=== PATIENT | male | born 1965 | race Two or more races ===

== ENCOUNTER 2021-01-10 20:09 | Emergency (ER) | payer MEDICAID, SELFPAY ==
[2021-01-10 20:12] VITALS: BP 127/78; PULSE 100; RESP 18; TEMP 36.8; O2SAT 96
[2021-01-10 20:42] LABS: Strep A Nucleic Acid Positive (Negative)
[2021-01-10 20:53] LABS: COVID-19 Test Negative (Negative); IDNOW Serial# 9DD0AD1C
[2021-01-10 21:02] LABS: Appearance Urine CLEAR; Color Urine STRAW; Glucose Urine UA >=1000 MG/DL (NEG); Leukocyte Esterase Urine NEG (NEG); Nitrite Urine NEG (NEG); Specific Gravity - Urine <= 1.005 (1.005-1.025); UACC Culture Trigger NO; Urine Blood 3+ (NEG); Urine Ketones NEG (NEG); Urine Protein NEG (NEG-TRACE)
[2021-01-10 21:11] LABS: Bacteria Urine 1+ /LPF; RBC Urine 30-49 /HPF (0); UACC CULT YES
--- NOTE | 2021-01-10 23:30 | ED.GENADULT ---
HPI - General Adult General Chief complaint: General Medical Stated complaint: Multiple complaints Time Seen by Provider: 01/10/21 23:09 Source: patient Mode of arrival: ambulatory Limitations: no limitations History of Present Illness HPI narrative: 55-year-old male who presents emergency department for evaluation of sore throat, productive cough, shortness of breath, painful bloody urination. The patient states he has been feeling sick for approximately 4-5 days states that he has pain on the right side of his throat and neck which is constant, sharp pain, 8/10 at its worst exacerbated by swallowing. Cough which is productive of black thick sputum, he denied any blood in the sputum. He states these had subjective fever and chills, he has also had cold sweats. He states that he has mild chest pain which is worse with coughing. He has also experienced shortness of breath and no dyspnea on exertion. Patient states that today he developed a pressure-like sensation in his bladder and he had painful bloody urine. Denied any penile discharge. The patient is vaccinated against COVID-19 and received the 2 shot Moderna vaccine. Related Data Previous Rx's Medication Instructions Recorded cephalexin 500 mg capsule 500 mg PO QID 10 Days #40 cap 01/10/21 Allergies Allergy/AdvReac Type Severity Reaction Status Date / Time enalapril [ENALAPRIL] Allergy Intermediate STOMACH Verified 01/10/21 20:11 PROBLEMS Review of Systems Review of Systems: Yes all other systems are reviewed and are negative [facility] Past Medical History [facility] Narrative: Past medical history: Diabetes mellitus, hypertension, bronchitis, H pylori, neuropathy, osteoarthritis, compression fractures, syphilis diagnosed and treated in 2004. Surgical history: Right knee surgery. Social history: The patient smokes 1 pack of cigarettes per day times 35 years. Denies alcohol use. The patient smokes 1 large tobacco rolled blunt marijuana cigarette per day. Medical History Arthritis Back pain Diabetes HTN (hypertension) Social History Social History Advance Directives: No Advance Directives Information Provided: No Physical Exam Vital Signs: Vital Signs: Last Vital Signs Temp 98.2 F 01/10/21 20:12 Pulse 100 01/10/21 20:12 Resp 18 01/10/21 20:12 BP 127/78 01/10/21 20:12 Pulse Ox 96 01/10/21 20:12 Body Mass Index 0.2 Const: General: cooperative and no acute distress Orientation/consciousness: oriented to person and oriented to place Limitations: no limitations HENMT: Head: Yes normal to inspection, Yes normocephalic and Yes atraumatic Ears: external ears normal General nose exam: Normal external nose present Face and sinus: Yes normal facial exam Mouth: Normal oral and palatal mucosa present Throat: Yes tonsils normal, Yes uvula midline and Yes abnormal tonsil (Bilateral exudates) Eyes: General: appearance normal, both eyes and all related structures Pupils: Equal, round and reactive pupils present Neck: Neck: Yes normal visual inspection, Yes no lymphadenopathy, Yes trachea midline and Yes supple Chest: Chest palpation & inspection: normal inspection of the chest and normal palpation of entire chest wall Resp: Effort & Inspection: normal respiratory effort and able to speak in complete sentences Auscultation: clear to auscultation bilaterally Cardio: Rate: regular rate Rhythm: regular rhythm Heart sounds: S1 normal heart sound present, S2 normal heart sound present and no murmurs GI: Inspection: Yes normal to inspection Palpation (GI): Soft to palpation, Tenderness to palpation present (GI) suprapubicly (Moderate) and no guarding Auscultation: normal bowel sounds : General: Yes no CVA tenderness Back/Spine/Pelvis: Back: no CVA tenderness Skin: General skin exam: no rashes or lesions noted Neuro: General: oriented to person and oriented to place Cranial nerves: Yes CN's II-XII intact bilaterally and Yes Equal, round and reactive pupils present Cognition (Neuro): normal cognition Motor exam (neuro): 5/5 motor strength present throughout Extrem: General: Yes normal to inspection Psych: Appearance: grossly normal Speech and movement: Normal speech and movement present Affect: normal affect Attitude: cooperative Thought process: Normal thought process present Thought content: Normal thought content present Course Course Course Narrative: 55-year-old male who presents emergency department with multiple complaints of productive cough, shortness of breath, sore throat, painful bloody urination. Patient has had symptoms for 4-5 days. Vital signs revealed a pulse of 100 otherwise unremarkable. Examination did reveal posterior erythema with exudates on his throat exam, patient does have suprapubic tenderness, lung exam was clear. Patient's COVID-19 test was negative. Patient's group A grp AMADA test was positive for group a strep suggested he might have strep pharyngitis. Patient's urinalysis revealed 3+ blood, negative leukocyte esterase negative nitrates, positive blood. Microscopic revealed up to 50 WBCs, up to 9 RBCs, 1+ bacteria. Given these findings, the patient will be treated with Keflex 500 mg 4 times a day for 10 days to treat streptococcal pharyngitis, urinary tract infection and bronchitis. The patient is sexually active and I did get a 2nd non clean catch urine for gonorrhea and chlamydia. The patient will need to follow-up with his PCP for this result. Patient was discharged home. The patient was given verbal and printed instructions prior to discharge. The patient was advised to follow-up with his PCP in 2 days and to return to the emergency department if his symptoms get worse or if he develops any new symptoms that are concerning to him. The patient was given verbal and printed instructions prior to discharge. Medical Decision Making Lab Data Labs: Lab Results 01/10/21 01/10/21 01/10/21 Range/Units 20:19 20:19 20:53 Urine Color STRAW Urine Appearance CLEAR Urine pH 6.0 (5.0-8.0) Ur Specific [place] <= 1.005 (1.005-1.025) Urine Protein NEG (NEG-TRACE) MG/DL Urine Glucose (UA) >=1000 H (NEG) MG/DL Urine Ketones NEG (NEG) MG/DL Urine Blood 3+ H (NEG) Urine Nitrite NEG (NEG) Ur Leukocyte Esterase NEG (NEG) Urine RBC 30-49 H (0) /HPF Urine WBC 5-9 H (0-4) /HPF Ur Squamous Epith Cells NONE /LPF Urine Bacteria 1+ /LPF COVID-19 (VELIA) Negative (Negative) COVID-19 Clin Com See Note S. pyogenes GrpA AMADA Positive A (Negative) Discharge Plan Discharge Clinical Impression: Acute streptococcal pharyngitis Acute bronchitis Qualifiers: Bronchitis organism: unspecified organism Qualified Code(s): J20.9 - Acute bronchitis, unspecified Urinary tract infection Qualifiers: Urinary tract infection type: site unspecified Hematuria presence: with hematuria Qualified Code(s): N39.0 - Urinary tract infection, site not specified Patient Disposition: Home, Self-Care Instructions: Urinary Tract Infection in Men (ED), Strep Throat (ED), Acute Bronchitis (ED) Additional Instructions: Your rapid strep test was positive suggesting that you have strep throat. Your urine was positive for red blood cells, slightly positive for white blood cells and positive for bacteria. Your COVID-19 test was negative. At this time I am going to treat you with Keflex 500 mg 4 times a day for 10 days. This antibiotic will treat strep throat, bronchitis and a urinary tract infection. Your urine was tested for gonorrhea and chlamydia (sexually transmitted diseases). This test will not come back today. You will need to check this test with your doctor or through the patient portal. Follow-up with your doctor in 2 days. Please return to the emergency department if your symptoms get worse or if you develop any symptoms that are concerning to you. Prescriptions: New cephalexin 500 mg capsule 500 mg PO QID 10 Days Qty: 40 RF: 0
[2021-01-11 10:24] LABS: CT PCR NOT DETECTED (Not Detect.); NG PCR NOT DETECTED (Not Detect.)
== END 2021-01-11 00:29 | disposition home or self-care (01) ==
PROVIDERS: Emergency Provider Emergency Medicine Emergency Medical Services
DX: J02.0 Streptococcal pharyngitis (principal); J20.9 Acute bronchitis, unspecified; N39.0 Urinary tract infection, site not specified; R05 Cough; R06.02 Shortness of breath; R30.0 Dysuria; Z20.822 Contact with and (suspected) exposure to COVID-19; Z79.899 Other long term (current) drug therapy
CPT/HCPCS: 36415; 81001; 81003; 87086; 87088; 87186; 87491; 87591; 87635; 87651; 99283

== ENCOUNTER 2021-04-16 22:58 | Emergency (ER) | payer MEDICAID, SELFPAY ==
[2021-04-16 23:08] VITALS: BP 136/76; PULSE 91; RESP 16; TEMP 37.6; O2SAT 98; BMI 25.7
[2021-04-16 23:35] LABS: Appearance Urine HAZY; Color Urine YELLOW; Glucose Urine UA NEG (NEG); Leukocyte Esterase Urine 2+ (NEG); Nitrite Urine NEG (NEG); Specific Gravity - Urine 1.015 (1.005-1.025); UACC Culture Trigger YES; Urine Blood 2+ (NEG); Urine Ketones NEG (NEG); Urine Protein NEG (NEG-TRACE)
[2021-04-16 23:41] LABS: Bacteria Urine 2+ /LPF; WBC Clumps Urine NOTED
[2021-04-17 01:20] LABS: CT PCR NOT DETECTED (Not Detect.); NG PCR NOT DETECTED (Not Detect.)
[2021-04-17 02:00] VITALS: BP 128/72; PULSE 84; RESP 12; TEMP 37.6; O2SAT 98
--- NOTE | 2021-04-17 03:40 | ED.MALEGU ---
HPI - Male Genitourinary General Chief complaint: Urogenital-Male Stated complaint: rt side lower abd pain and lump Time Seen by Provider: 04/17/21 03:26 Source: patient Limitations: no limitations History of Present Illness HPI Narrative: This is a 56-year-old male who complains of penile discharge, and also notes that when he has ejaculated today, there was pinkish appearing pus. The patient denies any fever. He has noted that it is difficult for him to try to hold his urine for about the last month and that he has to go to the bathroom immediately. He denies any dysuria. He denies any sexual partner, has been with the same person for 35 years. He has some mild right testicular pain but denies any swelling. He said he has some pain that radiates to his right lower abdomen. He notes he does feel a pressure sensation when he tries to hold in his urine, has some discomfort at the end of ejaculations. He had similar symptoms in the past and was put on antibiotics and referred to urologist but due to an error with his address, ended up not being able to follow-up with the urologist. Related Data Previous Rx's Medication Instructions Recorded cephalexin 500 mg capsule 500 mg PO QID 10 Days #40 cap 01/10/21 sulfamethoxazole 800 1 tab PO BID #60 tab 04/17/21 mg-trimethoprim 160 mg tablet (Bactrim DS) Allergies Allergy/AdvReac Type Severity Reaction Status Date / Time enalapril [ENALAPRIL] Allergy Intermediate STOMACH Verified 01/12/21 14:35 PROBLEMS Review of Systems Constitutional: Constitutional: Denies chills and Denies fever(s) Cardiovascular: Cardiovascular: Reports no additional cardiovascular complaints Respiratory: Respiratory: Reports no additional respiratory complaints Gastrointestinal: Gastrointestinal: Denies nausea and Denies vomiting Genitourinary: Genitourinary: Reports hematospermia ( Pus in urine patient shows a photograph which shows a pink material) and Denies dysuria Neurologic: Denies Sensory deficit (Neuro) [facility] Past Medical History Medical History (Updated 04/17/21 @ 03:49 by Romeo Pace MD) Arthritis Back pain Diabetes HTN (hypertension) Social History Social History (System 01/12/21 @ 14:35 by Pia Agosto) Alcohol intake: unknown Patient Tobacco Use Status: Tobacco use Unknown Use of substances other than those prescribed or required for medical reasons: Unknown Advance Directives: No Advance Directives Information Provided: No Physical Exam Vital Signs: Vital Signs: Last Vital Signs Temp 99.6 F 04/16/21 23:08 Pulse 91 04/16/21 23:08 Resp 16 04/16/21 23:08 BP 136/76 04/16/21 23:08 Pulse Ox 98 04/16/21 23:08 BMI result Body Mass Index 25.7 Const: General: cooperative, no acute distress and alert Orientation/consciousness: patient oriented x3 HENMT: Head: Yes normal to inspection Eyes: General: appearance normal, both eyes and all related structures Eyelids: Yes eyelids normal Conjunctivae: conjunctivae normal Pupils: Equal, round and reactive pupils present Neck: Neck: Yes normal visual inspection and Yes supple Chest: Chest palpation & inspection: normal inspection of the chest Resp: Effort & Inspection: normal respiratory effort Auscultation: clear to auscultation bilaterally Cardio: Rate: regular rate Rhythm: regular rhythm Heart sounds: S1 normal heart sound present, S2 normal heart sound present, no gallops, no murmurs and no rubs GI: Palpation (GI): Soft to palpation, nontender and Other GI palpation findings present (Non-distended) Auscultation: normal bowel sounds : Male General Exam: Yes normal external exam Penis: normal penis and uncircumcised Scrotum: scrotum normal Testes: Testes normal and testicular tenderness ( mild right) Skin: General skin exam: no rashes or lesions noted Neuro: General: patient oriented x3, no focal motor deficits and CN's II-XI intact bilaterally Cranial nerves: Yes Equal, round and reactive pupils present Cognition (Neuro): normal cognition Motor exam (neuro): 5/5 motor strength present throughout Sensory Exam: No Sensory deficit (Neuro) Extrem: General: Yes normal to inspection and Yes no pedal edema Psych: Appearance: grossly normal Affect: normal affect MDM - Male Genitourinary MDM Narrative Medical decision making narrative: patient with difficulty holding his urine for about a month, and with abnormal Ejaculate, some purulent urethral discharge by history. Urinalysis does show RBCs and white blood cells as well. Urine culture has been sent. Patient was told in the past he might of bladder cancer and was referred to Urology but could not follow up. Patient may have prostatitis given his abnormal ejaculations. will treat with Bactrim for prostatitis and give urology follow-up Lab Data Attestation: I reviewed the patient's lab results. Labs: Lab Results 04/16/21 04/16/21 Range/Units 23:27 23:27 Urine Color YELLOW Urine Appearance HAZY Urine pH 6.0 (5.0-8.0) Ur Specific [place] 1.015 (1.005-1.025) Urine Protein NEG (NEG-TRACE) MG/DL Urine Glucose (UA) NEG (NEG) MG/DL Urine Ketones NEG (NEG) MG/DL Urine Blood 2+ H (NEG) Urine Nitrite NEG (NEG) Ur Leukocyte Esterase 2+ H (NEG) Urine RBC 10-14 H (0) /HPF Urine WBC 15-29 H (0-4) /HPF Urine WBC Clumps NOTED Ur Squamous Epith Cells NONE /LPF Urine Bacteria 2+ /LPF Chlam trachomat DNA PCR NOT DETECTED (Not Detect.) N.gonorrhoeae DNA (PCR) NOT DETECTED (Not Detect.) Discharge Plan Discharge Clinical Impression: Acute prostatitis Patient Disposition: Home, Self-Care Instructions: Prostatitis (ED) Additional Instructions: Return for any new or worsened symptoms such as fever, worsened abdominal pain, testicular pain or swelling. Follow-up with urology. Take antibiotics as prescribed. Prescriptions: New sulfamethoxazole-trimethoprim [Bactrim DS] 800-160 mg tablet 1 tab PO BID Qty: 60 RF: 0 No Action cephalexin 500 mg capsule 500 mg PO QID 10 Days Qty: 40 RF: 0 Referrals: Henry Becerra MD [Physician] - 2 days
[2021-04-17] MEDS: Sulfamethox/Trimeth 800/160 TABLET 1 TAB PO (04:13)
== END 2021-04-17 04:12 | disposition home or self-care (01) ==
PROVIDERS: Emergency Provider Emergency Medicine; PCP Internal Medicine
DX: N41.0 Acute prostatitis (principal); R10.9 Unspecified abdominal pain; E11.9 Type 2 diabetes mellitus without complications; I10 Essential (primary) hypertension
CPT/HCPCS: 81001; 87086; 87088; 87186; 87491; 87591; 99283; 99284

== ENCOUNTER → 2021-05-15 09:05 | Outpatient (BNVA) | payer MEDICAID, SELFPAY | PROVIDERS: PCP Internal Medicine; Visit Provider Urology | DX: N41.9 Inflammatory disease of prostate, unspecified (principal); N40.1 Benign prostatic hyperplasia with lower urinary tract symptoms; N13.8 Other obstructive and reflux uropathy; R39.11 Hesitancy of micturition | CPT/HCPCS: 99202 ==

== ENCOUNTER 2021-08-07 10:37 | Outpatient (REF) | payer MEDICAID, SELFPAY ==
[2021-08-07 12:17] LABS: PSA,Total (Free>4and<10) 0.53 ng/mL (0.00-4.00)
== END 2021-08-07 10:38 | disposition home or self-care (01) ==
LOC: HO.LAB 10:37
PROVIDERS: Visit Provider Urology
DX: Z12.5 Encounter for screening for malignant neoplasm of prostate (principal); N13.8 Other obstructive and reflux uropathy; N40.1 Benign prostatic hyperplasia with lower urinary tract symptoms; N41.9 Inflammatory disease of prostate, unspecified
CPT/HCPCS: 36415; 84153

== ENCOUNTER → 2021-08-13 10:14 | Outpatient (BNVA) | payer MEDICAID, SELFPAY | PROVIDERS: PCP Internal Medicine; Visit Provider Urology | DX: N40.1 Benign prostatic hyperplasia with lower urinary tract symptoms (principal); N13.8 Other obstructive and reflux uropathy; R39.11 Hesitancy of micturition; R35.1 Nocturia; E11.69 Type 2 diabetes mellitus with other specified complication; N52.1 Erectile dysfunction due to diseases classified elsewhere | CPT/HCPCS: 99212 ==

== ENCOUNTER 2021-09-30 00:40 | Emergency (ER) | payer MEDICAID, SELFPAY ==
--- NOTE | ~2021-09-30 | CT_ITS ---
EXAMINATION: CT ABDOMEN AND PELVIS WITH CONTRAST CLINICAL INFORMATION: Perirectal abscess COMPARISON: Previous CT of the abdomen and pelvis June 2018 TECHNIQUE: Multidetector volumetric images were obtained from the superior aspect of the liver through the pubic symphysis following administration 100 mL of Omnipaque 350 intravenous contrast. Sagittal and coronal reformatted images were obtained on the technologist's workstation. Oral contrast: No This CT examination was performed using dose optimization techniques as appropriate, variously including the following: *Automated exposure control *Adjustment of mA and/or kV according to patient size (this includes techniques or standardized protocols for targeted exams where dose is matched to indication/reason for exam; i.e. extremities or head) *Use of iterative reconstruction technique DLP: 592 mGy-cm FINDINGS: LUNG BASES: There is a 6 mm heterogeneous nodule in the posterior costophrenic sulcus of the right lower lobe axial image 83 series 4 that is stable. The lung bases are otherwise clear. LIVER, GALLBLADDER, AND BILIARY TREE: The liver is normal in size, shape, and attenuation. There are calcifications in the medial segment of the left lobe of the liver. No other focal liver findings. Normal gallbladder. No biliary duct dilatation. PANCREAS: Unremarkable. SPLEEN: Unremarkable. ADRENAL GLANDS: There is fullness of the left adrenal gland. The right adrenal gland is normal. KIDNEYS AND URETERS: The kidneys are normal in size, shape, and attenuation. No hydronephrosis, hydroureter, or calculi seen. No perinephric stranding. BLADDER: The bladder is not optimally distended. There is suggestion of diffuse bladder wall thickening. GASTROINTESTINAL TRACT: There is stranding of the left ischiorectal fat. No perirectal abscess is seen. There is stranding of the fat adjacent to the left side of the anus. There is a focal fluid collection in the more inferior left buttock Just deep to the skin measuring 2 cm axial image 88 series 3. There is a some ill-defined increased soft tissue seen connecting is likely a subcutaneous abscess to the inferior left posterior anus at the 4-6 o'clock axes for example axial image 86 series 3 questionable for perianal abscess. There is stool throughout the colon suggestive of constipation. Small and large bowel are otherwise unremarkable. There is stranding of the more inferior subcutaneous fat in the buttock and perineum bilaterally. ABDOMINAL WALL: No significant hernia is appreciated. LYMPH NODES: Normal. VASCULAR: Unremarkable. PELVIC VISCERA: Unremarkable. OSSEOUS STRUCTURES: Unremarkable. CT/CT abdomen pelvis w con IMPRESSION: Left perianal and buttock abscess. Constipation. Diffusely thickened bladder wall. Correlation with urinalysis recommended. Stable 6 mm heterogeneous right lower lobe nodule from 2019. Stable fullness of the left adrenal gland. Fleischner guidelines were followed.
[2021-09-30 01:00] VITALS: BP 141/92; PULSE 92; RESP 18; TEMP 36.6; O2SAT 97; BMI 24.4
[2021-09-30 01:25] LABS: Hematocrit 34.1 % (42.0-52.0); Hemoglobin 11.6 g/dl (14.0-18.0); Mean Corpuscular Hemoglobin 32.9 pg (27.0-33.0); Mean Corpuscular Volume 96.6 fL (80.0-98.0); Mean Platelet Volume 8.6 fL (9.4-12.4); Platelet Count 197 X10*3/uL (160-400); Red Blood Count 3.53 X10*6/uL (4.60-5.80); Red Cell Distribution Width 12.8 % (11.0-16.0); White Blood Count 11.5 X10*3/uL (4.8-10.8)
[2021-09-30 01:57] LABS: Alanine Aminotransferase 10 U/L (0-40); Albumin Level 4.1 g/dL (3.5-5.0); Alkaline Phosphatase 50 U/L (39-117); Anion Gap 9 (12-20); Aspartate Amino Transferase 18 U/L (5-37); Bilirubin Total 0.4 mg/dL (0.0-1.0); Blood Urea Nitrogen 6 mg/dL (9-16); Calcium 9.2 mg/dL (8.4-10.2); Carbon Dioxide 32 mmol/L (22-29); Chloride 100 mmol/L (96-108); Creatinine Clr Calc Pharmacy 77.6; Estimated Glomerular Filt Rate > 60; Glucose Random 74 mg/dL (60-115); Potassium 4.3 mmol/L (3.3-5.1); Sodium 137 mmol/L (135-145); Total Protein 6.6 g/dL (6.5-8.0)
[2021-09-30 03:57] VITALS: BP 155/79; PULSE 86; TEMP 36.8; O2SAT 97
[2021-09-30 06:00] VITALS: BP 155/79; PULSE 86; RESP 18; TEMP 36.8; O2SAT 97
--- NOTE | 2021-09-30 06:33 | ED.SKABFB ---
HPI - Skin/Abscess/Foreign Bdy General Chief complaint: General Medical Stated complaint: Cist near rectum, diabetic Time Seen by Provider: 09/30/21 06:33 Source: patient Mode of arrival: ambulatory Limitations: no limitations History of Present Illness MD complaint: abscess/boil and lesion Onset (ago): day(s) (4) Tetanus up to date: yes Location: buttocks Severity: moderate Quality: aching and constant Pain Consistency: constant Relieving factors: other (laying on stomach) Exacerbating factors: palpation and movement Context: other (hx of pilonidal cyst in past but this is deeper and in rectum) Associated symptoms: chills and other (elevated blood sugar) Treatments prior to arrival: none Related Data Home Medications Medication Instructions Recorded Confirmed atorvastatin 10 mg tablet 10 mg PO DAILY 05/15/21 buprenorphine 8 mg-naloxone 2 mg 15 mg sublingual DAILY 05/15/21 sublingual film (Suboxone) flash glucose sensor (FreeStyle #1 ea 05/15/21 Ivory 2 Sensor) gabapentin 300 mg capsule 0 mg PO 05/15/21 insulin glargine 100 unit/mL (3 32 unit subcut QAM 05/15/21 mL) subcutaneous pen (Lantus Solostar U-100 Insulin) amlodipine 5 mg tablet 5 mg PO DAILY 08/13/21 pantoprazole 40 mg tablet,delayed 40 mg PO DAILY 08/13/21 release Previous Rx's Medication Instructions Recorded cephalexin 500 mg capsule 500 mg PO QID 10 days #40 caps 01/10/21 sulfamethoxazole 800 1 tab PO BID #60 tabs 04/17/21 mg-trimethoprim 160 mg tablet (Bactrim DS) levofloxacin 500 mg tablet 500 mg PO DAILY #10 tabs 04/21/21 finasteride 5 mg tablet 5 mg PO DAILY 90 days #90 tabs 05/15/21 doxazosin 4 mg tablet 4 mg PO BEDTIME 90 days #90 tabs 08/13/21 tadalafil 10 mg tablet 10 mg PO ONCE PRN sexual activity 08/13/21 30 days #30 tabs amoxicillin 875 mg-potassium 1 tab PO BID #14 tabs 09/30/21 clavulanate 125 mg tablet docusate sodium 100 mg capsule 100 mg PO BID 10 days #20 caps 09/30/21 (Colace) ondansetron 4 mg disintegrating 4 mg PO Q8H PRN nausea and 09/30/21 tablet vomiting #20 tabs Allergies Allergy/AdvReac Type Severity Reaction Status Date / Time enalapril [ENALAPRIL] Allergy Intermediate STOMACH Verified 08/13/21 10:21 PROBLEMS Review of Systems Review of Systems: Constitutional : No Fever, pos Chills ENT/Mouth : No sore throat, No Rhinorrhea Eyes: No Eye Pain, No Swelling, No Redness Cardiovascular : No Chest Pain, No SOB Respiratory : No Cough, No Sputum Gastrointestinal : No Nausea, No Vomiting, No Diarrhea, No abdominal Pain Genitourinary : No Dysuria, No Hematuria Musculoskeletal : No joint pain, No Myalgias, No Joint Swelling Skin : pos Skin Lesions, positive skin rash Neuro : No Weakness, No Numbness, No Headache Psych : No Anxiety, No Depression Heme/Lymph: No Bruising, No Bleeding,No Lymphadenopathy Endocrine : No Polyuria, No Polydipsia All other systems reviewed and are negative [facility] Past Medical History Attestation statement: The following information was validated with the patient. Medical History Arthritis Back pain Diabetes HTN (hypertension) Social History Social History Alcohol intake: unknown Patient Tobacco Use Status: Tobacco use Unknown Use of substances other than those prescribed or required for medical reasons: Unknown Advance Directives: No Advance Directives Information Provided: Yes Physical Exam Vital Signs: Vital Signs: Last Vital Signs Temp 97.8 F 09/30/21 08:13 Pulse 70 09/30/21 08:13 Resp 17 09/30/21 08:13 BP 131/71 09/30/21 08:13 Pulse Ox 98 09/30/21 08:13 O2 Del Method 09/30/21 08:13 BMI result Body Mass Index 24.4 Appearance: Alert. Oriented X3. No acute distress. Eyes: Pupils equal, round and reactive to light. ENT: Pharynx normal. Neck: Normal inspection. Neck supple. CVS: Normal heart rate and rhythm. Pulses normal. Respiratory: No respiratory distress. Breath sounds normal. Abdomen: Soft and non-tender. Rectal: on left side of rectum into the rectum is a 3cm fluctuant mass with ttp noted and ttp along buttock itself no crepitus felt Skin: Skin warm and dry. Normal skin color. Normal skin turgor. Extremities: No lower extremity edema. No calf ttp Neuro: Oriented X 3. No motor deficit. No sensory deficit. Course Course Course Narrative: Dr. Caballero to I/D patient at bedside stable for DC will follow up in 1 week MDM - Skin/Abscess/Foreign Bdy MDM Narrative Medical decision making narrative: 56 yo male with hx of BPH, DM here with c/o 4 days of worsening abscess in rectal area with BS in 300s at home and chills. Hx of pilonidal but patient reports this is much lower than baseline for him - at this time given location which appears to go into the rectum itself will obtain labs, hydrate, IV morphine for pain, IV zosyn, CT scan to evaluate the depth of the abscess. Possible surgical consultation. Lab Data Result diagrams: 09/30/21 01:20 09/30/21 01:20 Labs: Lab Results 09/30/21 09/30/21 09/30/21 Range/Units 01:20 01:20 07:01 WBC 11.5 H (4.8-10.8) X10*3/uL RBC 3.53 L (4.60-5.80) X10*6/uL Hgb 11.6 L (14.0-18.0) g/dl Hct 34.1 L (42.0-52.0) % MCV 96.6 (80.0-98.0) fL MCH 32.9 (27.0-33.0) pg MCHC 34.0 (31.0-36.0) g/dl RDW 12.8 (11.0-16.0) % Plt Count 197 (160-400) X10*3/uL MPV 8.6 L (9.4-12.4) fL Absolute Nucleated RBC 0.000 (0.0-0.012) X10*3/uL Nucleated RBC % (auto) 0.0 (0.0-0.2) /100WBC Sodium 137 (135-145) mmol/L Potassium 4.3 (3.3-5.1) mmol/L Chloride 100 (96-108) mmol/L Carbon Dioxide 32 H (22-29) mmol/L Anion Gap 9 L (12-20) BUN 6 L (9-16) mg/dL Creatinine 1.20 (0.5-1.4) mg/dL Estim Creat Clear Calc 77.6 Estimated GFR > 60 Random Glucose 74 (60-115) mg/dL Lactic Acid 0.4 L (0.5-2.0) mmol/L Calcium 9.2 (8.4-10.2) mg/dL Total Bilirubin 0.4 (0.0-1.0) mg/dL AST 18 (5-37) U/L ALT 10 (0-40) U/L Alkaline Phosphatase 50 (39-117) U/L Total Protein 6.6 (6.5-8.0) g/dL Albumin 4.1 (3.5-5.0) g/dL Discharge Plan Discharge Clinical Impression: Abscess, perianal Patient Disposition: Home, Self-Care Instructions: Anorectal Abscess and Anal Fistula (ED), Abscess (ED) Additional Instructions: return to ED for any worsening symptoms or concerns it is okay to shower do not go in pool, hot tub, murphy, ocean packing to come out in 2 days if it doesn't come out return to ED in 48 hours follow up with surgery in [address]/CT abdomen pelvis w con IMPRESSION: Left perianal and buttock abscess. Constipation. Diffusely thickened bladder wall. Correlation with urinalysis recommended. Stable 6 mm heterogeneous right lower lobe nodule from 2019. Stable fullness of the left adrenal gland. ? Fleischner guidelines were followed. IN REGARDS TO THICKENED BLADDER WALL YOU NEED TO FOLLOW UP WITH UROLOGY IN THE FUTURE - DR. BECERRA Prescriptions: New docusate sodium [Colace] 100 mg capsule 100 mg PO BID 10 Days Qty: 20 0RF ondansetron 4 mg tablet,disintegrating 4 mg PO Q8H PRN (Reason: nausea and vomiting) Qty: 20 0RF amoxicillin-pot clavulanate 875-125 mg tablet 1 tab PO BID Qty: 14 0RF No Action cephalexin 500 mg capsule 500 mg PO QID 10 Days Qty: 40 0RF sulfamethoxazole-trimethoprim [Bactrim DS] 800-160 mg tablet 1 tab PO BID Qty: 60 0RF levofloxacin 500 mg tablet 500 mg PO DAILY Qty: 10 0RF buprenorphine-naloxone [Suboxone] 8-2 mg film 15 mg sublingual DAILY (DME) FreeStyle Ivory 2 Sensor Kit See Rx Instructions .ROUTE .MEDSUPPLY Qty: 1 Rx Instructions: As directed Lantus Solostar U-100 Insulin 100 unit/mL (3 mL) insulin pen 32 unit subcut QAM gabapentin 300 mg capsule 0 mg PO atorvastatin 10 mg tablet 10 mg PO DAILY finasteride 5 mg tablet 5 mg PO DAILY 90 Days Qty: 90 1RF amlodipine 5 mg tablet 5 mg PO DAILY pantoprazole 40 mg tablet,delayed release (DR/EC) 40 mg PO DAILY tadalafil 10 mg tablet 10 mg PO ONCE PRN (Reason: sexual activity) 30 Days Qty: 30 1RF Rx Instructions: as needed doxazosin 4 mg tablet 4 mg PO BEDTIME 90 Days Qty: 90 1RF Referrals: Cedrick Caballero MD [Physician] - 1 week Henry Becerra MD [Physician] - 2 weeks Stand Alone Forms: Work/School Release
[2021-09-30 07:22] LABS: Lactic Acid 0.4 mmol/L (0.5-2.0)
[2021-09-30] MEDS: Lidocaine 4 % Cream KIT 1 APPL TOPICAL (07:44)
[2021-09-30] MEDS: Piperacillin Sodium/Tazobactam 3.375 GM in 0.9 % Sodium Chloride 50 ML IV (07:45)
[2021-09-30] MEDS: ondansetron HCL 4 MG/2 ML VIAL IVPUSH (07:45)
[2021-09-30 08:13] VITALS: BP 131/71; PULSE 70; RESP 17; TEMP 36.6; O2SAT 98
[2021-09-30] MEDS: Morphine Sulfate 4 MG/ML CARTRIDGE IVPUSH (08:51)
[2021-09-30] MEDS: 0.9 % Sodium Chloride 1,000 ML 999 ML IV (08:52)
[2021-09-30] MEDS: iohexoL 300 MG/ML 100 ML INFUS..BTL IV (08:57)
--- NOTE | 2021-09-30 10:15 | PM.CNGS ---
History of Present Illness Consult details Consult date: 09/30/21 Requesting physician: Ml Vaughn Narrative: 56 year old male patient presenting with complaints of pain anal skin. This developed over the last several days and is increasing in severity. He reports a prior history of an infection in this location which required incision and drainage. He also reports a previous history of a pilonidal cyst abscess which required drainage. His bowels have been normal and denies any bleeding per rectum. He did report elevation of his glucose levels at home with difficulty controlling this with his medications. He felt feverish at home but had a normal temperature in the emergency department. CT of the abdomen and pelvis was obtained which revealed an abscess in the left perianal skin. Surgical consultation is requested for incision and drainage. Review of Systems Review of Systems: Yes all other systems are reviewed and are negative Gastrointestinal: Gastrointestinal: Reports GI cramping Comments: Rectal pain PMFSH Past Medical History Medical History Arthritis Back pain Diabetes HTN (hypertension) Social History Social History Alcohol intake: unknown Patient Tobacco Use Status: Tobacco use Unknown Use of substances other than those prescribed or required for medical reasons: Unknown Advance Directives: No Advance Directives Information Provided: Yes Meds Allergies Allergy/AdvReac Type Severity Reaction Status Date / Time enalapril [ENALAPRIL] Allergy Intermediate STOMACH Verified 08/13/21 10:21 PROBLEMS Home Medications Medication Instructions Recorded Confirmed Last Taken Type atorvastatin 10 mg tablet 10 mg PO DAILY 05/15/21 Unknown History buprenorphine 8 mg-naloxone 2 mg 15 mg sublingual DAILY 05/15/21 Unknown History sublingual film (Suboxone) flash glucose sensor (FreeStyle #1 ea 05/15/21 Unknown History Ivory 2 Sensor) gabapentin 300 mg capsule 0 mg PO 05/15/21 Unknown History insulin glargine 100 unit/mL (3 32 unit subcut QAM 05/15/21 Unknown History mL) subcutaneous pen (Lantus Solostar U-100 Insulin) amlodipine 5 mg tablet 5 mg PO DAILY 08/13/21 Unknown History pantoprazole 40 mg tablet,delayed 40 mg PO DAILY 08/13/21 Unknown History release Physical Exam Vital Signs: Vital Signs: Last Vital Signs Temp 97.8 F 09/30/21 08:13 Pulse 70 09/30/21 08:13 Resp 17 09/30/21 08:13 BP 131/71 09/30/21 08:13 Pulse Ox 98 09/30/21 08:13 O2 Del Method 09/30/21 08:13 BMI result Body Mass Index 24.4 Const: General: no acute distress and well developed Nutritional Appearance: well nourished Orientation/consciousness: patient oriented x3 Limitations: no limitations HEENT: Head: Yes normocephalic and Yes atraumatic Ears: hearing grossly normal bilaterally Neck: Neck: Yes normal visual inspection Resp: Effort & Inspection: normal respiratory effort, no audible wheezes, no cough and no respiratory distress GI: Other: Left perianal skin with palpable area of fluctuance measuring approximately 3 cm in diameter, tender to palpation. Surrounding erythema consistent with underlying abscess. Inspection: Yes normal to inspection Palpation (GI): Soft to palpation, nontender, no guarding and not rigid Skin: Other: Warm, dry, no rash Neuro: General: patient oriented x3 Extrem: Other: No edema Results Labs Result diagrams: 09/30/21 01:20 09/30/21 01:20 Labs: Abnormal lab results 09/30/21 09/30/21 09/30/21 Range/Units 01:20 01:20 07:01 WBC 11.5 H (4.8-10.8) X10*3/uL RBC 3.53 L (4.60-5.80) X10*6/uL Hgb 11.6 L (14.0-18.0) g/dl Hct 34.1 L (42.0-52.0) % MPV 8.6 L (9.4-12.4) fL Carbon Dioxide 32 H (22-29) mmol/L Anion Gap 9 L (12-20) BUN 6 L (9-16) mg/dL Lactic Acid 0.4 L (0.5-2.0) mmol/L Short CBC 09/30/21 Range/Units 01:20 WBC 11.5 H (4.8-10.8) X10*3/uL Hgb 11.6 L (14.0-18.0) g/dl Hct 34.1 L (42.0-52.0) % Plt Count 197 (160-400) X10*3/uL BMP 09/30/21 01:20 Sodium 137 Potassium 4.3 Chloride 100 Carbon Dioxide 32 H BUN 6 L Creatinine 1.20 Calcium 9.2 Liver Function 09/30/21 Range/Units 01:20 Total Bilirubin 0.4 (0.0-1.0) mg/dL AST 18 (5-37) U/L ALT 10 (0-40) U/L Alkaline Phosphatase 50 (39-117) U/L Albumin 4.1 (3.5-5.0) g/dL All other labs normal. Assessment and Plan (1) Abscess, perianal: Status: Acute Procedures Date of Service Date of Service: 09/30/21 Abscess I/D Additional comments: Preoperative diagnosis: Left perianal abscess Postoperative diagnosis: Same Procedure: Incision and drainage of perianal abscess Surgeon: Cedrick Caballero MD Market Research Analyst: No physician Anesthesia: Local Indications for procedure: 56-year-old male patient presenting with a painful area of swelling in the left perianal skin. Physical examination and CT of the abdomen confirmed an abscess in the left perianal skin. Operative findings: Large abscess left perianal Specimen: Wound culture Estimated blood loss: 2 mL Complications: None Procedure details: Procedure was performed in the emergency department. Patient was placed in a left lateral decubitus position. After ensuring informed consent and confirming the site of surgery the skin was prepped with Betadine and draped in a sterile fashion. Local anesthesia consisting of 1% lidocaine plain was then infiltrated over the abscess in the left perianal skin. An 11 blade was then used to incise the abscess. A large purulence collection was then drained. Wounds were cultured. Wounds were then irrigated with saline solution. The abscess cavity was then packed using 1/4 inch iodoform packing. Sterile dressings were then applied. The patient tolerated the procedure well. He was discharged to home in stable condition.
== END 2021-09-30 11:07 | disposition home or self-care (01) ==
PROVIDERS: Emergency Provider Emergency Medicine
DX: K61.0 Anal abscess (principal); E11.65 Type 2 diabetes mellitus with hyperglycemia; I10 Essential (primary) hypertension
CPT/HCPCS: 36415; 46050; 74177; 80053; 83605; 85027; 87040; 87071; 87205; 96361; 96365; 96375; 99284; J2270; J2405; J2543; Q9967

== ENCOUNTER → 2021-10-23 10:14 | Outpatient (BNVA) | payer MEDICAID, SELFPAY | PROVIDERS: PCP Internal Medicine; Visit Provider Surgery | DX: K61.1 Rectal abscess (principal) | CPT/HCPCS: 46050; 99212 ==

== ENCOUNTER 2022-02-16 08:53 | Outpatient (REF) | payer MEDICAID, SELFPAY ==
[2022-02-16 17:01] LABS: Urine Cytology See Pathology rpt
== END 2022-02-16 08:54 | disposition home or self-care (01) ==
LOC: HO.LAB 08:53
PROVIDERS: PCP Internal Medicine; Visit Provider Urology
DX: N40.1 Benign prostatic hyperplasia with lower urinary tract symptoms (principal); N13.8 Other obstructive and reflux uropathy; R39.15 Urgency of urination; R39.12 Poor urinary stream; R35.1 Nocturia; R31.29 Other microscopic hematuria; N52.9 Male erectile dysfunction, unspecified; E11.9 Type 2 diabetes mellitus without complications
CPT/HCPCS: 52000; 88112; 99212

== ENCOUNTER → 2022-10-12 15:33 | Outpatient (BNVA) | payer OTHER, SELFPAY | PROVIDERS: Visit Provider Urology | DX: N40.1 Benign prostatic hyperplasia with lower urinary tract symptoms (principal); N13.8 Other obstructive and reflux uropathy; R39.15 Urgency of urination; E11.69 Type 2 diabetes mellitus with other specified complication; N52.1 Erectile dysfunction due to diseases classified elsewhere; N41.9 Inflammatory disease of prostate, unspecified | CPT/HCPCS: 51798; 99212 ==

== ENCOUNTER 2023-06-10 05:35 | Emergency (ER) | payer OTHER, SELFPAY ==
--- NOTE | 2023-06-10 | ECG_ITS ---
Test Reason : GEN MED Blood Pressure : / mmHG Vent. Rate : 093 BPM Atrial Rate : 093 BPM P-R Int : 120 ms QRS Dur : 094 ms QT Int : 346 ms P-R-T Axes : 082 088 069 degrees QTc Int : 430 ms Normal sinus rhythm Normal ECG When compared with ECG of 26-AUG-2017 10:05, No significant change was found Referred By: Generic ED Physician Electronically Signed By:ROBE HANKINS MD
--- NOTE | ~2023-06-10 | XR_ITS ---
EXAMINATION: XR CHEST 2 VIEW CLINICAL INFORMATION: Cough COMPARISON: 08/26/2017 TECHNIQUE: PA and lateral views of the chest obtained. FINDINGS: The lungs are hyperinflated with lucency in the upper lung zones and retrosternal region and some flattening of the diaphragms. There are no pleural effusions. The cardiomediastinal silhouette is unremarkable. XR/XR chest 2V IMPRESSION: 1. 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 2. No acute disease.
[2023-06-10 05:56] VITALS: BP 150/85; PULSE 87; RESP 20; TEMP 36.9; O2SAT 92; BMI 20.6
[2023-06-10 06:19] LABS: MANUAL DIFF FLAG NO
[2023-06-10 06:20] LABS: Basophils Percent Auto 0.1 % (0-2); Eosinophils Percent Auto 0.1 % (0-4); Hematocrit 35.1 % (42.0-52.0); Hemoglobin 12.6 g/dl (14.0-18.0); Imm Gran Abs Auto 0.07 X10*3/uL (0.00-0.03); Imm Gran Pct Auto 0.4 % (0.0-0.4); Lymphocytes Absolute Auto 1.2 X10*3/uL (1.2-4.9); Lymphocytes Percent Auto 7.3 % (20-40); Mean Corpuscular HGB Conc 35.9 g/dl (31.0-36.0); Mean Corpuscular Hemoglobin 32.6 pg (27.0-33.0); Mean Corpuscular Volume 90.7 fL (80.0-98.0); Neutrophils Absolute Auto 14.4 x10*3/uL (2.0-8.3); Neutrophils Percent Auto 86.1 % (45-73); Platelet Count 261 X10*3/uL (160-400); Red Blood Count 3.87 X10*6/uL (4.60-5.80); Red Cell Distribution Width 13.2 % (11.0-16.0); White Blood Count 16.7 X10*3/uL (4.8-10.8)
[2023-06-10 06:36] LABS: Alanine Aminotransferase 7 U/L (0-40); Albumin Level 3.8 g/dL (3.5-5.0); Alkaline Phosphatase 68 U/L (39-117); Anion Gap 14 (12-20); Aspartate Amino Transferase 12 U/L (5-37); Bilirubin Total 0.4 mg/dL (0.0-1.0); Blood Urea Nitrogen 21 mg/dL (9-16); Calcium 9.9 mg/dL (8.4-10.2); Carbon Dioxide 27 mmol/L (22-29); Chloride 94 mmol/L (96-108); Creatinine Clr Calc Pharmacy 67.2; Estimated Glomerular Filt Rate > 60; Glucose Random 266 mg/dL (60-115); Potassium 3.8 mmol/L (3.3-5.1); Sodium 131 mmol/L (135-145); Total Protein 7.5 g/dL (6.5-8.0)
[2023-06-10 06:44] LABS: COVID-19 Test Negative (Negative); IDNOW Serial# 08D9AD1C; IDNOW Serial# 152EDE1D; Influenza A Negative (Negative); Influenza B2 Negative (Negative)
--- NOTE | 2023-06-10 08:07 | ED.GENADULT ---
HPI - General Adult General Chief complaint: General Medical Stated complaint: difficulty, breathing, diabetic Time Seen by Provider: 06/10/23 08:07 History of Present Illness HPI narrative: The patient is a 58-year-old male who says he has felt unwell for about 3 or 4 days with a lot of coughing. He feels short of breath. He has pain from coughing. He says that he has had vomiting that he feels is related to his coughing and his sputum production. He has had significant sputum production. He has had chills and sweats. He does not know if he has had a fever. He feels like he is lost several lb over the last several days because he has not been eating and he has been vomiting. He does not really have any abdominal pain. No pain or swelling in his legs. He felt quite weak and drove himself to the emergency room this morning. The patient is a smoker. Related Data Home Medications Medication Instructions Recorded Confirmed atorvastatin 10 mg tablet 10 mg PO DAILY 05/15/21 10/12/22 buprenorphine 8 mg-naloxone 2 mg 15 mg sublingual DAILY 05/15/21 10/12/22 sublingual film (Suboxone) flash glucose sensor (FreeStyle #1 ea 05/15/21 10/12/22 Ivory 2 Sensor kit) gabapentin 300 mg capsule 0 mg PO 05/15/21 10/12/22 insulin glargine 100 unit/mL (3 32 unit subcut QAM 05/15/21 10/12/22 mL) subcutaneous pen (Lantus Solostar U-100 Insulin) amlodipine 5 mg tablet 5 mg PO DAILY 08/13/21 10/12/22 pantoprazole 40 mg tablet,delayed 40 mg PO DAILY 08/13/21 10/12/22 release flash glucose scanning reader #1 ea 02/15/22 10/12/22 (FreeStyle Ivory 2 [place]) Previous Rx's Medication Instructions Recorded cephalexin 500 mg capsule 500 mg PO QID 10 days #40 caps 01/10/21 sulfamethoxazole 800 1 tab PO BID #60 tabs 04/17/21 mg-trimethoprim 160 mg tablet (Bactrim DS) levofloxacin 500 mg tablet 500 mg PO DAILY #10 tabs 04/21/21 tadalafil 10 mg tablet 10 mg PO ONCE PRN sexual activity 08/13/21 30 days #30 tabs amoxicillin 875 mg-potassium 1 tab PO BID #14 tabs 09/30/21 clavulanate 125 mg tablet docusate sodium 100 mg capsule 100 mg PO BID 10 days #20 caps 09/30/21 (Colace) ondansetron 4 mg disintegrating 4 mg PO Q8H PRN nausea and 09/30/21 tablet vomiting #20 tabs oxybutynin chloride 10 mg 10 mg PO DAILY 90 days #90 tabs 10/12/22 tablet,extended release 24 hr doxazosin 4 mg tablet 4 mg PO BEDTIME 90 days #90 tabs 04/12/23 albuterol sulfate 90 mcg/actuation 2 puff inhalation Q4-6H PRN 06/10/23 aerosol inhaler shortness of breath or wheezing #8.5 grams cefuroxime axetil 500 mg tablet 500 mg PO BID 8 days #16 tabs 06/10/23 doxycycline monohydrate 100 mg 100 mg PO BID 8 days #16 caps 06/10/23 capsule Allergies Allergy/AdvReac Type Severity Reaction Status Date / Time enalapril [ENALAPRIL] Allergy Intermediate STOMACH Verified 04/01/22 14:32 PROBLEMS Review of Systems Review of Systems: Yes all other systems are reviewed and are negative PMFSH Past Medical History Medical History Arthritis Back pain Diabetes HTN (hypertension) Surgical History History of arthroplasty of right knee History of detached retina repair History of incision and drainage (10/23/21) Social History Social History Alcohol intake: unknown Patient Tobacco Use Status: Tobacco use Unknown Physical Exam ED Vital Signs: Vital Signs - 24 hr 06/10/23 05:56 06/10/23 09:03 06/10/23 11:45 Temperature 98.4 F 98.2 F Pulse Rate 87 110 H 100 Respiratory Rate 20 20 20 Blood Pressure 150/85 H 160/87 H Pulse Oximetry 92 98 Oxygen Delivery Method Room Air Room Air BMI result Body Mass Index 20.6 Const Other: The patient has a slim 58-year-old HENMT Other: Face is symmetrical, mucous membranes moist Eyes Other: Pupils are round equal, conjunctivae clear Neck Other: No JVD Resp Other: The patient has decent air entry bilaterally. Air entry is somewhat coarse without courtney crackles. Possibly some mild scattered wheezes Cardio Rate: regular rate Rhythm: regular rhythm Heart sounds: S1 normal heart sound present and S2 normal heart sound present GI Other: The abdomen is flat and soft and nontender. Skin Other: Skin is dry and unremarkable Neuro Other: The patient is awake, alert, oriented, appropriate. Grossly neurologically intact. Extrem Other: No calf swelling or tenderness Medications Administered Discontinued Medications Generic Name Dose Route Start Last Admin Trade Name Freq PRN Reason Stop Dose Admin Acetaminophen 975 mg 06/10/23 08:44 06/10/23 08:54 Acetaminophen 325 Mg Tablet PO 06/10/23 08:45 975 mg ONCE ONE Administration Albuterol Sulfate 4 puff 06/10/23 08:53 06/10/23 08:56 Albuterol Sulfate 90 Mcg 8 Gm Inhaler INHALE 06/10/23 08:54 4 puff ONCE ONE Administration Doxycycline Monohydrate 100 mg 06/10/23 11:31 06/10/23 11:46 Doxycycline Monohydrate 100 Mg Capsule PO 06/10/23 11:32 100 mg ONCE ONE Administration Sodium Chloride 1,000 mls @ 999 mls/hr 06/10/23 08:45 06/10/23 11:19 Ns IV 06/10/23 09:45 Infused .Q1H1M MARCO Infusion Ceftriaxone Sodium 1 gm/ 50 mls @ 100 mls/hr 06/10/23 09:58 06/10/23 10:54 Sodium Chloride IV 06/10/23 10:27 100 mls/hr ONCE ONE Administration Ibuprofen 400 mg 06/10/23 08:44 06/10/23 08:54 Ibuprofen 400 Mg Tablet PO 06/10/23 08:45 400 mg ONCE ONE Administration Medical Decision Making Medical Decision Making MDM Narrative: The patient is a very pleasant 58-year-old who has been ill for about 3 days with cough and shortness of breath. He has a high white count and high CRP. His chest x-ray does not show any definite pneumonia. He has some wheezes on exam. He felt considerably better after symptomatic treatment with IV fluids, albuterol, acetaminophen, and ibuprofen. Given how much better he felt I felt he could be discharged. Additionally his oxygenation was good. Given his high white count and CRP he was given a dose of IV ceftriaxone. He was also given an oral dose of doxycycline. He will be discharged on doxycycline and cefuroxime. I suspect he has some degree of an atypical pneumonia. Alternatively this could be a COPD bronchitis syndrome. He did not seem sufficiently short of breath to require steroids. The patient has a regular primary care doctor and will follow up with his PCP. Lab Data 06/10/23 06:13 06/10/23 06:13 Labs: Lab Results 06/10/23 06/10/23 Range/Units 06:13 10:37 WBC 16.7 H (4.8-10.8) X10*3/uL RBC 3.87 L (4.60-5.80) X10*6/uL Hgb 12.6 L (14.0-18.0) g/dl Hct 35.1 L (42.0-52.0) % MCV 90.7 (80.0-98.0) fL MCH 32.6 (27.0-33.0) pg MCHC 35.9 (31.0-36.0) g/dl RDW 13.2 (11.0-16.0) % Plt Count 261 D (160-400) X10*3/uL MPV 9.0 L (9.4-12.4) fL Immature Gran % (Auto) 0.4 (0.0-0.4) % Neut % (Auto) 86.1 H (45-73) % Lymph % (Auto) 7.3 L (20-40) % [place] % (Auto) 6.0 (2-11) % Eos % (Auto) 0.1 (0-4) % Baso % (Auto) 0.1 (0-2) % Lymph # (Auto) 1.2 (1.2-4.9) X10*3/uL [place] # (Auto) 1.0 (0.1-1.2) X10*3/uL Eos # (Auto) 0.0 (0.0-0.4) X10*3/uL Baso # (Auto) 0.0 (0.0-0.2) X10*3/uL Abs Immat Gran (auto) 0.07 H (0.00-0.03) X10*3/uL Absolute Neuts (auto) 14.4 H (2.0-8.3) x10*3/uL Absolute Nucleated RBC 0.000 (0.0-0.012) X10*3/uL Nucleated RBC % (auto) 0.0 (0.0-0.2) /100WBC Sodium 131 L (135-145) mmol/L Potassium 3.8 (3.3-5.1) mmol/L Chloride 94 L (96-108) mmol/L Carbon Dioxide 27 (22-29) mmol/L Anion Gap 14 (12-20) BUN 21 H (9-16) mg/dL Creatinine 1.20 (0.5-1.4) mg/dL Estim Creat Clear Calc 67.2 Estimated GFR > 60 Random Glucose 266 H (60-115) mg/dL Lactic Acid 0.9 (0.5-2.0) mmol/L Calcium 9.9 D (8.4-10.2) mg/dL Total Bilirubin 0.4 (0.0-1.0) mg/dL AST 12 (5-37) U/L ALT 7 (0-40) U/L Alkaline Phosphatase 68 (39-117) U/L Troponin I High Sens 19.3 (<3.5-35.0) ng/L C-Reactive Protein 15.37 H (< or = 0.50) mg/dL B-Natriuretic Peptide 61 (<100) pg/mL Total Protein 7.5 (6.5-8.0) g/dL Albumin 3.8 (3.5-5.0) g/dL Procalcitonin 4.26 ng/mL COVID-19 ([facility]IA) Negative (Negative) COVID-19 Clin Com See Note Influenza Type A ([facility]ADA) Negative (Negative) Influenza Type B ([facility]ADA) Negative (Negative) Influenza A & B Note See Note Independent Interpretation I performed an independent interpretation of an: EKG Interpretation: EKG at 06:04 shows normal sinus rhythm at 93 beats per minute. No acute findings. Discharge Plan Discharge Clinical Impression: Atypical pneumonia Patient Disposition: Home, Self-Care Additional Instructions: I think he might have some degree of a mild pneumonia. You have been started on antibiotics. Please take your next doses of antibiotics as evening. You have two antibiotics each which should be taken 2 times a day (approximately every 12 hours). Use albuterol 2-4 puffs every 4 hours as needed for any cough or breathing problems. Drink lot of fluids. Please contact your regular doctor today to make a follow up appointment next week. Do your best to reduce or eliminate smoking. Return to the emergency room if worse. Prescriptions: New cefuroxime axetil 500 mg tablet 500 mg PO BID 8 Days Qty: 16 0RF doxycycline monohydrate 100 mg capsule 100 mg PO BID 8 Days Qty: 16 0RF albuterol sulfate 90 mcg/actuation HFA aerosol inhaler 2 puff inhalation Q4-6H PRN (Reason: shortness of breath or wheezing) Qty: 8.5 0RF No Action doxazosin 4 mg tablet 4 mg PO BEDTIME 90 Days Qty: 90 1RF cephalexin 500 mg capsule 500 mg PO QID 10 Days Qty: 40 0RF sulfamethoxazole-trimethoprim [Bactrim DS] 800-160 mg tablet 1 tab PO BID Qty: 60 0RF levofloxacin 500 mg tablet 500 mg PO DAILY Qty: 10 0RF docusate sodium [Colace] 100 mg capsule 100 mg PO BID 10 Days Qty: 20 0RF ondansetron 4 mg tablet,disintegrating 4 mg PO Q8H PRN (Reason: nausea and vomiting) Qty: 20 0RF amoxicillin-pot clavulanate 875-125 mg tablet 1 tab PO BID Qty: 14 0RF (DME) FreeStyle Ivory 2 [place] Misc See Rx Instructions .ROUTE .MEDSUPPLY Qty: 1 Rx Instructions: As directed oxybutynin chloride 10 mg tablet extended release 24hr 10 mg PO DAILY 90 Days Qty: 90 1RF buprenorphine-naloxone [Suboxone] 8-2 mg film 15 mg sublingual DAILY (DME) FreeStyle Ivory 2 Sensor Kit See Rx Instructions .ROUTE .MEDSUPPLY Qty: 1 Rx Instructions: As directed Lantus Solostar U-100 Insulin 100 unit/mL (3 mL) insulin pen 32 unit subcut QAM gabapentin 300 mg capsule 0 mg PO atorvastatin 10 mg tablet 10 mg PO DAILY amlodipine 5 mg tablet 5 mg PO DAILY pantoprazole 40 mg tablet,delayed release (DR/EC) 40 mg PO DAILY tadalafil 10 mg tablet 10 mg PO ONCE PRN (Reason: sexual activity) 30 Days Qty: 30 1RF Rx Instructions: as needed Referrals: Chelly Casas MD [Primary Care Provider] - (COPD/pneumonia) Interventions: ED Discharge Assessment Last Done: 06/10/23 11:57 Discharge Date/Time: 06/10/23 11:58
[2023-06-10] MEDS: 0.9 % Sodium Chloride 1,000 ML 999 ML IV (08:52)
[2023-06-10] MEDS: Ibuprofen 400 MG TABLET PO (08:54)
[2023-06-10] MEDS: Acetaminophen 325 MG TABLET 975 MG PO (08:54)
[2023-06-10 08:56] LABS: C Reactive Protein 15.37 mg/dL (< or = 0.50)
[2023-06-10] MEDS: Albuterol Sulfate 90 MCG 8 GM INHALER 4 PUFF INHALE (08:56)
[2023-06-10 09:03] VITALS: PULSE 110; RESP 20; O2SAT 97
[2023-06-10 09:06] LABS: Troponin-I High Sensitivity 19.3 ng/L (<3.5-35.0)
[2023-06-10 09:25] LABS: B Type Natriuretic Peptide 61 pg/mL (<100)
[2023-06-10] MEDS: cefTRIAXone sodium 1 GM in 0.9 % Sodium Chloride 50 ML IV (10:54)
[2023-06-10 11:02] LABS: Lactic Acid 0.9 mmol/L (0.5-2.0)
[2023-06-10 11:24] LABS: Procalcitonin 4.26 ng/mL
[2023-06-10 11:45] VITALS: BP 160/87; PULSE 100; RESP 20; TEMP 36.8; O2SAT 98
[2023-06-10] MEDS: Doxycycline Monohydrate 100 MG CAPSULE PO (11:46)
== END 2023-06-10 11:58 | disposition home or self-care (01) ==
PROVIDERS: Emergency Provider Emergency Medicine; PCP Internal Medicine
DX: J18.9 Pneumonia, unspecified organism (principal); R05.9 Cough, unspecified; R06.02 Shortness of breath; R07.9 Chest pain, unspecified; R68.83 Chills (without fever); R61 Generalized hyperhidrosis; I10 Essential (primary) hypertension; J45.909 Unspecified asthma, uncomplicated; E11.9 Type 2 diabetes mellitus without complications; Z11.52 Encounter for screening for COVID-19; Z79.899 Other long term (current) drug therapy
CPT/HCPCS: 36415; 71046; 80053; 83605; 83880; 84145; 84484; 85025; 86140; 87040; 87502; 87635; 93005; 94640; 94664; 96361; 96374; 99284; 99285; J0696

== ENCOUNTER → 2023-06-10 06:04 | Outpatient (BNV) | payer OTHER, SELFPAY | PROVIDERS: Emergency Provider Emergency Medicine; PCP Internal Medicine; Visit Provider Internal Medicine Cardiovascular Disease | DX: R06.02 Shortness of breath (principal) | CPT/HCPCS: 93010 ==

== ENCOUNTER 2023-06-15 10:40 | Outpatient (AMB) | payer OTHER, SELFPAY ==
--- NOTE | 2023-06-15 10:41 | A.OFFVIS_ITS ---
Intake Intake Visit Reasons: 6m follow up Intake Note: Patient presents today for telehealth follow-up Meds- Tadalafil, Oxybutinin Allergies to Antibiotic- No Known Allergies Blood Thinner- None Patient is on antibiotics post ER visit, with Pneumonia [employer] Required: No Allergies enalapril [ENALAPRIL] Allergy (Intermediate, Verified 06/15/23 10:44) STOMACH PROBLEMS Medication List - Last Reconciled 06/15/23 by Henry Becerra MD albuterol sulfate 90 mcg/actuation 2 puffs inhalation Q4-6H PRN amlodipine 5 mg PO DAILY amoxicillin-pot clavulanate 875-125 mg 1 tab PO BID atorvastatin 10 mg PO DAILY buprenorphine-naloxone 8-2 mg (Suboxone) 15 mg sublingual DAILY cefuroxime axetil 500 mg PO BID 8 days cephalexin 500 mg PO QID 10 days docusate sodium (Colace) 100 mg PO BID 10 days doxazosin 4 mg PO BEDTIME 90 days doxycycline monohydrate 100 mg PO BID 8 days flash glucose scanning reader (MELA SciencesStyle Ivory 2 [place]) As directed flash glucose sensor (FreeStyle Ivory 2 Sensor kit) As directed gabapentin 0 mg PO insulin glargine (Lantus Solostar U-100 Insulin) 32 units subcut QAM levofloxacin 500 mg PO DAILY ondansetron 4 mg PO Q8H PRN oxybutynin chloride ER 10 mg PO DAILY 90 days pantoprazole 40 mg PO DAILY sulfamethoxazole-trimethoprim 800-160 mg (Bactrim DS) 1 tab PO BID tadalafil 10 mg PO ONCE PRN 30 days HPI HPI Comments History of Present Illness Details Aleshia is a pleasant male. He is a patient of Dr Casas. He is seen for the following urologic conditions - recurrent prostatitis - lower urinary tract symptoms - OAB - erectile dysfunction Telemedicine Evaluation 15 min Consultation Kuona Calli Video attempted Happy with current performance with bladder medications Combination doxazosin with oxybutynin Minimal issues with erections after increasing walking distance 6 month follow-up Recurrent prostatitis Seen in emergency room March 2021 E coli Bactrim resistant diagnosis Responded to Levaquin Prior episodes in 2009 Lower urinary tract symptoms Progressive obstructive symptoms Gradual weakness of stream for past 2-3 years Current medications include doxazosin Cystoscopy 02/06 open prostate, trabeculated bladder with cellules PSA 08/07 0.5 Urinary urgency and frequency respond to combination doxazosin and oxybutynin Erectile dysfunction associated with diabetes Longstanding diabetic Tadalafil 10 mg PFSH Medical History Back pain Arthritis HTN (hypertension) Diabetes Surgical History History of incision and drainage (10/23/21) History of detached retina repair History of arthroplasty of right knee Social History Alcohol intake: unknown Patient Tobacco Use Status: Tobacco use Unknown Assessment & Plan Assessment & Plan (1) Erectile dysfunction associated with type 2 diabetes mellitus: Code(s): E11.69 - Type 2 diabetes mellitus with other specified complication; N52.1 - Erectile dysfunction due to diseases classified elsewhere (2) Urinary urgency: Code(s): R39.15 - Urgency of urination (3) Urinary hesitancy: Code(s): R39.11 - Hesitancy of micturition (4) Nocturia more than twice per night: Code(s): R35.1 - Nocturia Plan Six-month follow-up PSA Orders: Orders Prostate Specific Antigen 6 Months N13.8 - Other obstructive and reflux uropathy, N40.1 - Benign prostatic hyperplasia with lower urinary tract symptoms Medications: Refilled oxybutynin chloride ER 10 mg PO DAILY 90 tabs 1RF 90 days doxazosin 4 mg PO BEDTIME 90 tabs 1RF 90 days N13.8 - Other obstructive and reflux uropathy, N40.1 - Benign prostatic hyperplasia with lower urinary tract symptoms, N41.9 - Inflammatory disease of prostate, unspecified Patient Instructions: Imaging studies, laboratory and physical exam results were discussed and reviewed in detail. No major barriers to patient understanding were identified. An opportunity to ask questions regarding the treatment plan was provided. All questions were answered. The patient expressed understanding and agreement with the above treatment plan. The patient is aware they should contact our office by phone for worsening of their current condition or the appearance of new urologic symptoms. Compliance is encouraged with any medications and followup testing that is ordered. It is a privilege to participate in the urologic care of your patient. If you have any questions or concerns regarding treatment for the above conditions, or other urologic issues, please do not hesitate to contact me. The office telephone contact is [phone]. This note is constructed using voice recognition software. While every effort has been made to ensure accuracy steam setter errors may have been included. Yours sincerely, Dr Henry Becerra MD, [facility] - Urology Providers of Expert, Compassionate Care for the Genitourinary System Telehealth Telehealth Location of provider rendering services: practice address Location of patient: address on file Patient Identification confirmed using: Name, : Yes Telehealth method: video Patient verbally consented to treatment: Yes Patient verbally consented to billing insurance company: Yes Patient informed of any privacy concerns related to visit: Yes Coding Level of Care Code Tele Est Pt Level 3 (81866) Diagnoses Erectile dysfunction associated with type 2 diabetes mellitus E11.69; N52.1 Urinary urgency R39.15 Urinary hesitancy R39.11 Nocturia more than twice per night R35.1
== END 2023-06-15 11:30 | disposition home or self-care (01) ==
LOC: HO.HUSH 10:40
PROVIDERS: PCP Internal Medicine; Visit Provider Urology
DX: E11.69 Type 2 diabetes mellitus with other specified complication (principal); N52.1 Erectile dysfunction due to diseases classified elsewhere; R39.15 Urgency of urination; R39.11 Hesitancy of micturition; R35.1 Nocturia
CPT/HCPCS: 99213

== ENCOUNTER → 2023-06-15 10:40 | Outpatient (BNVA) | payer OTHER, SELFPAY | PROVIDERS: PCP Internal Medicine; Visit Provider Urology ==

== ENCOUNTER 2023-06-24 02:24 | Emergency (ER) | payer OTHER, SELFPAY ==
[2023-06-24] VITALS (7 sets, daily range): BP systolic 128–165; BP diastolic 61–85; PULSE 107–135; RESP 7–20; TEMP 36.5–36.7; O2SAT 95–100; BMI 32.0
--- NOTE | ~2023-06-24 | XR_ITS ---
EXAMINATION: XR CHEST CLINICAL INFORMATION: Chest pain, shortness of breath COMPARISON: 06/10/2023 TECHNIQUE: Frontal view of the chest was obtained. FINDINGS: The lungs are clear with no focal consolidation. No evidence of pneumothorax, pulmonary edema, or pleural effusions. Cardiac size is within normal limits. Calcification is present at the aortic arch. No acute osseous findings are seen. XR/XR chest 1V IMPRESSION: No acute cardiopulmonary findings.
--- NOTE | ~2023-06-24 | CT_ITS ---
EXAMINATION: CT ABDOMEN AND PELVIS WITHOUT CONTRAST CLINICAL INFORMATION: Upper abdominal pain, diarrhea, vomiting COMPARISON: 09/30/2021 TECHNIQUE: Multidetector volumetric imaging was performed from the superior aspect of the liver through the pubic symphysis. Sagittal and coronal reformatted images were obtained on the technologist's workstation. This CT examination was performed using dose optimization techniques as appropriate, variously including the following: *Automated exposure control *Adjustment of mA and/or kV according to patient size (this includes techniques or standardized protocols for targeted exams where dose is matched to indication/reason for exam; i.e. extremities or head) *Use of iterative reconstruction technique DLP: 424 mGy-cm FINDINGS: LUNG BASES: There is a 7 mm groundglass density focus at the right lung base on image 102/767, without significant change from prior. LIVER, GALLBLADDER, AND BILIARY TREE: The liver is normal in size, shape, and attenuation. Redemonstrated calcifications in the left hepatic lobe, without significant change from prior. No biliary ductal dilatation is present. Gallbladder is grossly unremarkable. PANCREAS: No well delineated on this noncontrast exam. Diffuse edema throughout the mesentery, including in the peripancreatic region. SPLEEN: Unremarkable. ADRENAL GLANDS: Unremarkable. KIDNEYS AND URETERS: Excreted contrast is present in the pelvicalyceal systems and ureters. No hydronephrosis bilaterally. BLADDER: Distended with excreted contrast material. GASTROINTESTINAL TRACT: No evidence of bowel obstruction. Assessment for wall thickening in some segments of the colon is limited due to luminal collapse and absence of intravenous contrast. However, there is suspected to the mural prominence of the collapsed splenic flexure and descending colon in the left abdomen which could represent a colitis in the proper clinical setting. Appendix is not well delineated. There is diffuse haziness throughout the mesentery suggesting the territory edema. ABDOMINAL WALL: No significant hernia is appreciated. LYMPH NODES: Limited evaluation in the absence of intravenous contrast and lack of intra-abdominal fat. VASCULAR: Scattered atherosclerotic calcifications. PELVIC VISCERA: Unremarkable. OSSEOUS STRUCTURES: Mild multilevel endplate osteophytes in the spine. CT/CT abdomen pelvis wo IV con IMPRESSION: 1. Limited evaluation due to lack of intra-abdominal fat and absence of intravenous contrast. Mural prominence of the collapsed splenic flexure and descending colon in the left abdomen, which could represent a colitis in the proper clinical setting. 2. Diffuse edema throughout the mesentery, nonspecific though extending into the peripancreatic region. Correlation with laboratory values is recommended to rule out pancreatitis. 3. Redemonstrated 7 mm groundglass density focus at the right lung base, similar to 09/30/2021. According to the UPDATED 2017 Fleischner Society recommendations, follow-up chest CT in approximately 2 years is recommended.
--- NOTE | ~2023-06-24 | CT_ITS ---
EXAMINATION: CT ANGIOGRAM OF THE CHEST WITH AND WITHOUT CONTRAST (CT PULMONARY ANGIOGRAM FOR PE) CLINICAL INFORMATION: Reason for Exam L sided chest pain, hypoxia, tachycardia COMPARISON: Chest x-ray from the same day TECHNIQUE: Prior to contrast administration, noncontrast localization images were obtained. Subsequently, multidetector volumetric imaging was performed from the thoracic inlet to below the diaphragms following the administration of 70 mL Omnipaque 350 intravenous contrast. No contrast reaction reported Sagittal, coronal, and MIP oblique sagittal reformatted images were obtained on the CT workstation, uploaded to PACS, and reviewed. This CT examination was performed using dose optimization techniques as appropriate, variously including the following: *Automated exposure control *Adjustment of mA and/or kV according to patient size (this includes techniques or standardized protocols for targeted exams where dose is matched to indication/reason for exam; i.e. extremities or head) *Use of iterative reconstruction technique Total exam dose-length product 290 mGy-cm FINDINGS: QUALITY OF STUDY/CONTRAST BOLUS: Satisfactory. PULMONARY ARTERIES: No filling defects are seen in the main, lobar, or segmental pulmonary arteries to suggest the presence of pulmonary emboli. There is limited evaluation of the distal vasculature due to suboptimal bolus timing. THORACIC AORTA: No aneurysm. LUNG: Biapical scarring and mild emphysema. No regions of consolidation bilaterally. There is a 3 mm right middle lobe nodule anterolaterally and image 331/[id number]. PLEURA: No pleural effusion or pneumothorax. MEDIASTINUM: The visualized thyroid gland is unremarkable. No mediastinal lymphadenopathy is seen. Cardiac size is within normal limits; no pericardial effusion. No evidence of septal bowing or right heart strain. CORONARY ARTERY CALCIFICATION: Suspect mild coronary artery calcification, suboptimally assessed due to motion artifact. CHEST WALL/AXILLA: No axillary or internal mammary lymphadenopathy. OSSEOUS STRUCTURES: Multilevel degenerative endplate changes in the spine. UPPER ABDOMEN: Calcifications in the left hepatic lobe appear similar to CT abdomen 09/30/2021. Possible wall thickening at the splenic flexure of the colon with surrounding edema in the left upper quadrant, suboptimally assessed on this exam. No reflux of contrast into the hepatic veins to suggest elevated right heart pressures. CT/CT angio chest PE protocol IMPRESSION: 1. No pulmonary embolus identified. Limited evaluation of the distal vasculature due to suboptimal bolus timing. 2. Possible wall thickening at the splenic flexure of the colon with surrounding edema in the left upper quadrant, suboptimally assessed on this exam. If clinically warranted, this could be further assessed with CT abdomen/pelvis. 3. Right middle lobe 3 mm lung nodule, nonspecific. According to the UPDATED 2017 Fleischner Society recommendations, the advised follow-up imaging for solid nodules < 6 mm is: LOW RISK PATIENT: No routine follow-up. HIGH RISK PATIENT: Optional CT at 12 months. VTE: negative.
--- NOTE | 2023-06-24 02:34 | ECG_ITS ---
Test Reason : SOB Blood Pressure : / mmHG Vent. Rate : 123 BPM Atrial Rate : 123 BPM P-R Int : 130 ms QRS Dur : 094 ms QT Int : 318 ms P-R-T Axes : 080 097 068 degrees QTc Int : 455 ms Sinus tachycardia Rightward axis Borderline ECG When compared with ECG of 10-JUN-2023 06:04, No significant change was found Referred By: Generic ED Physician Electronically Signed By:Gabriel Zeng
[2023-06-24 02:51] LABS: MANUAL DIFF FLAG NO
[2023-06-24 02:52] LABS: Basophils Percent Auto 0.3 % (0-2); Eosinophils Percent Auto 0.1 % (0-4); Hematocrit 32.3 % (42.0-52.0); Hemoglobin 11.4 g/dl (14.0-18.0); Imm Gran Abs Auto 0.05 X10*3/uL (0.00-0.03); Imm Gran Pct Auto 0.4 % (0.0-0.4); Lymphocytes Absolute Auto 1.5 X10*3/uL (1.2-4.9); Lymphocytes Percent Auto 12.8 % (20-40); Mean Corpuscular HGB Conc 35.3 g/dl (31.0-36.0); Mean Corpuscular Hemoglobin 32.9 pg (27.0-33.0); Mean Corpuscular Volume 93.4 fL (80.0-98.0); Mean Platelet Volume 9.1 fL (9.4-12.4); Monocytes Absolute Auto 0.5 X10*3/uL (0.1-1.2); Monocytes Percent Auto 4.5 % (2-11); Neutrophils Absolute Auto 9.7 x10*3/uL (2.0-8.3); Neutrophils Percent Auto 81.9 % (45-73); Platelet Count 294 X10*3/uL (160-400); Red Blood Count 3.46 X10*6/uL (4.60-5.80); Red Cell Distribution Width 13.9 % (11.0-16.0); White Blood Count 11.8 X10*3/uL (4.8-10.8)
[2023-06-24 03:10] LABS: Anion Gap 20 (12-20); Blood Urea Nitrogen 18 mg/dL (9-16); Calcium 9.3 mg/dL (8.4-10.2); Carbon Dioxide 23 mmol/L (22-29); Chloride 100 mmol/L (96-108); Creatinine Clr Calc Pharmacy 91.8; Estimated Glomerular Filt Rate > 60; Glucose Random 345 mg/dL (60-115); Potassium 3.8 mmol/L (3.3-5.1); Sodium 139 mmol/L (135-145)
[2023-06-24 03:15] LABS: Troponin-I High Sensitivity 17.1 ng/L (<3.5-35.0)
--- NOTE | 2023-06-24 03:35 | ED_ITS ---
HPI - Chest Pain General Chief Complaint: Chest Pain Stated Complaint: Sob/Weakness Time Seen by Provider: 06/24/23 03:32 Source: patient and old records reviewed Mode of arrival: ambulatory Limitations: no limitations History of Present Illness HPI narrative: 58 yo male with PMH of BPH, prostatitis, DM, HTN was treated for atypical pneumonia on 06/10 with ceftin and doxy. He comes in with c/o episode 2 hours prior to arrival felt he had to have BM it was hard to do then had several episodes of diarrhea felt nauseated after very hot and sweaty with chills and developed L chest pain dyspnea and L arm pain. No travel, sick contacts, procedures. He has never had this before. He has no known problems with his heart. Does not use drugs. The patient did not tell me he was on suboxone. He states he only takes half a dose. He denies he could be in withdrawal MD complaint: chest pain Onset (ago): hour(s) (2) Timing of current episode: episodic Prior episodes: No Onset: during rest Pain location: left chest Pain radiation: left arm Severity: moderate Quality: sharp Relieving factors: nothing Exacerbating factors: inspiration, palpation and movement Context: recent illness Associated symptoms: nausea, vomiting, dyspnea and fever Treatment prior to arrival: none Related Data Home Medications Medication Instructions Recorded Confirmed atorvastatin 10 mg tablet 10 mg PO DAILY 05/15/21 06/15/23 buprenorphine 8 mg-naloxone 2 mg 15 mg sublingual DAILY 05/15/21 06/15/23 sublingual film (Suboxone) flash glucose sensor (FreeStyle #1 ea 05/15/21 06/15/23 Ivory 2 Sensor kit) gabapentin 300 mg capsule 0 mg PO 05/15/21 06/15/23 insulin glargine 100 unit/mL (3 32 unit subcut QAM 05/15/21 06/15/23 mL) subcutaneous pen (Lantus Solostar U-100 Insulin) amlodipine 5 mg tablet 5 mg PO DAILY 08/13/21 06/15/23 pantoprazole 40 mg tablet,delayed 40 mg PO DAILY 08/13/21 06/15/23 release flash glucose scanning reader #1 ea 02/15/22 06/15/23 (FreeStyle Ivory 2 [place]) Previous Rx's Medication Instructions Recorded cephalexin 500 mg capsule 500 mg PO QID 10 days #40 caps 01/10/21 sulfamethoxazole 800 1 tab PO BID #60 tabs 04/17/21 mg-trimethoprim 160 mg tablet (Bactrim DS) levofloxacin 500 mg tablet 500 mg PO DAILY #10 tabs 04/21/21 tadalafil 10 mg tablet 10 mg PO ONCE PRN sexual activity 08/13/21 30 days #30 tabs amoxicillin 875 mg-potassium 1 tab PO BID #14 tabs 09/30/21 clavulanate 125 mg tablet docusate sodium 100 mg capsule 100 mg PO BID 10 days #20 caps 09/30/21 (Colace) ondansetron 4 mg disintegrating 4 mg PO Q8H PRN nausea and 09/30/21 tablet vomiting #20 tabs albuterol sulfate 90 mcg/actuation 2 puff inhalation Q4-6H PRN 06/10/23 aerosol inhaler shortness of breath or wheezing #8.5 grams cefuroxime axetil 500 mg tablet 500 mg PO BID 8 days #16 tabs 06/10/23 doxycycline monohydrate 100 mg 100 mg PO BID 8 days #16 caps 06/10/23 capsule doxazosin 4 mg tablet 4 mg PO BEDTIME 90 days #90 tabs 06/15/23 oxybutynin chloride 10 mg 10 mg PO DAILY 90 days #90 tabs 06/15/23 tablet,extended release 24 hr Allergies Allergy/AdvReac Type Severity Reaction Status Date / Time enalapril [ENALAPRIL] Allergy Intermediate STOMACH Verified 06/15/23 10:44 PROBLEMS Review of Systems 2 Review of Systems: Constitutional : No Weight loss, No Fever, pos Chills ENT/Mouth : No sore throat, No Rhinorrhea Eyes: No Eye Pain, No Swelling Cardiovascular : pos Chest Pain, pos SOB, no Dyspnea on Exertion, No Orthopnea, No Edema, No Palpitations Respiratory : No Cough, No Sputum Gastrointestinal : pos Nausea, pos Vomiting, pos Diarrhea, No abdominal Pain, No Hematochezia, No Melena Genitourinary : No Dysuria, No Urinary Frequency Musculoskeletal : No joint pain, pos Myalgias, No Joint Swelling Skin : No Skin Lesions, No rash Neuro : pos Weakness, No Numbness, No Dizziness, No Headache Psych : No Anxiety/Panic, No Depression Heme/Lymph: No Bruising, No Lymphadenopathy Endocrine : No Polyuria, No Polydipsia All other systems reviewed and are negative [facility] Past Medical History Attestation statement: The following information was validated with the patient. Source: old records reviewed Medical History Back pain Arthritis HTN (hypertension) Diabetes Surgical History History of incision and drainage (10/23/21) History of detached retina repair History of arthroplasty of right knee Social History Social History Alcohol intake: unknown Patient Tobacco Use Status: Tobacco use Unknown Smoked in Last 30 Days: Yes Use of substances other than those prescribed or required for medical reasons: Yes Substance Use Type: Marijuana Advance Directives: No Advance Directives Information Provided: No Physical Exam 2 Vital Signs: Vital Signs: Last Vital Signs Temp 97.9 F 06/24/23 06:14 Pulse 113 H 06/24/23 06:14 Resp 17 06/24/23 06:14 BP 150/71 H 06/24/23 06:14 Pulse Ox 97 06/24/23 06:14 O2 Del Method Room Air 06/24/23 06:14 BMI result Body Mass Index 32.0 Appearance: Alert. Oriented X3. active vomiting mild acute distress. Eyes: Pupils equal, round and reactive to light. ENT: Pharynx dry MM Neck: Normal inspection. Neck supple. CVS: tachycardic heart rate and rhythm. Pulses normal. Respiratory: No respiratory distress. Breath sounds normal. Abdomen: Soft and minimally mild diffuse ttp no mass or pulsation felt Skin: Skin warm and dry. pale skin color. Normal skin turgor. Extremities: No lower extremity edema. Neuro: Oriented X 3. No motor deficit. No sensory deficit. Course Course Course Narrative: pain not improved after IV morphine, HR decreased as well CT scan of abdomen ordered given IV CTA:PE he has pain now in lower back and abdomen his pain is all over the place at this time Reevaluation(s) Reevaluation #1: repeat IV pain medications ordered. He does appear to be in withdrawal, skin clammy, anxious, restless, agitated, n/v/d diffuse pain, piloerection adamantly denies withdrawal possibility Reevaluation #2: no fevers, no sig elevation in WBC count, no diarrhea here doubt infectious colitis at this time seems better with dilaudid will reasess if no improvement may need admission for intractable n/v Reevaluation #3: still has nausea, IV droperidol ordered, very shaky, he states he ate out at restaurant before this. He denies any chance of withdrawal denies ETOH abuse. Will need admission for inractable n/v. Will hold off antibiotics at this time suspect viral infection and not bacterial infection as cause of elevated HR and symptoms. Additional Reevaluation(s): pain improved with IV dilaudid Medications Administered Discontinued Medications Generic Name Dose Route Start Last Admin Trade Name Freq PRN Reason Stop Dose Admin Acetaminophen 650 mg 06/24/23 03:47 06/24/23 04:07 Acetaminophen 325 Mg Tablet PO 06/24/23 03:48 650 mg ONCE ONE Administration Hydromorphone HCl 1 mg 06/24/23 05:51 06/24/23 06:16 Hydromorphone Hcl 1 Mg/Ml Syringe IVPUSH 06/24/23 05:52 1 mg ONCE ONE Administration Protocol Sodium Chloride 1,000 mls @ 999 mls/hr 06/24/23 04:00 06/24/23 06:33 Ns IV 06/24/23 05:00 Infused .Q1H1M MARCO Infusion Sodium Chloride 1,000 mls @ 999 mls/hr 06/24/23 04:30 06/24/23 06:33 Ns IV 06/24/23 05:30 Infused .Q1H1M MARCO Infusion Iohexol 65 ml 06/24/23 04:24 06/24/23 04:24 Iohexol 350 Mg/Ml 100 Ml Infus..Btl IV 06/24/23 04:25 65 ml ONCE ONE Administration Morphine Sulfate 4 mg 06/24/23 03:47 06/24/23 04:07 Morphine Sulfate 4 Mg/Ml Cartridge IVPUSH 06/24/23 03:48 4 mg ONCE ONE Administration Protocol Ondansetron HCl 4 mg 06/24/23 03:47 06/24/23 04:08 Ondansetron Hcl 4 Mg/2 Ml Vial IVPUSH 06/24/23 03:48 4 mg ONCE ONE Administration Medical Decision Making Medical Decision Making MDM Narrative: 58 yo male with PMH of BPH, prostatitis, DM, HTN here with c/o n/v/d L sided chest pain with diffuse body aches at this time will need labs, EKG, repeat troponin, CTA for PE, constellation of symptoms seem more viral vs colitis vs withdrawal at this time, IVF x 2L, IV morphine for pain possible viral, pneumonia, ACS, colitis, VTE, withdrawal. Differential Diagnosis Differential Diagnoses: The differential diagnosis associated with the presentation includes viral illness, pneumonia, ACS, pneumothorax, VTE, vomiting Admission/Observation Consideration of admission/observation: Escalation of care including admission/observation considered will need admission for intractable nv/d Consult Healthcare Provider Management of the patient was discussed with: Hospitalist (will admit patient) Lab Data MDM Lab Attestation statement: I reviewed the patient's lab results. 06/24/23 02:44 06/24/23 02:44 Labs: Lab Results 06/24/23 06/24/23 06/24/23 Range/Units 02:44 03:45 03:58 WBC 11.8 H (4.8-10.8) X10*3/uL RBC 3.46 L (4.60-5.80) X10*6/uL Hgb 11.4 L (14.0-18.0) g/dl Hct 32.3 L (42.0-52.0) % MCV 93.4 (80.0-98.0) fL MCH 32.9 (27.0-33.0) pg MCHC 35.3 (31.0-36.0) g/dl RDW 13.9 (11.0-16.0) % Plt Count 294 (160-400) X10*3/uL MPV 9.1 L (9.4-12.4) fL Immature Gran % (Auto) 0.4 (0.0-0.4) % Neut % (Auto) 81.9 H (45-73) % Lymph % (Auto) 12.8 L (20-40) % [place] % (Auto) 4.5 (2-11) % Eos % (Auto) 0.1 (0-4) % Baso % (Auto) 0.3 (0-2) % Lymph # (Auto) 1.5 (1.2-4.9) X10*3/uL [place] # (Auto) 0.5 (0.1-1.2) X10*3/uL Eos # (Auto) 0.0 (0.0-0.4) X10*3/uL Baso # (Auto) 0.0 (0.0-0.2) X10*3/uL Abs Immat Gran (auto) 0.05 H (0.00-0.03) X10*3/uL Absolute Neuts (auto) 9.7 H (2.0-8.3) x10*3/uL Absolute Nucleated RBC 0.000 (0.0-0.012) X10*3/uL Nucleated RBC % (auto) 0.0 (0.0-0.2) /100WBC D-Dimer High Sensitivty 162 NG/ML Sodium 139 (135-145) mmol/L Potassium 3.8 (3.3-5.1) mmol/L Chloride 100 (96-108) mmol/L Carbon Dioxide 23 (22-29) mmol/L Anion Gap 20 (12-20) BUN 18 H (9-16) mg/dL Creatinine 1.14 (0.5-1.4) mg/dL Estim Creat Clear Calc 91.8 Estimated GFR > 60 Random Glucose 345 H (60-115) mg/dL Lactic Acid 1.7 (0.5-2.0) mmol/L Calcium 9.3 D (8.4-10.2) mg/dL Total Bilirubin 0.5 (0.0-1.0) mg/dL Direct Bilirubin 0.2 (0.0-0.5) mg/dL AST 13 (5-37) U/L ALT 7 (0-40) U/L Alkaline Phosphatase 51 (39-117) U/L Troponin I High Sens 17.1 (<3.5-35.0) ng/L Total Protein 6.7 (6.5-8.0) g/dL Albumin 3.8 (3.5-5.0) g/dL Lipase 4 L (8-78) U/L Urine Color Urine Appearance Urine pH (5.0-9.0) Ur Specific [place] (1.005-1.025) Urine Protein (Neg-Trace) mg/dL Urine Glucose (UA) (Negative) mg/dL Urine Ketones (Negative) mg/dL Urine Blood (Negative) Urine Nitrite (Negative) Ur Leukocyte Esterase (Negative) Urine RBC (0-2) /HPF Urine WBC (0-5) /HPF Ur Squamous Epith Cells (0-2) /HPF Urine Bacteria (None Seen) Hyaline Casts (0-2) /LPF Urine Opiates Screen (Not Detect) Urine Fentanyl Screen (Not Detect) Ur Barbiturates Screen (Not Detect) Ur Phencyclidine Scrn (Not Detect) Ur Amphetamines Screen (Not Detect) U Benzodiazepines Scrn (Not Detect) Urine Cocaine Screen (Not Detect) U Marijuana (THC) Screen (Not Detect) Influenza Type A (PCR) NEGATIVE (Negative) Influenza Type B (PCR) NEGATIVE (Negative) RSV RNA Qual (PCR) NEGATIVE (Negative) SARS-CoV-2 RNA (RT-PCR) NEGATIVE (Negative) 06/24/23 06/24/23 Range/Units 05:03 05:28 WBC (4.8-10.8) X10*3/uL RBC (4.60-5.80) X10*6/uL Hgb (14.0-18.0) g/dl Hct (42.0-52.0) % MCV (80.0-98.0) fL MCH (27.0-33.0) pg MCHC (31.0-36.0) g/dl RDW (11.0-16.0) % Plt Count (160-400) X10*3/uL MPV (9.4-12.4) fL Immature Gran % (Auto) (0.0-0.4) % Neut % (Auto) (45-73) % Lymph % (Auto) (20-40) % [place] % (Auto) (2-11) % Eos % (Auto) (0-4) % Baso % (Auto) (0-2) % Lymph # (Auto) (1.2-4.9) X10*3/uL [place] # (Auto) (0.1-1.2) X10*3/uL Eos # (Auto) (0.0-0.4) X10*3/uL Baso # (Auto) (0.0-0.2) X10*3/uL Abs Immat Gran (auto) (0.00-0.03) X10*3/uL Absolute Neuts (auto) (2.0-8.3) x10*3/uL Absolute Nucleated RBC (0.0-0.012) X10*3/uL Nucleated RBC % (auto) (0.0-0.2) /100WBC D-Dimer High Sensitivty NG/ML Sodium (135-145) mmol/L Potassium (3.3-5.1) mmol/L Chloride (96-108) mmol/L Carbon Dioxide (22-29) mmol/L Anion Gap (12-20) BUN (9-16) mg/dL Creatinine (0.5-1.4) mg/dL Estim Creat Clear Calc Estimated GFR Random Glucose (60-115) mg/dL Lactic Acid (0.5-2.0) mmol/L Calcium (8.4-10.2) mg/dL Total Bilirubin (0.0-1.0) mg/dL Direct Bilirubin (0.0-0.5) mg/dL AST (5-37) U/L ALT (0-40) U/L Alkaline Phosphatase (39-117) U/L Troponin I High Sens 16.9 (<3.5-35.0) ng/L Total Protein (6.5-8.0) g/dL Albumin (3.5-5.0) g/dL Lipase (8-78) U/L Urine Color Yellow Urine Appearance Clear Urine pH 6.0 (5.0-9.0) Ur Specific [place] 1.020 (1.005-1.025) Urine Protein Negative (Neg-Trace) mg/dL Urine Glucose (UA) >=1000 H (Negative) mg/dL Urine Ketones 15 (Negative) mg/dL Urine Blood Trace H (Negative) Urine Nitrite Negative (Negative) Ur Leukocyte Esterase Negative (Negative) Urine RBC 3-5 H (0-2) /HPF Urine WBC 0-5 (0-5) /HPF Ur Squamous Epith Cells 0-2 (0-2) /HPF Urine Bacteria None Seen (None Seen) Hyaline Casts 0-2 (0-2) /LPF Urine Opiates Screen POSITIVE H (Not Detect) Urine Fentanyl Screen Not Detected (Not Detect) Ur Barbiturates Screen Not Detected (Not Detect) Ur Phencyclidine Scrn Not Detected (Not Detect) Ur Amphetamines Screen Not Detected (Not Detect) U Benzodiazepines Scrn Not Detected (Not Detect) Urine Cocaine Screen Not Detected (Not Detect) U Marijuana (THC) Screen POSITIVE H (Not Detect) Influenza Type A (PCR) (Negative) Influenza Type B (PCR) (Negative) RSV RNA Qual (PCR) (Negative) SARS-CoV-2 RNA (RT-PCR) (Negative) Independent Interpretation I performed an independent interpretation of an: EKG, Plain X-Ray (no PTX, no pneumonia) and CT Scan (no PE no pneumonia) Interpretation: Rate: 123 Rhythm: sinus tachycardia [place]: rightward Normal P waves. Normal YARIEL. Normal QRS complex. ST T wave : no OBDULIA normal qTC: 455 prior studies: no acute ischemia The study has been interpreted contemporaneously by me. . Radiology Impression Discussion of test interpretation with radiology: I have reviewed the radiologist's reading. External Record Review External record reviewed: Inpatient record Critical Care Time Critical Care Time Critical Care Time: Yes Total Critical Care Time: 60 Attestation: 2L of IVF, repeat IV pain medications with improvement, review of records and repeat assessments I attest to this time spent taking care of the patient Discharge Plan Discharge Clinical Impression: Diffuse pain, Intractable nausea and vomiting Patient Disposition: Admitted As Inpatient
[2023-06-24] MEDS: Morphine Sulfate 4 MG/ML CARTRIDGE IVPUSH (04:07)
[2023-06-24] MEDS: Acetaminophen 325 MG TABLET 650 MG PO (04:07)
[2023-06-24] MEDS: 0.9 % Sodium Chloride 1,000 ML 999 ML IV ×2 (04:07→04:37)
[2023-06-24] MEDS: ondansetron HCL 4 MG/2 ML VIAL IVPUSH (04:08)
--- NOTE | 2023-06-24 04:12 | PC.NURSE ---
Pt changed over into hospital attire, labs drawn, pt placed on bedside monitor, Iv placed, Medicated per mar.
[2023-06-24 04:14] LABS: D Dimer High Sensitivity 162 NG/ML
[2023-06-24 04:18] LABS: Lactic Acid 1.7 mmol/L (0.5-2.0)
[2023-06-24 04:22] LABS: Alanine Aminotransferase 7 U/L (0-40); Albumin Level 3.8 g/dL (3.5-5.0); Alkaline Phosphatase 51 U/L (39-117); Aspartate Amino Transferase 13 U/L (5-37); Bilirubin Direct 0.2 mg/dL (0.0-0.5); Bilirubin Total 0.5 mg/dL (0.0-1.0); Lipase 4 U/L (8-78); Total Protein 6.7 g/dL (6.5-8.0)
[2023-06-24] MEDS: iohexoL 350 MG/ML 100 ML INFUS..BTL 65 ML IV (04:24)
[2023-06-24 04:30] LABS: Influenza A PCR NEGATIVE (Negative); Influenza B PCR NEGATIVE (Negative); Resp Syncy Virus RNA Qual PCR NEGATIVE (Negative); SARS COV2 PCR INHOUSE NEGATIVE (Negative)
--- NOTE | 2023-06-24 04:38 | PC.NURSE ---
pt taken to ct scan and return back to room.
[2023-06-24 05:17] LABS: Appearance Urine Clear; Color Urine Yellow; Glucose Urine UA >=1000 mg/dL (Negative); Leukocyte Esterase Urine Negative (Negative); Nitrite Urine Negative (Negative); UMIC TRIGGER UACC YES; Urine Blood Trace (Negative); Urine Ketones 15 mg/dL (Negative); Urine Protein Negative (Neg-Trace)
[2023-06-24 05:19] LABS: Bacteria Urine None Seen (None Seen); Hyaline Casts Urine 0-2 /LPF (0-2); Squamous Epithelial Cell Urine 0-2 /HPF (0-2); WBC Urine 0-5 /HPF (0-5)
[2023-06-24 05:25] LABS: Amphetamine Screen Urine Not Detected (Not Detect); Barbiturates, Urine Not Detected (Not Detect); Benzodiazepines Screen Urine Not Detected (Not Detect); Cannabinoid Screen Urine POSITIVE (Not Detect); Cocaine Screen Urine Not Detected (Not Detect); Fentanyl, urine Not Detected (Not Detect); Opiate Screen Urine POSITIVE (Not Detect); Phencyclidine Screen Urine Not Detected (Not Detect)
[2023-06-24 05:55] LABS: Troponin-I High Sensitivity 16.9 ng/L (<3.5-35.0)
[2023-06-24] MEDS: HYDROmorphone HCl 1 MG/ML SYRINGE IVPUSH (06:16)
--- NOTE | 2023-06-24 06:20 | PC.NURSE ---
Urinal emptied, medicated per mar.
--- NOTE | 2023-06-24 07:30 | PC.NURSE ---
PT IS A/O X 4 NO SOB/SUN NOTED SPEAKS IN FULL SENTENCES. PT C/O CHEST (L) PAIN RADIATING TO LOWER BACK 10/25. PT POC AT [id number] GIVEN INSULIN COVERAGE OF 10 UNITS. FLUIDS ENCOURAGED. PT AWARE OF PLAN OF CARE. WILL CONTINUE TO MONITOR.
[2023-06-24] MEDS: droPERidol 5 MG/2 ML VIAL 1.25 MG IVPUSH (07:34)
[2023-06-24] MEDS: 0.9 % Sodium Chloride 1,000 ML 100 ML IVCONT (07:40)
[2023-06-24 07:43] LABS: Glucose, Whole Blood 434 mg/dL (60-115)
[2023-06-24] MEDS: Insulin Lispro 100 UNIT/ML 3 ML VIAL 10 UNIT SUBCUT (08:50)
--- NOTE | 2023-06-24 09:34 | P.HPHOSP_ITS ---
History of Present Illness Date of Service: 06/24/23 Chief Complaint: Abominal Pain 58 year old male with Diabetes, HTN, BPH , opioid use desroder who presented to the ED with acute on set of abdominal pain, nausea and some diarrhea. He relates that the hernesto was sudden onset since after of yesterdday, 01/25, peristent and associated with nausea and vomitting, but diarrhea, no blood in stool, no fever. He also reported some chest pain for which a CT of chest was done showing no PE, but possible colitis of splenic flexure, Tropoonin I is negative. He denies drug use and yet urine tox screen is positive for opioid and marijuana. WBC is 11 Review of Systems 2 Review of Systems: Gen: no fever Resp: no sob, no cough CV: no chest, no HERNANDEZ, no leg edema GI: No n/v, no abd pain Neuro: No confusion Yes all other systems are reviewed and are negative [facility] Medical History Back pain Arthritis HTN (hypertension) Diabetes Surgical History History of incision and drainage (10/23/21) History of detached retina repair History of arthroplasty of right knee Social History Alcohol intake: unknown Patient Tobacco Use Status: Tobacco use Unknown Substance Use Type: Marijuana Meds Allergies Allergy/AdvReac Type Severity Reaction Status Date / Time enalapril [ENALAPRIL] Allergy Intermediate STOMACH Verified 06/15/23 10:44 PROBLEMS Active Medications: Current Medications Sodium Chloride (Ns) 1,000 mls @ 100 mls/hr IVCONT .Q10H [facility] Last Admin: 06/24/23 07:40 Dose: 100 mls/hr Home Medications ?Medication ?Instructions ?Recorded ?Confirmed ?Last Taken ?Type buprenorphine 8 mg-naloxone 2 mg 1.5 film sublingual DAILY 05/15/21 06/24/23 Unknown History sublingual film (Suboxone) flash glucose sensor (FreeStyle #1 ea 05/15/21 06/15/23 Unknown History Ivory 2 Sensor kit) insulin glargine 100 unit/mL (3 16 unit subcut QAM 05/15/21 06/24/23 Unknown History mL) subcutaneous pen (Lantus Solostar U-100 Insulin) amlodipine 5 mg tablet 5 mg PO DAILY 08/13/21 06/24/23 Unknown History flash glucose scanning reader #1 ea 02/15/22 06/15/23 Unknown History (FreeStyle Ivory 2 [place]) insulin lispro 100 unit/mL 2 - 11 sliding scale dose subcut 06/24/23 06/24/23 Unknown History subcutaneous pen 5XD trazodone 50 mg tablet 50 mg PO BEDTIME PRN insomnia 06/24/23 06/24/23 Unknown History Physical Exam 2 Vital Signs and Narrative: Vital Signs: Last Vital Signs Temp 97.9 F 06/24/23 07:26 Pulse 124 H 06/24/23 07:26 Resp 17 06/24/23 07:26 BP 135/62 06/24/23 07:26 Pulse Ox 98 06/24/23 07:26 O2 Del Method Room Air 06/24/23 07:26 BMI result Body Mass Index 32.0 Const: Other: Constitutional: Alert, in no distress, overweight. Mental Status: Oriented to person, place and time. Eyes: Pupils are equal, round and reactive to light. Ear, Nose and Throat: Oropharynx clear, mucous membranes moist. Ears and nose without eformities. Trachea midline. Respiratory: Clear to auscultation. No wheezing, rales or rhonchi. Cardiovascular: S1 S2 regular. No murmurs, rubs or gallops. Gastrointestinal: Abdomen soft, non-tender, non-distended. Normal bowel sounds.? Neurologic: Cranial nerves II-XII grossly intact. No focal neurological deficits. Moves all extremities spontaneously.? Skin: No rashes or lesions.? Musculoskeletal: No cyanosis or clubbing. Psychiatric: Normal mood and affect? Results Labs 06/24/23 02:44 06/24/23 10:31 Labs: Laboratory Results - last 24 hr 06/24/23 06/24/23 06/24/23 02:44 03:45 03:58 MCV 93.4 MCH 32.9 MCHC 35.3 RDW 13.9 Plt Count 294 MPV 9.1 L Immature Gran % (Auto) 0.4 Neut % (Auto) 81.9 H Lymph % (Auto) 12.8 L [place] % (Auto) 4.5 Eos % (Auto) 0.1 Baso % (Auto) 0.3 Lymph # (Auto) 1.5 [place] # (Auto) 0.5 Eos # (Auto) 0.0 Baso # (Auto) 0.0 Abs Immat Gran (auto) 0.05 H Absolute Neuts (auto) 9.7 H Absolute Nucleated RBC 0.000 Nucleated RBC % (auto) 0.0 D-Dimer High Sensitivty 162 Anion Gap 20 Estim Creat Clear Calc 91.8 Estimated GFR > 60 POC Glucose Random Glucose 345 H Lactic Acid 1.7 Calcium 9.3 D Total Bilirubin 0.5 Direct Bilirubin 0.2 AST 13 ALT 7 Alkaline Phosphatase 51 Troponin I High Sens 17.1 Total Protein 6.7 Albumin 3.8 Lipase 4 L Urine Color Urine Appearance Urine pH Ur Specific [place] Urine Protein Urine Glucose (UA) Urine Ketones Urine Blood Urine Nitrite Ur Leukocyte Esterase Urine RBC Urine WBC Ur Squamous Epith Cells Urine Bacteria Hyaline Casts Urine Opiates Screen Urine Fentanyl Screen Ur Barbiturates Screen Ur Phencyclidine Scrn Ur Amphetamines Screen U Benzodiazepines Scrn Urine Cocaine Screen U Marijuana (THC) Screen Influenza Type A (PCR) NEGATIVE Influenza Type B (PCR) NEGATIVE RSV RNA Qual (PCR) NEGATIVE SARS-CoV-2 RNA (RT-PCR) NEGATIVE 06/24/23 06/24/23 06/24/23 05:03 05:28 07:39 MCV MCH MCHC RDW Plt Count MPV Immature Gran % (Auto) Neut % (Auto) Lymph % (Auto) [place] % (Auto) Eos % (Auto) Baso % (Auto) Lymph # (Auto) [place] # (Auto) Eos # (Auto) Baso # (Auto) Abs Immat Gran (auto) Absolute Neuts (auto) Absolute Nucleated RBC Nucleated RBC % (auto) D-Dimer High Sensitivty Anion Gap Estim Creat Clear Calc Estimated GFR POC Glucose 434 H* Random Glucose Lactic Acid Calcium Total Bilirubin Direct Bilirubin AST ALT Alkaline Phosphatase Troponin I High Sens 16.9 Total Protein Albumin Lipase Urine Color Yellow Urine Appearance Clear Urine pH 6.0 Ur Specific [place] 1.020 Urine Protein Negative Urine Glucose (UA) >=1000 H Urine Ketones 15 Urine Blood Trace H Urine Nitrite Negative Ur Leukocyte Esterase Negative Urine RBC 3-5 H Urine WBC 0-5 Ur Squamous Epith Cells 0-2 Urine Bacteria None Seen Hyaline Casts 0-2 Urine Opiates Screen POSITIVE H Urine Fentanyl Screen Not Detected Ur Barbiturates Screen Not Detected Ur Phencyclidine Scrn Not Detected Ur Amphetamines Screen Not Detected U Benzodiazepines Scrn Not Detected Urine Cocaine Screen Not Detected U Marijuana (THC) Screen POSITIVE H Influenza Type A (PCR) Influenza Type B (PCR) RSV RNA Qual (PCR) SARS-CoV-2 RNA (RT-PCR) Imaging Radiologist's Impressions: Impressions Chest X-Ray 06/24/23 02:57 IMPRESSION: No acute cardiopulmonary findings. Chest CTA 06/24/23 04:29 IMPRESSION: 1. No pulmonary embolus identified. Limited evaluation of the distal vasculature due to suboptimal bolus timing. 2. Possible wall thickening at the splenic flexure of the colon with surrounding edema in the left upper quadrant, suboptimally assessed on this exam. If clinically warranted, this could be further assessed with CT abdomen/pelvis. 3. Right middle lobe 3 mm lung nodule, nonspecific. According to the UPDATED 2017 Fleischner Society recommendations, the advised follow-up imaging for solid nodules < 6 mm is: LOW RISK PATIENT: No routine follow-up. HIGH RISK PATIENT: Optional CT at 12 months. VTE: negative. Abdomen/Pelvis CT 06/24/23 05:49 IMPRESSION: 1. Limited evaluation due to lack of intra-abdominal fat and absence of intravenous contrast. Mural prominence of the collapsed splenic flexure and descending colon in the left abdomen, which could represent a colitis in the proper clinical setting. 2. Diffuse edema throughout the mesentery, nonspecific though extending into the peripancreatic region. Correlation with laboratory values is recommended to rule out pancreatitis. 3. Redemonstrated 7 mm groundglass density focus at the right lung base, similar to 09/30/2021. According to the UPDATED 2017 Fleischner Society recommendations, follow-up chest CT in approximately 2 years is recommended. Assessment and Plan (1) Intractable nausea and vomiting: Status: Acute Plan 58 year old male with Diabetes, HTN, BPH , opioid use desroder who presented to the ED with acute on set of abdominal pain, diarrhea, nausea and vomitting and chest pain..CT points to possible colitis Abdominal Pain--Diff Dx: Colitis, Cyclical vomitting from marijuana -Obtain a dedicated CT of the abdomen and pelvis -Start IV Abx -IV hydration -IV Pain med -If not improving GI consult Chest pain--atypical, no acute ischemic chanages of ECG, troponin negative, likely related to above Diabetes with Hypreglycemia--No acidosis, give Lantus 16, SSI, IV, repeat BMP and follow glucose level closely Opioid use desorder--addiction med consult HTN--resume home meds when med rec completed BPH-- Quality Stroke Does the patient have a stroke diagnosis?: No VTE Prior VTE?: No VTE Risk Level:: Medical - moderate - high VTE Device Contraindication: Treatment Not Indicated VTE Drug Contraindication: N/A - Med Ordered
[2023-06-24 10:00] LABS: Glucose, Whole Blood 374 mg/dL (60-115)
[2023-06-24] MEDS: Insulin Lispro 100 UNIT/ML 3 ML VIAL SUBCUT ×2 (10:18→13:54)
[2023-06-24] MEDS: Insulin Glargine,Hum.rec.anlog 100 UNIT/ML 10 ML VIAL 16 UNIT SUBCUT (10:18)
[2023-06-24] MEDS: Enoxaparin Sodium 40 MG/0.4 ML SYRINGE SUBCUT (10:21)
[2023-06-24] MEDS: Piperacillin Sodium/Tazobactam 3.375 GM in 0.9 % Sodium Chloride 50 ML IV (10:35)
--- NOTE | 2023-06-24 10:54 | PHA.MEDREC ---
Addendum entered by Geovani Fu [facility] 06/24/23 11:11: Patient stated that they only take 16 units of lantus at bedtime even though script directions say 32u Addendum entered by May Roa 06/24/23 10:57: Patient hasn't taken any medications in at least a week. Original Note: Pharmacy Consult ? Medication Reconciliation Pharmacy has completed the medication reconciliation. Confirmed medications with patient and from claim history. Patient reports that he is not taking Pantoprazole 40mg or Oxybutynin 10mg even thought they were prescribed very recently.
[2023-06-24] MEDS: Lactated Ringers 1,000 ML 150 ML IVCONT (11:01)
[2023-06-24 11:04] LABS: Anion Gap 19 (12-20); Blood Urea Nitrogen 20 mg/dL (9-16); Calcium 9.3 mg/dL (8.4-10.2); Carbon Dioxide 23 mmol/L (22-29); Chloride 102 mmol/L (96-108); Creatinine Clr Calc Pharmacy 98.7; Estimated Glomerular Filt Rate > 60; Glucose Random 391 mg/dL (60-115); Potassium 3.9 mmol/L (3.3-5.1); Sodium 140 mmol/L (135-145)
--- NOTE | 2023-06-24 11:58 | PM.GICN ---
History of Present Illness Data of Consult Service Date: 06/24/23 Primary Care Provider: Chelly Casas MD HPI Reason for consult: Abd pain This is a 58-year-old gentleman past medical history of SANDRA (managed as T1DM), hypertension, BPH, with a recent emergency room visit for atypical pneumonia presented to the hospital last night for abdominal pain and diarrhea. Gastroenterology has been consulted for question of colitis. Patient reports that the day of admission he developed sudden chest and epigastric pain with feeling of doom. Reports no prior similar events. Although documented previously, pt denied any change in bowel sx including diarrhea or blood in stool. Also does not report nausea, vomiting, fevers or chills. No recent hx of outside food consumption. Did get Abx for PNA a few weeks ago. On arrival to the emergency room, he was noted to be tachycardic but with normal blood pressures. Labs are significant for mild leukocytosis with a left shift. Chem 7 with hyperglycemia above 400 with resultant glycosuria and ketonuria. Patient also underwent a CT chest abdomen and pelvis that shows possible wall thickening of the left-sided colon with mesenteric haziness. Pt established with [facility] as outpatient. Last EGD 2022 normal. Last colo 2018 with one TA. Review of Systems Review of Systems: Yes all other systems are reviewed and are negative PMFSH Past Medical History Medical History Back pain Arthritis HTN (hypertension) Diabetes Surgical History Surgical History History of incision and drainage (10/23/21) History of detached retina repair History of arthroplasty of right knee Social History Social History Alcohol intake: unknown Patient Tobacco Use Status: Tobacco use Unknown Smoked in Last 30 Days: Yes Use of substances other than those prescribed or required for medical reasons: Yes Substance Use Type: Marijuana Advance Directives: No Advance Directives Information Provided: No Meds Allergies Allergy/AdvReac Type Severity Reaction Status Date / Time enalapril [ENALAPRIL] Allergy Intermediate STOMACH Verified 06/15/23 10:44 PROBLEMS Active Medications: Current Medications Acetaminophen (Acetaminophen 325 Mg Tablet) 650 mg PO Q6H PRN PRN Reason: Pain, Mild (Pain Scale 1-3) Dextrose (Dextrose 50 % 25 Gm/50 Ml Syringe) 25 gm IVPUSH Q15M PRN; Protocol PRN Reason: per Hypoglycemia Standing Ord. Enoxaparin Sodium (Enoxaparin Sodium 40 Mg/0.4 Ml Syringe) 40 mg SUBCUT Q24H [facility] Last Admin: 06/24/23 10:21 Dose: 40 mg Glucose (Glucose Gel 15 Gm Gel..Gram.) 15 gm PO Q15M PRN; Protocol PRN Reason: per Hypoglycemia Standing Ord. Sodium Chloride (Ns) 1,000 mls @ 100 mls/hr IVCONT .Q10H [facility] Last Admin: 06/24/23 07:40 Dose: 100 mls/hr Lactated Ringer's (Lr) 1,000 mls @ 150 mls/hr IVCONT .Q6H40M [facility] Last Admin: 06/24/23 11:01 Dose: 150 mls/hr Piperacillin Sod/Tazobactam (Sod 3.375 gm/ Sodium Chloride) 50 mls @ 100 mls/hr IV Q6H [facility] Last Admin: 06/24/23 10:35 Dose: 100 mls/hr Insulin Glargine (Insulin Glargine,Hum.Rec.Anlog 100 Unit/Ml 10 Ml Vial) 16 unit SUBCUT DAILY@0900 [facility] Last Admin: 06/24/23 10:18 Dose: 16 unit Insulin Human Lispro (Insulin Lispro 100 Unit/Ml 3 Ml Vial) 0 unit SUBCUT QIDACHS [facility]; Protocol Melatonin (Melatonin 3 Mg Tablet) 6 mg PO BEDTIME PRN PRN Reason: Insomnia Morphine Sulfate (Morphine Sulfate 4 Mg/Ml Cartridge) 3 mg IVPUSH Q4H PRN; Protocol PRN Reason: Pain, Severe (Pain Scale 7-10) Ondansetron HCl (Ondansetron Hcl 4 Mg/2 Ml Vial) 4 mg IVPUSH Q8H PRN PRN Reason: Nausea and Vomiting Sodium Chloride (0.9 % Sodium Chloride Flush 3 Ml Syringe) 3 ml IVFLUSH QSHIFT [facility] Home Medications Medication Instructions Recorded Confirmed Last Taken Type buprenorphine 8 mg-naloxone 2 mg 1.5 film sublingual DAILY 05/15/21 06/24/23 Unknown History sublingual film (Suboxone) flash glucose sensor (FreeStyle #1 ea 05/15/21 06/15/23 Unknown History Ivory 2 Sensor kit) insulin glargine 100 unit/mL (3 16 unit subcut QAM 05/15/21 06/24/23 Unknown History mL) subcutaneous pen (Lantus Solostar U-100 Insulin) amlodipine 5 mg tablet 5 mg PO DAILY 08/13/21 06/24/23 Unknown History flash glucose scanning reader #1 ea 02/15/22 06/15/23 Unknown History (RENTISHStyle Ivory 2 [place]) insulin lispro 100 unit/mL 2 - 11 sliding scale dose subcut 06/24/23 06/24/23 Unknown History subcutaneous pen 5XD trazodone 50 mg tablet 50 mg PO BEDTIME PRN insomnia 06/24/23 06/24/23 Unknown History Physical Exam Vital Signs: Vital Signs: Last Vital Signs Temp 97.9 F 06/24/23 11:10 Pulse 120 H 06/24/23 11:10 Resp 16 06/24/23 11:10 BP 149/61 H 06/24/23 11:10 Pulse Ox 95 06/24/23 11:10 O2 Del Method Room Air 06/24/23 11:10 BMI result Body Mass Index 32.0 Asleep at the time of encounter - but easily woken up Tachycardiac no overt resp distress abd soft, nontender, nondistended no focal deficits Results Labs 06/24/23 02:44 06/24/23 10:31 Labs: Short CBC 06/24/23 Range/Units 02:44 WBC 11.8 H (4.8-10.8) X10*3/uL Hgb 11.4 L (14.0-18.0) g/dl Hct 32.3 L (42.0-52.0) % Plt Count 294 (160-400) X10*3/uL BMP 06/24/23 06/24/23 02:44 10:31 Sodium 139 140 Potassium 3.8 3.9 Chloride 100 102 Carbon Dioxide 23 23 BUN 18 H 20 H Creatinine 1.14 1.06 Calcium 9.3 D 9.3 Liver Function 06/24/23 Range/Units 02:44 Total Bilirubin 0.5 (0.0-1.0) mg/dL Direct Bilirubin 0.2 (0.0-0.5) mg/dL AST 13 (5-37) U/L ALT 7 (0-40) U/L Alkaline Phosphatase 51 (39-117) U/L Albumin 3.8 (3.5-5.0) g/dL Urine 06/24/23 Range/Units 05:03 Urine Color Yellow Urine Appearance Clear Urine pH 6.0 (5.0-9.0) Ur Specific [place] 1.020 (1.005-1.025) Urine Protein Negative (Neg-Trace) mg/dL Urine Glucose (UA) >=1000 H (Negative) mg/dL Assessment and Plan (1) Diffuse pain: Status: Acute (2) Abnormal finding on imaging: Status: Acute Plan Pt with inconsistent hx - only reported chest pain, no abd pain, N,V or D reported to this provider. In any case, CT with changes suspicious for left sided colitis. Ddx include infectious vs inflammatory. Low suspicion for malignancy given acute timeline and no other red flags. Recommend IV fluid resuscitation and management of hyperglycemia. Check GI panel and C Diff if pt able to provide a stool sample. If sx do not improve over 24-48h, can consider a diagnostic flex sig otherwise he should follow up with his outpatient GI in 6-8 weeks for interval colo. Thank you for allowing me to participate in his care. Pls do not hesitate to reach out for questions or concerns. Procedures Date of Service Date of Service: 06/24/23
[2023-06-24 12:35] LABS: Glucose, Whole Blood 218 mg/dL (60-115)
[2023-06-24 17:04] LABS: Glucose, Whole Blood 273 mg/dL (60-115)
--- NOTE | 2023-06-24 17:28 | PC.NURSE ---
pt has been ambulating constantly since this rn arrival at 4pm. asking to leave. Hospitalist aware via [employer] connect
--- NOTE | 2023-06-25 03:49 | PM.EVENT ---
Event Note Date of Service: 06/25/23 Event Note: 3:10 AM - I was notified patient left AMA yesterday at 5:54 PM. Time Spent With Patient Time: Total time managing care of this patient today ____ minutes.
== END 2023-06-24 17:54 | disposition left against medical advice (07) ==
LOC: HO.ED 06:56 → HO.EDOVER 12:57
PROVIDERS: Hospitalist; Internal Medicine; Emergency Provider Emergency Medicine; PCP Internal Medicine
DX: R07.9 Chest pain, unspecified (principal); R10.9 Unspecified abdominal pain; M54.50 Low back pain, unspecified; R11.2 Nausea with vomiting, unspecified; J18.9 Pneumonia, unspecified organism; E11.9 Type 2 diabetes mellitus without complications; I10 Essential (primary) hypertension; Z11.52 Encounter for screening for COVID-19; Z20.828 Contact with and (suspected) exposure to other viral communicable diseases
CPT/HCPCS: 0241U; 36415; 71045; 71275; 74176; 80048; 80076; 80307; 81001; 82947; 83605; 83690; 84484; 85025; 85379; 87040; 93005; 96361; 96365; 96372; 96375; 99285; J1170; J1650; J1790; J2270; J2405; J2543; J7120; Q9967

== ENCOUNTER → 2023-06-24 02:34 | Outpatient (BNV) | payer OTHER, SELFPAY | PROVIDERS: Admitting Provider Internal Medicine; Emergency Provider Emergency Medicine; PCP Internal Medicine; Visit Provider Internal Medicine Cardiovascular Disease | DX: R00.0 Tachycardia, unspecified (principal) | CPT/HCPCS: 93010 ==

== ENCOUNTER → 2023-06-24 09:54 | Outpatient (BNV) | payer OTHER, SELFPAY | PROVIDERS: Admitting Provider Internal Medicine; Emergency Provider Emergency Medicine; PCP Internal Medicine; Visit Provider Internal Medicine | DX: R11.2 Nausea with vomiting, unspecified (principal) | CPT/HCPCS: 99283; 99499 ==

== ENCOUNTER → 2023-06-24 09:54 | Outpatient (BNV) | payer OTHER, SELFPAY | PROVIDERS: Admitting Provider Internal Medicine; Emergency Provider Emergency Medicine; PCP Internal Medicine; Visit Provider Internal Medicine | DX: R52 Pain, unspecified (principal); R93.89 Abnormal findings on diagnostic imaging of other specified body structures | CPT/HCPCS: 99222 ==

== ENCOUNTER 2023-09-20 12:56 | Inpatient (IN) | payer OTHER, SELFPAY ==
--- NOTE | ~2023-09-20 | CT_ITS ---
EXAMINATION: CT LUMBAR SPINE WITHOUT CONTRAST CLINICAL INFORMATION: Lower back pain. Tailbone pain. Epidural abscess. History of IV drug abuse. COMPARISON: Lumbar spine MRI from 04/02/2017. CT chest from 09/20/2023. CT abdomen and pelvis from 06/24/2023. TECHNIQUE: Multidetector helical imaging of the lumbar spine was obtained without intravenous contrast. Multiple axial reformats and coronal/sagittal reconstructions were created the technologist workstation for review. This CT examination was performed using dose optimization techniques as appropriate, variously including the following: *Automated exposure control. *Adjustment of mA and/or kV according to patient size (this includes techniques or standardized protocols for targeted exams where dose is matched to indication/reason for exam; i.e. extremities or head). *Use of iterative reconstruction technique. DLP: 464 mGy-cm FINDINGS: Moderately motion degraded evaluation at the levels of T11-L1. Within this limitation, there appears to be normal anatomic alignment. No evidence of acute fracture or traumatic subluxation. No demonstrated osseous erosive changes. The vertebral body heights are maintained. Moderate degenerative disc disease from T11-L1. Mild degenerative disc disease at all additional levels. No suspicious lytic or sclerotic osseous lesions. No significant abnormalities of the paraspinal musculature. There is a paucity of intra-abdominal adipose tissue, similar to prior exam. Otherwise, limited evaluation of the intra-abdominal structures without significant abnormalities. The abdominal aorta is of normal contour and caliber with moderate calcific atherosclerotic disease. AXIAL SPINAL LEVELS: T12-L1: Mild diffuse disc bulge. There is mild bilateral facet joint arthropathy. Evaluation of the spinal canal is limited by motion artifact. L1-L2: Normal annular contour. There is moderate right and mild left facet joint arthropathy. There is mild right and no left neural foraminal stenosis. There is no demonstrated spinal canal stenosis. L2-L3: Mild to moderate diffuse disc bulge. There is moderate right worse than left facet joint arthropathy. There is moderate left and mild right neural foraminal stenosis. There is no demonstrated spinal canal stenosis. L3-L4: Mild diffuse disc bulge. There is mild to moderate bilateral facet joint arthropathy. There is mild bilateral neural foraminal stenosis. There is no demonstrated spinal canal stenosis. L4-L5: Mild diffuse disc bulge. There is mild bilateral facet joint arthropathy. There is no neural foraminal stenosis. There is no demonstrated spinal canal stenosis. L5-S1: Moderate diffuse disc bulge with superimposed central/left subarticular disc protrusion. There is mild to moderate bilateral facet joint arthropathy. There is mild bilateral neural foraminal stenosis. There appears to be narrowing of the left greater than right subarticular zones with no overt spinal canal stenosis centrally. CT/CT lumbar spine wo IV con IMPRESSION: 1. No evidence of acute fracture or traumatic subluxation of the lumbar spine. 2. Moderate multilevel degenerative spondyloarthropathy of the lumbar spine as described in detail above. Most notably on this limited exam without intrathecal contrast, there appears to be narrowing of the left greater than right subarticular zones at L5-S1. No demonstrated overt spinal canal stenosis centrally. Mild to moderate neural foraminal narrowings from L2-S1. 3. No overt paraspinal collection demonstrated on limited noncontrast evaluation.
--- NOTE | ~2023-09-20 | CT_ITS ---
EXAMINATION: CT CHEST WITHOUT CONTRAST CLINICAL INFORMATION: Shortness of breath. History of IV drug abuse. COMPARISON: Previous chest CTA and chest x-ray June 2023 TECHNIQUE: Multidetector volumetric CT imaging of the chest was done. Axial MIP volume rendering provided. Sagittal and coronal reformatted images were obtained. This CT examination was performed using dose optimization techniques as appropriate, variously including the following: *Automated exposure control *Adjustment of mA and/or kV according to patient size (this includes techniques or standardized protocols for targeted exams where dose is matched to indication/reason for exam; i.e. extremities or head) *Use of iterative reconstruction technique DLP: 215 mGy-cm FINDINGS: LUNGS: 3 mm peripheral or subpleural right middle lobe nodule axial image 336 series 8. This is stable from previous exam. Mild biapical pleural and parenchymal scarring and emphysematous changes at the lung apices. Lungs otherwise clear. MEDIASTINUM: The mediastinum is normal. CORONARY ARTERY CALCIFICATION: None visualized on this study. PLEURA: There is no pleural effusion. No pleural mass or thickening. AXILLA: No lymphadenopathy. UPPER ABDOMEN: Unremarkable. OSSEOUS STRUCTURES: Mild degenerative changes of the spine. CT/CT chest wo IV con IMPRESSION: Stable 3 mm right middle lobe nodule. Mild emphysema at the lung apices and pleural and parenchymal scarring. According to the UPDATED 2017 Fleischner Society recommendations, the advised follow-up imaging for less than 6 mm solid nodule: Low risk, no chest CT follow-up and high risk, optional chest CT follow-up in one year. Fleischner guidelines were followed.
--- NOTE | 2023-09-20 13:04 | ED_ITS ---
HPI - General Adult General Chief complaint: Back Pain/Injury Stated complaint: BACK PAIN,VOMITING SINCE YESTERDAY PER EMS Time Seen by Provider: 09/20/23 13:03 Source: patient Mode of arrival: ambulatory Limitations: no limitations History of Present Illness ED Provider: Janine CLEVELAND HPI narrative: 58 yo male with PMH of IVDU, BPH, prostatitis, DM, HTN presents w/ back pain X 2 days sp working on ripping out carpet in his home bending over. Patient reports he was moving rock yesterday and the pain worsened last night and he complains of numbness and tingling in the tailbone area. Reports fever and chills x 2 days also. States he can not walk now due to the pain. Pain is localized to the lower back and does not radiate. Patient reports pain is worse with movement better at rest. He denies associated trauma. He has had back pain in the past however today it feels worse. Patient reports he has been vomitting overnight and recently lost 20lbs overnight . Patient also reports shortness of breath beginning last night, denies cough. Denies urinary/bowel incontinence/retention, saddle parenthesis, chest pain, abdominal pain, recent illness. For EMS patient's blood pressure was elevated however he has not taken his home blood pressure meds. Related Data Home Medications ?Medication ?Instructions ?Recorded ?Confirmed buprenorphine 8 mg-naloxone 2 mg 1.5 film sublingual DAILY 05/15/21 06/24/23 sublingual film (Suboxone) flash glucose sensor (FreeStyle #1 ea 05/15/21 06/15/23 [place] 2 Sensor kit) insulin glargine 100 unit/mL (3 16 unit subcut QAM 05/15/21 06/24/23 mL) subcutaneous pen (Lantus Solostar U-100 Insulin) amlodipine 5 mg tablet 5 mg PO DAILY 08/13/21 06/24/23 flash glucose scanning reader #1 ea 02/15/22 06/15/23 (FreeStyle [place] 2 [place]) insulin lispro 100 unit/mL 2 - 11 sliding scale dose subcut 06/24/23 06/24/23 subcutaneous pen 5XD trazodone 50 mg tablet 50 mg PO BEDTIME PRN insomnia 06/24/23 06/24/23 Previous Rx's ?Medication ?Instructions ?Recorded ondansetron 4 mg disintegrating 4 mg PO Q8H PRN nausea and 09/30/21 tablet vomiting #20 tabs albuterol sulfate 90 mcg/actuation 2 puff inhalation Q4-6H PRN 06/10/23 aerosol inhaler shortness of breath or wheezing #8.5 grams doxazosin 4 mg tablet 4 mg PO BEDTIME 90 days #90 tabs 06/15/23 amoxicillin 875 mg-potassium 1 tab PO BID #10 tabs 06/24/23 clavulanate 125 mg tablet Allergies Allergy/AdvReac Type Severity Reaction Status Date / Time enalapril [ENALAPRIL] Allergy Intermediate STOMACH Verified 09/20/23 13:17 PROBLEMS Review of Systems 2 Review of Systems: Constitutional : No Weight loss, No Fever, No Chills, ENT/Mouth : No Hearing loss, No Ear Pain, No Nasal Congestion, No Sinus Pain, No Hoarseness, No sore throat, No Rhinorrhea, No Swallowing Difficulty Cardiovascular : No Chest Pain, No SOB Respiratory : No Cough, No Dyspnea Gastrointestinal : No Nausea, No Vomiting, No Diarrhea, No abdominal Pain, No Hematochezia, No Melena Genitourinary : No Dysuria, No Urinary Frequency, No Hematuria, No Urinary Incontinence, Musculoskeletal : positive back pain Skin : No Skin Lesions, No rash Neuro : No Weakness, No Numbness, No Paresthesias, no loss of bowel or bladder incontinence, no saddle anesthesia Yes all other systems are reviewed and are negative PMFSH Past Medical History Attestation statement: The following information was validated with the patient. Source: old records reviewed and nursing notes reviewed Medical History Back pain Arthritis HTN (hypertension) Diabetes Surgical History History of incision and drainage (10/23/21) History of detached retina repair History of arthroplasty of right knee Social History Social History Alcohol intake: unknown Patient Tobacco Use Status: Tobacco use Unknown Substance Use Type: Marijuana Advance Directives: No Advance Directives Information Provided: Yes Physical Exam ED Vital Signs: Vital Signs - 24 hr 09/20/23 13:11 09/20/23 16:46 09/20/23 18:42 Temperature 97.8 F 98.4 F 98.7 F Pulse Rate 104 H 101 H 88 Respiratory Rate 18 18 20 Blood Pressure 162/81 H 143/81 H 125/67 Pulse Oximetry 98 100 99 Oxygen Delivery Method Room Air Room Air Room Air 09/20/23 23:56 Temperature 98.2 F Pulse Rate 86 Respiratory Rate 20 Blood Pressure 139/62 Pulse Oximetry 98 Oxygen Delivery Method Room Air BMI result Body Mass Index 19.8 vss. HTN likely due to pain and pt reports he did not takes his HTN meds this morning. Appearance: Alert.? Oriented X3.?Lying on bed uncomfortably. Head: Normocephalic, atraumatic, no step-offs or deformities Eyes: Pupils equal, round and reactive to light.? Neck: Normal inspection.? Neck supple.? CVS: Heart rate tachycardic, likely due to pain.? Pulses normal.? Respiratory: No respiratory distress.? Breath sounds normal.? Abdomen: Soft and nontender.? Skin: Skin warm and dry.? Normal skin color.? Normal skin turgor.? Extremities: No lower extremity edema.? No calf ttp. 5/5 strength to bilateral upper and lower extremities Back: Midline tenderness to palpation of lower lumbar spine/tailbone, discomfort with rom due to pain. Neuro: Oriented X 3.? No motor deficit.? No sensory deficit. CN 2-12 intact Course Reevaluation(s) Reevaluation #1: CBC with leukocytosis 15.9 and a normocytic anemia. No left shift. Chemistry with low sodium 129, elevated anion gap, elevated BUN and creatinine likely secondary to poor p.o. intake/dehydration. Random glucose 733 elevated fluids, IV insulin ordered. Troponin 26.6 this is likely secondary to type 2 injury from VANESSA, will repeat at 03:00 hour jayce. Negative D-dimer. CRP normal. Beta hydroxybutyrate pending. Urine pending. Due to leukocytosis, VANESSA will give IV antibiotics at this time infection suspected Time: 15:08 Reevaluation #2: ? DKA with normal gas. Insulin drip initiated. Discussed case w/ Dr. Vaughn. patient moved to the main ed room 20 Dr. Jeong to take over. Time: 17:04 Reevaluation #3: Patient and gap closed taking p.o. fluids insulin drip stopped will admit patient for hyperglycemia and DKA Time: 02:32 Medications Administered Discontinued Medications Generic Name Dose Route Start Last Admin Trade Name Pedroq PRN Reason Stop Dose Admin Amlodipine Besylate 5 mg 09/20/23 13:08 09/20/23 14:10 Amlodipine Besylate 5 Mg Tablet PO 09/20/23 13:09 5 mg ONCE ONE Administration Protocol Buprenorphine/Naloxone 1 film 09/21/23 01:18 09/21/23 01:47 Buprenorphine/Naloxone 8/2 Mg Film SUBLINGUAL 09/21/23 01:19 1 film ONCE ONE Administration Sodium Chloride 1,000 mls @ 999 mls/hr 09/20/23 14:45 09/20/23 16:03 Ns IV 09/20/23 15:45 Infused .Q1H1M MARCO Infusion Sodium Chloride 1,000 mls @ 999 mls/hr 09/20/23 14:45 09/20/23 16:03 Ns IV 09/20/23 15:45 Infused .Q1H1M MARCO Infusion Ceftriaxone Sodium 1 gm/ 50 mls @ 100 mls/hr 09/20/23 15:08 09/20/23 16:49 Sodium Chloride IV 09/20/23 15:37 Infused ONCE ONE Infusion Sodium Chloride 1,000 mls @ 999 mls/hr 09/20/23 15:15 09/20/23 17:02 Ns IV 09/20/23 16:15 Infused .Q1H1M MARCO Infusion Insulin Human Regular 100 unit in 100 mls @ 7 mls/hr 09/20/23 16:00 09/21/23 01:19 Myxredlin IVCONT 0 unit/hr .[id number] MARCO 0 mls/hr Titration Protocol 7 UNIT/HR Dextrose 250 mls @ 750 mls/hr 09/20/23 15:53 09/21/23 01:21 D10 IV 750 mls/hr Q30M PRN Administration BG <70 Insulin Glargine 20 unit 09/21/23 01:06 09/21/23 01:48 Insulin Glargine,Hum.Rec.Anlog 100 Unit/Ml 10 Ml Vial SUBCUT 09/21/23 01:07 20 unit ONCE ONE Administration Insulin Human Regular 10 unit 09/20/23 14:56 09/20/23 15:47 Insulin Regular, Human 100 Unit/Ml 10 Ml Vial IVPUSH 09/20/23 14:57 10 unit ONCE ONE Administration Ketorolac Tromethamine 30 mg 09/20/23 13:06 09/20/23 14:10 Ketorolac Tromethamine 15 Mg/Ml Vial IM 09/20/23 13:07 30 mg ONCE ONE Administration Lidocaine 2 patch 09/20/23 13:06 09/20/23 14:10 Lidocaine 4 % Patch Adh..Patch TRANSDERMA 09/20/23 13:07 2 patch ONCE ONE Administration Protocol Medical Decision Making Medical Decision Making [facility] Narrative: 1305 58 year old male hv of IVDU presents w/ atraumatic back pain X 2 days. No red flag sx PE Back: Midline tenderness to palpation of lower lumbar spine/tailbone, discomfort with rom due to pain. Hx and pe concerning for lumbar paraspinous muscle spasm/strain, lumbar radiculopathy, epidural abscess. Unlikely cauda equina, cord compression. Plan at this time medicate, image due to concern for epidural abscess (hx of IVDU) Differential Diagnosis Differential Diagnoses: The differential diagnosis associated with the presentation includes Hx and pe concerning for lumbar paraspinous muscle spasm/strain, lumbar radiculopathy, epidural abscess. Unlikely cauda equina, cord compression. Admission/Observation Consideration of admission/observation: Escalation of care including admission/observation considered No indication Consult Healthcare Provider Management of the patient was discussed with: Hospitalist Lab Data [facility] Lab Attestation statement: I reviewed the patient's lab results. 09/20/23 13:42 09/21/23 01:39 Labs: Lab Results 09/20/23 09/20/23 09/20/23 Range/Units 13:41 13:42 14:48 WBC 15.9 H (4.8-10.8) X10*3/uL RBC 3.57 L (4.60-5.80) X10*6/uL Hgb 12.1 L (14.0-18.0) g/dl Hct 33.1 L (42.0-52.0) % MCV 92.7 (80.0-98.0) fL MCH 33.9 H (27.0-33.0) pg MCHC 36.6 H (31.0-36.0) g/dl RDW 12.7 (11.0-16.0) % Plt Count 217 D (160-400) X10*3/uL MPV 10.0 (9.4-12.4) fL Immature Gran % (Auto) 0.5 H (0.0-0.4) % Neut % (Auto) 89.1 H (45-73) % Lymph % (Auto) 5.1 L (20-40) % [place] % (Auto) 5.1 (2-11) % Eos % (Auto) 0.0 (0-4) % Baso % (Auto) 0.2 (0-2) % Lymph # (Auto) 0.8 L (1.2-4.9) X10*3/uL [place] # (Auto) 0.8 (0.1-1.2) X10*3/uL Eos # (Auto) 0.0 (0.0-0.4) X10*3/uL Baso # (Auto) 0.0 (0.0-0.2) X10*3/uL Abs Immat Gran (auto) 0.08 H (0.00-0.03) X10*3/uL Absolute Neuts (auto) 14.2 H (2.0-8.3) x10*3/uL Absolute Nucleated RBC 0.000 (0.0-0.012) X10*3/uL Nucleated RBC % (auto) 0.0 (0.0-0.2) /100WBC ESR 5 (0-15) MM/HR Hold Purple Top PT 12.4 (11.1-13.3) SEC INR 1.0 (0.9-1.1) D-Dimer High Sensitivty 226 NG/ML VBG pH (7.32-7.43) VBG pCO2 mmHg VBG pO2 mmHg VBG HCO3 (22-26) mmol/L VBG O2 Saturation % VBG Base Excess mmol/L Sodium 129 L (135-145) mmol/L Potassium 4.5 (3.3-5.1) mmol/L Chloride 85 L (96-108) mmol/L Carbon Dioxide 20 L (22-29) mmol/L Anion Gap 29 H (12-20) BUN 34 H (9-16) mg/dL Creatinine 1.62 H (0.5-1.4) mg/dL Estim Creat Clear Calc 47.8 Estimated GFR 44 POC Glucose (60-115) mg/dL Random Glucose 733 H* (60-115) mg/dL Lactic Acid (0.5-2.0) mmol/L Calcium 10.1 D (8.4-10.2) mg/dL Magnesium 1.6 (1.6-2.6) mg/dL Total Bilirubin 1.3 H (0.0-1.0) mg/dL AST 28 (5-37) U/L ALT 27 (0-40) U/L Alkaline Phosphatase 76 (39-117) U/L Troponin I High Sens 26.6 D (<3.5-35.0) ng/L C-Reactive Protein < 0.10 (< or = 0.50) mg/dL Total Protein 7.4 (6.5-8.0) g/dL Albumin 4.5 (3.5-5.0) g/dL Beta-Hydroxybutyrate (0.02-0.27) mmol/L Urine Color Yellow Urine Appearance Clear Urine pH 5.0 (5.0-9.0) Ur Specific [place] 1.025 (1.005-1.025) Urine Protein Negative (Neg-Trace) mg/dL Urine Glucose (UA) >=1000 H (Negative) mg/dL Urine Ketones 40 (Negative) mg/dL Urine Blood Small (1+) H (Negative) Urine Nitrite Negative (Negative) Ur Leukocyte Esterase Negative (Negative) Urine RBC 3-5 H (0-2) /HPF Urine WBC 0-5 (0-5) /HPF Ur Squamous Epith Cells 0-2 (0-2) /HPF Urine Bacteria None Seen (None Seen) Hyaline Casts 0-2 (0-2) /LPF Ethyl Alcohol < 10 mg/dL Influenza Type A (PCR) NEGATIVE (Negative) Influenza Type B (PCR) NEGATIVE (Negative) RSV RNA Qual (PCR) NEGATIVE (Negative) SARS-CoV-2 RNA (RT-PCR) NEGATIVE (Negative) 09/20/23 09/20/23 09/20/23 Range/Units 15:02 16:37 17:42 WBC (4.8-10.8) X10*3/uL RBC (4.60-5.80) X10*6/uL Hgb (14.0-18.0) g/dl Hct (42.0-52.0) % MCV (80.0-98.0) fL MCH (27.0-33.0) pg MCHC (31.0-36.0) g/dl RDW (11.0-16.0) % Plt Count (160-400) X10*3/uL MPV (9.4-12.4) fL Immature Gran % (Auto) (0.0-0.4) % Neut % (Auto) (45-73) % Lymph % (Auto) (20-40) % [place] % (Auto) (2-11) % Eos % (Auto) (0-4) % Baso % (Auto) (0-2) % Lymph # (Auto) (1.2-4.9) X10*3/uL [place] # (Auto) (0.1-1.2) X10*3/uL Eos # (Auto) (0.0-0.4) X10*3/uL Baso # (Auto) (0.0-0.2) X10*3/uL Abs Immat Gran (auto) (0.00-0.03) X10*3/uL Absolute Neuts (auto) (2.0-8.3) x10*3/uL Absolute Nucleated RBC (0.0-0.012) X10*3/uL Nucleated RBC % (auto) (0.0-0.2) /100WBC ESR (0-15) MM/HR Hold Purple Top PT (11.1-13.3) SEC INR (0.9-1.1) D-Dimer High Sensitivty NG/ML VBG pH 7.40 (7.32-7.43) VBG pCO2 29 mmHg VBG pO2 142 mmHg VBG HCO3 18 L (22-26) mmol/L VBG O2 Saturation 99.0 % VBG Base Excess -4.7 mmol/L Sodium (135-145) mmol/L Potassium (3.3-5.1) mmol/L Chloride (96-108) mmol/L Carbon Dioxide (22-29) mmol/L Anion Gap (12-20) BUN (9-16) mg/dL Creatinine (0.5-1.4) mg/dL Estim Creat Clear Calc Estimated GFR POC Glucose 531 H* 480 H* (60-115) mg/dL Random Glucose (60-115) mg/dL Lactic Acid (0.5-2.0) mmol/L Calcium (8.4-10.2) mg/dL Magnesium (1.6-2.6) mg/dL Total Bilirubin (0.0-1.0) mg/dL AST (5-37) U/L ALT (0-40) U/L Alkaline Phosphatase (39-117) U/L Troponin I High Sens (<3.5-35.0) ng/L C-Reactive Protein (< or = 0.50) mg/dL Total Protein (6.5-8.0) g/dL Albumin (3.5-5.0) g/dL Beta-Hydroxybutyrate (0.02-0.27) mmol/L Urine Color Urine Appearance Urine pH (5.0-9.0) Ur Specific [place] (1.005-1.025) Urine Protein (Neg-Trace) mg/dL Urine Glucose (UA) (Negative) mg/dL Urine Ketones (Negative) mg/dL Urine Blood (Negative) Urine Nitrite (Negative) Ur Leukocyte Esterase (Negative) Urine RBC (0-2) /HPF Urine WBC (0-5) /HPF Ur Squamous Epith Cells (0-2) /HPF Urine Bacteria (None Seen) Hyaline Casts (0-2) /LPF Ethyl Alcohol mg/dL Influenza Type A (PCR) (Negative) Influenza Type B (PCR) (Negative) RSV RNA Qual (PCR) (Negative) SARS-CoV-2 RNA (RT-PCR) (Negative) 09/20/23 09/20/23 09/20/23 Range/Units 18:32 18:34 18:46 WBC (4.8-10.8) X10*3/uL RBC (4.60-5.80) X10*6/uL Hgb (14.0-18.0) g/dl Hct (42.0-52.0) % MCV (80.0-98.0) fL MCH (27.0-33.0) pg MCHC (31.0-36.0) g/dl RDW (11.0-16.0) % Plt Count (160-400) X10*3/uL MPV (9.4-12.4) fL Immature Gran % (Auto) (0.0-0.4) % Neut % (Auto) (45-73) % Lymph % (Auto) (20-40) % [place] % (Auto) (2-11) % Eos % (Auto) (0-4) % Baso % (Auto) (0-2) % Lymph # (Auto) (1.2-4.9) X10*3/uL [place] # (Auto) (0.1-1.2) X10*3/uL Eos # (Auto) (0.0-0.4) X10*3/uL Baso # (Auto) (0.0-0.2) X10*3/uL Abs Immat Gran (auto) (0.00-0.03) X10*3/uL Absolute Neuts (auto) (2.0-8.3) x10*3/uL Absolute Nucleated RBC (0.0-0.012) X10*3/uL Nucleated RBC % (auto) (0.0-0.2) /100WBC ESR (0-15) MM/HR Hold Purple Top SEE NOTE PT (11.1-13.3) SEC INR (0.9-1.1) D-Dimer High Sensitivty NG/ML VBG pH (7.32-7.43) VBG pCO2 mmHg VBG pO2 mmHg VBG HCO3 (22-26) mmol/L VBG O2 Saturation % VBG Base Excess mmol/L Sodium 137 (135-145) mmol/L Potassium 3.6 (3.3-5.1) mmol/L Chloride 97 (96-108) mmol/L Carbon Dioxide 22 (22-29) mmol/L Anion Gap 22 H (12-20) BUN 32 H (9-16) mg/dL Creatinine 1.46 H (0.5-1.4) mg/dL Estim Creat Clear Calc 53.0 Estimated GFR 50 POC Glucose 354 H* (60-115) mg/dL Random Glucose 414 H* (60-115) mg/dL Lactic Acid 2.0 (0.5-2.0) mmol/L Calcium 9.3 D (8.4-10.2) mg/dL Magnesium (1.6-2.6) mg/dL Total Bilirubin 0.6 (0.0-1.0) mg/dL AST 27 (5-37) U/L ALT 27 (0-40) U/L Alkaline Phosphatase 71 (39-117) U/L Troponin I High Sens (<3.5-35.0) ng/L C-Reactive Protein (< or = 0.50) mg/dL Total Protein 7.2 (6.5-8.0) g/dL Albumin 4.3 (3.5-5.0) g/dL Beta-Hydroxybutyrate 3.85 H (0.02-0.27) mmol/L Urine Color Urine Appearance Urine pH (5.0-9.0) Ur Specific [place] (1.005-1.025) Urine Protein (Neg-Trace) mg/dL Urine Glucose (UA) (Negative) mg/dL Urine Ketones (Negative) mg/dL Urine Blood (Negative) Urine Nitrite (Negative) Ur Leukocyte Esterase (Negative) Urine RBC (0-2) /HPF Urine WBC (0-5) /HPF Ur Squamous Epith Cells (0-2) /HPF Urine Bacteria (None Seen) Hyaline Casts (0-2) /LPF Ethyl Alcohol mg/dL Influenza Type A (PCR) (Negative) Influenza Type B (PCR) (Negative) RSV RNA Qual (PCR) (Negative) SARS-CoV-2 RNA (RT-PCR) (Negative) 09/20/23 09/20/23 09/21/23 Range/Units 20:00 23:00 00:01 WBC (4.8-10.8) X10*3/uL RBC (4.60-5.80) X10*6/uL Hgb (14.0-18.0) g/dl Hct (42.0-52.0) % MCV (80.0-98.0) fL MCH (27.0-33.0) pg MCHC (31.0-36.0) g/dl RDW (11.0-16.0) % Plt Count (160-400) X10*3/uL MPV (9.4-12.4) fL Immature Gran % (Auto) (0.0-0.4) % Neut % (Auto) (45-73) % Lymph % (Auto) (20-40) % [place] % (Auto) (2-11) % Eos % (Auto) (0-4) % Baso % (Auto) (0-2) % Lymph # (Auto) (1.2-4.9) X10*3/uL [place] # (Auto) (0.1-1.2) X10*3/uL Eos # (Auto) (0.0-0.4) X10*3/uL Baso # (Auto) (0.0-0.2) X10*3/uL Abs Immat Gran (auto) (0.00-0.03) X10*3/uL Absolute Neuts (auto) (2.0-8.3) x10*3/uL Absolute Nucleated RBC (0.0-0.012) X10*3/uL Nucleated RBC % (auto) (0.0-0.2) /100WBC ESR (0-15) MM/HR Hold Purple Top PT (11.1-13.3) SEC INR (0.9-1.1) D-Dimer High Sensitivty NG/ML VBG pH (7.32-7.43) VBG pCO2 mmHg VBG pO2 mmHg VBG HCO3 (22-26) mmol/L VBG O2 Saturation % VBG Base Excess mmol/L Sodium (135-145) mmol/L Potassium (3.3-5.1) mmol/L Chloride (96-108) mmol/L Carbon Dioxide (22-29) mmol/L Anion Gap (12-20) BUN (9-16) mg/dL Creatinine (0.5-1.4) mg/dL Estim Creat Clear Calc Estimated GFR POC Glucose 303 H 170 H 157 H (60-115) mg/dL Random Glucose (60-115) mg/dL Lactic Acid (0.5-2.0) mmol/L Calcium (8.4-10.2) mg/dL Magnesium (1.6-2.6) mg/dL Total Bilirubin (0.0-1.0) mg/dL AST (5-37) U/L ALT (0-40) U/L Alkaline Phosphatase (39-117) U/L Troponin I High Sens (<3.5-35.0) ng/L C-Reactive Protein (< or = 0.50) mg/dL Total Protein (6.5-8.0) g/dL Albumin (3.5-5.0) g/dL Beta-Hydroxybutyrate (0.02-0.27) mmol/L Urine Color Urine Appearance Urine pH (5.0-9.0) Ur Specific [place] (1.005-1.025) Urine Protein (Neg-Trace) mg/dL Urine Glucose (UA) (Negative) mg/dL Urine Ketones (Negative) mg/dL Urine Blood (Negative) Urine Nitrite (Negative) Ur Leukocyte Esterase (Negative) Urine RBC (0-2) /HPF Urine WBC (0-5) /HPF Ur Squamous Epith Cells (0-2) /HPF Urine Bacteria (None Seen) Hyaline Casts (0-2) /LPF Ethyl Alcohol mg/dL Influenza Type A (PCR) (Negative) Influenza Type B (PCR) (Negative) RSV RNA Qual (PCR) (Negative) SARS-CoV-2 RNA (RT-PCR) (Negative) 09/21/23 09/21/23 Range/Units 01:02 01:39 WBC (4.8-10.8) X10*3/uL RBC (4.60-5.80) X10*6/uL Hgb (14.0-18.0) g/dl Hct (42.0-52.0) % MCV (80.0-98.0) fL MCH (27.0-33.0) pg MCHC (31.0-36.0) g/dl RDW (11.0-16.0) % Plt Count (160-400) X10*3/uL MPV (9.4-12.4) fL Immature Gran % (Auto) (0.0-0.4) % Neut % (Auto) (45-73) % Lymph % (Auto) (20-40) % [place] % (Auto) (2-11) % Eos % (Auto) (0-4) % Baso % (Auto) (0-2) % Lymph # (Auto) (1.2-4.9) X10*3/uL [place] # (Auto) (0.1-1.2) X10*3/uL Eos # (Auto) (0.0-0.4) X10*3/uL Baso # (Auto) (0.0-0.2) X10*3/uL Abs Immat Gran (auto) (0.00-0.03) X10*3/uL Absolute Neuts (auto) (2.0-8.3) x10*3/uL Absolute Nucleated RBC (0.0-0.012) X10*3/uL Nucleated RBC % (auto) (0.0-0.2) /100WBC ESR (0-15) MM/HR Hold Purple Top PT (11.1-13.3) SEC INR (0.9-1.1) D-Dimer High Sensitivty NG/ML VBG pH (7.32-7.43) VBG pCO2 mmHg VBG pO2 mmHg VBG HCO3 (22-26) mmol/L VBG O2 Saturation % VBG Base Excess mmol/L Sodium 138 (135-145) mmol/L Potassium 4.0 (3.3-5.1) mmol/L Chloride 101 (96-108) mmol/L Carbon Dioxide 25 (22-29) mmol/L Anion Gap 16 (12-20) BUN 33 H (9-16) mg/dL Creatinine 1.17 (0.5-1.4) mg/dL Estim Creat Clear Calc 66.2 Estimated GFR > 60 POC Glucose 107 (60-115) mg/dL Random Glucose 98 (60-115) mg/dL Lactic Acid (0.5-2.0) mmol/L Calcium 9.8 (8.4-10.2) mg/dL Magnesium (1.6-2.6) mg/dL Total Bilirubin (0.0-1.0) mg/dL AST (5-37) U/L ALT (0-40) U/L Alkaline Phosphatase (39-117) U/L Troponin I High Sens (<3.5-35.0) ng/L C-Reactive Protein (< or = 0.50) mg/dL Total Protein (6.5-8.0) g/dL Albumin (3.5-5.0) g/dL Beta-Hydroxybutyrate (0.02-0.27) mmol/L Urine Color Urine Appearance Urine pH (5.0-9.0) Ur Specific [place] (1.005-1.025) Urine Protein (Neg-Trace) mg/dL Urine Glucose (UA) (Negative) mg/dL Urine Ketones (Negative) mg/dL Urine Blood (Negative) Urine Nitrite (Negative) Ur Leukocyte Esterase (Negative) Urine RBC (0-2) /HPF Urine WBC (0-5) /HPF Ur Squamous Epith Cells (0-2) /HPF Urine Bacteria (None Seen) Hyaline Casts (0-2) /LPF Ethyl Alcohol mg/dL Influenza Type A (PCR) (Negative) Influenza Type B (PCR) (Negative) RSV RNA Qual (PCR) (Negative) SARS-CoV-2 RNA (RT-PCR) (Negative) Tests considered The following testing was considered but not selected: No indication for mri or further imaging no red flag sx no trauma Prescription Management I considered prescription management with: Pain Medication (toradol ) Chronic Conditions Patient?s care impacted by: Other (bph, ed, ) Social Determinants Patient?s care significantly limited by Social Determinants of Health including: Alcoholism and drug addiction in family, Problems related to primary support group and Other Social Determinant of Health Critical Care Time Critical Care Time Critical Care Time: Yes Total Critical Care Time: 60 Attestation: I attest to this time spent taking care of the patient, obtaining history, physical, reviewing labs, imaging, speaking to my attending, specialist or hospitalist. Discharge Plan Discharge Clinical Impression: DKA (diabetic ketoacidosis), Back pain Patient Disposition: Still a Patient Prescriptions: No Action ondansetron 4 mg tablet,disintegrating 4 mg PO Q8H PRN (Reason: nausea and vomiting) Qty: 20 0RF albuterol sulfate 90 mcg/actuation HFA aerosol inhaler 2 puff inhalation Q4-6H PRN (Reason: shortness of breath or wheezing) Qty: 8.5 0RF trazodone 50 mg tablet 50 mg PO BEDTIME PRN (Reason: insomnia) insulin lispro 100 unit/mL insulin pen 2 - 11 sliding scale dose subcut 5XD Protocol: Insulin Correction Scale Less than or equal to 110 ---- Give (units): 0 111 to 150 Give (units): 0 151 to 200 Give (units): 2 201 to 250 Give (units): 4 251 to 300 Give (units): 6 301 to 350 Give (units): 8 Greater than 350 Give (units): 10 Call MD if Blood Glucose > : 350 amoxicillin-pot clavulanate 875-125 mg tablet 1 tab PO BID Qty: 10 0RF (DME) FreeStyle Ivory 2 [place] Misc See Rx Instructions .ROUTE .MEDSUPPLY Qty: 1 Rx Instructions: As directed buprenorphine-naloxone [Suboxone] 8-2 mg film 1.5 film sublingual DAILY (DME) FreeStyle Ivory 2 Sensor Kit See Rx Instructions .ROUTE .MEDSUPPLY Qty: 1 Rx Instructions: As directed Lanamrita Solostar U-100 Insulin 100 unit/mL (3 mL) insulin pen 16 unit subcut QAM amlodipine 5 mg tablet 5 mg PO DAILY doxazosin 4 mg tablet 4 mg PO BEDTIME 90 Days Qty: 90 1RF Print Language: Argentine
[2023-09-20 13:11] VITALS: BP 162/81; BP 210/90; PULSE 104; PULSE 110; RESP 18; TEMP 36.6; O2SAT 98; BMI 19.8
--- NOTE | 2023-09-20 13:14 | ECG_ITS ---
Test Reason : cp/sob Blood Pressure : / mmHG Vent. Rate : 099 BPM Atrial Rate : 099 BPM P-R Int : 128 ms QRS Dur : 098 ms QT Int : 342 ms P-R-T Axes : 080 086 056 degrees QTc Int : 438 ms Normal sinus rhythm with sinus arrhythmia Possible Left atrial enlargement Borderline ECG When compared with ECG of 24-JUN-2023 02:36, No significant change was found Referred By: Samm Choi Electronically Signed By:ROBE HANKINS MD
[2023-09-20 13:55] LABS: MANUAL DIFF FLAG NO
[2023-09-20 14:02] LABS: Basophils Percent Auto 0.2 % (0-2); Hematocrit 33.1 % (42.0-52.0); Hemoglobin 12.1 g/dl (14.0-18.0); Imm Gran Abs Auto 0.08 X10*3/uL (0.00-0.03); Imm Gran Pct Auto 0.5 % (0.0-0.4); Lymphocytes Absolute Auto 0.8 X10*3/uL (1.2-4.9); Lymphocytes Percent Auto 5.1 % (20-40); Mean Corpuscular HGB Conc 36.6 g/dl (31.0-36.0); Mean Corpuscular Hemoglobin 33.9 pg (27.0-33.0); Mean Corpuscular Volume 92.7 fL (80.0-98.0); Monocytes Absolute Auto 0.8 X10*3/uL (0.1-1.2); Monocytes Percent Auto 5.1 % (2-11); Neutrophils Absolute Auto 14.2 x10*3/uL (2.0-8.3); Neutrophils Percent Auto 89.1 % (45-73); Platelet Count 217 X10*3/uL (160-400); Red Blood Count 3.57 X10*6/uL (4.60-5.80); Red Cell Distribution Width 12.7 % (11.0-16.0); White Blood Count 15.9 X10*3/uL (4.8-10.8)
[2023-09-20 14:04] LABS: Prothrombin Time 12.4 SEC (11.1-13.3)
[2023-09-20 14:06] LABS: D Dimer High Sensitivity 226 NG/ML
[2023-09-20] MEDS: Lidocaine 4 % Patch ADH..PATCH 2 PATCH TRANSDERMA (14:10)
[2023-09-20] MEDS: amLODIPine Besylate 5 MG TABLET PO (14:10)
[2023-09-20] MEDS: Ketorolac Tromethamine 15 MG/ML VIAL 30 MG IM (14:10)
[2023-09-20 14:16] LABS: C Reactive Protein < 0.10 mg/dL (< or = 0.50)
[2023-09-20 14:25] LABS: Troponin-I High Sensitivity 26.6 ng/L (<3.5-35.0)
[2023-09-20 14:33] LABS: Alanine Aminotransferase 27 U/L (0-40); Albumin Level 4.5 g/dL (3.5-5.0); Alkaline Phosphatase 76 U/L (39-117); Anion Gap 29 (12-20); Aspartate Amino Transferase 28 U/L (5-37); Bilirubin Total 1.3 mg/dL (0.0-1.0); Blood Urea Nitrogen 34 mg/dL (9-16); Calcium 10.1 mg/dL (8.4-10.2); Carbon Dioxide 20 mmol/L (22-29); Chloride 85 mmol/L (96-108); Creatinine Clr Calc Pharmacy 47.8; Estimated Glomerular Filt Rate 44; Glucose Random 733 mg/dL (60-115); Magnesium 1.6 mg/dL (1.6-2.6); Potassium 4.5 mmol/L (3.3-5.1); Sodium 129 mmol/L (135-145); Total Protein 7.4 g/dL (6.5-8.0)
[2023-09-20 14:42] LABS: Erythrocyte Sedimentation Rate 5 MM/HR (0-15)
[2023-09-20 14:49] LABS: Influenza A PCR NEGATIVE (Negative); Influenza B PCR NEGATIVE (Negative); Resp Syncy Virus RNA Qual PCR NEGATIVE (Negative); SARS COV2 PCR INHOUSE NEGATIVE (Negative)
[2023-09-20] MEDS: 0.9 % Sodium Chloride 1,000 ML 999 ML IV ×3 (14:49→16:01)
[2023-09-20 15:09] LABS: Appearance Urine Clear; Color Urine Yellow; Glucose Urine UA >=1000 mg/dL (Negative); Leukocyte Esterase Urine Negative (Negative); Nitrite Urine Negative (Negative); Specific Gravity - Urine 1.025 (1.005-1.025); UMIC TRIGGER UACC YES; Urine Blood Small (1+) (Negative); Urine Ketones 40 mg/dL (Negative); Urine Protein Negative (Neg-Trace)
[2023-09-20 15:10] LABS: VBG Base Excess -4.7 mmol/L; VBG HCO3 18 mmol/L (22-26); VBG pCO2 29 mmHg; VBG pO2 142 mmHg
[2023-09-20 15:18] LABS: Venous Blood Gas Refer to POC result
[2023-09-20] MEDS: cefTRIAXone sodium 1 GM in 0.9 % Sodium Chloride 50 ML IV (15:23)
[2023-09-20 15:28] LABS: Bacteria Urine None Seen (None Seen); Hyaline Casts Urine 0-2 /LPF (0-2); Squamous Epithelial Cell Urine 0-2 /HPF (0-2); WBC Urine 0-5 /HPF (0-5)
[2023-09-20] MEDS: Insulin Regular, Human 100 UNIT/ML 10 ML VIAL 10 UNIT IVPUSH (15:47)
[2023-09-20 15:50] LABS: Ethanol < 10 mg/dL
[2023-09-20] MEDS: Insulin Regular/NS 100 UNIT/100 ML PLAST..BAG 7 UNIT IVCONT (16:40)
[2023-09-20 16:41] LABS: Glucose, Whole Blood 531 mg/dL (60-115)
[2023-09-20 16:46] VITALS: BP 143/81; PULSE 101; RESP 18; TEMP 36.9; O2SAT 100
[2023-09-20 17:45] LABS: Glucose, Whole Blood 480 mg/dL (60-115)
--- NOTE | 2023-09-20 17:50 | PC.NURSE ---
repeat POC obtained - displaying 480mg/dL. insulin drip titrated per protocol.
[2023-09-20 18:42] VITALS: BP 125/67; PULSE 88; RESP 20; TEMP 37.1; O2SAT 99
[2023-09-20 18:51] LABS: Glucose, Whole Blood 354 mg/dL (60-115)
[2023-09-20 19:11] LABS: Beta-Hydroxybutyrate 3.85 mmol/L (0.02-0.27)
[2023-09-20 19:32] LABS: Alanine Aminotransferase 27 U/L (0-40); Albumin Level 4.3 g/dL (3.5-5.0); Alkaline Phosphatase 71 U/L (39-117); Anion Gap 22 (12-20); Aspartate Amino Transferase 27 U/L (5-37); Bilirubin Total 0.6 mg/dL (0.0-1.0); Blood Urea Nitrogen 32 mg/dL (9-16); Calcium 9.3 mg/dL (8.4-10.2); Carbon Dioxide 22 mmol/L (22-29); Chloride 97 mmol/L (96-108); Estimated Glomerular Filt Rate 50; Glucose Random 414 mg/dL (60-115); Potassium 3.6 mmol/L (3.3-5.1); Sodium 137 mmol/L (135-145); Total Protein 7.2 g/dL (6.5-8.0)
[2023-09-20 20:06] LABS: Glucose, Whole Blood 303 mg/dL (60-115)
[2023-09-20 23:05] LABS: Glucose, Whole Blood 170 mg/dL (60-115)
[2023-09-20 23:56] VITALS: BP 139/62; PULSE 86; RESP 20; TEMP 36.8; O2SAT 98
[2023-09-21 00:05] LABS: Glucose, Whole Blood 157 mg/dL (60-115)
[2023-09-21 01:07] LABS: Glucose, Whole Blood 107 mg/dL (60-115)
[2023-09-21] MEDS: Dextrose 10 % 250 ML 750 ML IV (01:21)
[2023-09-21] MEDS: Buprenorphine/Naloxone 8/2 mg FILM 1 FILM SUBLINGUAL (01:47)
[2023-09-21] MEDS: Insulin Glargine,Hum.rec.anlog 100 UNIT/ML 10 ML VIAL 20 UNIT SUBCUT (01:48)
[2023-09-21 02:17] LABS: Anion Gap 16 (12-20); Blood Urea Nitrogen 33 mg/dL (9-16); Calcium 9.8 mg/dL (8.4-10.2); Carbon Dioxide 25 mmol/L (22-29); Chloride 101 mmol/L (96-108); Creatinine Clr Calc Pharmacy 66.2; Estimated Glomerular Filt Rate > 60; Glucose Random 98 mg/dL (60-115); Sodium 138 mmol/L (135-145)
[2023-09-21 02:42] VITALS: BP 159/80; PULSE 85; RESP 16; TEMP 36.8; O2SAT 97
[2023-09-21 03:16] LABS: Glucose, Whole Blood 202 mg/dL (60-115)
--- NOTE | 2023-09-21 05:17 | PM.IMHP ---
History of Present Illness Date of Service: 09/21/23 Chief Complaint: Back pain This is a 58-year-old male with pertinent history of insulin-dependent diabetes mellitus, hypertension, BPH, opioid use disorder presents to the emergency department for evaluation of back pain. Patient states for the last 2 days he was ripping up carpet at his house as it smelled of pee and poop from the cat. He was constantly working over the last 2 days by bending over and he was on his knees. He started having back pain as he thought he injured his back while repairing his carpet off. Continued to work despite lower back discomfort. Patient states it got worse to a point where he could not move. States he was not feeling well and had nausea and vomiting. He did not take his medications the last 2 days as he was feeling unwell. No fever, chills, abdominal pain, chest pain, palpitations or shortness of breath, changes in urinary or bowel habits. In the emergency department, patient was noted to be in DKA and initiated on insulin drip. Review of Systems Constitutional: Constitutional: Reports fatigue Cardiovascular: Cardiovascular: Reports no additional cardiovascular complaints Respiratory: Respiratory: Reports no additional respiratory complaints Gastrointestinal: Gastrointestinal: Reports nausea and Reports vomiting Genitourinary: Genitourinary: Reports no additional male genitourinary complaints Endocrine: Endocrine: Reports fatigue PMFSH Medical History Back pain Arthritis HTN (hypertension) Diabetes Pertinent family history: No family history of early CAD Surgical History History of incision and drainage (10/23/21) History of detached retina repair History of arthroplasty of right knee Social History Alcohol intake: unknown Patient Tobacco Use Status: Tobacco use Unknown Substance Use Type: Marijuana Advance Directives: No Advance Directives Information Provided: Yes Meds Allergies Allergy/AdvReac Type Severity Reaction Status Date / Time enalapril [ENALAPRIL] Allergy Intermediate STOMACH Verified 09/20/23 13:17 PROBLEMS Home Medications ?Medication ?Instructions ?Recorded ?Confirmed ?Last Taken ?Type buprenorphine 8 mg-naloxone 2 mg 1.5 film sublingual DAILY 05/15/21 06/24/23 Unknown History sublingual film (Suboxone) flash glucose sensor (FreeStyle #1 ea 05/15/21 06/15/23 Unknown History [place] 2 Sensor kit) insulin glargine 100 unit/mL (3 16 unit subcut QAM 05/15/21 06/24/23 Unknown History mL) subcutaneous pen (Lantus Solostar U-100 Insulin) amlodipine 5 mg tablet 5 mg PO DAILY 08/13/21 06/24/23 Unknown History flash glucose scanning reader #1 ea 02/15/22 06/15/23 Unknown History (FreeStyle [place] 2 [place]) insulin lispro 100 unit/mL 2 - 11 sliding scale dose subcut 06/24/23 06/24/23 Unknown History subcutaneous pen 5XD trazodone 50 mg tablet 50 mg PO BEDTIME PRN insomnia 06/24/23 06/24/23 Unknown History Physical Exam Vital Signs and Narrative: Vital Signs: Last Vital Signs Temp 98.2 F 09/21/23 02:42 Pulse 85 09/21/23 02:42 Resp 16 09/21/23 02:42 BP 159/80 H 09/21/23 02:42 Pulse Ox 97 09/21/23 02:42 O2 Del Method Room Air 09/21/23 02:42 BMI result Body Mass Index 19.8 Middle-aged male lying in bed in no distress Neck supple, no JVD Regular rate and rhythm, S1-S2 heard Regular breath sounds bilaterally, no wheezing or crackles appreciated Abdomen soft nontender, no guarding, no rigidity Patient is awake, alert and oriented to self, place, time and person ; no focal motor deficit Psych: Normal mood No pedal edema Results Labs 09/20/23 13:42 09/21/23 01:39 Labs: Laboratory Results - last 24 hr 09/20/23 09/20/23 09/20/23 13:41 13:42 14:48 MCV 92.7 MCH 33.9 H MCHC 36.6 H RDW 12.7 Plt Count 217 D MPV 10.0 Immature Gran % (Auto) 0.5 H Neut % (Auto) 89.1 H Lymph % (Auto) 5.1 L [place] % (Auto) 5.1 Eos % (Auto) 0.0 Baso % (Auto) 0.2 Lymph # (Auto) 0.8 L [place] # (Auto) 0.8 Eos # (Auto) 0.0 Baso # (Auto) 0.0 Abs Immat Gran (auto) 0.08 H Absolute Neuts (auto) 14.2 H Absolute Nucleated RBC 0.000 Nucleated RBC % (auto) 0.0 ESR 5 Hold Purple Top PT 12.4 INR 1.0 D-Dimer High Sensitivty 226 VBG pH VBG pCO2 VBG pO2 VBG HCO3 VBG O2 Saturation VBG Base Excess Anion Gap 29 H Estim Creat Clear Calc 47.8 Estimated GFR 44 POC Glucose Random Glucose 733 H* Lactic Acid Calcium 10.1 D Magnesium 1.6 Total Bilirubin 1.3 H AST 28 ALT 27 Alkaline Phosphatase 76 Troponin I High Sens 26.6 D C-Reactive Protein < 0.10 Total Protein 7.4 Albumin 4.5 Beta-Hydroxybutyrate Urine Color Yellow Urine Appearance Clear Urine pH 5.0 Ur Specific [place] 1.025 Urine Protein Negative Urine Glucose (UA) >=1000 H Urine Ketones 40 Urine Blood Small (1+) H Urine Nitrite Negative Ur Leukocyte Esterase Negative Urine RBC 3-5 H Urine WBC 0-5 Ur Squamous Epith Cells 0-2 Urine Bacteria None Seen Hyaline Casts 0-2 Ethyl Alcohol < 10 Influenza Type A (PCR) NEGATIVE Influenza Type B (PCR) NEGATIVE RSV RNA Qual (PCR) NEGATIVE SARS-CoV-2 RNA (RT-PCR) NEGATIVE 09/20/23 09/20/23 09/20/23 15:02 16:37 17:42 MCV MCH MCHC RDW Plt Count MPV Immature Gran % (Auto) Neut % (Auto) Lymph % (Auto) [place] % (Auto) Eos % (Auto) Baso % (Auto) Lymph # (Auto) [place] # (Auto) Eos # (Auto) Baso # (Auto) Abs Immat Gran (auto) Absolute Neuts (auto) Absolute Nucleated RBC Nucleated RBC % (auto) ESR Hold Purple Top PT INR D-Dimer High Sensitivty VBG pH 7.40 VBG pCO2 29 VBG pO2 142 VBG HCO3 18 L VBG O2 Saturation 99.0 VBG Base Excess -4.7 Anion Gap Estim Creat Clear Calc Estimated GFR POC Glucose 531 H* 480 H* Random Glucose Lactic Acid Calcium Magnesium Total Bilirubin AST ALT Alkaline Phosphatase Troponin I High Sens C-Reactive Protein Total Protein Albumin Beta-Hydroxybutyrate Urine Color Urine Appearance Urine pH Ur Specific [place] Urine Protein Urine Glucose (UA) Urine Ketones Urine Blood Urine Nitrite Ur Leukocyte Esterase Urine RBC Urine WBC Ur Squamous Epith Cells Urine Bacteria Hyaline Casts Ethyl Alcohol Influenza Type A (PCR) Influenza Type B (PCR) RSV RNA Qual (PCR) SARS-CoV-2 RNA (RT-PCR) 09/20/23 09/20/23 09/20/23 18:32 18:34 18:46 MCV MCH MCHC RDW Plt Count MPV Immature Gran % (Auto) Neut % (Auto) Lymph % (Auto) [place] % (Auto) Eos % (Auto) Baso % (Auto) Lymph # (Auto) [place] # (Auto) Eos # (Auto) Baso # (Auto) Abs Immat Gran (auto) Absolute Neuts (auto) Absolute Nucleated RBC Nucleated RBC % (auto) ESR Hold Purple Top SEE NOTE PT INR D-Dimer High Sensitivty VBG pH VBG pCO2 VBG pO2 VBG HCO3 VBG O2 Saturation VBG Base Excess Anion Gap 22 H Estim Creat Clear Calc 53.0 Estimated GFR 50 POC Glucose 354 H* Random Glucose 414 H* Lactic Acid 2.0 Calcium 9.3 D Magnesium Total Bilirubin 0.6 AST 27 ALT 27 Alkaline Phosphatase 71 Troponin I High Sens C-Reactive Protein Total Protein 7.2 Albumin 4.3 Beta-Hydroxybutyrate 3.85 H Urine Color Urine Appearance Urine pH Ur Specific [place] Urine Protein Urine Glucose (UA) Urine Ketones Urine Blood Urine Nitrite Ur Leukocyte Esterase Urine RBC Urine WBC Ur Squamous Epith Cells Urine Bacteria Hyaline Casts Ethyl Alcohol Influenza Type A (PCR) Influenza Type B (PCR) RSV RNA Qual (PCR) SARS-CoV-2 RNA (RT-PCR) 09/20/23 09/20/23 09/21/23 20:00 23:00 00:01 MCV MCH MCHC RDW Plt Count MPV Immature Gran % (Auto) Neut % (Auto) Lymph % (Auto) [place] % (Auto) Eos % (Auto) Baso % (Auto) Lymph # (Auto) [place] # (Auto) Eos # (Auto) Baso # (Auto) Abs Immat Gran (auto) Absolute Neuts (auto) Absolute Nucleated RBC Nucleated RBC % (auto) ESR Hold Purple Top PT INR D-Dimer High Sensitivty VBG pH VBG pCO2 VBG pO2 VBG HCO3 VBG O2 Saturation VBG Base Excess Anion Gap Estim Creat Clear Calc Estimated GFR POC Glucose 303 H 170 H 157 H Random Glucose Lactic Acid Calcium Magnesium Total Bilirubin AST ALT Alkaline Phosphatase Troponin I High Sens C-Reactive Protein Total Protein Albumin Beta-Hydroxybutyrate Urine Color Urine Appearance Urine pH Ur Specific [place] Urine Protein Urine Glucose (UA) Urine Ketones Urine Blood Urine Nitrite Ur Leukocyte Esterase Urine RBC Urine WBC Ur Squamous Epith Cells Urine Bacteria Hyaline Casts Ethyl Alcohol Influenza Type A (PCR) Influenza Type B (PCR) RSV RNA Qual (PCR) SARS-CoV-2 RNA (RT-PCR) 09/21/23 09/21/23 09/21/23 01:02 01:39 03:11 MCV MCH MCHC RDW Plt Count MPV Immature Gran % (Auto) Neut % (Auto) Lymph % (Auto) [place] % (Auto) Eos % (Auto) Baso % (Auto) Lymph # (Auto) [place] # (Auto) Eos # (Auto) Baso # (Auto) Abs Immat Gran (auto) Absolute Neuts (auto) Absolute Nucleated RBC Nucleated RBC % (auto) ESR Hold Purple Top PT INR D-Dimer High Sensitivty VBG pH VBG pCO2 VBG pO2 VBG HCO3 VBG O2 Saturation VBG Base Excess Anion Gap 16 Estim Creat Clear Calc 66.2 Estimated GFR > 60 POC Glucose 107 202 H Random Glucose 98 Lactic Acid Calcium 9.8 Magnesium Total Bilirubin AST ALT Alkaline Phosphatase Troponin I High Sens C-Reactive Protein Total Protein Albumin Beta-Hydroxybutyrate Urine Color Urine Appearance Urine pH Ur Specific [place] Urine Protein Urine Glucose (UA) Urine Ketones Urine Blood Urine Nitrite Ur Leukocyte Esterase Urine RBC Urine WBC Ur Squamous Epith Cells Urine Bacteria Hyaline Casts Ethyl Alcohol Influenza Type A (PCR) Influenza Type B (PCR) RSV RNA Qual (PCR) SARS-CoV-2 RNA (RT-PCR) Imaging Radiologist's Impressions: Impressions Chest CT 09/20/23 19:54 IMPRESSION: Stable 3 mm right middle lobe nodule. Mild emphysema at the lung apices and pleural and parenchymal scarring. According to the UPDATED 2017 Fleischner Society recommendations, the advised follow-up imaging for less than 6 mm solid nodule: Low risk, no chest CT follow-up and high risk, optional chest CT follow-up in one year. Fleischner guidelines were followed. Lumbar Spine CT 09/20/23 19:54 IMPRESSION: 1. No evidence of acute fracture or traumatic subluxation of the lumbar spine. 2. Moderate multilevel degenerative spondyloarthropathy of the lumbar spine as described in detail above. Most notably on this limited exam without intrathecal contrast, there appears to be narrowing of the left greater than right subarticular zones at L5-S1. No demonstrated overt spinal canal stenosis centrally. Mild to moderate neural foraminal narrowings from L2-S1. 3. No overt paraspinal collection demonstrated on limited noncontrast evaluation. Assessment and Plan (1) DKA (diabetic ketoacidosis): Status: Acute (2) VANESSA (acute kidney injury): Status: Acute Plan This is a 58-year-old male with pertinent history of insulin-dependent diabetes mellitus, hypertension, BPH, opioid use disorder presents to the emergency department for evaluation of back pain. #. Acute DKA with uncontrolled insulin-dependent diabetes mellitus: Due to medication noncompliance. DKA resolved with insulin drip in the ER. Initiating basal plus insulin regimen. #. Acute kidney injury stage I prerenal: Improving with IV crystalloid resuscitation. Continue to monitor and avoid nephrotoxins #. Opioid use disorder: On Suboxone #. Hypertension: Continue home antihypertensives #. BPH: On doxazosin #. Leukocytosis, reactive #. Lumbar back pain: Musculoskeletal. No fracture on imaging. No fevers. Will consult physical therapy Med rec pending DVT prophylaxis: Lovenox Full code Admit as inpatient and will require two night minimum hospital stay for monitoring of blood sugars, monitoring of kidney function, evaluation of lumbar back pain (as above), which is not possible in a lesser acute setting. Quality Stroke Does the patient have a stroke diagnosis?: No VTE Prior VTE?: No VTE Risk Level:: Medical - moderate - high VTE Device Contraindication: Treatment Not Indicated VTE Drug Contraindication: N/A - Med Ordered
[2023-09-21 05:18] VITALS: BP 129/80; PULSE 97; RESP 16; TEMP 36.9; O2SAT 97
[2023-09-21] MEDS: Acetaminophen 325 MG TABLET 650 MG PO (05:58)
[2023-09-21 07:22] LABS: Glucose, Whole Blood 181 mg/dL (60-115)
[2023-09-21] MEDS: Insulin Glargine,Hum.rec.anlog 100 UNIT/ML 10 ML VIAL 12 UNIT SUBCUT (07:31)
[2023-09-21] MEDS: Enoxaparin Sodium 40 MG/0.4 ML SYRINGE SUBCUT (07:31)
[2023-09-21] MEDS: Insulin Lispro 100 UNIT/ML 3 ML VIAL SUBCUT (07:31)
[2023-09-21 07:46] LABS: Anion Gap 15 (12-20); Blood Urea Nitrogen 35 mg/dL (9-16); Calcium 9.8 mg/dL (8.4-10.2); Carbon Dioxide 25 mmol/L (22-29); Chloride 100 mmol/L (96-108); Creatinine Clr Calc Pharmacy 61.4; Estimated Glomerular Filt Rate 59; Glucose Random 190 mg/dL (60-115); Potassium 4.7 mmol/L (3.3-5.1); Sodium 135 mmol/L (135-145)
[2023-09-21 07:47] LABS: Basophils Absolute Auto 0.1 X10*3/uL (0.0-0.2); Basophils Percent Auto 0.2 % (0-2); Hematocrit 36.8 % (42.0-52.0); Hemoglobin 13.4 g/dl (14.0-18.0); Imm Gran Abs Auto 0.29 X10*3/uL (0.00-0.03); Lymphocytes Absolute Auto 1.9 X10*3/uL (1.2-4.9); Lymphocytes Percent Auto 6.4 % (20-40); MANUAL DIFF FLAG SCAN; Mean Corpuscular HGB Conc 36.4 g/dl (31.0-36.0); Mean Corpuscular Hemoglobin 33.8 pg (27.0-33.0); Mean Corpuscular Volume 92.7 fL (80.0-98.0); Mean Platelet Volume 9.3 fL (9.4-12.4); Monocytes Absolute Auto 1.6 X10*3/uL (0.1-1.2); Monocytes Percent Auto 5.5 % (2-11); Neutrophils Absolute Auto 25.8 x10*3/uL (2.0-8.3); Neutrophils Percent Auto 86.9 % (45-73); Platelet Count 207 X10*3/uL (160-400); Red Blood Count 3.97 X10*6/uL (4.60-5.80); SCAN SMEAR FLAG 1; White Blood Count 29.7 X10*3/uL (4.8-10.8)
[2023-09-21 08:16] LABS: SLIDE REVIEW VERIFIED
--- NOTE | 2023-09-21 08:31 | PC.NURSE ---
awake and alert. room air, resp even and unlabored. speaking in full clear setences. abd soft. skin wcd. sitting at edge of bed eating breakfast. no acute distress at this time.
--- NOTE | 2023-09-21 09:26 | PHA.MEDREC ---
Pharmacy Consult ? Medication Reconciliation Pharmacy has completed the medication reconciliation. spoke with patient to confirm medications. He reports he stopped his amlodipine about 3 months ago instructed by his doctor. He confirmed his insulin units of 16 units in the morning and humalog on a sliding scale. He confirmed suboxone dose of 1.5 films daily.
--- NOTE | 2023-09-21 09:39 | P.DS_ITS ---
DS: Providers Provider Date of Service: 09/21/23 Date of admission: 09/21/23 05:16 Primary care physician: Chelly Casas MD DS: Diagnosis Discharge Diagnosis (1) DKA (diabetic ketoacidosis): Status: Acute (2) VANESSA (acute kidney injury): Status: Acute DS: Summary Hospital Course Hospital Course: from initial hpi: 58-year-old male with pertinent history of insulin-dependent diabetes mellitus, hypertension, BPH, opioid use disorder presents to the emergency department for evaluation of back pain. Patient states for the last 2 days he was ripping up carpet at his house as it smelled of pee and poop from the cat. He was constantly working over the last 2 days by bending over and he was on his knees. He started having back pain as he thought he injured his back while repairing his carpet off. Continued to work despite lower back discomfort. Patient states it got worse to a point where he could not move. States he was not feeling well and had nausea and vomiting. He did not take his medications the last 2 days as he was feeling unwell. No fever, chills, abdominal pain, chest pain, palpitations or shortness of breath, changes in urinary or bowel habits. In the emergency department, patient was noted to be in DKA and initiated on insulin drip. hospital course: Patient was admitted for diabetes complicated by DKA and acute kidney injury. He was treated with insulin infusion and transitioned to basal bolus insulin as anion gap closed. His creatinine improved with IV fluids. Noted to have significant leukocytosis of 29. Blood cultures pending. Patient decided to leave against medical advice, he was able to express understanding of the risks of doing so including . For opiate disorder was continued on Suboxone. Time Attestation Discharge Coordination Time (in mins): 32 Quality: Safe Use of Opioids Does Pt have an Active Cancer Diagnosis on the Problem List?: No Quality: Stroke Does the patient have a stroke diagnosis?: No Physical Exam Vital Signs: Vital Signs: Last Vital Signs Temp 98.4 F 09/21/23 05:18 Pulse 97 09/21/23 05:18 Resp 16 09/21/23 05:18 BP 129/80 09/21/23 05:18 Pulse Ox 97 09/21/23 05:18 O2 Del Method Room Air 09/21/23 05:18 BMI result Body Mass Index 19.8 General: AO X 3, no acute distress Resp: CTA bilateral, no accessory muscles used CVS: S1,S2,RRR GI: soft, non tender, non distended Neuro: motor grossly intact, alert Psych: appropriate affect, appropriate insight DS: Data Data Completed and Pending Labs on day of discharge: Laboratory Results - last 24 hr 09/20/23 09/20/23 09/20/23 13:41 13:42 14:48 WBC 15.9 H RBC 3.57 L Hgb 12.1 L Hct 33.1 L MCV 92.7 MCH 33.9 H MCHC 36.6 H RDW 12.7 Plt Count 217 D MPV 10.0 Immature Gran % (Auto) 0.5 H Neut % (Auto) 89.1 H Lymph % (Auto) 5.1 L [place] % (Auto) 5.1 Eos % (Auto) 0.0 Baso % (Auto) 0.2 Lymph # (Auto) 0.8 L [place] # (Auto) 0.8 Eos # (Auto) 0.0 Baso # (Auto) 0.0 Abs Immat Gran (auto) 0.08 H Absolute Neuts (auto) 14.2 H Absolute Nucleated RBC 0.000 Nucleated RBC % (auto) 0.0 Smear Tech's Comments ESR 5 Hold Purple Top PT 12.4 INR 1.0 D-Dimer High Sensitivty 226 VBG pH VBG pCO2 VBG pO2 VBG HCO3 VBG O2 Saturation VBG Base Excess Sodium 129 L Potassium 4.5 Chloride 85 L Carbon Dioxide 20 L Anion Gap 29 H BUN 34 H Creatinine 1.62 H Estim Creat Clear Calc 47.8 Estimated GFR 44 POC Glucose Random Glucose 733 H* Lactic Acid Calcium 10.1 D Magnesium 1.6 Total Bilirubin 1.3 H AST 28 ALT 27 Alkaline Phosphatase 76 Troponin I High Sens 26.6 D C-Reactive Protein < 0.10 Total Protein 7.4 Albumin 4.5 Beta-Hydroxybutyrate Urine Color Yellow Urine Appearance Clear Urine pH 5.0 Ur Specific [place]eland 1.025 Urine Protein Negative Urine Glucose (UA) >=1000 H Urine Ketones 40 Urine Blood Small (1+) H Urine Nitrite Negative Ur Leukocyte Esterase Negative Urine RBC 3-5 H Urine WBC 0-5 Ur Squamous Epith Cells 0-2 Urine Bacteria None Seen Hyaline Casts 0-2 Ethyl Alcohol < 10 Influenza Type A (PCR) NEGATIVE Influenza Type B (PCR) NEGATIVE RSV RNA Qual (PCR) NEGATIVE SARS-CoV-2 RNA (RT-PCR) NEGATIVE 09/20/23 09/20/23 09/20/23 15:02 16:37 17:42 WBC RBC Hgb Hct MCV MCH MCHC RDW Plt Count MPV Immature Gran % (Auto) Neut % (Auto) Lymph % (Auto) [place] % (Auto) Eos % (Auto) Baso % (Auto) Lymph # (Auto) [place] # (Auto) Eos # (Auto) Baso # (Auto) Abs Immat Gran (auto) Absolute Neuts (auto) Absolute Nucleated RBC Nucleated RBC % (auto) Smear Tech's Comments ESR Hold Purple Top PT INR D-Dimer High Sensitivty VBG pH 7.40 VBG pCO2 29 VBG pO2 142 VBG HCO3 18 L VBG O2 Saturation 99.0 VBG Base Excess -4.7 Sodium Potassium Chloride Carbon Dioxide Anion Gap BUN Creatinine Estim Creat Clear Calc Estimated GFR POC Glucose 531 H* 480 H* Random Glucose Lactic Acid Calcium Magnesium Total Bilirubin AST ALT Alkaline Phosphatase Troponin I High Sens C-Reactive Protein Total Protein Albumin Beta-Hydroxybutyrate Urine Color Urine Appearance Urine pH Ur Specific [place] Urine Protein Urine Glucose (UA) Urine Ketones Urine Blood Urine Nitrite Ur Leukocyte Esterase Urine RBC Urine WBC Ur Squamous Epith Cells Urine Bacteria Hyaline Casts Ethyl Alcohol Influenza Type A (PCR) Influenza Type B (PCR) RSV RNA Qual (PCR) SARS-CoV-2 RNA (RT-PCR) 09/20/23 09/20/23 09/20/23 18:32 18:34 18:46 WBC RBC Hgb Hct MCV MCH MCHC RDW Plt Count MPV Immature Gran % (Auto) Neut % (Auto) Lymph % (Auto) [place] % (Auto) Eos % (Auto) Baso % (Auto) Lymph # (Auto) [place] # (Auto) Eos # (Auto) Baso # (Auto) Abs Immat Gran (auto) Absolute Neuts (auto) Absolute Nucleated RBC Nucleated RBC % (auto) Smear Tech's Comments ESR Hold Purple Top SEE NOTE PT INR D-Dimer High Sensitivty VBG pH VBG pCO2 VBG pO2 VBG HCO3 VBG O2 Saturation VBG Base Excess Sodium 137 Potassium 3.6 Chloride 97 Carbon Dioxide 22 Anion Gap 22 H BUN 32 H Creatinine 1.46 H Estim Creat Clear Calc 53.0 Estimated GFR 50 POC Glucose 354 H* Random Glucose 414 H* Lactic Acid 2.0 Calcium 9.3 D Magnesium Total Bilirubin 0.6 AST 27 ALT 27 Alkaline Phosphatase 71 Troponin I High Sens C-Reactive Protein Total Protein 7.2 Albumin 4.3 Beta-Hydroxybutyrate 3.85 H Urine Color Urine Appearance Urine pH Ur Specific [place] Urine Protein Urine Glucose (UA) Urine Ketones Urine Blood Urine Nitrite Ur Leukocyte Esterase Urine RBC Urine WBC Ur Squamous Epith Cells Urine Bacteria Hyaline Casts Ethyl Alcohol Influenza Type A (PCR) Influenza Type B (PCR) RSV RNA Qual (PCR) SARS-CoV-2 RNA (RT-PCR) 09/20/23 09/20/23 09/21/23 20:00 23:00 00:01 WBC RBC Hgb Hct MCV MCH MCHC RDW Plt Count MPV Immature Gran % (Auto) Neut % (Auto) Lymph % (Auto) [place] % (Auto) Eos % (Auto) Baso % (Auto) Lymph # (Auto) [place] # (Auto) Eos # (Auto) Baso # (Auto) Abs Immat Gran (auto) Absolute Neuts (auto) Absolute Nucleated RBC Nucleated RBC % (auto) Smear Tech's Comments ESR Hold Purple Top PT INR D-Dimer High Sensitivty VBG pH VBG pCO2 VBG pO2 VBG HCO3 VBG O2 Saturation VBG Base Excess Sodium Potassium Chloride Carbon Dioxide Anion Gap BUN Creatinine Estim Creat Clear Calc Estimated GFR POC Glucose 303 H 170 H 157 H Random Glucose Lactic Acid Calcium Magnesium Total Bilirubin AST ALT Alkaline Phosphatase Troponin I High Sens C-Reactive Protein Total Protein Albumin Beta-Hydroxybutyrate Urine Color Urine Appearance Urine pH Ur Specific [place] Urine Protein Urine Glucose (UA) Urine Ketones Urine Blood Urine Nitrite Ur Leukocyte Esterase Urine RBC Urine WBC Ur Squamous Epith Cells Urine Bacteria Hyaline Casts Ethyl Alcohol Influenza Type A (PCR) Influenza Type B (PCR) RSV RNA Qual (PCR) SARS-CoV-2 RNA (RT-PCR) 09/21/23 09/21/23 09/21/23 01:02 01:39 03:11 WBC RBC Hgb Hct MCV MCH MCHC RDW Plt Count MPV Immature Gran % (Auto) Neut % (Auto) Lymph % (Auto) [place] % (Auto) Eos % (Auto) Baso % (Auto) Lymph # (Auto) [place] # (Auto) Eos # (Auto) Baso # (Auto) Abs Immat Gran (auto) Absolute Neuts (auto) Absolute Nucleated RBC Nucleated RBC % (auto) Smear Tech's Comments ESR Hold Purple Top PT INR D-Dimer High Sensitivty VBG pH VBG pCO2 VBG pO2 VBG HCO3 VBG O2 Saturation VBG Base Excess Sodium 138 Potassium 4.0 Chloride 101 Carbon Dioxide 25 Anion Gap 16 BUN 33 H Creatinine 1.17 Estim Creat Clear Calc 66.2 Estimated GFR > 60 POC Glucose 107 202 H Random Glucose 98 Lactic Acid Calcium 9.8 Magnesium Total Bilirubin AST ALT Alkaline Phosphatase Troponin I High Sens C-Reactive Protein Total Protein Albumin Beta-Hydroxybutyrate Urine Color Urine Appearance Urine pH Ur Specific [place] Urine Protein Urine Glucose (UA) Urine Ketones Urine Blood Urine Nitrite Ur Leukocyte Esterase Urine RBC Urine WBC Ur Squamous Epith Cells Urine Bacteria Hyaline Casts Ethyl Alcohol Influenza Type A (PCR) Influenza Type B (PCR) RSV RNA Qual (PCR) SARS-CoV-2 RNA (RT-PCR) 09/21/23 09/21/23 07:19 07:30 WBC 29.7 H RBC 3.97 L Hgb 13.4 L Hct 36.8 L MCV 92.7 MCH 33.8 H MCHC 36.4 H RDW 13.0 Plt Count 207 MPV 9.3 L Immature Gran % (Auto) 1.0 H Neut % (Auto) 86.9 H Lymph % (Auto) 6.4 L [place] % (Auto) 5.5 Eos % (Auto) 0.0 Baso % (Auto) 0.2 Lymph # (Auto) 1.9 [place] # (Auto) 1.6 H Eos # (Auto) 0.0 Baso # (Auto) 0.1 Abs Immat Gran (auto) 0.29 H Absolute Neuts (auto) 25.8 H Absolute Nucleated RBC 0.000 Nucleated RBC % (auto) 0.0 Smear Tech's Comments VERIFIED ESR Hold Purple Top PT INR D-Dimer High Sensitivty VBG pH VBG pCO2 VBG pO2 VBG HCO3 VBG O2 Saturation VBG Base Excess Sodium 135 Potassium 4.7 Chloride 100 Carbon Dioxide 25 Anion Gap 15 BUN 35 H Creatinine 1.26 Estim Creat Clear Calc 61.4 Estimated GFR 59 POC Glucose 181 H Random Glucose 190 H Lactic Acid Calcium 9.8 Magnesium Total Bilirubin AST ALT Alkaline Phosphatase Troponin I High Sens C-Reactive Protein Total Protein Albumin Beta-Hydroxybutyrate Urine Color Urine Appearance Urine pH Ur Specific [place] Urine Protein Urine Glucose (UA) Urine Ketones Urine Blood Urine Nitrite Ur Leukocyte Esterase Urine RBC Urine WBC Ur Squamous Epith Cells Urine Bacteria Hyaline Casts Ethyl Alcohol Influenza Type A (PCR) Influenza Type B (PCR) RSV RNA Qual (PCR) SARS-CoV-2 RNA (RT-PCR) Discharge Plan Discharge Anticipated Discharge Date/Time: 09/21/23 09:38 Patient Disposition: Left Against Medical Advice Discharge Diagnosis: dka, leukocytosis Referrals: Chelly Casas MD [Primary Care Provider] - 1 Week Discharge Medications: No Action albuterol sulfate 90 mcg/actuation HFA aerosol inhaler 2 puff inhalation Q4-6H PRN (Reason: shortness of breath or wheezing) Qty: 8.5 0RF trazodone 50 mg tablet 50 mg PO BEDTIME insulin lispro 100 unit/mL insulin pen 2 - 11 sliding scale dose subcut TIDWM Protocol: Insulin Correction Scale Less than or equal to 110 ---- Give (units): 0 111 to 150 Give (units): 0 151 to 200 Give (units): 2 201 to 250 Give (units): 4 251 to 300 Give (units): 6 301 to 350 Give (units): 8 Greater than 350 Give (units): 10 Call MD if Blood Glucose > : 350 multivitamin Tablet 1 tab PO DAILY oxybutynin chloride 10 mg tablet extended release 24hr 10 mg PO DAILY acetaminophen 500 mg Tablet 1,000 mg PO Q4H PRN (Reason: Pain) pantoprazole 40 mg tablet,delayed release (DR/EC) 40 mg PO DAILY naproxen sodium [Aleve] 220 mg Tablet 220 mg PO Q12H PRN (Reason: Pain) (DME) FreeStyle Ivory 2 [place] Misc See Rx Instructions .ROUTE .MEDSUPPLY Qty: 1 Rx Instructions: As directed buprenorphine-naloxone [Suboxone] 8-2 mg film 1.5 film sublingual DAILY (DME) FreeStyle Ivory 2 Sensor Kit See Rx Instructions .ROUTE .MEDSUPPLY Qty: 1 Rx Instructions: As directed Lantus Solostar U-100 Insulin 100 unit/mL (3 mL) insulin pen 16 unit subcut QAM doxazosin 4 mg tablet 4 mg PO BEDTIME 90 Days Qty: 90 1RF Discharge Orders: Discharge Order (Routine); Ordered 09/21/23 Ordered By: Shakeel Murillo Diet: Diabetic diet Activity on Discharge: As tolerated Print Language: Greek Care Plan Goals: recovery Health Concerns: leukocystosis, dka Plan of Treatment: follow up with pcp, monitor sugars Assessment: see above
--- OUTSIDE RECORDS SUMMARY | 2023-09-23 09:55 | XMS_ITS | Continuity of Care Document ---
Author Organization [facility] Adult Address [address] [place] [address]- Care Team Providers Care Adjuster Arbitrator Name Role Phone Chelly Casas MD Primary Care Physician [phone] Encounter [facility] Date(s): 01/22/19 - 04/04/19 [facility] [address] [place] [address]- [facility] Attending Physician: Chelly Casas MD Allergies, Adverse Reactions, Alerts Substance Reaction Severity Status enalapril Active losartan abdominal pain - angioedema, d/ko by Dr. Avalos Active Immunizations Given and Recorded Vaccine Date Status Refusal Reason influenza virus vaccine, inactivated 1 01/05/19 Gi emre influenza virus vaccine, inactivated 01/26/18 Give n influenza virus vaccine, inactivated 02/10/17 Give n influenza virus vaccine, inactivated 02/04/16 Give n influenza virus vaccine, inactivated 02/26/15 Give n influenza virus vaccine, inactivated 01/04/14 Give n influenza virus vaccine, inactivated 02/02/13 Give n influenza virus vaccine, inactivated 2 02/18/12 Gi emre influenza virus vaccine, inactivated 3 01/13/11 Gi emre pneumococcal 23-valent vaccine 4 01/13/11 Given tetanus/diphtheria/pertussis, acel(Tdap) 5 01/13/11 Given Influenza Inactive (IM) (oldterm) 6 01/08/09 Given 1Result Comment: [facility] [id number] 2Admin Note: VIS given 10.18.11 Questionaire completed and reviewed. 3Admin Note: Health Form given, dated 11/10/10 4Admin Note: VIS dated 08/01/09 given 5Admin Note: VIS given dated 03/05/08 6Admin Note: [employer] [id number] formula Medications amLODIPine 2.5 mg oral tablet 2.5 mg, 1, tablet, By Mouth, Daily, started on 08/01/18 unable to tolerate ACEI or ARBs, # 90 tablet, Refills 3, Tot. Refills 3, Maintenance, 01/02/19 11:42:47 EDT, Route to Pharmacy Electronically, NCPDP_ID-[id number], [facility] Start Date: 01/02/19 Stop Date: 12/28/19 Status: Ordered aspirin 81 mg oral tablet 1 tablet = 81 mg, By Mouth, Daily, # 30 tablet, 0 Refills, Maintenance, 01/07/19 7:10:11 EDT Start Date: 01/07/19 Status: Ordered Freestyle Lite Lancets See Instructions, # 150 each, Refills 11, Tot. Refills 11, Maintenance, USE TO CHECK YOUR SUGAR 4X A DAY. E10.9, 02/28/19 12:26:01 EST, Compound Start Date: 02/28/19 Status: Ordered Freestyle Lite Test Strips See Instructions, # 150 each, Refills 11, Tot. Refills 11, Maintenance, USE TO CHECK YOUR SUGAR 4X A DAY. E10.9, 02/28/19 12:25:51 EST, Compound Start Date: 02/28/19 Status: Ordered gabapentin 300 mg oral capsule 300 mg, 1, capsule, By Mouth, 2 times a day, # 180 capsule, Refills 3, Tot. Refills 3, Maintenance,04/07/18 11:24:15 EST, Route to Pharmacy Electronically, [id number], [facility]/pharmacy #[id number] Start Date: 04/07/18 Stop Date: 04/02/19 Status: Ordered Humalog Kwik Pen 100 units/mL subcutaneous injection See Instructions, take 2-8 units 4x a day before meals per sliding scale. E 10.9 max total daily dose if 32 units, # 30 mL, 11 Refills, Maintenance, 02/28/19 12:24:31 EST Start Date: 02/28/19 Status: Ordered Lantus Solostar Pen 100 units/mL subcutaneous solution See Instructions, Take 15 units daily in the AM and 20 units daily at bedtime., # 30 mL, 11 Refills, Maintenance, 02/28/19 12:22:32 EST Start Date: 02/28/19 Status: Ordered Pen [place], 31 G x 5 mm BD Ultra Fine III See Instructions, # 150 each, Refills 11, Tot. Refills 11, Maintenance, to give insulin 4x a dayl. e 10.9, 02/28/19 12:25:22 EST, Compound Start Date: 02/28/19 Status: Ordered Protonix 40 mg oral delayed release tablet 1 tablet = 40 mg, By Mouth, Daily, # 90 tablet, 3 Refills, Maintenance, 11/28/18 10:03:50 EDT Start Date: 11/28/18 Stop Date: 05/27/19 Status: Ordered simvastatin 20 mg oral tablet 20 mg, 1, tablet, By Mouth, Daily at bedtime, # 90 tablet, Refills 0, Tot. Refills 0, Maintenance, 02/15/18 10:34:26 EDT, Route to Pharmacy Electronically, [id number], [facility]/pharmacy #[id number] Start Date: 02/15/18 Status: Ordered Suboxone 8 mg-2 mg sublingual film 1.5 each, Sublingual, Daily, 0 Refills, Maintenance, 11/15/16 21:05:59 Start Date: 11/15/16 Status: Ordered traZODone 50 mg oral tablet 50 mg, 1, tablet, By Mouth, Daily at bedtime, Chronic insomnia, # 90 tablet, Refills 1, Tot. Refills 1, Maintenance, 01/05/19 8:41:02 EDT, Route to Pharmacy Electronically, NCPDP_ID-[id number], [facility] Start Date: 01/05/19 Status: Ordered Problem List Condition Effective Dates Status Health Status Inform ant Benign essential hypertension(Confirmed) Active Borderline personality disorder(Confirmed) Active Cannabis dependence(Confirmed) Active Cigarette smoker(Confirmed) Active Diabetes mellitus type 2 wit h complications, uncontrolled(Confirmed) Active Hepatic lesion(Confirmed) Active Pure hypercholesterolemia(Confirmed) Active Social History Social History Type Response Tobacco Other: 1 ppd. Sex
--- OUTSIDE RECORDS SUMMARY | 2023-09-23 09:55 | XMS_ITS | Continuity of Care Document ---
Author Organization [facility] Adult Address [address] [place] [address]- Care Team Providers Care House Principal Name Role Phone Chelly Casas MD Primary Care Physician [phone] Encounter [facility] Date(s): 03/28/19 - 04/04/19 [facility] [address] [place] [address]- [facility] Encounter Diagnosis Low back pain(Discharge Diagnosis) - 03/29/19 Right wrist pain(Discharge Diagnosis) - 03/29/19 Severe depression(Discharge Diagnosis) - 03/29/19 Attending Physician: Chelly Casas MD Allergies, Adverse [...] (IM) (oldterm) 6 01/08/09 Given 1Result Comment: [facility] [id number] 2Admin Note: VIS given 7.12 Questionaire completed and reviewed. 3Admin Note: Health Form given, dated 11/10/10 4Admin Note: VIS dated 08/01/09 given 5Admin Note: VIS given dated 03/05/08 6Admin Note: [employer] [id number] formula Medications amLODIPine 2.5 mg oral tablet 2.5 mg, 1, tablet, By Mouth, Daily, started on 08/01/18 unable to tolerate ACEI or ARBs, # 90 tablet, Refills 3, Tot. Refills 3, Maintenance, 01/02/19 11:42:47 EDT, [id number] Start Date: 01/02/19 Stop Date: 12/28/19 Status: [...] Maintenance,04/07/18 11:24:15 EST, Route to Pharmacy Electronically, [id number], [facility]/pharmacy #[id number] Start Date: 04/07/18 Stop Date: 04/02/19 Status: [...] EST Start Date: 02/28/19 Status: Ordered Pen [place], 31 G x 5 mm BD Ultra [...] 02/15/18 10:34:26 EDT, Route to Pharmacy Electronically, [id number], [facility]/pharmacy #[id number] Start Date: 02/15/18 Status: Ordered Suboxone 8 mg-2 mg sublingual film 1.5 each, Sublingual, Daily, 0 Refills, Maintenance, 11/15/16 21:05:59 Start Date: 11/15/16 Status: Ordered traZODone 50 mg oral tablet 50 mg, 1, tablet, By Mouth, Daily at bedtime, Chronic insomnia, # 90 tablet, Refills 1, Tot. Refills 1, Maintenance, 01/05/19 8:41:02 EDT, Route to Pharmacy Electronically, NCPDP_ID-[id number], [facility] Start Date: 01/05/19 Status: Ordered Problem List Condition Effective Dates Status Health Status Inform ant Benign essential hypertension(Confirmed) Active Borderline personality disorder(Confirmed) Active Cannabis dependence(Confirmed) Active Cigarette smoker(Confirmed) Active Diabetes mellitus type 2 wit h complications, uncontrolled(Confirmed) Active Hepatic lesion(Confirmed) Active Pure hypercholesterolemia(Confirmed) Active Diagnosis Diagnosis Type Effective Dates Health Status Clinical Service Informant Low back pain Discharge Diagnosis 03/29/19 Right wrist pain Discharge Diagnosis 03/29/19 Severe depression Discharge Diagnosis 03/29/19 Vital Signs Most recent to oldest [Reference Range]: 1 Height 185.7 cm (03/28/19 3:11 PM) Weight 96.5 kg (03/28/19 3:11 PM) Oxygen Saturation [94-100 %] 96 % (03/28/19 3:11 PM) Pulse Rate [55-90 bpm] 86 bpm (03/28/19 3:11 PM) Body Mass Index [18.5-24.99] 27.98 *H* (03/28/19 3:11 PM) Blood Pressure [90-138/55-84 mm Hg] 126/ 64mm Hg (03/28/19 3:11 PM) Temperature [96.8-100.4 DegF] 98.9 DegF (03/28/19 3:11 PM) Mode of Delivery (Oxygen) Room air (03/28/19 3:11 PM) Blood pressure sites Arm, right (03/28/19 3:11 PM) Temperature Route Oral (03/28/19 3:11 PM) Weight Obtained Via Standing scale (03/28/19 3:11 PM) Social History Social History Type Response Tobacco Other: 1 ppd. Sex
--- OUTSIDE RECORDS SUMMARY | 2023-09-23 09:55 | XMS_ITS | Continuity of Care Document ---
Author Organization [facility] Adult Address [address] [place] [address]- Care Team Providers Care Laborer Tin [place] Name Role Phone Yessenia ROSALES, Chelly Primary Care Physician [phone] Encounter [facility] Date(s): 07/15/22 - 09/26/22 [facility] Adult [address] [place] [address]- Attending Physician: Chelly Casas MD Allergies, Adverse Reactions, Alerts Substance Reaction Severity Status enalapril Active losartan abdominal pain - angioedema, d/ko by Dr. Avalos Active Immunizations Given and Recorded Vaccine Date Status Refusal Reason influenza virus vaccine, inactivated 1 03/05/22 Gi emre influenza virus vaccine, inactivated 03/07/21 Joe rded influenza virus vaccine, inactivated 2 05/16/20 Gi emre influenza virus vaccine, inactivated 3 01/05/19 Gi emre influenza virus vaccine, inactivated 01/26/18 Give n influenza virus vaccine, inactivated 02/10/17 Give n influenza virus vaccine, inactivated 02/04/16 Give n influenza virus vaccine, inactivated 02/26/15 Give n influenza virus vaccine, inactivated 01/04/14 Give n influenza virus vaccine, inactivated 02/02/13 Give n influenza virus vaccine, inactivated 4 02/18/12 Gi emre influenza virus vaccine, inactivated 5 01/13/11 Gi emre SARS-CoV-2 (COVID-19) mRNA-1273 vaccine 03/07/21 R ecorded SARS-CoV-2 (COVID-19) mRNA BNT-162b2 vac 08/24/20 Recorded SARS-CoV-2 (COVID-19) mRNA BNT-162b2 vac 08/03/20 Recorded pneumococcal 23-valent vaccine 6 01/13/11 Given tetanus/diphtheria/pertussis, acel(Tdap) 7 01/13/11 Given Influenza Inactive (IM) (oldterm) 8 01/08/09 Given 1Result Comment: [facility]: [id number] 2Result Comment: [facility] [id number] 3Result Comment: [facility] [id number] 4Admin Note: VIS given 7.2.12 Questionaire completed and reviewed. 5Admin Note: Health Form given, dated 11/10/10 6Admin Note: VIS dated 08/01/09 given 7Admin Note: VIS given dated 03/05/08 8Admin Note: [employer] [id number] formula Medications amLODIPine 5 mg oral tablet 5 mg, 1, tablet, By Mouth, Daily, # 90 tablet, Refills 1, Tot. Refills 1, Maintenance, 06/07/22 15:31:00 EST, Route to Pharmacy Electronically, [facility] #[id number], Partial fill upon patient request if the prescription is for a schedule II opi... Start Date: 06/07/22 Stop Date: 12/04/22 Status: Ordered aspirin 81 mg oral tablet 1 tablet = 81 mg, By Mouth, Daily, # 30 tablet, 0 Refills, Maintenance, 01/07/19 7:10:11 EDT Start Date: 01/07/19 Status: Ordered atorvastatin 10 mg oral tablet 1 tablet, By Mouth, Daily, # 90 tablet, 1 Refills, [facility], 185, cm, 10/16/21 14:13:00 EDT,Height Start Date: 10/18/21 Status: Ordered doxazosin 4 mg oral tablet TAKE 1 TABLET BY MOUTH AT BEDTIME Start Date: 12/16/21 Status: Ordered gabapentin 300 mg oral capsule 300 mg, 1, capsule, By Mouth, 2 times a day, # 180 capsule, Refills 0, Tot. Refills 0, Maintenance,10/25/21 22:35:00 EDT, Route to Pharmacy Electronically, [facility]/pharmacy #[id number], 185, cm, 10/16/21 14:13:00 EDT, Height Start Date: 10/25/21 Status: Ordered Humalog Kwik Pen 100 units/mL subcutaneous injection See Instructions, take 2-11 units up to 5x a day before meals per sliding scale and for correction.E 10.9 max total daily dose if 50 units, # 30 mL, 11 Refills, Maintenance, 04/26/22 12:49:00 EST, [facility] #[id number], 187, cm, 03/05/22 11:45:... Start Date: 04/26/22 Status: Ordered Lantus Solostar Pen 100 units/mL subcutaneous solution See Instructions, Inject 32 units daily in the am E10.9, # 30 mL, 11 Refills, Maintenance, 02/15/2210:57:00 EDT, [facility] #[id number], 187, cm, 02/15/22 10:31:00 EDT, Height, 88.5, kg, 12/16/21 3:29:00 EDT, Dry Weight Start Date: 02/15/22 Status: Ordered pantoprazole 40 mg oral delayed release tablet 1 tablet, By Mouth, Daily, # 90 tablet, 0 Refills, Maintenance, 07/23/22 9:36:00 EDT, 187, cm, 07/15/22 9:13:00 EDT, Height, 88.5, kg, 12/16/21 3:29:00 EDT, Dry Weight Start Date: 07/23/22 Status: Ordered Suboxone 8 mg-2 mg sublingual film See Instructions, DISSOLVE 1 AND 1/2 FILMS UNDER THE TONGUE EVERY DAY Start Date: 12/16/21 Status: Ordered traZODone 50 mg oral tablet 1, tablet, By Mouth, Daily at bedtime, for 90 days, INSTR:CHRONIC INSOMNIA, # 90 tablet, Refills 1,Tot. Refills 1, Physician Stop 02/28/23 12:51:00 EST, 09/01/22 12:51:00 EDT, Route to Pharmacy Electronically, [facility] #[id number], 186, cm, 04... Start Date: 09/01/22 Stop Date: 02/28/23 Status: Ordered Problem List Condition Confirmation Course Effective Dates Status H ealth Status Informant Hyperlipidemia associated with type 2 diabetes mellitus Confirmed Active Hypertension associated with diabetes Confirmed Active Hepatic lesion Confirmed Active Major depression, recurrent Confirmed Active Diabetes mellitus, type 2 Confirmed Active Social History Social History Type Response Smoking Status 10 or more cigarette s (1/2 pack or more)/day in last 30 days; Use: SMOKES MARIJUANA DAILY; Other: 30 pack yr history; entered on: 12/16/21 Sex Patient Care team information Care Team Personnel Name: Lynda Smith RN Position: [facility] RN Member Role: Primary Care Nurse Name: Lucina Castillo RN Position: [facility] RN Member Role: Primary Care Nurse Name: Chelly Casas MD Position: [facility] Physician - Primary Care Member Role: PCP Address: Address: [address] [place] [address] [address] [place], [place] [address] Name: Rosie Rowell RN Position: [facility] RN Member Role: Primary Care Nurse Care Team Related Persons Name: INGRIS TONEY Address: home [address] [place] [address] Name: IRENE TONEY Address: home [address] [address] Name: IRENE BLANTON Address: [address] [address]
--- OUTSIDE RECORDS SUMMARY | 2023-09-23 09:55 | XMS_ITS | Continuity of Care Document ---
Author Organization [facility] Adult Address [address] [place] [address]- Care Team Providers Care Classifier Name Role Phone Yessenia ROSALES, Chelly Primary Care Physician [phone] Encounter [facility] Date(s): 02/20/21 - 03/22/21 [facility] Adult [address] [place] [address]- Allergies, Adverse Reactions, Alerts Substance Reaction Severity Status enalapril Active losartan abdominal pain - angioedema, d/ko by Dr. Avalos Active Immunizations Given and Recorded Vaccine Date Status Refusal Reason SARS-CoV-2 (COVID-19) mRNA BNT-162b2 vac 08/24/20 Recorded SARS-CoV-2 (COVID-19) mRNA BNT-162b2 vac 08/03/20 Recorded influenza virus vaccine, inactivated 1 05/16/20 Gi emre influenza virus vaccine, inactivated 2 01/05/19 Gi emre influenza virus vaccine, inactivated 01/26/18 Give n influenza virus vaccine, inactivated 02/10/17 Give n influenza virus vaccine, inactivated 02/04/16 Give n influenza virus vaccine, inactivated 02/26/15 Give n influenza virus vaccine, inactivated 01/04/14 Give n influenza virus vaccine, inactivated 02/02/13 Give n influenza virus vaccine, inactivated 3 02/18/12 Gi emre influenza virus vaccine, inactivated 4 01/13/11 Gi emre pneumococcal 23-valent vaccine 5 01/13/11 Given tetanus/diphtheria/pertussis, acel(Tdap) 6 01/13/11 Given Influenza Inactive (IM) (oldterm) 7 01/08/09 Given 1Result Comment: [facility] [id number] 2Result Comment: [facility] [id number] 3Admin Note: VIS given 7.2.12 Questionaire completed and reviewed. 4Admin Note: Health Form given, dated 11/10/10 5Admin Note: VIS dated 08/01/09 given 6Admin Note: VIS given dated 03/05/08 7Admin Note: [employer] [id number] formula Medications aspirin 81 mg oral tablet 1 tablet = 81 mg, By Mouth, Daily, # 30 tablet, 0 Refills, Maintenance, 01/07/19 7:10:11 EDT Start Date: 01/07/19 Status: Ordered FREESTYLE ROSANNA 2 READER FREESTYLE ROSANNA 2 READER, See Instructions, # 1 each, Refills 0, Tot. Refills 0, Maintenance, USED TO CHECK YOUR SUGARS AT LEAST 7X A DAY e 10.9, 11/03/20 14:20:00 EDT, Supply, 185.7, cm, 09/26/20 11:13:00 EDT, Height Start Date: 11/03/20 Status: Ordered FREESTYLE ROSANNA 2 SENSORS FREESTYLE ROSANNA 2 SENSORS, See Instructions, # 2 each, Refills 11, Tot. Refills 11, Maintenance, USED TO CHECK YOUR SUGARS AT LEAST 7X A DAY e 10.9. CHANGE SENSOR EVERY 14 DAYS FROM BACK OF YOUR ARM.CHANGE SITES., 01/14/21 11:14:00 EDT, Supply, 185.7... Start Date: 01/14/21 Status: Ordered Freestyle Lite Lancets See Instructions, # 200 each, Refills 11, Tot. Refills 11, Maintenance, USE TO CHECK YOUR SUGAR 6-7X A DAY. E10.9, 02/18/20 10:12:00 EST, Compound, 185.7, cm, 02/18/20 9:25:00 EST, Height, 93.5, kg, 06/09/18 7:28:00 EST, Dry Weight Start Date: 02/18/20 Status: Ordered Freestyle Lite Monitor See Instructions, # 1 each, Refills 0, Tot. Refills 0, Maintenance, T1DM to check sugars old meter broke. E 10.9, 02/18/20 10:11:00 EST, Supply, 185.7, cm, 02/18/20 9:25:00 EST, Height, 93.5, kg, 06/09/18 7:28:00 EST, Dry Weight Start Date: 02/18/20 Status: Ordered Freestyle Lite Test Strips See Instructions, # 200 each, Refills 11, Tot. Refills 11, Maintenance, USE TO CHECK YOUR SUGAR 6-7X A DAY. E10.9, 02/18/20 10:12:00 EST, Compound, 185.7, cm, 02/18/20 9:25:00 EST, Height, 93.5, kg, 06/09/18 7:28:00 EST, Dry Weight Start Date: 02/18/20 Status: Ordered gabapentin 300 mg oral capsule 300 mg, 1, capsule, By Mouth, 2 times a day, # 180 capsule, Refills 3, Tot. Refills 3, Maintenance,07/05/19 10:26:00 EDT, Route to Pharmacy Electronically, [facility]/pharmacy #[id number], 185.7, cm, 06/20/19 9:07:00 EST, Height, 93.5, kg, 06/09/18 7:28:00 EST, D... Start Date: 07/05/19 Status: Ordered Humalog Kwik Pen 100 units/mL subcutaneous injection See Instructions, take 2-11 units up to 5x a day before meals per sliding scale and for correction.E 10.9 max total daily dose if 50 units, # 30 mL, 11 Refills, Maintenance, 02/18/20 10:13:00 EST, [facility] #[id number], 185.7, cm, 02/18/20 9:25... Start Date: 02/18/20 Status: Ordered Lantus Solostar Pen 100 units/mL subcutaneous solution See Instructions, Inject 32 units daily in the am E10.9, # 30 mL, 11 Refills, Maintenance, 02/20/2012:15:00 EST, [facility] #[id number], 185.7, cm, 02/18/20 9:25:00 EST, Height, 93.5, kg, 06/09/18 7:28:00 EST, Dry Weight Start Date: 02/20/20 Status: Ordered losartan 25 mg oral tablet 25 mg, 1, tablet, By Mouth, Daily, # 90 tablet, Refills 3, Tot. Refills 3, Maintenance, 09/26/20 14:37:00 EDT, Route to Pharmacy Electronically, [facility]/pharmacy #2339, 185.7, cm, 09/26/20 11:13:00 EDT, Height Start Date: 09/26/20 Status: Ordered pantoprazole 40 mg oral delayed release tablet 1 tablet, By Mouth, Daily, # 90 tablet, 0 Refills, 185.7, cm, 09/26/20 11:13:00 EDT, Height Start Date: 12/28/20 Status: Ordered Pen [place], 31 G x 5 mm BD Ultra Fine III See Instructions, # 200 each, Refills 11, Tot. Refills 11, Maintenance, to give insulin up to 6x a dayl. e 10.9, 02/18/20 10:15:00 EST, Compound, 185.7, cm, 02/18/20 9:25:00 EST, Height, 93.5, kg, 06/09/18 7:28:00 EST, Dry Weight Start Date: 02/18/20 Status: Ordered simvastatin 20 mg oral tablet 20 mg, 1, tablet, By Mouth, Daily at bedtime, # 90 tablet, Refills 0, Tot. Refills 0, Maintenance, 02/15/18 10:34:26 EDT, Route to Pharmacy Electronically, [id number], [facility]/pharmacy #[id number] Start Date: 02/15/18 Status: Ordered Suboxone 8 mg-2 mg sublingual film 1.5 each, Sublingual, Daily, 0 Refills, Maintenance, 11/15/16 21:05:59 Start Date: 11/15/16 Status: Ordered traZODone 50 mg oral tablet 1, tablet, By Mouth, Daily at bedtime, INSTR:CHRONIC INSOMNIA, # 90 tablet, Refills 1, Route to Pharmacy Electronically, [facility] 478[facility], 185, cm, 01/16/21 9:52:00 EDT, Height Start Date: 01/19/21 Status: Ordered Problem List Condition Effective Dates Status Health Status Inform ant Diabetes mellitus type 2 wit h complications, uncontrolled(Confirmed) Active Hyperlipidemia associated wi th type 2 diabetes mellitus(Confirmed) Active Hypertension associated with diabetes(Confirmed) Active Hepatic lesion(Confirmed) Active Major depression, recurrent(Confirmed) Active Social History Social History Type Response Tobacco Other: 1 ppd. Sex
--- OUTSIDE RECORDS SUMMARY | 2023-09-23 09:55 | XMS_ITS | Continuity of Care Document ---
Author Organization [facility] Address [address] [place] [address]- Care Team Providers Care Adult Specialist Name Role Phone Chelly Casas MD Primary Care Physician [phone] Encounter [facility] Date(s): 03/04/23 - 04/03/23 [facility] [address] [place] [address]- Attending Physician: Admtr, Ar8 Admitting Physician: Admtr, Ar8 Referring Physician: Admtr, Ar8 Allergies, Adverse Reactions, Alerts Substance Reaction Severity Status enalapril Active losartan abdominal pain - angioedema, d/ko by Dr. Avalos Active Immunizations Given and Recorded Vaccine Date Status Refusal Reason influenza virus vaccine, inactivated 1 02/14/23 Gi emre influenza virus vaccine, inactivated 2 03/05/22 Gi emre influenza virus vaccine, inactivated 03/07/21 Joe rded influenza virus vaccine, inactivated 3 05/16/20 Gi emre influenza virus vaccine, inactivated 4 01/05/19 Gi emre influenza virus vaccine, inactivated 01/26/18 Give n influenza virus vaccine, inactivated 02/10/17 Give n influenza virus vaccine, inactivated 02/04/16 Give n influenza virus vaccine, inactivated 02/26/15 Give n influenza virus vaccine, inactivated 01/04/14 Give n influenza virus vaccine, inactivated 02/02/13 Give n influenza virus vaccine, inactivated 5 02/18/12 Gi emre influenza virus vaccine, inactivated 6 01/13/11 Gi emre SARS-CoV-2 (COVID-19) mRNA-1273 vaccine 03/07/21 R ecorded SARS-CoV-2 (COVID-19) mRNA BNT-162b2 vac 08/24/20 Recorded SARS-CoV-2 (COVID-19) mRNA BNT-162b2 vac 08/03/20 Recorded pneumococcal 23-valent vaccine 7 01/13/11 Given tetanus/diphtheria/pertussis, acel(Tdap) 8 01/13/11 Given Influenza Inactive (IM) (oldterm) 9 01/08/09 Given 1Result Comment: [id number] 2Result Comment: [facility]: [id number] 3Result Comment: [facility] [id number] 4Result Comment: [facility] [id number] 5Admin Note: VIS given 7.2.12 Questionaire completed and reviewed. 6Admin Note: Health Form given, dated 11/10/10 7Admin Note: VIS dated 08/01/09 given 8Admin Note: VIS given dated 03/05/08 9Admin Note: [employer] [id number] formula Medications aspirin 81 mg oral tablet 1 tablet = 81 mg, By Mouth, Daily, # 30 tablet, 0 Refills, Maintenance, 01/07/19 7:10:11 EDT Start Date: 01/07/19 Status: Ordered atorvastatin 10 mg oral tablet 1 tablet, By Mouth, Daily, # 90 tablet, 1 Refills, [facility], 185, cm, 10/16/21 14:13:00 EDT,Height Start Date: 10/18/21 Status: Ordered Baqsimi Two Pack 3 mg nasal powder = 3 mg, Naris, Left, Once, to use for hypoglycimic emergency, # 1 each, 0 Refills, Soft Stop, 10/20/22 11:52:00 EDT, [facility] #[id number], Partial fill upon patient request if the prescriptionis for a schedule II opioid drug., 186, cm, ... Start Date: 10/20/22 Status: Ordered DEXCOM G7 FACILITIES ADMINISTRATOR DEXCOM G7 FACILITIES ADMINISTRATOR, See Instructions, # 1 each, Refills 0, Tot. Refills 0, Maintenance, Use to monitor blood lgucose levels E10.9, 10/20/22 13:01:00 EDT, Supply, 186, cm, 10/20/22 11:05:00 EDT, Height, 80, kg, 08/11/22 14:47:00 EDT, Dry Weight Start Date: 10/20/22 Status: Ordered DEXCOM G7 Sensor DEXCOM G7 Sensor, See Instructions, # 3 each, Refills 11, Tot. Refills 11, Maintenance, Use to continuously monitor blood lgucose levels E10.9 1 sensor every 10 days, 3 sensors per month, 10/20/22 13:01:00 EDT, Supply, 186, cm, 10/20/22 11:05:00 EDT,... Start Date: 10/20/22 Status: Ordered DEXCOM G7 transmitter DEXCOM G7 transmitter, See Instructions, # 1 each, Refills 5, Tot. Refills 5, Maintenance, Use to monitor blood lgucose levels E10.9 1 transmitter every 3- month, 10/20/22 13:01:00 EDT, Supply, 186, cm, 10/20/22 11:05:00 EDT, Height, 80, kg, 08/11/22... Start Date: 10/20/22 Status: Ordered doxazosin 4 mg oral tablet TAKE 1 TABLET BY MOUTH AT BEDTIME Start Date: 12/16/21 Status: Ordered gabapentin 300 mg oral capsule 300 mg, 1, capsule, By Mouth, 2 times a day, # 180 capsule, Refills 0, Tot. Refills 0, Maintenance,10/25/21 22:35:00 EDT, Route to Pharmacy Electronically, [facility]/pharmacy #[id number], 185, cm, 10/16/21 14:13:00 EDT, Height Start Date: 10/25/21 Status: Ordered Humalog Kwik Pen 100 units/mL subcutaneous injection See Instructions, take 2-11 units up to 5x a day before meals per sliding scale and for correction.E 10.9 max total daily dose if 50 units, # 30 mL, 11 Refills, Maintenance, 04/26/22 12:49:00 EST, [facility] #[id number], 187, cm, 03/05/22 11:45:... Start Date: 04/26/22 Status: Ordered Lantus Solostar Pen 100 units/mL subcutaneous solution See Instructions, Inject 32 units daily in the am E10.9, # 30 mL, 11 Refills, Maintenance, 02/15/2210:57:00 EDT, [facility] #[id number], 187, cm, 02/15/22 10:31:00 EDT, Height, 88.5, kg, 12/16/21 3:29:00 EDT, Dry Weight Start Date: 02/15/22 Status: Ordered pantoprazole 40 mg oral delayed release tablet 1 tablet, By Mouth, Daily, # 90 tablet, 1 Refills, Maintenance, 10/20/22 13:42:00 EDT, 186, cm, 10/20/22 11:05:00 EDT, Height, 80, kg, 08/11/22 14:47:00 EDT, Dry Weight Start Date: 10/20/22 Status: Ordered Suboxone 8 mg-2 mg sublingual film See Instructions, DISSOLVE 1 AND 1/2 FILMS UNDER THE TONGUE EVERY DAY Start Date: 12/16/21 Status: Ordered Problem List Condition Confirmation Course [...] Team Personnel Name: Lynda Smith RN Position: [facility] RN Member Role: Primary Care Nurse Name: Lucina Castillo RN Position: S RN Member Role: Primary Care Nurse Name: Chelly Casas MD Position: [facility] Physician - Primary Care Member Role: PCP Address: Address: [address] [place] [address] [address] [place], [place] [address] Name: Rosie Rowell RN Position: [facility] RN Member Role: Primary Care Nurse Care Team Related Persons Name: INGRIS TONEY Address: home [address] [place] [address] Name: IRENE TONEY Address: [address] [address] Name: IRENE BLANTON Address: [address] [address]
--- OUTSIDE RECORDS SUMMARY | 2023-09-23 09:55 | XMS_ITS | Continuity of Care Document ---
Author Organization [facility] Adult Address [address] [place] [address]- Care Team Providers Care Fibre Cement [place] Name Role Phone Yessenia ROSALES, Chelly Primary Care Physician Encounter [facility] Date(s): 01/19/21 - 02/18/21 [facility] [address] [place] [address]- Allergies, Adverse Reactions, Alerts Substance Reaction Severity [...] (IM) (oldterm) 7 01/08/09 Given 1Result Comment: [facility] [id number] 2Result Comment: [facility] [id number] 3Admin Note: VIS given .05.30 Questionaire completed and reviewed. 4Admin Note: Health Form given, dated 11/10/10 5Admin Note: VIS dated 08/01/09 given 6Admin Note: VIS given dated 03/05/08 7Admin Note: [employer] [id number] formula Medications aspirin 81 mg oral tablet [...] Maintenance,07/05/19 10:26:00 EDT, Route to Pharmacy Electronically, [facility]/pharmacy #2339, 185.7, cm, 06/20/19 9:07:00 EST, Height, 93.5, kg, 06/09/18 7:28:00 EST, D... Start Date: 07/05/19 Status: Ordered Humalog Kwik Pen 100 units/mL subcutaneous injection See Instructions, take 2-11 units up to 5x a day before meals per sliding scale and for correction.E 10.9 max total daily dose if 50 units, # 30 mL, 11 Refills, Maintenance, 02/18/20 10:13:00 EST, [facility] #[id number], 185.7, cm, 02/18/20 9:25... Start Date: 02/18/20 Status: Ordered Lantus Solostar Pen 100 units/mL subcutaneous solution See Instructions, Inject 32 units daily in the am E10.9, # 30 mL, 11 Refills, Maintenance, 02/20/2012:15:00 EST, [facility] #[id number], 185.7, cm, 02/18/20 9:25:00 EST, Height, 93.5, kg, 06/09/18 7:28:00 EST, Dry Weight Start Date: 02/20/20 Status: Ordered losartan 25 mg oral tablet 25 mg, 1, tablet, By Mouth, Daily, # 90 tablet, Refills 3, Tot. Refills 3, Maintenance, 09/26/20 14:37:00 EDT, Route to Pharmacy Electronically, [facility]/pharmacy #2339, 185.7, cm, 09/26/20 11:13:00 EDT, Height Start Date: 09/26/20 Status: Ordered pantoprazole 40 mg oral delayed release tablet 1 tablet, By Mouth, Daily, # 90 tablet, 0 Refills, 185.7, cm, 09/26/20 11:13:00 EDT, Height Start Date: 12/28/20 Status: Ordered Pen [place], 31 G x 5 mm BD Ultra [...] 02/15/18 10:34:26 EDT, Route to Pharmacy Electronically, [id number], [facility]/pharmacy #[id number] Start Date: 02/15/18 Status: Ordered Suboxone 8 mg-2 mg sublingual film 1.5 each, Sublingual, Daily, 0 Refills, Maintenance, 11/15/16 21:05:59 Start Date: 11/15/16 Status: Ordered traZODone 50 mg oral tablet 1, tablet, By Mouth, Daily at bedtime, INSTR:CHRONIC INSOMNIA, # 90 tablet, Refills 1, Route to Pharmacy Electronically, [facility] 55472, 185, cm, 01/16/21 9:52:00 EDT, Height Start [...]
--- OUTSIDE RECORDS SUMMARY | 2023-09-23 09:55 | XMS_ITS | Continuity of Care Document ---
Author Organization [facility] Adult Address [address] [place] [address]- Care Team Providers Care Recreation Superintendent Name Role Phone Yessenia ROSALES, Chelly Primary Care Physician Encounter [facility] Date(s): 07/26/23 - 08/02/23 [facility] Adult [address] [place] [address]- Encounter Diagnosis Diabetes mellitus, type 2(Discharge Diagnosis) - 07/26/23 Hypertension associated with diabetes(Discharge Diagnosis) - 07/26/23 Attending Physician: Chelly Casas MD Allergies, Adverse [...] (IM) (oldterm) 9 01/08/09 Given 1Result Comment: [id number] 2Result Comment: [facility]: [id number] 3Result Comment: [facility] [id number] 4Result Comment: [facility] [id number] 5Admin Note: VIS given 7.2.12 Questionaire completed and reviewed. 6Admin Note: Health Form given, dated 11/10/10 7Admin Note: VIS dated 08/01/09 given 8Admin Note: VIS given dated 03/05/08 9Admin Note: [facility] [id number] formula Medications aspirin 81 mg oral tablet 1 tablet = 81 mg, By Mouth, Daily, # 30 tablet, 0 Refills, Maintenance, 01/07/19 7:10:11 EDT Start Date: 01/07/19 Status: Ordered atorvastatin 10 mg oral tablet 1 tablet, By Mouth, Daily, # 90 tablet, 1 Refills, [facility], 185, cm, 10/16/21 14:13:00 EDT,Height Start Date: 10/18/21 Status: Ordered Baqsimi Two Pack 3 mg nasal powder = 3 mg, Naris, Left, Once, to use for hypoglycimic emergency, # 1 each, 0 Refills, Soft Stop, 10/20/22 11:52:00 EDT, [facility] #[id number], Partial fill upon patient request if the prescriptionis for a schedule II opioid drug., 186, cm, ... Start Date: 10/20/22 Status: Ordered DEXCOM G7 COLOR SEPARATION PHOTOGRAPHER DEXCOM G7 COLOR SEPARATION PHOTOGRAPHER, See Instructions, # 1 each, Refills 0, [...] Maintenance,10/25/21 22:35:00 EDT, Route to Pharmacy Electronically, [facility]/pharmacy #[id number], 185, cm, 10/16/21 14:13:00 EDT, Height Start Date: 10/25/21 Status: Ordered Humalog Kwik Pen 100 units/mL subcutaneous injection See Instructions, take 2-11 units up to 5x a day before meals per sliding scale and for correction.E 10.9 max total daily dose if 50 units, # 30 mL, 11 Refills, Maintenance, 05/23/23 14:19:00 EST, [facility] #[id number], 186, cm, 03/04/23 11:21:... Start Date: 05/23/23 Status: Ordered Lantus Solostar Pen 100 units/mL subcutaneous solution See Instructions, Inject 32 units daily in the am E10.9, # 30 mL, 11 Refills, Maintenance, 05/23/2413:19:00 EST, [facility] #[id number], 186, cm, 03/04/23 11:21:00 EST, Height, 80, kg, 08/11/2313:47:00 EDT, Dry Weight Start Date: 05/23/23 Status: Ordered pantoprazole 40 mg oral delayed release tablet 1 tablet, By Mouth, Daily, # 90 tablet, 1 Refills, Maintenance, 04/24/23 8:03:00 EST, 186, cm, 03/04/23 11:21:00 EST, Height, 80, kg, 08/11/22 14:47:00 EDT, Dry Weight Start Date: 04/24/23 Status: Ordered Suboxone 8 mg-2 mg sublingual film See Instructions, DISSOLVE 1 AND 1/2 FILMS UNDER THE TONGUE EVERY DAY Start Date: 12/16/21 Status: Ordered traZODone 50 mg oral tablet 1, tablet, By Mouth, Daily at bedtime, INSTR:CHRONIC INSOMNIA, # 90 tablet, Refills 1, Tot. Refills1, Maintenance, 07/26/23 15:29:00 EDT, Route to Pharmacy Electronically, [facility] #[id number], 186, cm, 07/26/23 14:39:00 EDT, Height, 80, kg, 0... Start Date: 07/26/23 Status: Ordered Problem List Condition Confirmation Course Effective Dates Status H ealth Status Informant Hyperlipidemia associated with type 2 diabetes mellitus Confirmed Active Hypertension associated with diabetes Confirmed Active Hepatic lesion Confirmed Active Major depression, recurrent Confirmed Active Diabetes mellitus, type 2 Confirmed Active Diagnosis Diagnosis Type Effective Dates Health Status Clinical Service Informant Diabetes mellitus, type 2 Discharge Diagnosis 07/26/23 Hypertension associated with diabetes Discharge Diagnosis 07/26/23 Vital Signs Most recent to oldest [Reference Range]: 1 Height 186 cm (07/26/23 2:39 PM) Weight 78.2 kg (07/26/23 2:39 PM) Body Mass Index [18.5-24.99 kg/m2] 22.6 kg/m2 (07/26/23 2:39 PM) Weight Obtained Via Standing scale (07/26/23 2:39 PM) Social History Social History Type Response Smoking Status 10 or more cigarette s (1/2 pack or more)/day in last 30 days; Use: SMOKES MARIJUANA DAILY; Other: 30 pack yr history; entered on: 12/16/21 Sex Patient Care team information Care Team Personnel Name: Lynda Smith RN Position: [facility] RN Member Role: Primary Care Nurse Name: Anna GREGG, Lucina Position: [facility] RN Member Role: Primary Care Nurse Name: Chelly Casas MD Position: [facility] Physician - Primary Care Member Role: PCP Address: Address: [address] [place] [address] [address] [place], [place] [address] Name: Lelia GREGG, Rosie Position: [facility] RN Member Role: Primary Care Nurse Care Team Related Persons Name: INGRIS TONEY Address: home [address] [place] [address] Name: IRENE TONEY Address: [address] [address] Name: IRENE BLANTON Address: home [address] [facility] [address] [place] [address]
--- OUTSIDE RECORDS SUMMARY | 2023-09-23 09:55 | XMS_ITS | Continuity of Care Document ---
Author Organization [facility] Adult Address [address] [place] [address]- Care Team Providers Care Shop Mechanic Name Role Phone Yessenia ROSALES, Chelly Primary Care Physician [phone] Encounter [facility] Date(s): 06/28/22 - 07/28/22 [facility] Adult [address] [place] [address]- Allergies, Adverse Reactions, Alerts Substance Reaction Severity [...] (IM) (oldterm) 8 01/08/09 Given 1Result Comment: [facility]: [id number] 2Result Comment: [facility] [id number] 3Result Comment: [facility] [id number] 4Admin Note: VIS given 7.2.12 Questionaire completed and reviewed. 5Admin Note: Health Form given, dated 11/10/10 6Admin Note: VIS dated 08/01/09 given 7Admin Note: VIS given dated 03/05/08 8Admin Note: [facility] [id number] formula Medications amLODIPine 5 mg oral tablet 5 mg, 1, tablet, By Mouth, Daily, # 90 tablet, Refills 1, Tot. Refills 1, Maintenance, 06/07/22 15:31:00 EST, Route to Pharmacy Electronically, [facility] #[id number], Partial fill upon patient request if the [...] Mouth, Daily, # 90 tablet, 1 Refills, [facility] 00311, 185, cm, 10/16/21 14:13:00 EDT,Height Start Date: 10/18/21 Status: Ordered doxazosin 4 mg oral tablet TAKE 1 TABLET BY MOUTH AT BEDTIME Start Date: 12/16/21 Status: Ordered gabapentin 300 mg oral capsule 300 mg, 1, capsule, By Mouth, 2 times a day, # 180 capsule, Refills 0, Tot. Refills 0, Maintenance,10/25/21 22:35:00 EDT, Route to Pharmacy Electronically, [facility]/pharmacy #[id number], 185, cm, 10/16/21 14:13:00 EDT, Height Start Date: 10/25/21 Status: Ordered Humalog Kwik Pen 100 units/mL subcutaneous injection See Instructions, take 2-11 units up to 5x a day before meals per sliding scale and for correction.E 10.9 max total daily dose if 50 units, # 30 mL, 11 Refills, Maintenance, 04/26/22 12:49:00 EST, [facility] #[id number], 187, cm, 03/05/22 11:45:... Start Date: 04/26/22 Status: Ordered Lantus Solostar Pen 100 units/mL subcutaneous solution See Instructions, Inject 32 units daily in the am E10.9, # 30 mL, 11 Refills, Maintenance, 02/15/2210:57:00 EDT, [facility] #[id number], 187, cm, 02/15/22 10:31:00 EDT, Height, 88.5, [...] tablet, Refills 1,Tot. Refills 1, Physician Stop 09/01/22 12:47:00 EDT, 03/05/22 12:47:00 EST, Route to Pharmacy Electronically, [facility] #[id number], 187, cm, 11... Start Date: 03/05/22 Stop Date: 09/01/22 Status: Ordered Problem List Condition Confirmation Course [...] Team Personnel Name: Lynda Smith RN Position: [facility] RN Member Role: Primary Care Nurse Name: Lucina Castillo RN Position: [facility] RN Member Role: Primary Care Nurse Name: Chelly Casas MD Position: [facility] Primary Care Physician Member Role: PCP Address: Address: [address] [place] [id number] Name: Rosie Rowell RN Position: [facility] RN Member Role: Primary Care Nurse Care Team Related Persons Name: INGRIS TONEY Address: home [address] [place] [address] Name: IRENE TONEY Address: [address] [address] Name: IRENE BLANTON Address: [address] [address]
--- OUTSIDE RECORDS SUMMARY | 2023-09-23 09:55 | XMS_ITS | Continuity of Care Document ---
Author Organization [facility] Address [address] [place] [address]- Care Team Providers Care Tier Lift Operator Name Role Phone Yessenia ROSALES, Chelly Primary Care Physician Encounter [facility] Date(s): 02/15/23 - 03/17/23 [facility] [address] [place] [address]- Allergies, Adverse Reactions, Alerts Substance Reaction Severity [...] (IM) (oldterm) 9 01/08/09 Given 1Result Comment: [id number] 2Result Comment: [facility]: [id number] 3Result Comment: [facility] [id number] 4Result Comment: [facility] [id number] 5Admin Note: VIS given 7.2.12 Questionaire completed and reviewed. 6Admin Note: Health Form given, dated 11/10/10 7Admin Note: VIS dated 08/01/09 given 8Admin Note: VIS given dated 03/05/08 9Admin Note: [employer] [id number] formula Medications aspirin 81 mg oral tablet 1 tablet = 81 mg, By Mouth, Daily, # 30 tablet, 0 Refills, Maintenance, 01/07/19 7:10:11 EDT Start Date: 01/07/19 Status: Ordered atorvastatin 10 mg oral tablet 1 tablet, By Mouth, Daily, # 90 tablet, 1 Refills, [facility], 185, cm, 10/16/21 14:13:00 EDT,Height Start Date: 10/18/21 Status: Ordered Baqsimi Two Pack 3 mg nasal powder = 3 mg, Naris, Left, Once, to use for hypoglycimic emergency, # 1 each, 0 Refills, Soft Stop, 10/20/22 11:52:00 EDT, [facility] #[id number], Partial fill upon patient request if the prescriptionis for a schedule II opioid drug., 186, cm, ... Start Date: 10/20/22 Status: Ordered DEXCOM G7 BRANCH SERVICE REPRESENTATIVE DEXCOM G7 BRANCH SERVICE REPRESENTATIVE, See Instructions, # 1 each, Refills 0, [...] Maintenance,10/25/21 22:35:00 EDT, Route to Pharmacy Electronically, [facility]/pharmacy #[id number], 185, cm, 10/16/21 14:13:00 EDT, Height Start Date: 10/25/21 Status: Ordered Humalog Kwik Pen 100 units/mL subcutaneous injection See Instructions, take 2-11 units up to 5x a day before meals per sliding scale and for correction.E 10.9 max total daily dose if 50 units, # 30 mL, 11 Refills, Maintenance, 04/26/22 12:49:00 EST, [facility] #[id number], 187, cm, 03/05/22 11:45:... Start Date: 04/26/22 Status: Ordered Lantus Solostar Pen 100 units/mL subcutaneous solution See Instructions, Inject 32 units daily in the am E10.9, # 30 mL, 11 Refills, Maintenance, 02/15/2210:57:00 EDT, [facility] #[id number], 187, cm, 02/15/22 10:31:00 EDT, Height, 88.5, [...] Team Personnel Name: Lynda Smith RN Position: S RN Member Role: Primary Care Nurse Name: Lucina Castillo RN Position: S RN Member Role: Primary Care Nurse Name: Chelly Casas MD Position: S Physician - Primary Care Member Role: PCP Address: Address: [address] [place] [id number] Name: Rosie Rowell RN Position: S RN Member Role: Primary Care Nurse Care Team Related Persons Name: INGRIS TONEY Address: home [address] [place] [address] Name: IRENE TONEY Address: [address] [address] Name: IRENE BLANTON Address: [address] [address]
--- OUTSIDE RECORDS SUMMARY | 2023-09-23 09:55 | XMS_ITS | Continuity of Care Document ---
Author Organization [facility] Address [address] [place] [address]- Care Team Providers Care Adjuster Leader Name Role Phone Chelly Casas MD Primary Care Physician [place] [facility] [place]s): 12/24/20 - 01/24/21 [facility] [address] [place] [address]- Attending Physician: Erik Márquez MD Admitting Physician: Erik Márquez MD Referring Physician: Chelly Casas MD Allergies, Adverse Reactions, [...] (oldterm) 7 01/08/09 Given 1Result Comment: [facility] [id number] 2Result Comment: [facility] [id number] 3Admin Note: VIS given 7.2.12 Questionaire completed and reviewed. 4Admin Note: Health Form given, dated 11/10/10 5Admin Note: VIS dated 08/01/09 given 6Admin Note: VIS given dated 03/05/08 7Admin Note: [facility] [id number] formula Medications aspirin 81 mg oral tablet 1 tablet = 81 mg, By Mouth, Daily, # 30 tablet, 0 Refills, Maintenance, 01/07/19 7:10:11 EDT Start Date: 01/07/19 Status: Ordered Bactrim DS 800 mg-160 mg oral tablet 1 tablet, By Mouth, 2 times a day, for 10 days, # 20 tablet, 0 Refills, Acute 01/29/21 7:28:00 EDT,01/19/21 7:28:00 EDT, Tablet, [facility] #[id number], Partial fill upon patient request if theprescription is for a schedule II opioid drug., 1 t... Start Date: 01/19/21 Stop Date: 01/29/21 Status: Ordered FREESTYLE ROSANNA 2 READER FREESTYLE [...] Maintenance,07/05/19 10:26:00 EDT, Route to Pharmacy Electronically, [facility]/pharmacy #[id number], 185.7, cm, 06/20/19 9:07:00 EST, Height, 93.5, kg, 06/09/18 7:28:00 EST, D... Start Date: 07/05/19 Status: Ordered Humalog Kwik Pen 100 units/mL subcutaneous injection See Instructions, take 2-11 units up to 5x a day before meals per sliding scale and for correction.E 10.9 max total daily dose if 50 units, # 30 mL, 11 Refills, Maintenance, 02/18/20 10:13:00 EST, [facility] #[id number], 185.7, cm, 02/18/20 9:25... Start Date: 02/18/20 Status: Ordered Lantus Solostar Pen 100 units/mL subcutaneous solution See Instructions, Inject 32 units daily in the am E10.9, # 30 mL, 11 Refills, Maintenance, 02/20/2012:15:00 EST, [facility] #54952, 185.7, cm, 02/18/20 9:25:00 EST, Height, 93.5, kg, 06/09/18 7:28:00 EST, Dry Weight Start Date: 02/20/20 Status: Ordered losartan 25 mg oral tablet 25 mg, 1, tablet, By Mouth, Daily, # 90 tablet, Refills 3, Tot. Refills 3, Maintenance, 09/26/20 14:37:00 EDT, Route to Pharmacy Electronically, [facility]/pharmacy #[id number], 185.7, cm, 09/26/20 11:13:00 EDT, Height Start Date: 09/26/20 Status: Ordered pantoprazole 40 mg oral delayed release tablet 1 tablet, By Mouth, Daily, # 90 tablet, 0 Refills, 185.7, cm, 09/26/20 11:13:00 EDT, Height Start Date: 12/28/20 Status: Ordered Pen Ryan, 31 G x 5 mm BD Ultra [...] 02/15/18 10:34:26 EDT, Route to Pharmacy Electronically, [id number], [facility]/pharmacy #233 Start Date: 02/15/18 Status: Ordered Suboxone 8 mg-2 mg sublingual film 1.5 each, Sublingual, Daily, 0 Refills, Maintenance, 11/15/16 21:05:59 Start Date: 11/15/16 Status: Ordered traZODone 50 mg oral tablet 1, tablet, By Mouth, Daily at bedtime, INSTR:CHRONIC INSOMNIA, # 90 tablet, Refills 1, Route to Pharmacy Electronically, [facility] 14[facility], 185, cm, 01/16/21 9:52:00 EDT, Height Start [...]
--- OUTSIDE RECORDS SUMMARY | 2023-09-23 09:55 | XMS_ITS | Continuity of Care Document ---
Author Organization [facility] Adult Address [address] [place] [address]- Care Team Providers Care Soil Conservationist Name Role Phone Yessenia ROSALES, Chelly Primary Care Physician Encounter [facility] Date(s): 02/22/23 - 03/24/23 [facility] [address] [place] [address]- Allergies, Adverse Reactions, Alerts Substance Reaction Severity Status enalapril Active losartan abdominal pain - angioedema, d/ko by Dr. Avlaos Active Immunizations Given and Recorded Vaccine Date [...] (IM) (oldterm) 9 01/08/09 Given 1Result Comment: [id number] 2Result Comment: [facility]: [id number] 3Result Comment: [facility] [id number] 4Result Comment: [facility] [id number] 5Admin Note: VIS given 7.2.12 Questionaire completed and reviewed. 6Admin Note: Health Form given, dated 11/10/10 7Admin Note: VIS dated 08/01/09 given 8Admin Note: VIS given dated 03/05/08 9Admin Note: [employer] [id number] formula Medications aspirin 81 mg oral tablet 1 tablet = 81 mg, By Mouth, Daily, # 30 tablet, 0 Refills, Maintenance, 01/07/19 7:10:11 EDT Start Date: 01/07/19 Status: Ordered atorvastatin 10 mg oral tablet 1 tablet, By Mouth, Daily, # 90 tablet, 1 Refills, [facility], 185, cm, 10/16/21 14:13:00 EDT,Height Start Date: 10/18/21 Status: Ordered Baqsimi Two Pack 3 mg nasal powder = 3 mg, Naris, Left, Once, to use for hypoglycimic emergency, # 1 each, 0 Refills, Soft Stop, 10/20/22 11:52:00 EDT, [facility] #[id number], Partial fill upon patient request if the prescriptionis for a schedule II opioid drug., 186, cm, ... Start Date: 10/20/22 Status: Ordered DEXCOM G7 SOCIAL INSURANCE ANALYST DEXCOM G7 SOCIAL INSURANCE ANALYST, See Instructions, # 1 each, Refills 0, [...] Maintenance,10/25/21 22:35:00 EDT, Route to Pharmacy Electronically, [facility]/pharmacy #2339, 185, cm, 10/16/21 14:13:00 EDT, Height Start Date: 10/25/21 Status: Ordered Humalog Kwik Pen 100 units/mL subcutaneous injection See Instructions, take 2-11 units up to 5x a day before meals per sliding scale and for correction.E 10.9 max total daily dose if 50 units, # 30 mL, 11 Refills, Maintenance, 04/26/22 12:49:00 EST, [facility] #57721, 187, cm, 03/05/22 11:45:... Start Date: 04/26/22 Status: Ordered Lantus Solostar Pen 100 units/mL subcutaneous solution See Instructions, Inject 32 units daily in the am E10.9, # 30 mL, 11 Refills, Maintenance, 02/15/2210:57:00 EDT, [facility] #40625, 187, cm, 02/15/22 10:31:00 EDT, Height, 88.5, [...] Primary Care Member Role: PCP Address: Address: [address] [place] [id number] Name: Rosie Rowell RN Position: S RN Member Role: Primary Care Nurse Care Team Related Persons Name: INGRIS TONEY Address: home [address] [place] [address] Name: IRENE TONEY Address: [address] [address] Name: IRENE BLANTON Address: [address] [address]
--- OUTSIDE RECORDS SUMMARY | 2023-09-23 09:55 | XMS_ITS | Continuity of Care Document ---
Author Organization [facility] Address [address] [place] [address]- Care Team Providers Care Cost Estimator Name Role Phone Chelly Casas MD Primary Care Physician Encounter [facility] Date(s): 02/24/23 - 03/26/23 [facility] [address] [place] [address]- Attending Physician: AdmtrCleopatra Admitting Physician: Admtr, Cleopatra Referring Physician: Admtr, Ar8 Allergies, Adverse Reactions, [...] influenza virus vaccine, inactivated 6 01/13/11 Gi emer SARS-CoV-2 (COVID-19) mRNA-1273 vaccine 03/07/21 R ecorded SARS-CoV-2 (COVID-19) mRNA BNT-162b2 vac 08/24/20 Recorded SARS-CoV-2 (COVID-19) mRNA BNT-162b2 vac 08/03/20 Recorded pneumococcal 23-valent vaccine 7 01/13/11 Given tetanus/diphtheria/pertussis, acel(Tdap) 8 01/13/11 Given Influenza Inactive (IM) (oldterm) 9 01/08/09 Given 1Result Comment: [id number] 2Result Comment: [facility]: [id number] 3Result Comment: [facility] [id number] 4Result Comment: [facility] [id number] 5Admin Note: VIS given 7.2.12 Questionaire completed and reviewed. 6Admin Note: Health Form given, dated 11/10/10 7Admin Note: VIS dated 08/01/09 given 8Admin Note: VIS given dated 03/05/08 9Admin Note: [employer] [id number] formula Medications aspirin 81 mg oral tablet 1 tablet = 81 mg, By Mouth, Daily, # 30 tablet, 0 Refills, Maintenance, 01/07/19 7:10:11 EDT Start Date: 01/07/19 Status: Ordered atorvastatin 10 mg oral tablet 1 tablet, By Mouth, Daily, # 90 tablet, 1 Refills, [facility] 280[facility], 185, cm, 10/16/21 14:13:00 EDT,Height Start Date: 10/18/21 Status: Ordered Baqsimi Two Pack 3 mg nasal powder = 3 mg, Naris, Left, Once, to use for hypoglycimic emergency, # 1 each, 0 Refills, Soft Stop, 10/20/22 11:52:00 EDT, [facility] #93990, Partial fill upon patient request if the prescriptionis for a schedule II opioid drug., 186, cm, ... Start Date: 10/20/22 Status: Ordered DEXCOM G7 LEAD LEVEL DESIGNER DEXCOM G7 LEAD LEVEL DESIGNER, See Instructions, # 1 each, Refills 0, [...] Maintenance,10/25/21 22:35:00 EDT, Route to Pharmacy Electronically, [facility]/pharmacy #2339, 185, cm, 10/16/21 14:13:00 EDT, Height Start Date: 10/25/21 Status: Ordered Humalog Kwik Pen 100 units/mL subcutaneous injection See Instructions, take 2-11 units up to 5x a day before meals per sliding scale and for correction.E 10.9 max total daily dose if 50 units, # 30 mL, 11 Refills, Maintenance, 04/26/22 12:49:00 EST, [facility] #[id number], 187, cm, 03/05/22 11:45:... Start Date: 04/26/22 Status: Ordered Lantus Solostar Pen 100 units/mL subcutaneous solution See Instructions, Inject 32 units daily in the am E10.9, # 30 mL, 11 Refills, Maintenance, 02/15/2210:57:00 EDT, [facility] #[id number], 187, cm, 02/15/22 10:31:00 EDT, Height, 88.5, [...] Team Personnel Name: Lynda Smith RN Position: [facility] RN Member Role: Primary Care Nurse Name: Lucina Castillo RN Position: [facility] RN Member Role: Primary Care Nurse Name: Chelly Casas MD Position: [facility] Physician - Primary Care Member Role: PCP Address: Address: [address] [place] [address] [address] [place], [place] [address] Name: Rosie Rowell RN Position: [facility] RN Member Role: Primary Care Nurse Care Team Related Persons Name: INGRIS TONEY Address: home [address] [place] [address] Name: IRENE TONEY Address: [address] [address] Name: IRENE BLANTON Address: [address] [address]
--- OUTSIDE RECORDS SUMMARY | 2023-09-23 09:55 | XMS_ITS | Continuity of Care Document ---
Author Organization [facility] Adult Address [address] [place] [address]- Care Team Providers Care Rn Mds Coordinator Name Role Phone Yessenia ROSALES, Chelly Primary Care Physician [phone] Encounter [facility] Date(s): 02/16/21 - 03/18/21 [facility] Adult [address] [place] [address]- Allergies, Adverse Reactions, Alerts Substance Reaction Severity [...] (oldterm) 7 01/08/09 Given 1Result Comment: [facility] [id number] 2Result Comment: [facility] [id number] 3Admin Note: VIS given 7.2.12 Questionaire completed and reviewed. 4Admin Note: Health Form given, dated 11/10/10 5Admin Note: VIS dated 08/01/09 given 6Admin Note: VIS given dated 03/05/08 7Admin Note: Sebacia [id number] formula Medications aspirin 81 mg oral tablet [...] Maintenance,07/05/19 10:26:00 EDT, Route to Pharmacy Electronically, [facility]/pharmacy #[id number], 185.7, cm, 06/20/19 9:07:00 EST, Height, 93.5, kg, 06/09/18 7:28:00 EST, D... Start Date: 07/05/19 Status: Ordered Humalog Kwik Pen 100 units/mL subcutaneous injection See Instructions, take 2-11 units up to 5x a day before meals per sliding scale and for correction.E 10.9 max total daily dose if 50 units, # 30 mL, 11 Refills, Maintenance, 02/18/20 10:13:00 EST, [facility] #[id number], 185.7, cm, 02/18/20 9:25... Start Date: 02/18/20 Status: Ordered Lantus Solostar Pen 100 units/mL subcutaneous solution See Instructions, Inject 32 units daily in the am E10.9, # 30 mL, 11 Refills, Maintenance, 02/20/2012:15:00 EST, [facility] #[id number], 185.7, cm, 02/18/20 9:25:00 EST, Height, 93.5, kg, 06/09/18 7:28:00 EST, Dry Weight Start Date: 02/20/20 Status: Ordered losartan 25 mg oral tablet 25 mg, 1, tablet, By Mouth, Daily, # 90 tablet, Refills 3, Tot. Refills 3, Maintenance, 09/26/20 14:37:00 EDT, Route to Pharmacy Electronically, [facility]/pharmacy #[id number], 185.7, cm, 09/26/20 11:13:00 EDT, Height Start Date: 09/26/20 Status: Ordered pantoprazole 40 mg oral delayed release tablet 1 tablet, By Mouth, Daily, # 90 tablet, 0 Refills, 185.7, cm, 09/26/20 11:13:00 EDT, Height Start Date: 12/28/20 Status: Ordered Pen [place], 31 G x 5 mm BD Ultra [...] 02/15/18 10:34:26 EDT, Route to Pharmacy Electronically, [id number], [facility]/pharmacy #[id number] Start Date: 02/15/18 Status: Ordered Suboxone 8 mg-2 mg sublingual film 1.5 each, Sublingual, Daily, 0 Refills, Maintenance, 11/15/16 21:05:59 Start Date: 11/15/16 Status: Ordered traZODone 50 mg oral tablet 1, tablet, By Mouth, Daily at bedtime, INSTR:CHRONIC INSOMNIA, # 90 tablet, Refills 1, Route to Pharmacy Electronically, [facility] [id number], 185, cm, 01/16/21 9:52:00 EDT, Height Start [...]
--- OUTSIDE RECORDS SUMMARY | 2023-09-23 09:55 | XMS_ITS | Continuity of Care Document ---
Author Organization [facility] Address [address] [place] [address]- Care Team Providers Care Bed Control Specialist Name Role Phone Yessenia ROSALES, Chelly Primary Care Physician [phone] Encounter [facility] Date(s): 02/29/20 - 03/30/20 [facility] [address] [place] [address]- Allergies, Adverse Reactions, Alerts Substance Reaction Severity [...] (IM) (oldterm) 6 01/08/09 Given 1Result Comment: [facility] [id number] 2Admin Note: VIS given 7.2.12 Questionaire completed and reviewed. 3Admin Note: Health Form given, dated 11/10/10 4Admin Note: VIS dated 08/01/09 given 5Admin Note: VIS given dated 03/05/08 6Admin Note: [employer] [id number] formula Medications amLODIPine 2.5 mg oral tablet 2.5 mg, 1, tablet, By Mouth, Daily, started on 08/01/18 unable to tolerate ACEI or ARBs, # 90 tablet, Refills 3, Tot. Refills 3, Maintenance, 10/17/19 16:53:00 EDT, Route to Pharmacy Electronically, [facility]/pharmacy #[id number], 185.7, cm, 06/20/19 9:07:00 EST,... Start Date: 10/17/19 Stop Date: 10/11/20 Status: Ordered aspirin 81 mg oral tablet 1 tablet = 81 mg, By Mouth, Daily, # 30 tablet, 0 Refills, Maintenance, 01/07/19 7:10:11 EDT Start Date: 01/07/19 Status: Ordered FREESTYLE ROSANNA 2 READER FREESTYLE ROSANNA 2 READER, See Instructions, # 1 each, Refills 0, Tot. Refills 0, Maintenance, USED TO CHECK YOUR SUGARS AT LEAST 7X A DAY e 10.9, 02/28/20 8:21:00 EST, Supply, 185.7, cm, 02/18/20 9:25:00 EST, Height, 93.5, kg, 06/09/18 7:28:00 EST, Dr... Start Date: 02/28/20 Status: Ordered FREESTYLE ROSANNA 2 SENSORS FREESTYLE ROSANNA 2 SENSORS, See Instructions, # 2 each, Refills 11, Tot. Refills 11, Maintenance, USED TO CHECK YOUR SUGARS AT LEAST 7X A DAY e 10.9. CHANGE SENSOR EVERY 14 DAYS FROM BACK OF YOUR ARM.CHANGE SITES., 02/28/20 8:22:00 EST, Supply, 185.7,... Start Date: 02/28/20 Status: Ordered Freestyle Lite Lancets See Instructions, [...] Maintenance,07/05/19 10:26:00 EDT, Route to Pharmacy Electronically, [facility]/pharmacy #[id number], 185.7, cm, 06/20/19 9:07:00 EST, Height, 93.5, kg, 06/09/18 7:28:00 EST, D... Start Date: 07/05/19 Status: Ordered Humalog Kwik Pen 100 units/mL subcutaneous injection See Instructions, take 2-11 units up to 5x a day before meals per sliding scale and for correction.E 10.9 max total daily dose if 50 units, # 30 mL, 11 Refills, Maintenance, 02/18/20 10:13:00 EST, [facility] #[id number], 185.7, cm, 02/18/20 9:25... Start Date: 02/18/20 Status: Ordered Lantus Solostar Pen 100 units/mL subcutaneous solution See Instructions, Inject 32 units daily in the am E10.9, # 30 mL, 11 Refills, Maintenance, 02/20/2012:15:00 EST, [facility] #[id number], 185.7, cm, 02/18/20 9:25:00 EST, Height, 93.5, kg, 06/09/18 7:28:00 EST, Dry Weight Start Date: 02/20/20 Status: Ordered losartan 25 mg oral tablet 25 mg, 1, tablet, By Mouth, Daily, # 90 tablet, Refills 0, Tot. Refills 0, Maintenance, 06/19/19 12:44:00 EST, Route to Pharmacy Electronically, [facility]/pharmacy #[id number], 185.7, cm, 03/28/19 15:11:00 EST, Height, 93.5, kg, 06/09/18 7:28:00 EST, Dry Weight Start Date: 06/19/19 Status: Ordered Lotrisone 0.05%-1% cream 1 application, Topically, 2 times a day, for 14 days, # 45 Gm, 0 Refills, Acute 04/12/20 13:21:00 EST, 03/29/20 13:21:00 EST, Cream, [facility], Partial fill upon patient request if the prescription is for a schedule II opioid drug.,... Start Date: 03/29/20 Stop Date: 04/12/20 Status: Ordered Pen [place], 31 G x 5 mm BD Ultra Fine III See Instructions, # 200 each, Refills 11, Tot. Refills 11, Maintenance, to give insulin up to 6x a dayl. e 10.9, 02/18/20 10:15:00 EST, Compound, 185.7, cm, 02/18/20 9:25:00 EST, Height, 93.5, kg, 06/09/18 7:28:00 EST, Dry Weight Start Date: 02/18/20 Status: Ordered Protonix 40 mg oral delayed release tablet 1 tablet = 40 mg, By Mouth, Daily, # 90 tablet, 3 Refills, Maintenance, 01/11/20 16:07:00 EDT, 185.7, cm, 01/11/20 15:41:00 EDT, Height, 93.5, kg, 06/09/18 7:28:00 EST, Dry Weight Start Date: 01/11/20 Stop Date: 01/05/21 Status: Ordered simvastatin 20 mg oral tablet 20 mg, 1, tablet, By Mouth, Daily at bedtime, # 90 tablet, Refills 0, Tot. Refills 0, Maintenance, 02/15/18 10:34:26 EDT, Route to Pharmacy Electronically, [id number], [facility]/pharmacy #[id number] Start Date: 02/15/18 Status: Ordered Suboxone 8 mg-2 mg sublingual film 1.5 each, Sublingual, Daily, 0 Refills, Maintenance, 11/15/16 21:05:59 Start Date: 11/15/16 Status: Ordered traZODone 50 mg oral tablet 50 mg, 1, tablet, By Mouth, Daily at bedtime, Chronic insomnia, # 90 tablet, Refills 1, Tot. Refills 1, Maintenance, 01/09/20 13:07:00 EDT, Route to Pharmacy Electronically, [facility]/pharmacy #[id number], 185.7, cm, 10/18/19 9:18:00 EDT, Height, 93.5, kg, ... Start Date: 01/09/20 Status: Ordered Problem List Condition Effective Dates Status Health Status Inform ant Urinary hesitancy(Confirmed) Active Diabetes mellitus type 2 wit h complications, uncontrolled(Confirmed) Active Hyperlipidemia(Confirmed) Active HTN (hypertension)(Confirmed) Active Hepatic lesion(Confirmed) Active Major depression, recurrent(Confirmed) Active Social History Social History Type Response Tobacco Other: 1 ppd. Sex
--- OUTSIDE RECORDS SUMMARY | 2023-09-23 09:55 | XMS_ITS | Continuity of Care Document ---
Author Organization [facility] Adult Address [address] [place] [address]- Care Team Providers Care English Language Learner Teacher Name Role Phone Yessenia ROSALES, Chelly Primary Care Physician [phone] Encounter [facility] Date(s): 02/22/23 - 06/22/23 [facility] Adult [address] [place] [address]- Attending Physician: Chelly Casas MD Allergies, Adverse [...] (IM) (oldterm) 9 01/08/09 Given 1Result Comment: [id number] 2Result Comment: [facility]: [id number] 3Result Comment: [facility] [id number] 4Result Comment: [facility] [id number] 5Admin Note: VIS given 7.2.12 Questionaire completed and reviewed. 6Admin Note: Health Form given, dated 11/10/10 7Admin Note: VIS dated 08/01/09 given 8Admin Note: VIS given dated 03/05/08 9Admin Note: [employer] [id number] formula Medications aspirin 81 mg oral tablet 1 tablet = 81 mg, By Mouth, Daily, # 30 tablet, 0 Refills, Maintenance, 01/07/19 7:10:11 EDT Start Date: 01/07/19 Status: Ordered atorvastatin 10 mg oral tablet 1 tablet, By Mouth, Daily, # 90 tablet, 1 Refills, [id number], 185, cm, 10/16/21 14:13:00 EDT,Height Start Date: 10/18/21 Status: Ordered Baqsimi Two Pack 3 mg nasal powder = 3 mg, Naris, Left, Once, to use for hypoglycimic emergency, # 1 each, 0 Refills, Soft Stop, 10/20/22 11:52:00 EDT, [facility] #[id number], Partial fill upon patient request if the prescriptionis for a schedule II opioid drug., 186, cm, ... Start Date: 10/20/22 Status: Ordered DEXCOM G7 GLASS EDGER DEXCOM G7 GLASS EDGER, See Instructions, # 1 each, Refills 0, [...] 22:35:00 EDT, Route to Pharmacy Electronically, [facility]/pharmacy #[id number], 185, cm, 10/16/21 14:13:00 EDT, Height Start Date: 10/25/21 Status: Ordered Humalog Kwik Pen 100 units/mL subcutaneous injection See Instructions, take 2-11 units up to 5x a day before meals per sliding scale and for correction.E 10.9 max total daily dose if 50 units, # 30 mL, 11 Refills, Maintenance, 05/23/23 14:19:00 [facility] #[id number], 186, cm, 03/04/23 11:21:... Start Date: 05/23/23 Status: Ordered Lantus Solostar Pen 100 units/mL subcutaneous solution See Instructions, Inject 32 units daily in the am E10.9, # 30 mL, 11 Refills, Maintenance, 05/23/2413:19:00 EST12 [facility] #[id number], 186, cm, 03/04/23 11:21:00 EST, Height, 80, [...] Team Personnel Name: Lynda Smith RN Position: [facility] RN Member Role: Primary Care Nurse Name: Lucina Castillo RN Position: [facility] RN Member Role: Primary Care Nurse Name: Chelly Casas MD Position: [facility] Physician - Primary Care Member Role: PCP Address: Address: [address] [place] [address] [address] [place], [place] [address] Name: Rosie Rowell RN Position: [facility] RN Member Role: Primary Care Nurse Care Team Related Persons Name: INGRIS TONEY Address: home [address] [place] [address] Name: IRENE TONEY Address: home [address] [address] Name: IRENE BLANTON Address: [address] [address]
--- OUTSIDE RECORDS SUMMARY | 2023-09-23 09:55 | XMS_ITS | Continuity of Care Document ---
Author Organization [facility] ter Address [address] [place] [address]- Care Team Providers Care Chief Commercial Officer Name Role Phone Yessenia ROSALES, Chelly Primary Care Physician [place] [facility] Date(s): 10/25/22 - 12/24/[address] [address]- Attending Physician: Cecelia Villanueva MD Admitting Physician: Cecelia Villanueva MD Referring Physician: Chelly Casas MD Allergies, [...] (IM) (oldterm) 8 01/08/09 Given 1Result Comment: [facility]: [id number] 2Result Comment: [facility] [phone] 3Result Comment: [facility] [id number] 4Admin Note: VIS given 7.2.12 Questionaire completed and reviewed. 5Admin Note: Health Form given, dated 11/10/10 6Admin Note: VIS dated 08/01/09 given 7Admin Note: VIS given dated 03/05/08 8Admin Note: [employer] [id number] formula Medications amLODIPine 5 mg oral tablet 5 mg, 1, tablet, By Mouth, Daily, # 90 tablet, Refills 1, Tot. Refills 1, Maintenance, 12/02/22 13:00:00 EDT, Route to Pharmacy Electronically, [facility] #[id number], Partial fill upon patient request if the prescription is for a schedule II opi... Start Date: 12/02/22 Stop Date: 05/31/23 Status: Ordered aspirin 81 mg oral tablet 1 tablet = 81 mg, By Mouth, Daily, # 30 tablet, 0 Refills, Maintenance, 01/07/19 7:10:11 EDT Start Date: 01/07/19 Status: Ordered atorvastatin 10 mg oral tablet 1 tablet, By Mouth, Daily, # 90 tablet, 1 Refills, [facility] 78971, 185, cm, 10/16/21 14:13:00 EDT,Height Start Date: 10/18/21 Status: Ordered Baqsimi Two Pack 3 mg nasal powder = 3 mg, Naris, Left, Once, to use for hypoglycimic emergency, # 1 each, 0 Refills, Soft Stop, 10/20/22 11:52:00 EDT, [facility] #[id number], Partial fill upon patient request if the prescriptionis for a schedule II opioid drug., 186, cm, ... Start Date: 10/20/22 Status: Ordered DEXCOM G7 [employer] SPECIALIST DEXCOM G7 [employer] SPECIALIST, See Instructions, # 1 each, Refills 0, [...] Maintenance,10/25/21 22:35:00 EDT, Route to Pharmacy Electronically, [facility]/pharmacy #[id number], 185, cm, 10/16/21 14:13:00 EDT, Height Start Date: 10/25/21 Status: Ordered Humalog Kwik Pen 100 units/mL subcutaneous injection See Instructions, take 2-11 units up to 5x a day before meals per sliding scale and for correction.E 10.9 max total daily dose if 50 units, # 30 mL, 11 Refills, Maintenance, 04/26/22 12:49:00 EST, [facility] #[id number], 187, cm, 03/05/22 11:45:... Start Date: 04/26/22 Status: Ordered Lantus Solostar Pen 100 units/mL subcutaneous solution See Instructions, Inject 32 units daily in the am E10.9, # 30 mL, 11 Refills, Maintenance, 02/15/2210:57:00 EDT, [facility] #[id number], 187, cm, 02/15/22 10:31:00 EDT, Height, 88.5, [...] 09/01/22 12:51:00 EDT, Route to Pharmacy Electronically, [facility] #[id number], 186, cm, 04... Start Date: 09/01/22 Stop [...] Team Personnel Name: Lynda Smith RN Position: [facility] RN Member Role: Primary Care Nurse Name: Lucina Castillo RN Position: S RN Member Role: Primary Care Nurse Name: Chelly Casas MD Position: [facility] Physician - Primary Care Member Role: PCP Address: Address: [address] [place] [address] Floor [facility] [place] [address]- Name: Lelia GREGG, Rosie Position: Cheryl RN Member Role: Primary Care Nurse Care Team Related Persons Name: INGRIS TONEY Address: home [address] [place] [address] Name: IRENE TONEY Address: home [address] [address] Name: IRENE BLANTON Address: [address] [address]
--- OUTSIDE RECORDS SUMMARY | 2023-09-23 09:55 | XMS_ITS | Continuity of Care Document ---
Author Organization [facility] Address [address] [place] [address]- Care Team Providers Care Conservation Educator Name Role Phone Chelly Casas MD Primary Care Physician Encounter [facility] Date(s): 02/15/22 - 03/17/22 [facility] [address] [place] [id number] Attending Physician: Admtr, Ar8 Admitting Physician: Admtr, [...] (IM) (oldterm) 8 01/08/09 Given 1Result Comment: [facility]: [id number] 2Result Comment: [facility] [id number] 3Result Comment: [facility] [id number] 4Admin Note: VIS given 7.2.12 Questionaire completed and reviewed. 5Admin Note: Health Form given, dated 11/10/10 6Admin Note: VIS dated 08/01/09 given 7Admin Note: VIS given dated 03/05/08 8Admin Note: [employer] [phone] formula Medications amLODIPine 5 mg oral tablet 5 mg, 1, tablet, By Mouth, Daily, # 90 tablet, Refills 3, Tot. Refills 3, Maintenance, 06/03/21 9:21:00 EST, Route to Pharmacy Electronically, [facility] #[id number], Partial fill upon patient request if the prescription is for a schedule II opio... Start Date: 06/03/21 Status: Ordered aspirin 81 mg oral tablet 1 tablet = 81 mg, By Mouth, Daily, # 30 tablet, 0 Refills, Maintenance, 01/07/19 7:10:11 EDT Start Date: 01/07/19 Status: Ordered atorvastatin 10 mg oral tablet 1 tablet, By Mouth, Daily, # 90 tablet, 1 Refills, [facility], 185, cm, 10/16/21 14:13:00 EDT,Height Start Date: 10/18/21 Status: Ordered doxazosin 4 mg oral tablet TAKE 1 TABLET BY MOUTH AT BEDTIME Start Date: 12/16/21 Status: Ordered Freestyle pardeep 2 reader Freestyle pardeep 2 reader, See Instructions, # 1 each, Refills 0, Tot. Refills 0, Maintenance, Used to con't mon't BG Dx E10.65, 12/15/21 12:53:00 EDT, Supply, 185, cm, 10/16/21 14:13:00 EDT, Height Start Date: 12/15/21 Status: Ordered FREESTYLE PARDEEP 2 SENSORS FREESTYLE PARDEEP 2 SENSORS, See Instructions, # 2 each, Refills 11, Tot. Refills 11, Maintenance, USED TO CHECK YOUR SUGARS AT LEAST 7X A DAY e 10.9. CHANGE SENSOR EVERY 14 DAYS FROM BACK OF YOUR ARM.CHANGE SITES., 10/26/21 9:07:00 EDT, Supply, 185, c... Start Date: 10/26/21 Status: Ordered gabapentin 300 mg oral capsule 300 mg, 1, capsule, By Mouth, 2 times a day, # 180 capsule, Refills 0, Tot. Refills 0, Maintenance,10/25/21 22:35:00 EDT, Route to Pharmacy Electronically, [facility]/pharmacy #[id number], 185, cm, 10/16/21 14:13:00 EDT, Height Start Date: 10/25/21 Status: Ordered Humalog Kwik Pen 100 units/mL subcutaneous injection See Instructions, take 2-11 units up to 5x a day before meals per sliding scale and for correction.E 10.9 max total daily dose if 50 units, # 30 mL, 11 Refills, Maintenance, 02/18/20 10:13:00 EST, [facility] #[id number], 185.7, cm, 02/18/20 9:25... Start Date: 02/18/20 Status: Ordered Lantus Solostar Pen 100 units/mL subcutaneous solution See Instructions, Inject 32 units daily in the am E10.9, # 30 mL, 11 Refills, Maintenance, 02/15/2210:57:00 EDT, [facility] #[id number], 187, cm, 02/15/22 10:31:00 EDT, Height, 88.5, kg, 12/16/21 3:29:00 EDT, Dry Weight Start Date: 02/15/22 Status: Ordered pantoprazole 40 mg oral delayed release tablet 1 tablet, By Mouth, Daily, for 90 days, # 90 tablet, 0 Refills, Physician Stop 06/03/22 12:46:00 EST, 03/05/22 12:46:00 EST, 187, cm, 03/05/22 11:45:00 EST, Height, 88.5, kg, 12/16/21 3:29:00 EDT, Dry Weight Start Date: 03/05/22 Stop Date: 06/03/22 Status: Ordered Pen [place], 31 G x 5 mm BD Ultra Fine III See Instructions, # 200 each, Refills 11, Tot. Refills 11, Maintenance, to give insulin up to 6x a dayl. e 10.9, 02/18/20 10:15:00 EST, Compound, 185.7, cm, 02/18/20 9:25:00 EST, Height, 93.5, kg, 06/09/18 7:28:00 EST, Dry Weight Start Date: 02/18/20 Status: Ordered Suboxone 8 mg-2 mg sublingual film See Instructions, DISSOLVE 1 AND 1/2 FILMS UNDER THE TONGUE EVERY DAY Start Date: 12/16/21 Status: Ordered traZODone 50 mg oral tablet 1, tablet, By Mouth, Daily at bedtime, for 90 days, INSTR:CHRONIC INSOMNIA, # 90 tablet, Refills 1,Tot. Refills 1, Physician Stop 09/01/22 12:47:00 EDT, 03/05/22 12:47:00 EST, Route to Pharmacy Electronically, [facility] #[id number], 187, cm, 11... Start Date: 03/05/22 Stop [...] Team Personnel Name: Lynda Smith RN Position: [facility] RN Member Role: Primary Care Nurse Name: Lucina Castillo RN Position: S RN Member Role: Primary Care Nurse Name: Chelly Casas MD Position: [facility] Primary Care Physician Member Role: PCP Address: Address: [address] [facility] [address]rd [place] [address]- Name: Rosie Rowell RN Position: S RN Member Role: Primary Care Nurse Care Team Related Persons Name: INGRIS TONEY Address: home [address] [place] [address] Name: IRENE TONEY Address: home [address] [place] [address] [address] [place] [address] Name: IRENE BLANTON Address: home [address] [place] [address]
--- OUTSIDE RECORDS SUMMARY | 2023-09-23 09:55 | XMS_ITS | Continuity of Care Document ---
Author Organization [facility] Adult Address [address] [place] [address]- Care Team Providers Care Volunteer Services Coordinator Name Role Phone Chelly Casas MD Primary Care Physician Encounter [facility] Date(s): 01/25/22 - 02/01/22 [facility] Adult [address] [place] [address]- Encounter Diagnosis Weight loss(Discharge Diagnosis) - 01/25/22 Attending Physician: Chelly Casas MD Allergies, Adverse Reactions, Alerts Substance Reaction Severity Status enalapril Active losartan abdominal pain - angioedema, d/ko by Dr. Avalos Active Immunizations Given and Recorded Vaccine Date Status Refusal Reason influenza virus vaccine, inactivated 03/07/21 Joe rded influenza virus vaccine, inactivated 1 05/16/20 Gi [...] virus vaccine, inactivated 4 01/13/11 Gi emre SARS-CoV-2 (COVID-19) mRNA-1273 vaccine 03/07/21 R ecorded SARS-CoV-2 (COVID-19) mRNA BNT-162b2 vac 08/24/20 Recorded SARS-CoV-2 (COVID-19) mRNA BNT-162b2 vac 08/03/20 Recorded pneumococcal 23-valent vaccine 5 01/13/11 Given tetanus/diphtheria/pertussis, acel(Tdap) 6 01/13/11 Given Influenza Inactive (IM) (oldterm) 7 01/08/09 Given 1Result Comment: [facility] [id number] 2Result Comment: [facility] [id number] 3Admin Note: VIS given 7.2.12 Questionaire completed and reviewed. 4Admin Note: Health Form given, dated 11/10/10 5Admin Note: VIS dated 08/01/09 given 6Admin Note: VIS given dated 03/05/08 7Admin Note: [employer] [id number] formula Medications amLODIPine 5 mg oral tablet 5 mg, 1, tablet, By Mouth, Daily, # 90 tablet, Refills 3, Tot. Refills 3, Maintenance, 06/03/21 9:21:00 EST, Route to Pharmacy Electronically, [facility] #[id number], Partial fill upon patient request if the prescription is for a schedule II opio... Start Date: 06/03/21 Status: Ordered aspirin 81 mg oral tablet 1 tablet = 81 mg, By Mouth, Daily, # 30 tablet, 0 Refills, Maintenance, 01/07/19 7:10:11 EDT Start Date: 01/07/19 Status: Ordered atorvastatin 10 mg oral tablet 1 tablet, By Mouth, Daily, # 90 tablet, 1 Refills, [id number], 185, cm, 10/16/21 14:13:00 EDT,Height Start Date: [...] Maintenance,10/25/21 22:35:00 EDT, Route to Pharmacy Electronically, [facility]/pharmacy #[id number], 185, cm, 10/16/21 14:13:00 EDT, Height Start Date: 10/25/21 Status: Ordered Humalog Kwik Pen 100 units/mL subcutaneous injection See Instructions, take 2-11 units up to 5x a day before meals per sliding scale and for correction.E 10.9 max total daily dose if 50 units, # 30 mL, 11 Refills, Maintenance, 02/18/20 10:13:00 EST, [facility] #[id number], 185.7, cm, 02/18/20 9:25... Start Date: 02/18/20 Status: Ordered Lantus Solostar Pen 100 units/mL subcutaneous solution See Instructions, Inject 32 units daily in the am E10.9, # 30 mL, 11 Refills, Maintenance, 07/24/2209:48:00 EDT, [facility] #[id number], 185, cm, 07/24/21 10:19:00 EDT, Height Start Date: 07/24/21 Status: Ordered Lotrimin AF 1% topical cream 1 application, Topically, 2 times a day, for 14 days, # 30 Gm, 0 Refills, Acute 02/08/22 17:22:00 EDT, 01/25/22 17:22:00 EDT, Cream, [facility] #[id number], Partial fill upon patient request if the prescription is for a schedule II opioid drug.,... Start Date: 01/25/22 Stop Date: 02/08/22 Status: Ordered pantoprazole 40 mg oral delayed release tablet 1 tablet, By Mouth, Daily, # 90 tablet, 1 Refills, 11/16/21 8:43:00 EDT, 185, cm, 10/16/21 14:13:00EDT, Height Start Date: 11/16/21 Status: Ordered Pen [place], 31 G x 5 mm BD Ultra [...] tablet, Refills 1, Route to Pharmacy Electronically, [facility], 185, cm, 01/16/21 9:52:00 EDT, Height Start Date: 01/19/21 Status: Ordered Problem List Condition Confirmation Course Effective Dates Status H ealth Status Informant Hyperlipidemia associated with type 2 diabetes mellitus Confirmed Active Hypertension associated with diabetes Confirmed Active Hepatic lesion Confirmed Active Major depression, recurrent Confirmed Active Diabetes mellitus, type 2 Confirmed Active Diagnosis Diagnosis Type Effective Dates Health Status Clini wily Service Informant Weight loss Discharge Diagnosis 01/25/22 Vital Signs Most recent to oldest [Reference Range]: 1 Height 187 cm (01/25/22 3:59 PM) Weight 83.1 kg (01/25/22 3:59 PM) Oxygen Saturation [94-100 %] 99 % (01/25/22 3:59 PM) Pulse Rate [55-90 bpm] 101 bpm *H* (01/25/22 3:59 PM) Body Mass Index [18.5-24.99 kg/m2] 23.76 kg/m2 (01/25/22 3:59 PM) Blood Pressure [90-138/55-84 mm Hg] 129/ 65mm Hg (01/25/22 3:59 PM) Temperature [96.8-100.4 DegF] 98.4 DegF (01/25/22 3:59 PM) Mode of Delivery (Oxygen) Room air (01/25/22 3:59 PM) Blood pressure sites Arm, left (01/25/22 3:59 PM) Temperature Route Oral (01/25/22 3:59 PM) Weight Obtained Via Standing scale (01/25/22 3:59 PM) Social History Social History Type Response Smoking Status 10 or more cigarette s (1/2 pack or more)/day in last 30 days; Use: SMOKES MARIJUANA DAILY; Other: 30 pack yr history; entered on: 12/16/21 Sex Patient Care team information Personnel Name: Chelly Casas MD Address: Address: [address] [place] [id number]
--- OUTSIDE RECORDS SUMMARY | 2023-09-23 09:55 | XMS_ITS | Continuity of Care Document ---
Author Organization [facility] Adult Address [address] [place] [address]- Care Team Providers Care Disc Pad Grinder Name Role Phone Yessenia ROSALES, Chelly Primary Care Physician [phone] Encounter [facility] Date(s): 01/16/21 - 01/23/21 [facility] Adult [address] [place] [address]- Encounter Diagnosis Urinary tract infection(Discharge Diagnosis) - 01/16/21 Bronchitis(Discharge Diagnosis) - 01/16/21 Right shoulder pain(Discharge Diagnosis) - 01/16/21 Major depression, recurrent(Discharge Diagnosis) - 01/16/21 Hypertension associated with diabetes(Discharge Diagnosis) - 01/16/21 Hyperlipidemia associated with type 2 diabetes mellitus(Discharge Diagnosis) - 01/16/21 Diabetes mellitus type 2 with complications, uncontrolled(Discharge Diagnosis) - 01/16/21 Attending Physician: Ghanshyam Vargas MD Allergies, Adverse Reactions, Alerts Substance Reaction [...] (IM) (oldterm) 7 01/08/09 Given 1Result Comment: [facility] [id number] 2Result Comment: [facility] [id number] 3Admin Note: VIS given 7.2.12 Questionaire completed and reviewed. 4Admin Note: Health Form given, dated 11/10/10 5Admin Note: VIS dated 08/01/09 given 6Admin Note: VIS given dated 03/05/08 7Admin Note: [employer] [id number] formula Medications aspirin 81 mg oral tablet 1 tablet = 81 mg, By Mouth, Daily, # 30 tablet, 0 Refills, Maintenance, 01/07/19 7:10:11 EDT Start Date: 01/07/19 Status: Ordered Bactrim DS 800 mg-160 mg oral tablet 1 tablet, By Mouth, 2 times a day, for 10 days, # 20 tablet, 0 Refills, Acute 01/29/21 7:28:00 EDT,01/19/21 7:28:00 EDT, Tablet, [facility] #[id number], Partial fill upon patient request if theprescription [...] Maintenance,07/05/19 10:26:00 EDT, Route to Pharmacy Electronically, [facility]/pharmacy #[id number], 185.7, cm, 06/20/19 9:07:00 EST, Height, 93.5, kg, 06/09/18 7:28:00 EST, D... Start Date: 07/05/19 Status: Ordered Humalog Kwik Pen 100 units/mL subcutaneous injection See Instructions, take 2-11 units up to 5x a day before meals per sliding scale and for correction.E 10.9 max total daily dose if 50 units, # 30 mL, 11 Refills, Maintenance, 02/18/20 10:13:00 EST, [facility] #32367, 185.7, cm, 02/18/20 9:25... Start Date: 02/18/20 Status: Ordered Lantus Solostar Pen 100 units/mL subcutaneous solution See Instructions, Inject 32 units daily in the am E10.9, # 30 mL, 11 Refills, Maintenance, 02/20/2012:15:00 EST, [facility] #21084, 185.7, cm, 02/18/20 9:25:00 EST, Height, 93.5, kg, 06/09/18 7:28:00 EST, Dry Weight Start Date: 02/20/20 Status: Ordered losartan 25 mg oral tablet 25 mg, 1, tablet, By Mouth, Daily, # 90 tablet, Refills 3, Tot. Refills 3, Maintenance, 09/26/20 14:37:00 EDT, Route to Pharmacy Electronically, [facility]/pharmacy #2339, 185.7, cm, 09/26/20 11:13:00 EDT, Height Start Date: 09/26/20 Status: Ordered pantoprazole 40 mg oral delayed release tablet 1 tablet, By Mouth, Daily, # 90 tablet, 0 Refills, 185.7, cm, 09/26/20 11:13:00 EDT, Height Start Date: 12/28/20 Status: Ordered Pen [place], 31 G x 5 mm BD Ultra [...] 02/15/18 10:34:26 EDT, Route to Pharmacy Electronically, [id number], [facility]/pharmacy #[id number] Start Date: 02/15/18 Status: Ordered Suboxone 8 mg-2 mg sublingual film 1.5 each, Sublingual, Daily, 0 Refills, Maintenance, 11/15/16 21:05:59 Start Date: 11/15/16 Status: Ordered traZODone 50 mg oral tablet 1, tablet, By Mouth, Daily at bedtime, INSTR:CHRONIC INSOMNIA, # 90 tablet, Refills 1, Route to Pharmacy Electronically, [facility] 6[facility], 185, cm, 01/16/21 9:52:00 EDT, Height Start Date: 01/19/21 Status: Ordered Problem List Condition Effective Dates Status Health Status Inform ant Diabetes mellitus type 2 wit h complications, uncontrolled(Confirmed) Active Hyperlipidemia associated wi th type 2 diabetes mellitus(Confirmed) Active Hypertension associated with diabetes(Confirmed) Active Hepatic lesion(Confirmed) Active Major depression, recurrent(Confirmed) Active Diagnosis Diagnosis Type Effective Dates Health Status Clinical Service Informant Urinary tract infection Discharge Diagnosis 01/16/21 Bronchitis Discharge Diagnosis 01/16/21 Diabetes mellitus type 2 with complications, uncontrolled Discharge Diagnosis 01/16/21 Hypertension associated with diabetes Discharge Diagnosis 01/16/21 Hyperlipidemia associated with type 2 diabetes mellitus Discharge Diagnosis 01/16/21 Major depression, recurrent Discharge Diagnosis 01/16/21 Right shoulder pain Discharge Diagnosis 01/16/21 Vital Signs Most recent to oldest [Reference Range]: 1 Height 185 cm (01/16/21 9:52 AM) Weight 93.3 kg (01/16/21 9:52 AM) Oxygen Saturation [94-100 %] 98 % (01/16/21 9:52 AM) Pulse Rate [55-90 bpm] 81 bpm (01/16/21 9:52 AM) Body Mass Index [18.5-24.99] 27.26 *H* (01/16/21 9:52 AM) Blood Pressure [90-138/55-84 mm Hg] 113/ 60mm Hg (01/16/21 9:52 AM) Mode of Delivery (Oxygen) Room air (01/16/21 9:52 AM) Blood pressure sites Arm, left (01/16/21 9:52 AM) Weight Obtained Via Standing scale (01/16/21 9:52 AM) Social History Social History Type Response Tobacco Other: 1 ppd. Sex
--- OUTSIDE RECORDS SUMMARY | 2023-09-23 09:55 | XMS_ITS | Continuity of Care Document ---
Author Organization [facility] Adult Address [address] [place] [address]- Care Team Providers Care Industrial Management Teacher Name Role Phone Chelly Casas MD Primary Care Physician [phone] Encounter [facility] Date(s): 05/16/20 - 05/23/20 [facility] Adult [address] [place] [id number]- Encounter Diagnosis Mid back pain(Discharge Diagnosis) - 05/16/20 Diabetes mellitus type 2 with complications, uncontrolled(Discharge Diagnosis) - 05/17/20 Major depression, recurrent(Discharge Diagnosis) - 05/17/20 Skin spots-aging(Discharge Diagnosis) - 05/17/20 Hypertension associated with diabetes(Discharge Diagnosis) - 05/18/20 Hyperlipidemia associated with type 2 diabetes mellitus(Discharge Diagnosis) - 05/18/20 Attending Physician: Chelly Casas MD Allergies, Adverse Reactions, Alerts Substance Reaction Severity Status enalapril Active losartan abdominal pain - angioedema, d/ko by Dr. Avalos Active Immunizations Given and Recorded Vaccine Date Status Refusal Reason influenza virus vaccine, inactivated 1 05/16/20 Gi [...] (IM) (oldterm) 7 01/08/09 Given 1Result Comment: [facility] [id number] 2Result Comment: [facility] [id number] 3Admin Note: VIS given 7.2.12 Questionaire completed and reviewed. 4Admin Note: Health Form given, dated 11/10/10 5Admin Note: VIS dated 08/01/09 given 6Admin Note: VIS given dated 03/05/08 7Admin Note: [employer] [id number] formula Medications amLODIPine 2.5 mg oral tablet 2.5 mg, 1, tablet, By Mouth, Daily, started on 08/01/18 unable to tolerate ACEI or ARBs, # 90 tablet, Refills 3, Tot. Refills 3, Maintenance, 10/17/19 16:53:00 EDT, Route to Pharmacy Electronically, [facility]/pharmacy #[id number], 185.7, cm, 06/20/19 9:07:00 EST,... [...] Maintenance,07/05/19 10:26:00 EDT, Route to Pharmacy Electronically, [facility]/pharmacy #[id number], 185.7, cm, 06/20/19 9:07:00 EST, Height, 93.5, kg, 06/09/18 7:28:00 EST, D... Start Date: 07/05/19 Status: Ordered Humalog Kwik Pen 100 units/mL subcutaneous injection See Instructions, take 2-11 units up to 5x a day before meals per sliding scale and for correction.E 10.9 max total daily dose if 50 units, # 30 mL, 11 Refills, Maintenance, 02/18/20 10:13:00 EST, [facility] #[id number], 185.7, cm, 02/18/20 9:25... Start Date: 02/18/20 Status: Ordered Lantus Solostar Pen 100 units/mL subcutaneous solution See Instructions, Inject 32 units daily in the am E10.9, # 30 mL, 11 Refills, Maintenance, 02/20/2012:15:00 EST, [facility] #[id number], 185.7, cm, 02/18/20 9:25:00 EST, Height, 93.5, kg, 06/09/18 7:28:00 EST, Dry Weight Start Date: 02/20/20 Status: Ordered losartan 25 mg oral tablet 25 mg, 1, tablet, By Mouth, Daily, # 90 tablet, Refills 0, Tot. Refills 0, Maintenance, 06/19/19 12:44:00 EST, Route to Pharmacy Electronically, [facility]/pharmacy #[id number], 185.7, cm, 03/28/19 15:11:00 EST, Height, 93.5, kg, 06/09/18 7:28:00 EST, Dry Weight Start Date: 06/19/19 Status: Ordered Pen [place], 31 G x 5 mm BD Ultra [...] 02/15/18 10:34:26 EDT, Route to Pharmacy Electronically, [id number], [facility]/pharmacy #[id number] Start Date: 02/15/18 Status: Ordered Suboxone 8 mg-2 mg sublingual film 1.5 each, Sublingual, Daily, 0 Refills, Maintenance, 11/15/16 21:05:59 Start Date: 11/15/16 Status: Ordered traZODone 50 mg oral tablet 50 mg, 1, tablet, By Mouth, Daily at bedtime, Chronic insomnia, # 90 tablet, Refills 1, Tot. Refills 1, Maintenance, 01/09/20 13:07:00 EDT, Route to Pharmacy Electronically, [facility]/pharmacy #[id number], 185.7, cm, 10/18/19 9:18:00 EDT, Height, 93.5, kg, 06/09/... Start Date: 01/09/20 Status: Ordered Problem List Condition Effective Dates Status Health Status Inform ant Diabetes mellitus type 2 wit h complications, uncontrolled(Confirmed) Active Hyperlipidemia associated wi th type 2 diabetes mellitus(Confirmed) Active Hypertension associated with diabetes(Confirmed) Active Hepatic lesion(Confirmed) Active Major depression, recurrent(Confirmed) Active Diagnosis Diagnosis Type Effective Dates Health Status Clinical Service Informant Mid back pain Discharge Diagnosis 05/16/20 Diabetes mellitus type 2 with complications, uncontrolled Discharge Diagnosis 05/17/20 Major depression, recurrent Discharge Diagnosis 05/17/20 Skin spots-aging Discharge Diagnosis 05/17/20 Hypertension associated with diabetes Discharge Diagnosis 05/18/20 Hyperlipidemia associated with type 2 diabetes mellitus Discharge Diagnosis 05/18/20 Vital Signs Most recent to oldest [Reference Range]: 1 Height 185.7 cm (05/16/20 10:36 AM) Weight 99.1 kg (05/16/20 10:36 AM) Oxygen Saturation [94-100 %] 99 % (05/16/20 10:36 AM) Pulse Rate [55-90 bpm] 84 bpm (05/16/20 10:36 AM) Body Mass Index [18.5-24.99] 28.74 *H* (05/16/20 10:36 AM) Blood Pressure [90-138/55-84 mm Hg] 124/ 68mm Hg (05/16/20 10:36 AM) Temperature [96.8-100.4 DegF] 98.3 DegF (05/16/20 10:36 AM) Mode of Delivery (Oxygen) Room air (05/16/20 10:36 AM) Blood pressure sites Arm, right (05/16/20 10:36 AM) Temperature Route Oral (05/16/20 10:36 AM) Social History Social History Type Response Tobacco Other: 1 ppd. Sex
--- OUTSIDE RECORDS SUMMARY | 2023-09-23 09:55 | XMS_ITS | Continuity of Care Document ---
Author Organization [facility] Adult Address [address] [place] [address]- Care Team Providers Care Brooch And Bracelet Maker Name Role Phone Yessenia ORSALES, Chelly Primary Care Physician [phone] Encounter [facility] Date(s): 10/05/21 - 11/08/21 [facility] Adult [address] [place] [address]- Attending Physician: Chelly Casas MD Allergies, Adverse [...] (IM) (oldterm) 7 01/08/09 Given 1Result Comment: [facility] [id number] 2Result Comment: [facility] [id number] 3Admin Note: VIS given 7.2.12 Questionaire completed and reviewed. 4Admin Note: Health Form given, dated 11/10/10 5Admin Note: VIS dated 08/01/09 given 6Admin Note: VIS given dated 03/05/08 7Admin Note: [employer] [id number] formula Medications amLODIPine 5 mg oral tablet 5 mg, 1, tablet, By Mouth, Daily, # 90 tablet, Refills 3, Tot. Refills 3, Maintenance, 06/03/21 9:21:00 EST, Route to Pharmacy Electronically, [facility] #[id number], Partial fill upon patient request if the prescription is for a schedule II opio... Start Date: 06/03/21 Status: Ordered aspirin 81 mg oral tablet 1 tablet = 81 mg, By Mouth, Daily, # 30 tablet, 0 Refills, Maintenance, 01/07/19 7:10:11 EDT Start Date: 01/07/19 Status: Ordered atorvastatin 10 mg oral tablet 1 tablet, By Mouth, Daily, # 90 tablet, 1 Refills, [facility], 185, cm, 10/16/21 14:13:00 EDT,Height Start Date: 10/18/21 Status: Ordered FREESTYLE ROSANNA 2 READER FREESTYLE [...] Maintenance,10/25/21 22:35:00 EDT, Route to Pharmacy Electronically, [facility]/pharmacy #2339, 185, cm, 10/16/21 14:13:00 EDT, Height Start Date: 10/25/21 Status: Ordered Humalog Kwik Pen 100 units/mL subcutaneous injection See Instructions, take 2-11 units up to 5x a day before meals per sliding scale and for correction.E 10.9 max total daily dose if 50 units, # 30 mL, 11 Refills, Maintenance, 02/18/20 10:13:00 EST, [facility] #43141, 185.7, cm, 02/18/20 9:25... Start Date: 02/18/20 Status: Ordered Lantus Solostar Pen 100 units/mL subcutaneous solution See Instructions, Inject 32 units daily in the am E10.9, # 30 mL, 11 Refills, Maintenance, 07/24/2209:48:00 EDT, [facility] #75915, 185, cm, 07/24/21 10:19:00 EDT, Height Start Date: 07/24/21 Status: Ordered pantoprazole 40 mg oral delayed release tablet 1 tablet, By Mouth, Daily, # 90 tablet, 1 Refills, 05/18/21 14:58:00 EST, 185, cm, 04/13/21 11:29:00 EST, Height Start Date: 05/18/21 Status: Ordered Pen [place], 31 G x 5 mm BD Ultra [...] tablet, Refills 1, Route to Pharmacy Electronically, [facility], 185, cm, 01/16/21 9:52:00 EDT, Height Start Date: 01/19/21 Status: Ordered Problem List Condition Effective Dates Status Health Status Inform ant Hyperlipidemia associated wi th type 2 diabetes mellitus(Confirmed) Active Hypertension associated with diabetes(Confirmed) Active Hepatic lesion(Confirmed) Active Major depression, recurrent(Confirmed) Active Diabetes mellitus, type 2(Confirmed) Active Social History Social History Type Response Smoking Status 5-9 cigarettes (betw een 1/4 to 1/2 pack)/day in last 30 days; Use: SMOKES MARIJUANA DAILY; Other: 30 pack yr history; entered on: 04/13/21 Sex
--- OUTSIDE RECORDS SUMMARY | 2023-09-23 09:56 | XMS_ITS | Continuity of Care Document ---
Author Organization [facility] Adult Address [address] [place] [address]- Care Team Providers Care Banquet Kitchen Supervisor Name Role Phone Yessenia ROSALES, Chelly Primary Care Physician [phone] Encounter [facility] Date(s): 07/14/22 - 08/13/22 [facility] Adult [address] [place] [address]- Allergies, Adverse Reactions, Alerts Substance Reaction Severity [...] 02/02/13 Give n influenza virus vaccine, inactivated 02/18/12 Gi emre influenza virus vaccine, inactivated 5 01/13/11 Gi emre SARS-CoV-2 (COVID-19) mRNA-1273 vaccine 03/07/21 R ecorded SARS-CoV-2 (COVID-19) mRNA BNT-162b2 vac 08/24/20 Recorded SARS-CoV-2 (COVID-19) mRNA BNT-162b2 vac 08/03/20 Recorded pneumococcal 23-valent vaccine 6 01/13/11 Given tetanus/diphtheria/pertussis, acel(Tdap) 7 01/13/11 Given Influenza Inactive (IM) (oldterm) 8 9/23/09 Given 1Result Comment: [facility]: [id number] 2Result Comment: [facility] [id number] 3Result Comment: [facility] [id number] 4Admin Note: VIS given 7.2.12 Questionaire completed and reviewed. 5Admin Note: Health Form given, dated 11/10/10 6Admin Note: VIS dated 08/01/09 given 7Admin Note: VIS given dated 03/05/08 8Admin Note: [employer] [id number] formula Medications amLODIPine 5 mg oral tablet 5 mg, 1, tablet, By Mouth, Daily, # 90 tablet, Refills 1, Tot. Refills 1, Maintenance, 06/07/22 15:31:00 EST, Route to Pharmacy Electronically, [facility] #[id number], Partial fill upon patient request if the [...] Mouth, Daily, # 90 tablet, 1 Refills, [facility], 185, cm, 10/16/21 14:13:00 EDT,Height Start Date: 10/18/21 Status: Ordered doxazosin 4 mg oral tablet TAKE 1 TABLET BY MOUTH AT BEDTIME Start Date: 12/16/21 Status: Ordered gabapentin 300 mg oral capsule 300 mg, 1, capsule, By Mouth, 2 times a day, # 180 capsule, Refills 0, Tot. Refills 0, Maintenance,10/25/21 22:35:00 EDT, Route to Pharmacy Electronically, [facility]/pharmacy #2339, 185, cm, 10/16/21 14:13:00 EDT, Height Start Date: 10/25/21 Status: Ordered Humalog Kwik Pen 100 units/mL subcutaneous injection See Instructions, take 2-11 units up to 5x a day before meals per sliding scale and for correction.E 10.9 max total daily dose if 50 units, # 30 mL, 11 Refills, Maintenance, 04/26/22 12:49:00 EST, [facility] #[id number], 187, cm, 03/05/22 11:45:... Start Date: 04/26/22 Status: Ordered Lantus Solostar Pen 100 units/mL subcutaneous solution See Instructions, Inject 32 units daily in the am E10.9, # 30 mL, 11 Refills, Maintenance, 02/15/2210:57:00 EDT, [facility] #26849, 187, cm, 02/15/22 10:31:00 EDT, Height, 88.5, kg, 12/16/21 3:29:00 EDT, Dry Weight Start Date: 02/15/22 Status: Ordered ondansetron 8 mg oral tablet, disintegrating 1 tablet = 8 mg, By Mouth, 3 times a day, PRN Nausea & Vomiting, for 5 days, # 15 tablet, 1 Refills, Acute 08/21/22 15:31:00 EDT, 08/11/22 15:31:00 EDT, DIS Tablet, [facility] #[id number], Partial fill upon patient request if the prescription is... Start Date: 08/11/22 Stop Date: 08/21/22 Status: Ordered pantoprazole 40 mg oral delayed [...] 03/05/22 12:47:00 EST, Route to Pharmacy Electronically, [facility] #44315, 187, cm, 11... Start Date: 03/05/22 Stop Date: 5/17/23 Status: Ordered Problem List Condition Confirmation Course [...] Team Personnel Name: Lynda Smith RN Position: [facility] RN Member Role: Primary Care Nurse Name: Lucina Castillo RN Position: [facility] RN Member Role: Primary Care Nurse Name: Chelly Casas MD Position: [facility] Primary Care Physician Member Role: PCP Address: Address: [address] [place] [address] [address] [place], [place] [address] Name: Rosie Rowell RN Position: [facility] RN Member Role: Primary Care Nurse Care Team Related Persons Name: INGRIS TONEY Address: home [address] [place] [address] Name: IRENE TONEY Address: home [address] [address] Name: IRENE BLANTON Address: home [address] [address]
--- OUTSIDE RECORDS SUMMARY | 2023-09-23 09:56 | XMS_ITS | Continuity of Care Document ---
Author Organization [facility] Adult Address [address] [place] [address]- Care Team Providers Care Senior Interactive Producer Name Role Phone Chelly Casas MD Primary Care Physician [phone] Encounter [facility] Date(s): 03/28/20 - 04/04/20 [facility] Adult [address] [place] [address]- Encounter Diagnosis Well adult exam(Discharge Diagnosis) - 03/28/20 HTN (hypertension)(Discharge Diagnosis) - 03/29/20 Urinary hesitancy(Discharge Diagnosis) - 03/28/20 Diabetes mellitus type 2 with complications, uncontrolled(Discharge Diagnosis) - 03/28/20 Hyperlipidemia(Discharge Diagnosis) - 03/29/20 Major depression, recurrent(Discharge Diagnosis) - 03/29/20 Attending Physician: Chelly Casas MD Allergies, Adverse [...] (IM) (oldterm) 6 01/08/09 Given 1Result Comment: [facility] [id number] 2Admin Note: VIS given 7.2.12 Questionaire completed and reviewed. 3Admin Note: Health Form given, dated 11/10/10 4Admin Note: VIS dated 08/01/09 given 5Admin Note: VIS given dated 03/05/08 6Admin Note: [employer] [id number] formula Medications amLODIPine 2.5 mg oral tablet 2.5 mg, 1, tablet, By Mouth, Daily, started on 08/01/18 unable to tolerate ACEI or ARBs, # 90 tablet, Refills 3, Tot. Refills 3, Maintenance, 10/17/19 16:53:00 EDT, Route to Pharmacy Electronically, [facility]/pharmacy #[id number], 185.7, cm, 06/20/19 9:07:00 EST,... Start [...] Maintenance,07/05/19 10:26:00 EDT, Route to Pharmacy Electronically, [facility]/pharmacy #2339, 185.7, cm, 06/20/19 9:07:00 EST, Height, 93.5, kg, 06/09/18 7:28:00 EST, D... Start Date: 07/05/19 Status: Ordered Humalog Kwik Pen 100 units/mL subcutaneous injection See Instructions, take 2-11 units up to 5x a day before meals per sliding scale and for correction.E 10.9 max total daily dose if 50 units, # 30 mL, 11 Refills, Maintenance, 02/18/20 10:13:00 EST, [facility] #[id number], 185.7, cm, 02/18/20 9:25... Start Date: 02/18/20 Status: Ordered Lantus Solostar Pen 100 units/mL subcutaneous solution See Instructions, Inject 32 units daily in the am E10.9, # 30 mL, 11 Refills, Maintenance, 02/20/2012:15:00 EST, [facility] #[id number], 185.7, cm, 02/18/20 9:25:00 EST, Height, 93.5, kg, 06/09/18 7:28:00 EST, Dry Weight Start Date: 02/20/20 Status: Ordered losartan 25 mg oral tablet 25 mg, 1, tablet, By Mouth, Daily, # 90 tablet, Refills 0, Tot. Refills 0, Maintenance, 06/19/19 12:44:00 EST, Route to Pharmacy Electronically, [facility]/pharmacy #[id number], 185.7, cm, 03/28/19 15:11:00 EST, Height, 93.5, kg, 06/09/18 7:28:00 EST, Dry Weight Start Date: 06/19/19 Status: Ordered Lotrisone 0.05%-1% cream 1 application, Topically, 2 times a day, for 14 days, # 45 Gm, 0 Refills, Acute 04/12/20 13:21:00 EST, 03/29/20 13:21:00 EST, Cream, [facility], Partial fill upon patient request if the prescription is for a schedule II opioid drug.,... Start Date: 03/29/20 Stop Date: 04/12/20 Status: Ordered Pen [place], 31 G x 5 mm BD Ultra [...] 02/15/18 10:34:26 EDT, Route to Pharmacy Electronically, [id number], [facility]/pharmacy #[id number] Start Date: 02/15/18 Status: Ordered Suboxone 8 mg-2 mg sublingual film 1.5 each, Sublingual, Daily, 0 Refills, Maintenance, 11/15/16 21:05:59 Start Date: 11/15/16 Status: Ordered traZODone 50 mg oral tablet 50 mg, 1, tablet, By Mouth, Daily at bedtime, Chronic insomnia, # 90 tablet, Refills 1, Tot. Refills 1, Maintenance, 01/09/20 13:07:00 EDT, Route to Pharmacy Electronically, [facility]/pharmacy #[id number], 185.7, cm, 10/18/19 9:18:00 EDT, Height, 93.5, kg, ... Start Date: 01/09/20 Status: Ordered Problem List Condition Effective Dates Status Health Status Inform ant Urinary hesitancy(Confirmed) Active Diabetes mellitus type 2 wit h complications, uncontrolled(Confirmed) Active Hyperlipidemia(Confirmed) Active HTN (hypertension)(Confirmed) Active Hepatic lesion(Confirmed) Active Major depression, recurrent(Confirmed) Active Diagnosis Diagnosis Type Effective Dates Health Status Clinical Service Informant Well adult exam Discharge Diagnosis 03/28/20 Diabetes mellitus type 2 with complications, uncontrolled Discharge Diagnosis 03/28/20 Urinary hesitancy Discharge Diagnosis 03/28/20 HTN (hypertension) Discharge Diagnosis 03/29/20 Hyperlipidemia Discharge Diagnosis 03/29/20 Major depression, recurrent Discharge Diagnosis 03/29/20 Vital Signs Most recent to oldest [Reference Range]: 1 Height 185.7 cm (03/28/20 10:58 AM) Weight 97.4 kg (03/28/20 10:58 AM) Oxygen Saturation [94-100 %] 99 % (03/28/20 10:58 AM) Pulse Rate [55-90 bpm] 88 bpm (03/28/20 10:58 AM) Body Mass Index [18.5-24.99] 28.24 *H* (03/28/20 10:58 AM) Blood Pressure [90-138/55-84 mm Hg] 110/ 60mm Hg (03/28/20 10:58 AM) Respiratory Rate [16-30 br/min] 18 br/mi n (03/28/20 10:58 AM) Temperature [96.8-100.4 DegF] 98.1 DegF (03/28/20 10:58 AM) Mode of Delivery (Oxygen) Room air (03/28/20 10:58 AM) Blood pressure sites Arm, right (03/28/20 10:58 AM) Temperature Route Oral (03/28/20 10:58 AM) Weight Obtained Via Standing scale (03/28/20 10:58 AM) Social History Social History Type Response Tobacco Other: 1 ppd. Sex
--- OUTSIDE RECORDS SUMMARY | 2023-09-23 09:56 | XMS_ITS | Continuity of Care Document ---
Author Organization [facility] Address [address] [address]- Care Team Providers Care Coil Shaper Name Role Phone Yessenia ROSALES, Chelly Primary Care Physician Encounter [facility] Date(s): 11/24/22 - 12/24/22 [facility] [address] [facility] [address] [place] [address] Allergies, Adverse Reactions, Alerts Substance Reaction Severity [...] (IM) (oldterm) 8 01/08/09 Given 1Result Comment: [facility]: [id number] 2Result Comment: [facility] [phone] 3Result Comment: [facility] [id number] 4Admin Note: VIS given 7.2.12 Questionaire completed and reviewed. 5Admin Note: Health Form given, dated 11/10/10 6Admin Note: VIS dated 08/01/09 given 7Admin Note: VIS given dated 03/05/08 8Admin Note: [employer] [id number] formula Medications amLODIPine 5 mg oral tablet 5 mg, 1, tablet, By Mouth, Daily, # 90 tablet, Refills 1, Tot. Refills 1, Maintenance, 12/02/22 13:00:00 EDT, Route to Pharmacy Electronically, [facility] #86175, Partial fill upon patient request if the [...] Mouth, Daily, # 90 tablet, 1 Refills, [facility], 185, cm, 10/16/21 14:13:00 EDT,Height Start Date: 10/18/21 Status: Ordered Baqsimi Two Pack 3 mg nasal powder = 3 mg, Naris, Left, Once, to use for hypoglycimic emergency, # 1 each, 0 Refills, Soft Stop, 10/20/22 11:52:00 EDT, [facility] #52494, Partial fill upon patient request if the prescriptionis for a schedule II opioid drug., 186, cm, ... 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, [facility] #[id number], 187, cm, 03/05/22 11:45:... Start Date: 04/26/22 Status: Ordered Lantus Solostar Pen 100 units/mL subcutaneous solution See Instructions, Inject 32 units daily in the am E10.9, # 30 mL, 11 Refills, Maintenance, 02/15/2210:57:00 EDT, [facility] #17599, 187, cm, 02/15/22 10:31:00 EDT, Height, 88.5, [...] 09/01/22 12:51:00 EDT, Route to Pharmacy Electronically, [facility] #[id number], 186, cm, 04... Start Date: 09/01/22 Stop [...] Team Personnel Name: Lynda Smith RN Position: [facility] RN Member Role: Primary Care Nurse Name: Lucina Castillo RN Position: [facility] RN Member Role: Primary Care Nurse Name: Chelly Casas MD Position: [facility] Physician - Primary Care Member Role: PCP Address: Address: [address] [place] [address] [address] [place], [place] [address] Name: Lelia GREGG, Rosie Position: [facility] RN Member Role: Primary Care Nurse Care Team Related Persons Name: INGRIS TONEY Address: home [address] [place] [address] Name: IRENE TONEY Address: home [address] [place] [address] Name: IRENE BLANTON Address: home [address] [place] [address]
--- OUTSIDE RECORDS SUMMARY | 2023-09-23 09:56 | XMS_ITS | Continuity of Care Document ---
Author Organization [facility] Adult Address [address] [place] [address]- Care Team Providers Care Mammography Technician Name Role Phone Yessenia ROSALES, Chelly Primary Care Physician Encounter [facility] Date(s): 01/26/22 - 02/25/22 [facility] [address] [place] [address]- Allergies, Adverse Reactions, Alerts Substance Reaction Severity [...] (IM) (oldterm) 7 01/08/09 Given 1Result Comment: [facility] [id number] 2Result Comment: [facility] [id number] 3Admin Note: VIS given 7.2.12 Questionaire completed and reviewed. 4Admin Note: Health Form given, dated 11/10/10 5Admin Note: VIS dated 08/01/09 given 6Admin Note: VIS given dated 03/05/08 7Admin Note: [employer] [id number] formula Medications amLODIPine 5 mg oral tablet 5 mg, 1, tablet, By Mouth, Daily, # 90 tablet, Refills 3, Tot. Refills 3, Maintenance, 06/03/21 9:21:00 EST, Route to Pharmacy Electronically, [id number], Partial fill upon patient request if the prescription is for a schedule II opio... Start Date: 06/03/21 Status: Ordered aspirin 81 mg oral tablet 1 tablet = 81 mg, By Mouth, Daily, # 30 tablet, 0 Refills, Maintenance, 01/07/19 7:10:11 EDT Start Date: 01/07/19 Status: Ordered atorvastatin 10 mg oral tablet 1 tablet, By Mouth, Daily, # 90 tablet, 1 Refills, [facility], 185, cm, 10/16/21 14:13:00 EDT,Height Start Date: [...] Maintenance,10/25/21 22:35:00 EDT, Route to Pharmacy Electronically, [facility]/pharmacy #[id number], 185, cm, 10/16/21 14:13:00 EDT, Height Start Date: 10/25/21 Status: Ordered Humalog Kwik Pen 100 units/mL subcutaneous injection See Instructions, take 2-11 units up to 5x a day before meals per sliding scale and for correction.E 10.9 max total daily dose if 50 units, # 30 mL, 11 Refills, Maintenance, 02/18/20 10:13:00 EST, [facility] #52672, 185.7, cm, 02/18/20 9:25... Start Date: 02/18/20 Status: Ordered Lantus Solostar Pen 100 units/mL subcutaneous solution See Instructions, Inject 32 units daily in the am E10.9, # 30 mL, 11 Refills, Maintenance, 02/15/2210:57:00 EDT, [facility] #22136, 187, cm, 02/15/22 10:31:00 EDT, Height, 88.5, kg, 12/16/21 3:29:00 EDT, Dry Weight Start Date: 02/15/22 Status: Ordered pantoprazole 40 mg oral delayed release tablet 1 tablet, By Mouth, Daily, # 90 tablet, 1 Refills, 11/16/21 8:43:00 EDT, 185, cm, 10/16/21 14:13:00EDT, Height Start Date: 11/16/21 Status: Ordered Pen [place], 31 G x 5 mm BD Ultra [...] tablet, Refills 1, Route to Pharmacy Electronically, [facility], 185, cm, 01/16/21 9:52:00 EDT, Height Start [...] Team Personnel Name: Lynda Smith RN Position: [facility] RN Member Role: Primary Care Nurse Name: Lucina Castillo RN Position: [facility] RN Member Role: Primary Care Nurse Name: Chelly Casas MD Position: [facility] Primary Care Physician Member Role: PCP Address: Address: [address] [place] [address] [address] [place], [place] [address] Name: Rosie Rowell RN Position: [facility] RN Member Role: Primary Care Nurse Care Team Related Persons Name: INGRIS TONEY Address: home [address] [place] [address] Name: IRENE TONEY Address: [address] [address] Name: IRENE BLANTON Address: [address] [address]
--- OUTSIDE RECORDS SUMMARY | 2023-09-23 09:56 | XMS_ITS | Continuity of Care Document ---
Author Organization [facility] Adult Address [address] [place] [address]- Care Team Providers Care Tag Maker Name Role Phone Chelly Casas MD Primary Care Physician [phone] Encounter [facility] Date(s): 07/05/19 - 07/12/19 [facility] Adult [address] [place] [address]- [facility] Encounter Diagnosis Borderline personality disorder(Discharge Diagnosis) - 07/05/19 Diabetes mellitus type 2 with complications, uncontrolled(Discharge Diagnosis) - 07/05/19 Numerous skin moles(Discharge Diagnosis) - 07/05/19 Attending Physician: Chelly Casas MD Allergies, Adverse [...] (IM) (oldterm) 6 01/08/09 Given 1Result Comment: [facility] [id number] 2Admin Note: VIS given 10.18.11 Questionaire completed and reviewed. 3Admin Note: Health Form given, dated 11/10/10 4Admin Note: VIS dated 08/01/09 given 5Admin Note: VIS given dated 03/05/08 6Admin Note: [employer] [id number] formula Medications amLODIPine 2.5 mg oral tablet 2.5 mg, 1, tablet, By Mouth, Daily, started on 08/01/18 unable to tolerate ACEI or ARBs, # 90 tablet, Refills 3, Tot. Refills 3, Maintenance, 01/02/19 11:42:47 EDT, [id number] Start Date: 01/02/19 Stop Date: [...] 11, Maintenance, USE TO CHECK YOUR SUGAR 6X A DAY. E10.9, 05/11/19 14:41:00 EST, [facility], 185.7, cm, 03/28/19 15:11:00 EST, Height, 93.5, kg, 06/09/18 7:28:00 EST, Dry Weight Start Date: 05/11/19 Status: Ordered gabapentin 300 mg oral capsule 300 mg, 1, capsule, By Mouth, 2 times a day, # 180 capsule, Refills 3, Tot. Refills 3, Maintenance,07/05/19 10:26:00 EDT, Route to Pharmacy Electronically, [facility]/pharmacy #[id number], 185.7, cm, 06/20/19 9:07:00 EST, [...] 12:22:32 EST Start Date: 02/28/19 Status: Ordered losartan 25 mg oral tablet 25 mg, 1, tablet, By Mouth, Daily, # 90 tablet, Refills 0, Tot. Refills 0, Maintenance, 06/19/19 12:44:00 EST, Route to Pharmacy Electronically, [facility]/pharmacy #[id number], 185.7, cm, 03/28/19 15:11:00 EST, Height, 93.5, kg, 06/09/18 7:28:00 EST, Dry Weight Start Date: 06/19/19 Status: Ordered Pen [place], 31 G x 5 mm BD Ultra Fine III See Instructions, # 150 each, Refills 11, Tot. Refills 11, Maintenance, to give insulin 4x a dayl. e 10.9, 02/28/19 12:25:22 EST, Compound Start Date: 02/28/19 Status: Ordered Protonix 40 mg oral delayed release tablet 1 tablet = 40 mg, By Mouth, Daily, # 90 tablet, 3 Refills, Maintenance, 04/23/19 19:41:00 EST, 185.7, cm, 03/28/19 15:11:00 EST, Height, 93.5, kg, 06/09/18 7:28:00 EST, Dry Weight Start Date: 04/23/19 Stop Date: 04/17/20 Status: Ordered simvastatin 20 mg oral tablet 20 mg, 1, tablet, By Mouth, Daily at bedtime, # 90 tablet, Refills 0, Tot. Refills 0, Maintenance, 02/15/18 10:34:26 EDT, Route to Pharmacy Electronically, [id number], [facility]/pharmacy #233 Start Date: 02/15/18 Status: Ordered Suboxone 8 mg-2 mg sublingual film 1.5 each, Sublingual, Daily, 0 Refills, Maintenance, 11/15/16 21:05:59 Start Date: 11/15/16 Status: Ordered traZODone 50 mg oral tablet 50 mg, 1, tablet, By Mouth, Daily at bedtime, Chronic insomnia, # 90 tablet, Refills 1, Tot. Refills 1, Maintenance, 07/05/19 10:26:00 EDT, Route to Pharmacy Electronically, [facility]/pharmacy #2339, 185.7, cm, 06/20/19 9:07:00 EST, Height, 93.5, kg, 06/09/... Start Date: 07/05/19 Status: Ordered Problem List Condition Effective Dates Status Health Status Inform ant Benign essential hypertension(Confirmed) Active Borderline personality disorder(Confirmed) Active Cannabis dependence(Confirmed) Active Cigarette smoker(Confirmed) Active Diabetes mellitus type 2 wit h complications, uncontrolled(Confirmed) Active Hepatic lesion(Confirmed) Active Pure hypercholesterolemia(Confirmed) Active Diagnosis Diagnosis Type Effective Dates Health Status Clinical Service Informant Borderline personality disorder Discharge Diagnosis 07/05/19 Diabetes mellitus type 2 with complications, uncontrolled Discharge Diagnosis 07/05/19 Numerous skin moles Discharge Diagnosis 07/05/19 Social History Social History Type Response Tobacco Other: 1 ppd. Sex
--- OUTSIDE RECORDS SUMMARY | 2023-09-23 09:56 | XMS_ITS | Continuity of Care Document ---
Author Organization [facility] ter Address [address] [place] [address]- Care Team Providers Care It Compliance Analyst Name Role Phone Chelly Casas MD Primary Care Physician [phone] Encounter [facility] Date(s): 11/24/22 - 12/24/[address] [address]- Attending Physician: Admtr, Cleopatra Admitting Physician: Admtr, Ar8 Referring Physician: Admtr, [...] (IM) (oldterm) 8 01/08/09 Given 1Result Comment: [facility]: [id number] 2Result Comment: [facility] [id number] 3Result Comment: [facility] [id number] 4Admin Note: VIS given 7.2.12 Questionaire completed and reviewed. 5Admin Note: Health Form given, dated 11/10/10 6Admin Note: VIS dated 08/01/09 given 7Admin Note: VIS given dated 03/05/08 8Admin Note: [employer] [id number] formula Medications amLODIPine 5 mg oral tablet 5 mg, 1, tablet, By Mouth, Daily, # 90 tablet, Refills 1, Tot. Refills 1, Maintenance, 12/02/22 13:00:00 EDT, Route to Pharmacy Electronically, [facility] #[id number], Partial fill upon patient request if the [...] Mouth, Daily, # 90 tablet, 1 Refills, [facility] 99[facility], 185, cm, 10/16/21 14:13:00 EDT,Height Start Date: 10/18/21 Status: Ordered Baqsimi Two Pack 3 mg nasal powder = 3 mg, Naris, Left, Once, to use for hypoglycimic emergency, # 1 each, 0 Refills, Soft Stop, 10/20/22 11:52:00 EDT, [facility] #71936, Partial fill upon patient request if the prescriptionis for a schedule II opioid drug., 186, cm, ... 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 Start Date: 04/26/22 Status: Ordered Lantus Solostar Pen 100 units/mL subcutaneous solution See Instructions, Inject 32 units daily in the am E10.9, # 30 mL, 11 Refills, Maintenance, 02/15/2210:57:00 EDT, [facility] #27595, 187, cm, 02/15/22 10:31:00 EDT, Height, 88.5, [...] 09/01/22 12:51:00 EDT, Route to Pharmacy Electronically, [facility] #05272, 186, cm, 04... Start Date: 09/01/22 Stop [...] Team Personnel Name: Lynda Smith RN Position: [facility] RN Member Role: Primary Care Nurse Name: Lucina Castillo RN Position: S RN Member Role: Primary Care Nurse Name: Chelly Casas MD Position: [facility] Physician - Primary Care Member Role: PCP Address: Address: [address] [place] [address]- Name: Lelia GREGG, Rosie Position: [facility] RN Member Role: Primary Care Nurse Care Team Related Persons Name: INGRIS TONEY Address: home [address] [place] [address] Name: IRENE TONEY Address: [address] [address] Name: IRENE BLANTON Address: home [address] [facility] [address] [place] [address]
--- OUTSIDE RECORDS SUMMARY | 2023-09-23 09:56 | XMS_ITS | Continuity of Care Document ---
Author Organization [facility] Adult Address [address] [place] [address]- Care Team Providers Care Control Systems Specialist Name Role Phone Yessenia ROSALES, Chelly Primary Care Physician Encounter [facility] Date(s): 07/16/22 - 08/15/22 [facility] Adult [address] [place] [address]- Allergies, Adverse Reactions, Alerts Substance Reaction Severity [...] (oldterm) 8 9/23/09 Given 1Result Comment: [facility]: [id number] 2Result Comment: [facility] [id number] 3Result Comment: [facility] [id number] 4Admin Note: VIS given 7.2.12 Questionaire completed and reviewed. 5Admin Note: Health Form given, dated 11/10/10 6Admin Note: VIS dated 08/01/09 given 7Admin Note: VIS given dated 03/05/08 8Admin Note: [employer] [id number] formula Medications amLODIPine 5 mg oral tablet 5 mg, 1, tablet, By Mouth, Daily, # 90 tablet, Refills 1, Tot. Refills 1, Maintenance, 06/07/22 15:31:00 EST, Route to Pharmacy Electronically, [facility] #13905, Partial fill upon patient request if the [...] Mouth, Daily, # 90 tablet, 1 Refills, [facility] 706[facility], 185, cm, 10/16/21 14:13:00 EDT,Height Start Date: 10/18/21 Status: Ordered doxazosin 4 mg oral tablet TAKE 1 TABLET BY MOUTH AT BEDTIME Start Date: 12/16/21 Status: Ordered gabapentin 300 mg oral capsule 300 mg, 1, capsule, By Mouth, 2 times a day, # 180 capsule, Refills 0, Tot. Refills 0, Maintenance,10/25/21 22:35:00 EDT, Route to Pharmacy Electronically, [facility]/pharmacy #2339, 185, cm, 10/16/21 14:13:00 EDT, Height Start Date: 10/25/21 Status: Ordered Humalog Kwik Pen 100 units/mL subcutaneous injection See Instructions, take 2-11 units up to 5x a day before meals per sliding scale and for correction.E 10.9 max total daily dose if 50 units, # 30 mL, 11 Refills, Maintenance, 04/26/22 12:49:00 EST, [facility] #65528, 187, cm, 03/05/22 11:45:... Start Date: 04/26/22 Status: Ordered Lantus Solostar Pen 100 units/mL subcutaneous solution See Instructions, Inject 32 units daily in the am E10.9, # 30 mL, 11 Refills, Maintenance, 02/15/2210:57:00 EDT, [facility] #76980, 187, cm, 02/15/22 10:31:00 EDT, Height, 88.5, kg, 12/16/21 3:29:00 EDT, Dry Weight Start Date: 02/15/22 Status: Ordered ondansetron 8 mg oral tablet, disintegrating 1 tablet = 8 mg, By Mouth, 3 times a day, PRN Nausea & Vomiting, for 5 days, # 15 tablet, 1 Refills, Acute 08/21/22 15:31:00 EDT, 08/11/22 15:31:00 EDT, DIS Tablet, [facility] #46507, Partial fill upon patient request if the [...] 03/05/22 12:47:00 EST, Route to Pharmacy Electronically, [facility] #43435, 187, cm, 11... Start Date: 03/05/22 Stop [...] Team Personnel Name: Lynda Smith RN Position: [facility] RN Member Role: Primary Care Nurse Name: Lucina Castillo RN Position: [facility] RN Member Role: Primary Care Nurse Name: Chelly Casas MD Position: [facility] Primary Care Physician Member Role: PCP Address: Address: [address] [place] [address] [address] [place], [place] [address] Name: Rosie Rowell RN Position: [facility] RN Member Role: Primary Care Nurse Care Team Related Persons Name: INGRIS TONEY Address: home [address] [place] [address] Name: IRENE TONEY Address: [address] [address] Name: IRENE BLANTON Address: [address] [address]
--- OUTSIDE RECORDS SUMMARY | 2023-09-23 09:56 | XMS_ITS | Continuity of Care Document ---
Author Organization [facility] Address [address] [place] [address]- Care Team Providers Care Tool And Cutter Grinder Name Role Phone Yessenia ROSALES, Chelly Primary Care Physician [phone] Encounter [facility] [place](s): 09/29/20 - 10/29/20 [facility] [address] [place] [address]- Attending Physician: Admtr, Ar8 Admitting Physician: Admtr, [...] (IM) (oldterm) 7 01/08/09 Given 1Result Comment: [facility] [id number] 2Result Comment: [facility] [id number] 3Admin Note: VIS given 7.2.12 Questionaire completed and reviewed. 4Admin Note: Health Form given, dated 11/10/10 5Admin Note: VIS dated 08/01/09 given 6Admin Note: VIS given dated 03/05/08 7Admin Note: [facility] [id number] formula Medications aspirin 81 mg oral tablet [...] Maintenance,07/05/19 10:26:00 EDT, Route to Pharmacy Electronically, [facility]/pharmacy #[id number], 185.7, cm, 06/20/19 9:07:00 EST, Height, 93.5, kg, 06/09/18 7:28:00 EST, D... Start Date: 07/05/19 Status: Ordered Humalog Kwik Pen 100 units/mL subcutaneous injection See Instructions, take 2-11 units up to 5x a day before meals per sliding scale and for correction.E 10.9 max total daily dose if 50 units, # 30 mL, 11 Refills, Maintenance, 02/18/20 10:13:00 EST, [facility] #[id number], 185.7, cm, 02/18/20 9:25... Start Date: 02/18/20 Status: Ordered Lantus Solostar Pen 100 units/mL subcutaneous solution See Instructions, Inject 32 units daily in the am E10.9, # 30 mL, 11 Refills, Maintenance, 02/20/2012:15:00 EST, [facility] #21468, 185.7, cm, 02/18/20 9:25:00 EST, Height, 93.5, kg, 06/09/18 7:28:00 EST, Dry Weight Start Date: 02/20/20 Status: Ordered losartan 25 mg oral tablet 25 mg, 1, tablet, By Mouth, Daily, # 90 tablet, Refills 3, Tot. Refills 3, Maintenance, 09/26/20 14:37:00 EDT, Route to Pharmacy Electronically, [facility]/pharmacy #2339, 185.7, cm, 09/26/20 11:13:00 EDT, Height Start Date: 09/26/20 Status: Ordered Pen [place], 31 G x 5 mm BD Ultra [...] 02/15/18 10:34:26 EDT, Route to Pharmacy Electronically, [id number], [facility]/pharmacy #[id number] Start Date: 02/15/18 Status: Ordered Suboxone 8 mg-2 mg sublingual film 1.5 each, Sublingual, Daily, 0 Refills, Maintenance, 11/15/16 21:05:59 Start Date: 11/15/16 Status: Ordered traZODone 50 mg oral tablet 50 mg, 1, tablet, By Mouth, Daily at bedtime, Chronic insomnia, # 90 tablet, Refills 1, Tot. Refills 1, Maintenance, 07/17/20 15:06:00 EDT, Route to Pharmacy Electronically, [facility], 185.7, cm, 05/16/20 10:36:00 EST, Height Start Date: 07/17/20 Status: Ordered Problem List Condition Effective Dates Status Health Status Inform ant Diabetes mellitus type 2 wit h complications, uncontrolled(Confirmed) Active Hyperlipidemia associated wi th type 2 diabetes mellitus(Confirmed) Active Hypertension associated with diabetes(Confirmed) Active Hepatic lesion(Confirmed) Active Major depression, recurrent(Confirmed) Active Social History Social History Type Response Tobacco Other: 1 ppd. Sex
--- OUTSIDE RECORDS SUMMARY | 2023-09-23 09:56 | XMS_ITS | Continuity of Care Document ---
Author Organization [facility] Address [address] [place] [address]- Care Team Providers Care Pony Edger Name Role Phone Yessenia ROSALES, Chelly Primary Care Physician Encounter [facility] Date(s): 03/04/20 - 04/03/20 [facility] [address] [place] [address]- Allergies, Adverse Reactions, Alerts Substance Reaction Severity [...] (IM) (oldterm) 6 01/08/09 Given 1Result Comment: [facility] [id number] 2Admin Note: VIS given 7.2.12 Questionaire completed and reviewed. 3Admin Note: Health Form given, dated 11/10/10 4Admin Note: VIS dated 08/01/09 given 5Admin Note: VIS given dated 03/05/08 6Admin Note: [employer] [id number] formula Medications amLODIPine 2.5 mg oral tablet 2.5 mg, 1, tablet, By Mouth, Daily, started on 08/01/18 unable to tolerate ACEI or ARBs, # 90 tablet, Refills 3, Tot. Refills 3, Maintenance, 10/17/19 16:53:00 EDT, Route to Pharmacy Electronically, [facility]/pharmacy #2339, 185.7, cm, 06/20/19 9:07:00 [...] Maintenance,07/05/19 10:26:00 EDT, Route to Pharmacy Electronically, [facility]/pharmacy #2339, 185.7, cm, 06/20/19 9:07:00 EST, Height, 93.5, kg, 06/09/18 7:28:00 EST, D... Start Date: 07/05/19 Status: Ordered Humalog Kwik Pen 100 units/mL subcutaneous injection See Instructions, take 2-11 units up to 5x a day before meals per sliding scale and for correction.E 10.9 max total daily dose if 50 units, # 30 mL, 11 Refills, Maintenance, 02/18/20 10:13:00 EST, [facility] #32158, 185.7, cm, 02/18/20 9:25... Start Date: 02/18/20 Status: Ordered Lantus Solostar Pen 100 units/mL subcutaneous solution See Instructions, Inject 32 units daily in the am E10.9, # 30 mL, 11 Refills, Maintenance, 02/20/2012:15:00 EST, [facility] #84064, 185.7, cm, 02/18/20 9:25:00 EST, Height, 93.5, kg, 06/09/18 7:28:00 EST, Dry Weight Start Date: 02/20/20 Status: Ordered losartan 25 mg oral tablet 25 mg, 1, tablet, By Mouth, Daily, # 90 tablet, Refills 0, Tot. Refills 0, Maintenance, 06/19/19 12:44:00 EST, Route to Pharmacy Electronically, [facility]/pharmacy #2339, 185.7, cm, 03/28/19 15:11:00 EST, Height, 93.5, kg, 06/09/18 7:28:00 EST, Dry Weight Start Date: 06/19/19 Status: Ordered Lotrisone 0.05%-1% cream 1 application, Topically, 2 times a day, for 14 days, # 45 Gm, 0 Refills, Acute 04/12/20 13:21:00 EST, 03/29/20 13:21:00 EST, Cream, [facility], Partial fill upon patient request if the prescription is for a schedule II opioid drug.,... Start Date: 03/29/20 Stop Date: 04/12/20 Status: Ordered Pen [place], 31 G x 5 mm BD Ultra [...] 02/15/18 10:34:26 EDT, Route to Pharmacy Electronically, [id number], [facility]/pharmacy #2339 Start Date: 02/15/18 Status: Ordered Suboxone 8 mg-2 mg sublingual film 1.5 each, Sublingual, Daily, 0 Refills, Maintenance, 11/15/16 21:05:59 Start Date: 11/15/16 Status: Ordered traZODone 50 mg oral tablet 50 mg, 1, tablet, By Mouth, Daily at bedtime, Chronic insomnia, # 90 tablet, Refills 1, Tot. Refills 1, Maintenance, 01/09/20 13:07:00 EDT, Route to Pharmacy Electronically, [facility]/pharmacy #2339, 185.7, cm, 10/18/19 9:18:00 [...]
--- OUTSIDE RECORDS SUMMARY | 2023-09-23 09:56 | XMS_ITS | Continuity of Care Document ---
Author Organization [facility] Address [address] [place] [address]- Care Team Providers Care Wellness Director Name Role Phone Chelly Casas MD Primary Care Physician [place] [facility] [place] 06/05/[address] [facility] [address] [place] [address]- Encounter Diagnosis Hypertension associated with diabetes(Discharge Diagnosis) - 06/03/21 Major depression, recurrent(Discharge Diagnosis) - 06/03/21 Attending Physician: Chelly Casas MD Allergies, Adverse [...] 2Result Comment: [facility] [id number] 3Admin Note: VIS given 7.2.12 Questionaire completed and reviewed. 4Admin Note: Health Form given, dated 11/10/10 5Admin Note: VIS dated 08/01/09 given 6Admin Note: VIS given dated 03/05/08 7Admin Note: [employer] [id number] formula Medications amLODIPine 5 mg oral tablet 5 mg, 1, tablet, By Mouth, Daily, # 90 tablet, Refills 3, Tot. Refills 3, Maintenance, 06/03/21 9:21:00 EST, Route to Pharmacy Electronically, [facility] #[id number], Partial fill upon patient request if the [...] Supply, 185.7... Start Date: 01/14/21 Status: Ordered gabapentin 300 mg oral capsule 300 mg, 1, capsule, By Mouth, 2 times a day, # 180 capsule, Refills 0, Tot. Refills 0, Maintenance,04/16/21 17:38:00 EST, Route to Pharmacy Electronically, [facility]/pharmacy #2339, 185, cm, 04/13/21 11:29:00 EST, Height Start Date: 04/16/21 Status: Ordered Humalog Kwik Pen 100 units/mL subcutaneous injection See Instructions, take 2-11 units up to 5x a day before meals per sliding scale and for correction.E 10.9 max total daily dose if 50 units, # 30 mL, 11 Refills, Maintenance, 02/18/20 10:13:00 EST, [facility] #04527, 185.7, cm, 02/18/20 9:25... Start Date: 02/18/20 Status: Ordered Lantus Solostar Pen 100 units/mL subcutaneous solution See Instructions, Inject 32 units daily in the am E10.9, # 30 mL, 11 Refills, Maintenance, 04/19/2217:15:00 EST, [facility] #88201, 185, cm, 04/13/21 11:29:00 EST, Height Start Date: 04/19/21 Status: Ordered Lipitor 10 mg oral tablet 1 tablet = 10 mg, By Mouth, Daily, # 90 tablet, 1 Refills, Maintenance, 04/16/21 17:39:00 EST, [facility]/pharmacy #2339, Partial fill upon patient request if the prescription is for a schedule II opioid drug., 185, cm, 04/13/21 11:29:00 EST, Height Start Date: 04/16/21 Status: Ordered pantoprazole 40 mg oral delayed release tablet 1 tablet, By Mouth, Daily, # 90 tablet, 1 Refills, 05/18/21 14:58:00 EST, 185, cm, 04/13/21 11:29:00 EST, Height Start Date: 05/18/21 Status: Ordered Pen [place], 31 G x 5 mm BD Ultra [...] tablet, Refills 1, Route to Pharmacy Electronically, [facility], 185, cm, 01/16/21 9:52:00 EDT, Height Start Date: 01/19/21 Status: Ordered Problem List Condition Effective Dates Status Health Status Inform ant Hyperlipidemia associated wi th type 2 diabetes mellitus(Confirmed) Active Hypertension associated with diabetes(Confirmed) Active Hepatic lesion(Confirmed) Active Major depression, recurrent(Confirmed) Active Diabetes mellitus, type 2(Confirmed) Active Diagnosis Diagnosis Type Effective Dates Health Status Clinical Service Informant Hypertension associated with diabetes Discharge Diagnosis 06/03/21 Major depression, recurrent Discharge Diagnosis 06/03/21 Vital Signs Most recent to oldest [Reference Range]: 1 2 Height 185 cm (05/29/21 4:40 PM) 185 cm (05/29/21 4:36 PM) Weight 90.2 kg (05/29/21 4:36 PM) Oxygen Saturation [94-100 %] 98 % (05/29/21 4:36 PM) Pulse Rate [55-90 bpm] 93 bpm *H* (05/29/21 4:36 PM) Body Mass Index [18.5-24.99] 26.36 *H* (05/29/21 4:36 PM) Blood Pressure [90-138/55-84 mm Hg] 141/ 74mm Hg *H* (05/29/21 4:40 PM) 143/80mm Hg *H* (05/29/21 4:36 PM) Respiratory Rate [16-30 br/min] 18 br/mi n (05/29/21 4:36 PM) Temperature [96.8-100.4 DegF] 98.1 DegF (05/29/21 4:36 PM) Mode of Delivery (Oxygen) Room air (05/29/21 4:36 PM) Blood pressure sites Arm, right (05/29/21 4:40 PM) Arm, right (05/29/21 4:36 PM) Temperature Route Oral (05/29/21 4:36 PM) Weight Obtained Via Standing scale (05/29/21 4:36 PM) Social History Social History Type Response Smoking Status 5-9 cigarettes (betw een 1/4 to 1/2 pack)/day in last 30 days; Use: SMOKES MARIJUANA DAILY; Other: 30 pack yr history; entered on: 04/13/21 Sex
--- OUTSIDE RECORDS SUMMARY | 2023-09-23 09:56 | XMS_ITS | Continuity of Care Document ---
Author Organization [facility] ter Address [address] [place] [address]- Care Team Providers Care Ship Manager Name Role Phone Yessenia ROSALES, Chelly Primary Care Physician [place] [facility] [place] - 12/16/[address] [address]- Encounter Diagnosis Abdominal pain(Final) - 12/15/21 Vomiting(Final) - 12/15/21 Back pain(Final) - 12/15/21 Chest pain(Final) - 12/15/21 Discharge Disposition: A-D/C Home Attending Physician: Mary Ann Carson MD Admitting Physician: Deb ROSALES, Bety Mcgarry Referring Physician: Not on Staff, Referring MD Allergies, Adverse Reactions, Alerts Substance Reaction [...] (IM) (oldterm) 7 01/08/09 Given 1Result Comment: [facility] [id number] 2Result Comment: [facility] [phone] 3Admin Note: VIS given 7.2.12 Questionaire completed and reviewed. 4Admin Note: Health Form given, dated 11/10/10 5Admin Note: VIS dated 08/01/09 given 6Admin Note: VIS given dated 03/05/08 7Admin Note: [employer] [id number] formula Medications Acetaminophen Tablet 650 mg, Tablet, By Mouth, Every 4 hours, PRN for Pain , Mild, Temperature Greater than 100.5, Routine, 12/16/21 1:11:00 EDT Start Date: 12/16/21 Stop Date: 12/16/21 Status: Discontinued amLODIPine 5 mg oral tablet 5 mg, 1, tablet, By Mouth, Daily, # 90 tablet, Refills 3, Tot. Refills 3, Maintenance, 06/03/21 9:21:00 EST, Route to Pharmacy Electronically, [facility] #[id number], Partial fill upon patient request if the prescription is for a schedule II opio... Start Date: 06/03/21 Status: Ordered amLODIPine 5 mg oral tablet 5 mg, Tablet, By Mouth, 12/16/21 9:00:00 EDT Start Date: 12/16/21 Stop Date: 12/16/21 Status: Completed aspirin 81 mg oral tablet 1 tablet = 81 mg, By Mouth, Daily, # 30 tablet, 0 Refills, Maintenance, 01/07/19 7:10:11 EDT Start Date: 01/07/19 Status: Ordered atorvastatin 10 mg oral tablet 1 tablet, By Mouth, Daily, # 90 tablet, 1 Refills, [facility], 185, cm, 10/16/21 14:13:00 EDT,Height Start Date: 10/18/21 Status: Ordered doxazosin 4 mg oral tablet TAKE 1 TABLET BY MOUTH AT BEDTIME Start Date: 12/16/21 Status: Ordered FREESTYLE ROSANNA 2 READER FREESTYLE ROSANNA 2 READER, See Instructions, # 1 each, Refills 0, Tot. Refills 0, Maintenance, USED TO CHECK YOUR SUGARS AT LEAST 7X A DAY e 10.9, 11/03/20 14:20:00 EDT, Supply, 185.7, cm, 09/26/20 11:13:00 EDT, Height Start Date: 11/03/20 Status: Ordered Freestyle rosanna 2 reader Freestyle rosanna 2 reader, See Instructions, # 1 each, Refills 0, Tot. Refills 0, Maintenance, Used to con't mon't BG Dx E10.65, 12/15/21 12:53:00 EDT, Supply, 185, cm, 10/16/21 14:13:00 EDT, Height Start Date: 12/15/21 Status: Ordered FREESTYLE ROSANNA 2 SENSORS FREESTYLE [...] Maintenance,10/25/21 22:35:00 EDT, Route to Pharmacy Electronically, [facility]/pharmacy #6789, 185, cm, 10/16/21 14:13:00 EDT, Height Start Date: 10/25/21 Status: Ordered Humalog Kwik Pen 100 units/mL subcutaneous injection See Instructions, take 2-11 units up to 5x a day before meals per sliding scale and for correction.E 10.9 max total daily dose if 50 units, # 30 mL, 11 Refills, Maintenance, 02/18/20 10:13:00 EST, [facility] #06884, 185.7, cm, 02/18/20 9:25... Start Date: 02/18/20 Status: Ordered Lantus Solostar Pen 100 units/mL subcutaneous solution See Instructions, Inject 32 units daily in the am E10.9, # 30 mL, 11 Refills, Maintenance, 07/24/2209:48:00 EDT, [facility] #11708, 185, cm, 07/24/21 10:19:00 EDT, Height Start Date: 07/24/21 Status: Ordered ondansetron 4 mg oral tablet, disintegrating 1 tablet = 4 mg, By Mouth, Every 8 hours, PRN as needed for nausea/vomiting, for 5 days, # 15 tablet, 0 Refills, Acute 12/21/21 10:21:00 EDT, 12/16/21 10:21:00 EDT, DIS Tablet, [facility] #[id number], Partial fill upon patient request if the pres... Start Date: 12/16/21 Stop Date: 12/21/21 Status: Ordered pantoprazole 40 mg oral delayed release tablet 1 tablet, By Mouth, Daily, # 90 tablet, 1 Refills, 11/16/21 8:43:00 EDT, 185, cm, 10/16/21 14:13:00EDT, Height Start Date: 11/16/21 Status: Ordered Pen [place], 31 G x 5 mm BD Ultra [...] tablet, Refills 1, Route to [facility]acy Electronically, [facility], 185, cm, 01/16/21 9:52:00 EDT, Height Start Date: 01/19/21 Status: Ordered Problem List Condition Effective Dates Status Health Status Inform ant Hyperlipidemia associated wi th type 2 diabetes mellitus(Confirmed) Active Hypertension associated with diabetes(Confirmed) Active Hepatic lesion(Confirmed) Active Major depression, recurrent(Confirmed) Active Diabetes mellitus, type 2(Confirmed) Active Results Radiology Reports * Exam Date Time Procedure Performing Provider Status 12/15/21 4:15 PM Chest Portable Mikal Salmeron; Alexandra (Ve rified) Notes: (Chest Portable) Reason For Exam: Shortness of Breath RESULT: Chest Portable Chest Portable INDICATION: Diaphoretic, vomiting, c o 10/10 abd and chest pain radiating to L shoulder. Onset 20 min ago. Cannabis scattered throughout entire house, pt denies using; Reason: Shortness of Breath; Clinical Question(s): CHF COMPARISON: Multiple priors, most recent 11/15/2016. FINDINGS: LINES AND TUBES: None. LUNGS AND PLEURA: Clear lungs. Normal pulmonary vascularity. No pleural effusion. No pneumothorax. HEART, MEDIASTINUM AND CAMILA: Heart is normal in size. Normal upper mediastinal and hilar contour. BONES AND SOFT TISSUES: No acute abnormality. Rutledge-Sach deformities of the right humeral head, likely from prior injury. IMPRESSION: No acute abnormality. I have personally reviewed the images and I agree with this report. WSN: [id number] Ordering Physician: Fam Can Dictated By: Danyelle Nieto DO Dictated Date/Time: 12/15/21 4:38 pm Reviewed By: Chiquita Larios MD Signed By: Chiquita Larios MD Signed Date/Time: 12/15/21 4:43 pm Transcribed By: JAN Transcribed Date/Time: 12/15/21 4:28 pm Vital Signs Most recent to oldest [Reference Range]: 1 2 3 Height 187 cm (12/16/21 11:09 AM) 187 cm (12/16/21 3:29 AM) Weight 88.5 kg (12/16/21 3:29 AM) 88.6 kg (12/15/21 4:14 PM) 88.6 kg (12/15/21 2:34 PM) Oxygen Saturation [94-100 %] 96 % (12/16/21 11:09 AM) 98 % (12/16/21 7:00 AM) 100 % (12/16/21 3:03 AM) Pulse Rate [55-90 bpm] 88 bpm (12/16/21 11:09 AM) 98 bpm *H* (12/16/21 7:00 AM) 102 bpm *H* (12/16/21 3:03 AM) Body Mass Index [18.5-24.99] 25.31 *H* (12/16/21 3:29 AM) Blood Pressure [90-138/55-84 mm Hg] 130/67mm Hg (12/16/21 11:09 AM) 118/82mm Hg (12/16/21 9:05 AM) 118/82mm Hg (12/16/21 7:00 AM) Respiratory Rate [16-30 br/min] 18 br/min (12/16/21 11:09 AM) 18 br/min (12/16/21 10:22 AM) 18 br/min (12/16/21 10:21 AM) Temperature [96.8-100.4 DegF] 98.1 DegF (12/16/21 11:09 AM) 98.3 DegF (12/16/21 7:00 AM) 97.4 DegF (12/16/21 3:03 AM) Liters per Minute 0 L/min (12/15/21 2:34 PM) Mode of Delivery (Oxygen) Room air (12/16/21 11:09 AM) Room air (12/16/21 7:00 AM) Room air (12/16/21 3:03 AM) Blood pressure sites Arm, left (12/16/21 11:09 AM) Arm, left (12/16/21 7:00 AM) Arm, right (12/16/21 3:03 AM) Temperature Route Oral (12/16/21 11:09 AM) Oral (12/16/21 7:00 AM) Oral (12/16/21 3:03 AM) Dry Weight 88.5 kg (12/16/21 3:29 AM) 88.6 kg (12/15/21 4:14 PM) 88.6 kg (12/15/21 2:34 PM) Weight Obtained Via Patient/family state d (12/15/21 2:34 PM) Dry Weight Obtained Via Patient/family s tated (12/15/21 2:34 PM) Social History Social History Type Response Smoking Status 10 or more cigarette s (1/2 pack or more)/day in last 30 days; Use: SMOKES MARIJUANA DAILY; Other: 30 pack yr history; entered on: 12/16/21 Sex Note * [employer]SP[employer] , CIS S: TRANSCRIBE Chiquita Larios MD: VERIFY Danyelle Nieto DO: SIGN Event Display: Result: Authored Date: [id number] Chest Portable INDICATION: Diaphoretic, vomiting, c o 10/10 abd and chest pain radiating to L shoulder. Onset 20 min ago. Cannabis scattered throughout entire house, pt denies using; Reason: Shortness of Breath; Clinical Question(s): CHF COMPARISON: Multiple priors, most recent 11/15/2016. FINDINGS: LINES AND TUBES: None. LUNGS AND PLEURA: Clear lungs. Normal pulmonary vascularity. No pleural effusion. No pneumothorax. HEART, MEDIASTINUM AND CAMILA: Heart is normal in size. Normal upper mediastinal and hilar contour. BONES AND SOFT TISSUES: No acute abnormality. Rutledge-Sach deformities of the right humeral head, likely from prior injury. IMPRESSION: No acute abnormality. I have personally reviewed the images and I agree with this report. WSN: [id number] Ordering Physician: Fam Can Dictated By: Danyelle Nieto DO Dictated Date/Time: 12/15/21 4:38 pm Reviewed By: Chiquita Larios MD Signed By: Chiquita Larios MD Signed Date/Time: 12/15/21 4:43 pm Transcribed By: JAN Transcribed Date/Time: 12/15/21 4:28 pm Care Team Personnel Name: Chelly Casas MD Address: [address] [place], [place] [address]
--- OUTSIDE RECORDS SUMMARY | 2023-09-23 09:56 | XMS_ITS | Continuity of Care Document ---
Author Organization [facility] Address [address] [place] [address]- Care Team Providers Care Job Counselor Name Role Phone Yessenia ROSALES, Chelly Primary Care Physician [phone] [place] [facility] [place] Date(s): 05/07/22 - 06/06/22 [facility] [address] [place] [id number] Allergies, Adverse Reactions, Alerts Substance Reaction Severity [...] (IM) (oldterm) 8 01/08/09 [place] 1Result Comment: [facility] [place]: [id number] 2Result Comment: [facility] [id number] 3Result Comment: [facility] [id number] 4Admin Note: VIS given 7.2.12 Questionaire completed and reviewed. 5Admin Note: Health Form given, dated 11/10/10 6Admin Note: VIS dated 08/01/09 given 7Admin Note: VIS given dated 03/05/08 8Admin Note: [facility] [id number] formula Medications amLODIPine 5 mg oral tablet 5 mg, 1, tablet, By Mouth, Daily, # 90 tablet, Refills 3, Tot. Refills 3, Maintenance, 06/03/21 9:21:00 EST, Route to Pharmacy Electronically, [facility] #[id number], Partial fill upon patient request if the prescription is for a schedule II opio... Start Date: 06/03/21 Status: Ordered aspirin 81 mg oral tablet 1 tablet = 81 mg, By Mouth, Daily, # 30 tablet, 0 Refills, Maintenance, 01/07/19 7:10:11 EDT Start Date: 01/07/19 Status: Ordered atorvastatin 10 mg oral tablet 1 tablet, By Mouth, Daily, # 90 tablet, 1 Refills, [facility], 185, cm, 10/16/21 14:13:00 EDT,Height Start Date: [...] Maintenance,10/25/21 22:35:00 EDT, Route to Pharmacy Electronically, [facility]/pharmacy #2339, 185, cm, 10/16/21 14:13:00 EDT, Height Start Date: 10/25/21 Status: Ordered Humalog Kwik Pen 100 units/mL subcutaneous injection See Instructions, take 2-11 units up to 5x a day before meals per sliding scale and for correction.E 10.9 max total daily dose if 50 units, # 30 mL, 11 Refills, Maintenance, 04/26/22 12:49:00 EST, [facility] #05735, 187, cm, 03/05/22 11:45:... Start Date: 04/26/22 Status: Ordered Lantus Solostar Pen 100 units/mL subcutaneous solution See Instructions, Inject 32 units daily in the am E10.9, # 30 mL, 11 Refills, Maintenance, 02/15/2210:57:00 EDT, [facility] #23813, 187, cm, 02/15/22 10:31:00 EDT, Height, 88.5, kg, 12/16/21 3:29:00 EDT, Dry Weight Start Date: 02/15/22 Status: Ordered Pen [place], 31 G x 5 mm BD Ultra [...] 03/05/22 12:47:00 EST, Route to Pharmacy Electronically, [facility] #36007, 187, cm, 11... Start Date: 03/05/22 Stop [...] Team Personnel Name: Lynda Smith RN Position: [facility] RN Member Role: Primary Care Nurse Name: Lucina Castillo RN Position: [facility] RN Member Role: Primary Care Nurse Name: Chelly Casas MD Position: [facility] Primary Care Physician Member Role: PCP Address: Address: [address] [place] [address] [address] [place], [place] [address] Name: Rosie Rowell RN Position: [facility] RN Member Role: Primary Care Nurse Care Team Related Persons Name: INGRIS TONEY Address: home [address] [place] [address] Name: IRENE TONEY Address: home [address] [address] Name: IRENE BLANTON Address: home [address] [address]
--- OUTSIDE RECORDS SUMMARY | 2023-09-23 09:56 | XMS_ITS | Continuity of Care Document ---
Author Organization [facility] Diabetes Address [address] [place] [address]- Care Team Providers Care Chiropractic Care Name Role Phone Yessenia ROSALES, Chelly Primary Care Physician [place] [facility] [place] 05/13/21 [facility] [address] [place] [address]- Attending Physician: Erik Márquez MD Admitting Physician: [...] (IM) (oldterm) 7 01/08/09 Given 1Result Comment: [facility] [id number] 2Result Comment: [facility] [id number] 3Admin Note: VIS given 7.2.12 Questionaire completed and reviewed. 4Admin Note: Health Form given, dated 11/10/10 5Admin Note: VIS dated 08/01/09 given 6Admin Note: VIS given dated 03/05/08 7Admin Note: Symtext [id number] formula Medications aspirin 81 mg oral tablet [...] Maintenance,04/16/21 17:38:00 EST, Route to Pharmacy Electronically, [facility]/pharmacy #[id number], 185, cm, 04/13/21 11:29:00 EST, Height Start Date: 04/16/21 Status: Ordered Humalog Kwik Pen 100 units/mL subcutaneous injection See Instructions, take 2-11 units up to 5x a day before meals per sliding scale and for correction.E 10.9 max total daily dose if 50 units, # 30 mL, 11 Refills, Maintenance, 02/18/20 10:13:00 EST, [facility] #[id number], 185.7, cm, 02/18/20 9:25... Start Date: 02/18/20 Status: Ordered Lantus Solostar Pen 100 units/mL subcutaneous solution See Instructions, Inject 32 units daily in the am E10.9, # 30 mL, 11 Refills, Maintenance, 04/19/2217:15:00 EST, [facility] #[id number], 185, cm, 04/13/21 11:29:00 EST, Height Start Date: 04/19/21 Status: Ordered Lipitor 10 mg oral tablet 1 tablet = 10 mg, By Mouth, Daily, # 90 tablet, 1 Refills, Maintenance, 04/16/21 17:39:00 EST, [facility]/pharmacy #2339, Partial fill upon patient request if the prescription is for a schedule II opioid drug., 185, cm, 04/13/21 11:29:00 EST, Height Start Date: 04/16/21 Status: Ordered losartan 25 mg oral tablet 25 mg, 1, tablet, By Mouth, Daily, # 90 tablet, Refills 3, Tot. Refills 3, Maintenance, 09/26/20 14:37:00 EDT, Route to Pharmacy Electronically, [facility]/pharmacy #2339, 185.7, cm, 09/26/20 11:13:00 EDT, Height Start Date: 09/26/20 Status: Ordered pantoprazole 40 mg oral delayed release tablet 1 tablet, By Mouth, Daily, # 90 tablet, 0 Refills, 185.7, cm, 09/26/20 11:13:00 EDT, Height Start Date: 12/28/20 Status: Ordered Pen [place], 31 G x 5 mm BD Ultra [...] tablet, Refills 1, Route to Pharmacy Electronically, [facility], 185, cm, 01/16/21 9:52:00 EDT, Height Start [...]
--- OUTSIDE RECORDS SUMMARY | 2023-09-23 09:56 | XMS_ITS | Continuity of Care Document ---
Author Organization [facility] oenterology Address [address] [place] [address]- Care Team Providers Care Mica Paster Name Role Phone Chelly Casas MD Primary Care Physician [place] [facility] [place] 08[place]22 [facility] [address] [place] [address]- Attending Physician: AdmCleopatra colbert Admitting Physician: Admtr, Cleopatra Referring Physician: Admtr, [...] (IM) (oldterm) 8 01/08/09 Given 1Result Comment: [facility]: [id number] 2Result Comment: [facility] [id number] 3Result Comment: [facility] [id number] 4Admin Note: VIS given 7.2.12 Questionaire completed and reviewed. 5Admin Note: Health Form given, dated 11/10/10 6Admin Note: VIS dated 08/01/09 given 7Admin Note: VIS given dated 03/05/08 8Admin Note: [employer] [id number] formula Medications amLODIPine 5 mg oral tablet 5 mg, 1, tablet, By Mouth, Daily, # 90 tablet, Refills 1, Tot. Refills 1, Maintenance, 06/07/22 15:31:00 EST, Route to Pharmacy Electronically, [facility] #[id number], Partial fill upon patient request if the [...] Mouth, Daily, # 90 tablet, 1 Refills, [facility], 185, cm, 10/16/21 14:13:00 EDT,Height Start Date: 10/18/21 Status: Ordered doxazosin 4 mg oral tablet TAKE 1 TABLET BY MOUTH AT BEDTIME Start Date: 12/16/21 Status: Ordered gabapentin 300 mg oral capsule 300 mg, 1, capsule, By Mouth, 2 times a day, # 180 capsule, Refills 0, Tot. Refills 0, Maintenance,10/25/21 22:35:00 EDT, Route to Pharmacy Electronically, [facility]/pharmacy #2339, 185, cm, 10/16/21 14:13:00 EDT, Height Start Date: 10/25/21 Status: Ordered Humalog Kwik Pen 100 units/mL subcutaneous injection See Instructions, take 2-11 units up to 5x a day before meals per sliding scale and for correction.E 10.9 max total daily dose if 50 units, # 30 mL, 11 Refills, Maintenance, 04/26/22 12:49:00 EST, [facility] #23661, 187, cm, 03/05/22 11:45:... Start Date: 04/26/22 Status: Ordered Lantus Solostar Pen 100 units/mL subcutaneous solution See Instructions, Inject 32 units daily in the am E10.9, # 30 mL, 11 Refills, Maintenance, 02/15/2210:57:00 EDT, [facility] #49207, 187, cm, 02/15/22 10:31:00 EDT, Height, 88.5, [...] 03/05/22 12:47:00 EST, Route to Pharmacy Electronically, [facility] #60696, 187, cm, 11... Start Date: 03/05/22 Stop Date: 09/01/22 Status: Ordered Problem List Condition Confirmation Course Effective Dates Status H ealth Status Informant Hyperlipidemia associated with type 2 diabetes mellitus Confirmed Active Hypertension associated with diabetes Confirmed Active Hepatic lesion Confirmed Active Major depression, recurrent Confirmed Active Diabetes mellitus, type 2 Confirmed Active Procedures Procedure Date Related Diagnosis Body Site Status Colonoscopy 02/08/18 Completed Vital Signs Most recent to oldest [Reference Range]: 1 Height 185 cm (03/19/15 2:28 PM) Weight 92.6 kg (03/19/15 2:28 PM) Pulse Rate [55-90 bpm] 68 bpm (03/19/15 2:28 PM) Body Mass Index [18.50-24.99] 27.06 *H* (03/19/15 2:28 PM) Blood Pressure [90-138/55-84 mm Hg] 110/ 72mm Hg (03/19/15 2:28 PM) Temperature [96.8-100.4 DegF] 98.5 DegF (03/19/15 2:28 PM) Social History Social History Type Response Smoking Status 10 or more cigarette s (1/2 pack or more)/day in last 30 days; Use: SMOKES MARIJUANA DAILY; Other: 30 pack yr history; entered on: 12/16/21 Sex Patient Care team information Care Team Personnel Name: Lynda Smith RN Position: [facility] RN Member Role: Primary Care Nurse Name: Lucina Castillo RN Position: [facility] RN Member Role: Primary Care Nurse Name: Chelly Casas MD Position: [facility] Primary Care Physician Member Role: PCP Address: Address: [address] [place] [address] [address] [place], [place] [address] Name: Rosie Rowell RN Position: [facility] RN Member Role: Primary Care Nurse Care Team Related Persons Name: INGRIS TONEY Address: home [address] [place] [address] Name: IRENE TONEY Address: [address] [address] Name: RIENE BLANTON Address: [address] [address]
--- OUTSIDE RECORDS SUMMARY | 2023-09-23 09:56 | XMS_ITS | Continuity of Care Document ---
Author Organization [facility] Endocrinolo gy [facility] Diabetes Address [address] [place] [address]- Care Team Providers Care Identity Management Consultant Name Role Phone Chelly Casas MD Primary Care Physician Encounter [facility] Date(s): 02/16/22 - 03/18/22 [facility]inology [facility] Diabetes [address] [place] [address]- Allergies, Adverse Reactions, Alerts Substance Reaction Severity [...] (oldterm) 8 01/08/09 Given 1Result Comment: [facility]: [id number] 2Result Comment: [facility] [id number] 3Result Comment: [facility] [id number] 4Admin Note: VIS given 7.2.12 Questionaire completed and reviewed. 5Admin Note: Health Form given, dated 11/10/10 6Admin Note: VIS dated 08/01/09 given 7Admin Note: VIS given dated 03/05/08 8Admin Note: [employer] [id number] formula Medications amLODIPine 5 mg oral tablet 5 mg, 1, tablet, By Mouth, Daily, # 90 tablet, Refills 3, Tot. Refills 3, Maintenance, 06/03/21 9:21:00 EST, Route to Pharmacy Electronically, [facility] #[id number], Partial fill upon patient request if the prescription is for a schedule II opio... Start Date: 06/03/21 Status: Ordered aspirin 81 mg oral tablet 1 tablet = 81 mg, By Mouth, Daily, # 30 tablet, 0 Refills, Maintenance, 01/07/19 7:10:11 EDT Start Date: 01/07/19 Status: Ordered atorvastatin 10 mg oral tablet 1 tablet, By Mouth, Daily, # 90 tablet, 1 Refills, [facility], 185, cm, 10/16/21 14:13:00 EDT,Height Start Date: [...] Maintenance,10/25/21 22:35:00 EDT, Route to Pharmacy Electronically, [facility]/pharmacy #2339, 185, cm, 10/16/21 14:13:00 EDT, Height Start Date: 10/25/21 Status: Ordered Humalog Kwik Pen 100 units/mL subcutaneous injection See Instructions, take 2-11 units up to 5x a day before meals per sliding scale and for correction.E 10.9 max total daily dose if 50 units, # 30 mL, 11 Refills, Maintenance, 02/18/20 10:13:00 EST, [facility] #29841, 185.7, cm, 02/18/20 9:25... Start Date: 02/18/20 Status: Ordered Lantus Solostar Pen 100 units/mL subcutaneous solution See Instructions, Inject 32 units daily in the am E10.9, # 30 mL, 11 Refills, Maintenance, 02/15/2210:57:00 EDT, [facility] #23897, 187, cm, 02/15/22 10:31:00 EDT, Height, 88.5, [...] 03/05/22 Stop Date: 06/03/22 Status: Ordered Pen [place], 31 G x 5 mm BD Ultra [...] 03/05/22 12:47:00 EST, Route to Pharmacy Electronically, [facility] #[id number], 187, cm, 11... Start Date: 03/05/22 Stop [...] RN Member Role: Primary Care Nurse Name: Cehlly Casas MD Position: [facility] Primary Care Physician Member Role: PCP Address: Address: [address] [place] [address], [place] [address] Name: Rosie Rowell RN Position: S RN Member Role: Primary Care Nurse Care Team Related Persons Name: INGRIS TONEY Address: home [address] [place] [address] Name: IRENE TONEY Address: [address] [address] Name: IRENE BLANTON Address: [address] [address]
--- OUTSIDE RECORDS SUMMARY | 2023-09-23 09:56 | XMS_ITS | Continuity of Care Document ---
Author Organization [facility] Adult Address [address] [place] [address]- Care Team Providers Care Composite Laminator Name Role Phone Yessenia ROSALES, Chelly Primary Care Physician Encounter [facility] Date(s): 04/06/20 - 05/06/20 [facility] Adult [address] [place] [address]- Allergies, Adverse Reactions, Alerts Substance Reaction Severity [...] (IM) (oldterm) 6 01/08/09 Given 1Result Comment: [facility] [id number] 2Admin Note: VIS given 7.2.12 Questionaire completed and reviewed. 3Admin Note: Health Form given, dated 11/10/10 4Admin Note: VIS dated 08/01/09 given 5Admin Note: VIS given dated 03/05/08 6Admin Note: [employer] [id number] formula Medications amLODIPine 2.5 mg oral tablet 2.5 mg, 1, tablet, By Mouth, Daily, started on 08/01/18 unable to tolerate ACEI or ARBs, # 90 tablet, Refills 3, Tot. Refills 3, Maintenance, 10/17/19 16:53:00 EDT, Route to Pharmacy Electronically, [facility]/pharmacy #2339, 185.7, cm, 06/20/19 9:07:00 EST,... [...] Maintenance,07/05/19 10:26:00 EDT, Route to Pharmacy Electronically, [facility]/pharmacy #2339, 185.7, cm, 06/20/19 9:07:00 EST, Height, 93.5, kg, 06/09/18 7:28:00 EST, D... Start Date: 07/05/19 Status: Ordered Humalog Kwik Pen 100 units/mL subcutaneous injection See Instructions, take 2-11 units up to 5x a day before meals per sliding scale and for correction.E 10.9 max total daily dose if 50 units, # 30 mL, 11 Refills, Maintenance, 02/18/20 10:13:00 EST, [facility] #24336, 185.7, cm, 02/18/20 9:25... Start Date: 02/18/20 Status: Ordered Lantus Solostar Pen 100 units/mL subcutaneous solution See Instructions, Inject 32 units daily in the am E10.9, # 30 mL, 11 Refills, Maintenance, 02/20/2012:15:00 EST, [facility] #85143, 185.7, cm, 02/18/20 9:25:00 EST, Height, 93.5, kg, 06/09/18 7:28:00 EST, Dry Weight Start Date: 02/20/20 Status: Ordered losartan 25 mg oral tablet 25 mg, 1, tablet, By Mouth, Daily, # 90 tablet, Refills 0, Tot. Refills 0, Maintenance, 06/19/19 12:44:00 EST, Route to Pharmacy Electronically, [facility]/pharmacy #2339, 185.7, cm, 03/28/19 15:11:00 EST, Height, 93.5, kg, 06/09/18 7:28:00 EST, Dry Weight Start Date: 06/19/19 Status: Ordered Pen [place], 31 G x 5 mm BD Ultra [...] 02/15/18 10:34:26 EDT, Route to Pharmacy Electronically, [id number], [facility]/pharmacy #2339 Start Date: 02/15/18 Status: Ordered Suboxone 8 mg-2 mg sublingual film 1.5 each, Sublingual, Daily, 0 Refills, Maintenance, 11/15/16 21:05:59 Start Date: 11/15/16 Status: Ordered traZODone 50 mg oral tablet 50 mg, 1, tablet, By Mouth, Daily at bedtime, Chronic insomnia, # 90 tablet, Refills 1, Tot. Refills 1, Maintenance, 01/09/20 13:07:00 EDT, Route to Pharmacy Electronically, [facility]/pharmacy #2339, 185.7, cm, 10/18/19 9:18:00 EDT, [...]
--- OUTSIDE RECORDS SUMMARY | 2023-09-23 09:56 | XMS_ITS | Continuity of Care Document ---
Author Organization [facility] Adult Address [address] [place] [address]- Care Team Providers Care Headhunter Name Role Phone Yessenia ROSALES, Chelly Primary Care Physician Encounter [facility] Date(s): 02/16/23 - 03/18/23 [facility] Adult [address] [place] [address]- Allergies, Adverse Reactions, Alerts Substance Reaction Severity [...] (IM) (oldterm) 9 01/08/09 Given 1Result Comment: [id number] 2Result Comment: [facility]: [id number] 3Result Comment: [facility] [id number] 4Result Comment: [facility] [id number] 5Admin Note: VIS given 7.2.12 Questionaire completed and reviewed. 6Admin Note: Health Form given, dated 11/10/10 7Admin Note: VIS dated 08/01/09 given 8Admin Note: VIS given dated 03/05/08 9Admin Note: [employer] [id number] formula Medications aspirin 81 mg oral tablet 1 tablet = 81 mg, By Mouth, Daily, # 30 tablet, 0 Refills, Maintenance, 01/07/19 7:10:11 EDT Start Date: 01/07/19 Status: Ordered atorvastatin 10 mg oral tablet 1 tablet, By Mouth, Daily, # 90 tablet, 1 Refills, [facility], 185, cm, 10/16/21 14:13:00 EDT,Height Start Date: 10/18/21 Status: Ordered Baqsimi Two Pack 3 mg nasal powder = 3 mg, Naris, Left, Once, to use for hypoglycimic emergency, # 1 each, 0 Refills, Soft Stop, 10/20/22 11:52:00 EDT, [facility] #85738, Partial fill upon patient request if the prescriptionis for a schedule II opioid drug., 186, cm, ... Start Date: 10/20/22 Status: Ordered DEXCOM G7 NON DESTRUCTIVE EVALUATION SPECIALIST DEXCOM G7 NON DESTRUCTIVE EVALUATION SPECIALIST, See Instructions, # 1 each, Refills [...] Maintenance,10/25/21 22:35:00 EDT, Route to Pharmacy Electronically, [facility]/pharmacy #9679, 185, cm, 10/16/21 14:13:00 EDT, Height Start Date: 10/25/21 Status: Ordered Humalog Kwik Pen 100 units/mL subcutaneous injection See Instructions, take 2-11 units up to 5x a day before meals per sliding scale and for correction.E 10.9 max total daily dose if 50 units, # 30 mL, 11 Refills, Maintenance, 04/26/22 12:49:00 EST, [facility] #23333, 187, cm, 03/05/22 11:45:... Start Date: 04/26/22 Status: Ordered Lantus Solostar Pen 100 units/mL subcutaneous solution See Instructions, Inject 32 units daily in the am E10.9, # 30 mL, 11 Refills, Maintenance, 02/15/2210:57:00 EDT, [facility] #92103, 187, cm, 02/15/22 10:31:00 EDT, Height, 88.5, [...] Primary Care Member Role: PCP Address: Address: [address] [place] [address] [address] [place], [place] [address] Name: Rosie Rowell RN Position: [facility] RN Member Role: Primary Care Nurse Care Team Related Persons Name: INGRIS TONEY Address: home [address] [place] [address] Name: IRENE TONEY Address: [address] [address] Name: IRENE BLANTON Address: [address] [address]
--- OUTSIDE RECORDS SUMMARY | 2023-09-23 09:56 | XMS_ITS | Continuity of Care Document ---
Author Organization [facility] Adult Address [address] [place] [address]- Care Team Providers Care Parking Garage Manager Name Role Phone Yessenia ROSALES, Chelly Primary Care Physician [phone] Encounter [facility] Date(s): 07/23/22 - 08/22/22 [facility] Adult [address] [place] [address]- Allergies, Adverse Reactions, Alerts Substance Reaction Severity [...] (oldterm) 8 9/23/09 Given 1Result Comment: [facility]: [id number] 2Result Comment: [facility] [id number] 3Result Comment: [facility] [id number] 4Admin Note: VIS given 7.2.12 Questionaire completed and reviewed. 5Admin Note: Health Form given, dated 11/10/10 6Admin Note: VIS dated 08/01/09 given 7Admin Note: VIS given dated 03/05/08 8Admin Note: Ch[employer] [id number] formula Medications amLODIPine 5 mg oral tablet 5 mg, 1, tablet, By Mouth, Daily, # 90 tablet, Refills 1, Tot. Refills 1, Maintenance, 06/07/22 15:31:00 EST, Route to Pharmacy Electronically, [facility] #05608, Partial fill upon patient request if the [...] Mouth, Daily, # 90 tablet, 1 Refills, [facility] 14[facility], 185, cm, 10/16/21 14:13:00 EDT,Height Start Date: 10/18/21 Status: Ordered doxazosin 4 mg oral tablet TAKE 1 TABLET BY MOUTH AT BEDTIME Start Date: 12/16/21 Status: Ordered gabapentin 300 mg oral capsule 300 mg, 1, capsule, By Mouth, 2 times a day, # 180 capsule, Refills 0, Tot. Refills 0, Maintenance,10/25/21 22:35:00 EDT, Route to Pharmacy Electronically, [facility]/pharmacy #2339, 185, cm, 10/16/21 14:13:00 EDT, Height Start Date: 10/25/21 Status: Ordered Humalog Kwik Pen 100 units/mL subcutaneous injection See Instructions, take 2-11 units up to 5x a day before meals per sliding scale and for correction.E 10.9 max total daily dose if 50 units, # 30 mL, 11 Refills, Maintenance, 04/26/22 12:49:00 EST, [facility] #36293, 187, cm, 03/05/22 11:45:... Start Date: 04/26/22 Status: Ordered Lantus Solostar Pen 100 units/mL subcutaneous solution See Instructions, Inject 32 units daily in the am E10.9, # 30 mL, 11 Refills, Maintenance, 02/15/2210:57:00 EDT, [facility] #92770, 187, cm, 02/15/22 10:31:00 EDT, Height, 88.5, [...] 03/05/22 12:47:00 EST, Route to Pharmacy Electronically, [facility] #87356, 187, cm, 11... Start Date: 03/05/22 Stop [...] Team Personnel Name: Lynda Smith RN Position: [facility] RN Member Role: Primary Care Nurse Name: Lucina Castillo RN Position: [facility] RN Member Role: Primary Care Nurse Name: Yessenia ROSALES, Chelly Position: [facility] Primary Care Physician Member Role: PCP Address: Address: [address] [place] [address] [address] [place], [place] [address] Name: Rosie Rowell RN Position: [facility] RN Member Role: Primary Care Nurse Care Team Related Persons Name: INGRIS TONEY Address: home [address] [place] [address] Name: IRENE TONEY Address: [address] [address] Name: IRENE BLANTON Address: [address] [address]
--- OUTSIDE RECORDS SUMMARY | 2023-09-23 09:56 | XMS_ITS | Continuity of Care Document ---
Author Organization [facility] Adult Address [address] [place] [address]- Care Team Providers Care Sewing Machine Attachment Tester Name Role Phone Yessenia ROSALES, Chelly Primary Care Physician En[place] [facility] Date(s): 06/03/22 - 07/03/22 [facility] Adult [address] [place] [address]- Attending Physician: AdmCleopatra colbert Admitting Physician: Admtr, Ar8 Referring Physician: Admtr, [...] 1Result Comment: [facility]: [id number] 2Result Comment: [facility] [id number] 3Result Comment: [facility] 90865-256-06 4Admin Note: VIS given 7.2.12 Questionaire completed and reviewed. 5Admin Note: Health Form given, dated 11/10/10 6Admin Note: VIS dated 08/01/09 given 7Admin Note: VIS given dated 03/05/08 8Admin Note: Neul [id number] formula Medications amLODIPine 5 mg oral tablet 5 mg, 1, tablet, By Mouth, Daily, # 90 tablet, Refills 1, Tot. Refills 1, Maintenance, 06/07/22 15:31:00 EST, Route to Pharmacy Electronically, [facility] #96456, Partial fill upon patient request if the [...] # 90 tablet, 1 Refills, [facility], 185, cm, 10/16/21 14:13:00 EDT,Height Start Date: [...] Maintenance,10/25/21 22:35:00 EDT, Route to Pharmacy Electronically, [facility]/pharmacy #2339, 185, cm, 10/16/21 14:13:00 EDT, Height Start Date: 10/25/21 Status: Ordered Humalog Kwik Pen 100 units/mL subcutaneous injection See Instructions, take 2-11 units up to 5x a day before meals per sliding scale and for correction.E 10.9 max total daily dose if 50 units, # 30 mL, 11 Refills, Maintenance, 04/26/22 12:49:00 EST, [facility] #84043, 187, cm, 03/05/22 11:45:... Start Date: 04/26/22 Status: Ordered Lantus Solostar Pen 100 units/mL subcutaneous solution See Instructions, Inject 32 units daily in the am E10.9, # 30 mL, 11 Refills, Maintenance, 02/15/2210:57:00 EDT, [facility] #54865, 187, cm, 02/15/22 10:31:00 EDT, Height, 88.5, kg, 12/16/21 3:29:00 EDT, Dry Weight Start Date: 02/15/22 Status: Ordered pantoprazole 40 mg oral delayed release tablet 1 tablet, By Mouth, Daily, # 90 tablet, 0 Refills, Maintenance, 06/07/22 16:15:00 EST, 187, cm, 03/05/22 11:45:00 EST, Height, 88.5, kg, 12/16/21 3:29:00 EDT, Dry Weight Start Date: 06/07/22 Status: Ordered Pen [place], 31 G x 5 mm BD Ultra [...] 03/05/22 12:47:00 EST, Route to Pharmacy Electronically, [facility] #21272, 187, cm, 11... Start Date: 03/05/22 Stop [...] history; entered on: 12/16/21 Sex Note * Event Display: Non Lab Results Authored Date: Patient Care team information Care Team Personnel Name: Lynda Smith RN Position: [facility] RN Member Role: Primary Care Nurse Name: Lucina Castillo RN Position: S RN Member Role: Primary Care Nurse Name: Chelly Casas MD Position: [facility] Primary Care Physician Member Role: PCP Address: Address: [address] [place] [address] [address] [place] [address]- Name: Rosie Rowell RN Position: S RN Member Role: Primary Care Nurse Care Team Related Persons Name: INGRIS TONEY Address: home [address] [place] [address] Name: IRENE TONEY Address: [address] [address] Name: IRENE BLANTON Address: home [address] [place], [place] [id number]
--- OUTSIDE RECORDS SUMMARY | 2023-09-23 09:56 | XMS_ITS | Continuity of Care Document ---
Author Organization [facility] Adult Address [address] [place] [address]- Care Team Providers Care Core Winder Machine Operator Name Role Phone Chelly Casas MD Primary Care Physician Encounter [facility] Date(s): 12/27/22 - 01/03/23 [facility] [address] [place] [address]- Encounter Diagnosis Weight loss(Discharge Diagnosis) - 12/28/22 Hyperlipidemia associated with type 2 diabetes mellitus(Discharge Diagnosis) - 12/28/22 Hypertension associated with diabetes(Discharge Diagnosis) - 12/28/22 Major depression, recurrent(Discharge Diagnosis) - 12/28/22 Attending Physician: Chelly Casas MD Allergies, Adverse Reactions, Alerts Substance Reaction Severity Status enalapril Active losartan abdominal pain - angioedema, d/ko by Dr. Avaols Active Immunizations Given and Recorded Vaccine Date [...] (IM) (oldterm) 8 01/08/09 Given 1Result Comment: [facility]: [id number] 2Result Comment: [facility] [id number] 3Result Comment: [facility] [id number] 4Admin Note: VIS given 7.2.12 Questionaire completed and reviewed. 5Admin Note: Health Form given, dated 11/10/10 6Admin Note: VIS dated 08/01/09 given 7Admin Note: VIS given dated 03/05/08 8Admin Note: [employer] 6551-2420 formula Medications amLODIPine 5 mg oral tablet 5 mg, 1, tablet, By Mouth, Daily, # 90 tablet, Refills 1, Tot. Refills 1, Maintenance, 12/02/22 13:00:00 EDT, Route to Pharmacy Electronically, [facility] #[id number], Partial fill upon patient request if the [...] Mouth, Daily, # 90 tablet, 1 Refills, [facility]303, 185, cm, 10/16/21 14:13:00 EDT,Height Start Date: 10/18/21 Status: Ordered Baqsimi Two Pack 3 mg nasal powder = 3 mg, Naris, Left, Once, to use for hypoglycimic emergency, # 1 each, 0 Refills, Soft Stop, 10/20/22 11:52:00 EDT, [facility] #[id number], Partial fill upon patient request if the prescriptionis for a schedule II opioid drug., 186, cm, ... Start Date: 10/20/22 Status: Ordered DEXCOM G7 ADMITTANCE ATTENDANT DEXCOM G7 ADMITTANCE ATTENDANT, See Instructions, # 1 each, Refills 0, [...] 22:35:00 EDT, Route to Pharmacy Electronically, [facility]/pharmacy #[id number], 185, cm, 10/16/21 14:13:00 EDT, Height Start Date: 10/25/21 Status: Ordered Humalog Kwik Pen 100 units/mL subcutaneous injection See Instructions, take 2-11 units up to 5x a day before meals per sliding scale and for correction.E 10.9 max total daily dose if 50 units, # 30 mL, 11 Refills, Maintenance, 04/26/22 12:49:00 [facility], [facility] #[id number], 187, cm, 03/05/22 11:45:... Start Date: 04/26/22 Status: Ordered Lantus Solostar Pen 100 units/mL subcutaneous solution See Instructions, Inject 32 units daily in the am E10.9, # 30 mL, 11 Refills, Maintenance, 02/15/2210:57:00 EDT, [facility] #[id number], 187, cm, 02/15/22 10:31:00 EDT, Height, 88.5, [...] 09/01/22 12:51:00 EDT, Route to Pharmacy Electronically, [facility] #[id number], 186, cm, 04... Start Date: 09/01/22 Stop Date: 02/28/23 Status: Ordered Problem List Condition Confirmation Course Effective Dates Status H ealth Status Informant Hyperlipidemia associated with type 2 diabetes mellitus Confirmed Active Hypertension associated with diabetes Confirmed Active Hepatic lesion Confirmed Active Major depression, recurrent Confirmed Active Diabetes mellitus, type 2 Confirmed Active Diagnosis Diagnosis Type Effective Dates Health Status Clinical Service Informant Weight loss Discharge Diagnosis 12/28/22 Hyperlipidemia associated with type 2 diabetes mellitus Discharge Diagnosis 12/28/22 Hypertension associated with diabetes Discharge Diagnosis 12/28/22 Major depression, recurrent Discharge Diagnosis 12/28/22 Vital Signs Most recent to oldest [Reference Range]: 1 Height 186 cm (12/27/22 2:45 PM) Weight 80.45 kg (12/27/22 2:45 PM) Body Mass Index [18.5-24.99 kg/m2] 23.25 kg/m2 (12/27/22 2:45 PM) Weight Obtained Via Patient/family state d (12/27/22 2:45 PM) Social History Social History Type Response [...] Chelly Casas MD Position: [facility] Physician - Primary Care Member Role: PCP Address: Address: [address] [place] [address] [address] Name: Rosie Rowell RN Position: [facility] RN Member Role: Primary Care Nurse Care Team Related Persons Name: INGRIS TONEY Address: home [address] [place] [address] Name: IRENE TONEY Address: [address] [address] Name: IRENE BLANTON Address: [address] [address]
--- OUTSIDE RECORDS SUMMARY | 2023-09-23 09:56 | XMS_ITS | Continuity of Care Document ---
Author Organization [facility] Address [address] [place] [address]- Care Team Providers Care Activities Therapist Name Role Phone Chelly Casas MD Primary Care Physician Encounter [facility] Date(s): 07/24/21 - 08/23/21 [facility] [address] [place] [address]- Attending Physician: Admtr, Ar8 Admitting Physician: Admtr, [...] (oldterm) 7 01/08/09 Given 1Result Comment: [facility] [id number] 2Result Comment: [facility] [id number] 3Admin Note: VIS given 7.2.12 Questionaire completed and reviewed. 4Admin Note: Health Form given, dated 11/10/10 5Admin Note: VIS dated 08/01/09 given 6Admin Note: VIS given dated 03/05/08 7Admin Note: [employer] [id number] formula Medications amLODIPine 5 mg oral tablet 5 mg, 1, tablet, By Mouth, Daily, # 90 tablet, Refills 3, Tot. Refills 3, Maintenance, 06/03/21 9:21:00 EST, Route to Pharmacy Electronically, [facility] #[id number], Partial fill upon patient request if the [...] 180 capsule, Refills 0, Tot. Refills 0, Maintenance,07/24/21 16:28:00 EDT, Route to Pharmacy Electronically, [facility] #[id number], 185, cm, 07/24/21 15:23:00 EDT, Height Start Date: 07/24/21 Status: Ordered Humalog Kwik Pen 100 units/mL subcutaneous injection See Instructions, take 2-11 units up to 5x a day before meals per sliding scale and for correction.E 10.9 max total daily dose if 50 units, # 30 mL, 11 Refills, Maintenance, 02/18/20 10:13:00 EST, [facility] #[id number], 185.7, cm, 02/18/20 9:25... Start Date: 02/18/20 Status: Ordered Lantus Solostar Pen 100 units/mL subcutaneous solution See Instructions, Inject 32 units daily in the am E10.9, # 30 mL, 11 Refills, Maintenance, 07/24/2209:48:00 EDT, [facility] #[id number], 185, cm, 07/24/21 10:19:00 EDT, Height Start Date: 07/24/21 Status: Ordered Lipitor 10 mg oral tablet 1 tablet = 10 mg, By Mouth, Daily, # 90 tablet, 1 Refills, Maintenance, 04/16/21 17:39:00 EST, [facility]/pharmacy #[id number], Partial fill upon patient request if the prescription is for a schedule II opioid drug., 185, cm, 04/13/21 11:29:00 EST, Height Start Date: 04/16/21 Status: Ordered pantoprazole 40 mg oral delayed release tablet 1 tablet, By Mouth, Daily, # 90 tablet, 1 Refills, 05/18/21 14:58:00 EST, 185, cm, 04/13/21 11:29:00 EST, Height Start Date: 05/18/21 Status: Ordered Pen [place], 31 G x 5 mm BD Ultra [...] tablet, Refills 1, Route to Pharmacy Electronically, [facility] 539[facility], 185, cm, 01/16/21 9:52:00 EDT, Height Start [...]
--- OUTSIDE RECORDS SUMMARY | 2023-09-23 09:56 | XMS_ITS | Continuity of Care Document ---
Author Organization [facility] Address [address] [place] [address]- Care Team Providers Care Pipeline Dispatch Operator Name Role Phone Chelly Casas MD Primary Care Physician Encounter [facility] Date(s): 07/20/19 - 11/17/19 [facility] [address] [place] [address]- [facility] Attending Physician: Erik Márquez MD Admitting Physician: [...] (IM) (oldterm) 6 01/08/09 Given 1Result Comment: [facility] [id number] 2Admin Note: VIS given 7.2.12 Questionaire completed and reviewed. 3Admin Note: Health Form given, dated 11/10/10 4Admin Note: VIS dated 4/16/10 given 5Admin Note: VIS given dated 03/05/08 6Admin Note: [employer] [id number] formula Medications amLODIPine 2.5 mg oral tablet 2.5 mg, 1, tablet, By Mouth, Daily, started on 08/01/18 unable to tolerate ACEI or ARBs, # 90 tablet, Refills 3, Tot. Refills 3, Maintenance, 10/17/19 16:53:00 EDT, Route to Pharmacy Electronically, [facility]/pharmacy #[id number], 185.7, cm, 06/20/19 9:07:00 [...] Maintenance,07/05/19 10:26:00 EDT, Route to Pharmacy Electronically, [facility]/pharmacy #2339, 185.7, cm, 06/20/19 9:07:00 [...] 06/19/19 12:44:00 EST, Route to Pharmacy Electronically, [facility]/pharmacy #[id number], 185.7, cm, 03/28/19 15:11:00 EST, Height, 93.5, kg, 06/09/18 7:28:00 EST, Dry Weight Start Date: 06/19/19 Status: Ordered Pen [place], 31 G x 5 mm BD Ultra [...] 02/15/18 10:34:26 EDT, Route to Pharmacy Electronically, [id number], [facility]/pharmacy #[id number] Start Date: 02/15/18 Status: Ordered Suboxone 8 mg-2 mg sublingual film 1.5 each, Sublingual, Daily, 0 Refills, Maintenance, 11/15/16 21:05:59 Start Date: 11/15/16 Status: Ordered traZODone 50 mg oral tablet 50 mg, 1, tablet, By Mouth, Daily at bedtime, Chronic insomnia, # 90 tablet, Refills 1, Tot. Refills 1, Maintenance, 07/05/19 10:26:00 EDT, Route to Pharmacy Electronically, [facility]/pharmacy #2339, 185.7, cm, 06/20/19 9:07:00 [...]
--- OUTSIDE RECORDS SUMMARY | 2023-09-23 09:56 | XMS_ITS | Continuity of Care Document ---
Author Organization [facility] Adult Address [address] [place] [address]- Care Team Providers Care Hide Sorter Name Role Phone Yessenia ROSALES, Chelly Primary Care Physician Encounter [facility] Date(s): 11/22/22 - 12/22/22 [facility] [address] [place] [address]- Allergies, Adverse Reactions, Alerts Substance Reaction Severity [...] (oldterm) 8 9/23/09 Given 1Result Comment: [facility]: [id number] 2Result Comment: [facility] [id number] 3Result Comment: [facility] [phone] 4Admin Note: VIS given 7.2.12 Questionaire completed and reviewed. 5Admin Note: Health Form given, dated 11/10/10 6Admin Note: VIS dated 08/01/09 given 7Admin Note: VIS given dated 03/05/08 8Admin Note: [employer] 2503-1223 formula Medications amLODIPine 5 mg oral tablet 5 mg, 1, tablet, By Mouth, Daily, # 90 tablet, Refills 1, Tot. Refills 1, Maintenance, 12/02/22 13:00:00 EDT, Route to Pharmacy Electronically, [facility] #[id number], Partial fill upon patient request if the [...] Mouth, Daily, # 90 tablet, 1 Refills, [facility] 15060, 185, cm, 10/16/21 14:13:00 EDT,Height Start Date: 10/18/21 Status: Ordered Baqsimi Two Pack 3 mg nasal powder = 3 mg, Naris, Left, Once, to use for hypoglycimic emergency, # 1 each, 0 Refills, Soft Stop, 10/20/22 11:52:00 EDT, [facility] #32363, Partial fill upon patient request if the prescriptionis for a schedule II opioid drug., 186, cm, ... Start Date: 10/20/22 Status: Ordered DEXCOM G7 OUTBOUND SUPERVISOR DEXCOM G7 OUTBOUND SUPERVISOR, See Instructions, # 1 each, Refills 0, [...] Maintenance,10/25/21 22:35:00 EDT, Route to Pharmacy Electronically, [facility]/pharmacy #[id number], 185, cm, 10/16/21 14:13:00 EDT, Height Start Date: 10/25/21 Status: Ordered Humalog Kwik Pen 100 units/mL subcutaneous injection See Instructions, take 2-11 units up to 5x a day before meals per sliding scale and for correction.E 10.9 max total daily dose if 50 units, # 30 mL, 11 Refills, Maintenance, 04/26/22 12:49:00 EST, [facility] #[id number], 187, cm, 03/05/22 11:45:... Start Date: 04/26/22 Status: Ordered Lantus Solostar Pen 100 units/mL subcutaneous solution See Instructions, Inject 32 units daily in the am E10.9, # 30 mL, 11 Refills, Maintenance, 02/15/2210:57:00 EDT, [facility] #57889, 187, cm, 02/15/22 10:31:00 EDT, Height, 88.5, [...] 09/01/22 12:51:00 EDT, Route to Pharmacy Electronically, [facility] #[id number], 186, cm, 04... Start Date: 09/01/22 Stop [...] Care Member Role: PCP Address: Address: [address] [place] [address] [address] [place], [place] [address] Name: Rosie Rowell RN Position: [facility] RN Member Role: Primary Care Nurse Care Team Related Persons Name: INGRIS TONEY Address: home [address] [place] [address] Name: IRENE TONEY Address: home [address] [address] Name: BLANTONIRENE Address: home [address] [place] [address]
--- OUTSIDE RECORDS SUMMARY | 2023-09-23 09:56 | XMS_ITS | Continuity of Care Document ---
Author Organization [facility] Adult Address [address] [place] [address]- Care Team Providers Care Stone Driller Helper Name Role Phone Yessenia ROSALES, Chelly Primary Care Physician [phone] Encounter [facility] [id number] Date(s): 03/05/22 - 06/09/22 [facility] [address] [place] [address]- Attending Physician: Chelly Casas MD Allergies, Adverse [...] (IM) (oldterm) 8 01/08/09 Given 1Result Comment: [facility]: [id number] 2Result Comment: [facility] [id number] 3Result Comment: [facility] [id number] 4Admin Note: VIS given 7.2.12 Questionaire completed and reviewed. 5Admin Note: Health Form given, dated 11/10/10 6Admin Note: VIS dated 08/01/09 given 7Admin Note: VIS given dated 03/05/08 8Admin Note: [employer] 4422-3571 formula Medications amLODIPine 5 mg oral tablet 5 mg, 1, tablet, By Mouth, Daily, # 90 tablet, Refills 1, Tot. Refills 1, Maintenance, 06/07/22 15:31:00 EST, Route to Pharmacy Electronically, [facility] #[id number], Partial fill upon patient request if the [...] Mouth, Daily, # 90 tablet, 1 Refills, [facility] 96461, 185, cm, 10/16/21 14:13:00 EDT,Height Start Date: [...] Maintenance,10/25/21 22:35:00 EDT, Route to Pharmacy Electronically, [facility]/pharmacy #2339, 185, cm, 10/16/21 14:13:00 EDT, Height Start Date: 10/25/21 Status: Ordered Humalog Kwik Pen 100 units/mL subcutaneous injection See Instructions, take 2-11 units up to 5x a day before meals per sliding scale and for correction.E 10.9 max total daily dose if 50 units, # 30 mL, 11 Refills, Maintenance, 04/26/22 12:49:00 EST, [facility] #14016, 187, cm, 03/05/22 11:45:... Start Date: 04/26/22 Status: Ordered Lantus Solostar Pen 100 units/mL subcutaneous solution See Instructions, Inject 32 units daily in the am E10.9, # 30 mL, 11 Refills, Maintenance, 02/15/2210:57:00 EDT, [facility] #90052, 187, cm, 02/15/22 10:31:00 EDT, Height, 88.5, kg, 12/16/21 3:29:00 EDT, Dry Weight Start Date: 02/15/22 Status: Ordered pantoprazole 40 mg oral delayed release tablet 1 tablet, By Mouth, Daily, # 90 tablet, 0 Refills, Maintenance, 06/07/22 16:15:00 EST, 187, cm, 03/05/22 11:45:00 EST, Height, 88.5, kg, 12/16/21 3:29:00 EDT, Dry Weight Start Date: 06/07/22 Status: Ordered Pen [place], 31 G x 5 mm BD Ultra [...] 03/05/22 12:47:00 EST, Route to Pharmacy Electronically, [facility] #[id number], 187, cm, 11... Start Date: 03/05/22 Stop [...] Team Personnel Name: Lynda Smith RN Position: [facility] RN Member Role: Primary Care Nurse Name: Lucina Castillo RN Position: S RN Member Role: Primary Care Nurse Name: Chelly Casas MD Position: [facility] Primary Care Physician Member Role: PCP Address: Address: [address] [place] [address] [address] [place], [place] [address] Name: Rosie Rowell RN Position: S RN Member Role: Primary Care Nurse Care Team Related Persons Name: INGRIS TONEY Address: home [address] [place] [address] Name: IRENE TONEY Address: [address] [address] Name: IRENE BLANTON Address: [address] [address]
--- OUTSIDE RECORDS SUMMARY | 2023-09-23 09:56 | XMS_ITS | Continuity of Care Document ---
Author Organization [facility] Adult Address [address] [place] [address]- Care Team Providers Care Grappler Name Role Phone Yessenia ROSALES, Chelly Primary Care Physician Encounter [facility] [place] Date(s): 03/05/22 - 03/12/22 [facility] Adult [address] [place] [address]- Encounter Diagnosis Hyperlipidemia associated with type 2 diabetes mellitus(Discharge Diagnosis) - 03/06/22 Hypertension associated with diabetes(Discharge Diagnosis) - 03/06/22 Diabetes mellitus, type 2(Discharge Diagnosis) - 03/06/22 Attending Physician: Chelly Casas MD Allergies, Adverse [...] 02/18/12 Gi emre influenza virus vaccine, inactivated 01/13/11 Gi emre SARS-CoV-2 (COVID-19) mRNA-1273 vaccine 03/07/21 R ecorded SARS-CoV-2 (COVID-19) mRNA BNT-162b2 vac 08/24/20 Recorded SARS-CoV-2 (COVID-19) mRNA BNT-162b2 vac 08/03/20 Recorded pneumococcal 23-valent vaccine 6 01/13/11 Given tetanus/diphtheria/pertussis, acel(Tdap) 7 01/13/11 Given Influenza Inactive (IM) (oldterm) 8 01/08/09 Given 1Result Comment: [facility] [place] 2]: [id number] 2Result Comment: [facility] [place] 2] [id number] 3Result Comment: [facility] [place] 2] [id number] 4Admin Note: VIS given 7.2.12 Questionaire completed and reviewed. 5Admin Note: Health Form given, dated 11/10/10 6Admin Note: VIS dated 08/01/09 given 7Admin Note: VIS given dated 03/05/08 8Admin Note: PT PAL [id number] formula Medications amLODIPine 5 mg oral tablet 5 mg, 1, tablet, By Mouth, Daily, # 90 tablet, Refills 3, Tot. Refills 3, Maintenance, 06/03/21 9:21:00 EST, Route to Pharmacy Electronically, [facility] #[id number], Partial fill upon patient request if the prescription is for a schedule II opio... Start Date: 06/03/21 Status: Ordered aspirin 81 mg oral tablet 1 tablet = 81 mg, By Mouth, Daily, # 30 tablet, 0 Refills, Maintenance, 01/07/19 7:10:11 EDT Start Date: 01/07/19 Status: Ordered atorvastatin 10 mg oral tablet 1 tablet, By Mouth, Daily, # 90 tablet, 1 Refills, [id number], 185, cm, 10/16/21 14:13:00 EDT,Height Start Date: [...] Maintenance,10/25/21 22:35:00 EDT, Route to Pharmacy Electronically, [facility]/pharmacy #2339, 185, cm, 10/16/21 14:13:00 EDT, Height Start Date: 10/25/21 Status: Ordered Humalog Kwik Pen 100 units/mL subcutaneous injection See Instructions, take 2-11 units up to 5x a day before meals per sliding scale and for correction.E 10.9 max total daily dose if 50 units, # 30 mL, 11 Refills, Maintenance, 02/18/20 10:13:00 EST, [facility] #[id number], 185.7, cm, 02/18/20 9:25... Start Date: 02/18/20 Status: Ordered Lantus Solostar Pen 100 units/mL subcutaneous solution See Instructions, Inject 32 units daily in the am E10.9, # 30 mL, 11 Refills, Maintenance, 02/15/2210:57:00 EDT, [facility] #[id number], 187, cm, 02/15/22 10:31:00 EDT, Height, 88.5, [...] 03/05/22 Stop Date: 06/03/22 Status: Ordered Pen [place], 31 G x 5 mm BD Ultra [...] 03/05/22 12:47:00 EST, Route to Pharmacy Electronically, [facility] #[id number], 187, cm, 11... Start Date: 03/05/22 Stop Date: 09/01/22 Status: Ordered Problem List Condition Confirmation Course Effective Dates Status H ealth Status Informant Hyperlipidemia associated with type 2 diabetes mellitus Confirmed Active Hypertension associated with diabetes Confirmed Active Hepatic lesion Confirmed Active Major depression, recurrent Confirmed Active Diabetes mellitus, type 2 Confirmed Active Diagnosis Diagnosis Type Effective Dates Health Status Clinical Service Informant Hyperlipidemia associated with type 2 diabetes mellitus Discharge Diagnosis 03/06/22 Hypertension associated with diabetes Discharge Diagnosis 03/06/22 Diabetes mellitus, type 2 Discharge Diagnosis 03/06/22 Vital Signs Most recent to oldest [Reference Range]: 1 Height 187 cm (03/05/22 11:45 AM) Weight 84.1 kg (03/05/22 11:45 AM) Oxygen Saturation [94-100 %] 96 % (03/05/22 11:45 AM) Pulse Rate [55-90 bpm] 73 bpm (03/05/22 11:45 AM) Body Mass Index [18.5-24.99 kg/m2] 24.05 kg/m2 (03/05/22 11:45 AM) Blood Pressure [90-138/55-84 mm Hg] 119/ 69mm Hg (03/05/22 11:45 AM) Temperature [96.8-100.4 DegF] 98.1 DegF (03/05/22 11:45 AM) Mode of Delivery (Oxygen) Room air (03/05/22 11:45 AM) Blood pressure sites Arm, left (03/05/22 11:45 AM) Temperature Route Oral (03/05/22 11:45 AM) Weight Obtained Via Standing scale (03/05/22 11:45 AM) Social History Social History Type Response Smoking Status 10 or more cigarette s (1/2 pack or more)/day in last 30 days; Use: SMOKES MARIJUANA DAILY; Other: 30 pack yr history; entered on: 12/16/21 Sex Note * Giovanna Kowalski: PERFORM, SIGN, VERIFY Event Display: Patient Education/Instruction Authored Date: [id number] [facility] *[facility] Clinical Summary Name MERLE TONEY Age 57 Years 1965 PCP Chelly Casas MD PCP Visit Date 03/05/2022 11:43:00 Additional Instructions: Scheduled Appointments?? Future Appointments ?*[facility] ?[address],??[place],??[address] ?Phone:??--?Fax:??-- ?Appt. Date:??05/10/2022?9:40 AM ?Scheduled Provider:??Chelly Casas MD Follow-Up Instructions ?? Diagnosis Medications: Please continue your medications until treatment is completed or stopped by your provider. Discuss any questions related to medications with your provider. Medications to Continue Taking That Have Changed [facility] #[id number], [address] [place] [id number], [phone] - Pantoprazole (pantoprazole 40 mg oral delayed release tablet) 1 tab(s) Oral Daily for 90 Days. Refills: 0. Next Dose: - Trazodone (traZODone 50 mg oral tablet) 1 tab(s) Oral Daily at Bedtime for 90 Days. INSTR:CHRONICINSOMNIA. Refills: 1. Next Dose: Medications to Continue with No Changes These medications were not printed or sent to your pharmacy Amlodipine (amLODIPine 5 mg oral tablet) 1 tab(s) Oral Daily. Refills: 3. Next Dose: Aspirin (aspirin 81 mg oral tablet) 1 tab(s) Oral Daily. Refills: 0. Next Dose: Atorvastatin (atorvastatin 10 mg oral tablet) 1 tab(s) Oral Daily. Refills: 1. Next Dose: Buprenorphine-Naloxone (Suboxone 8 mg-2 mg sublingual film) DISSOLVE 1 AND 1/2 FILMS UNDER THE TONGUE EVERY DAY. Next Dose: Doxazosin (doxazosin 4 mg oral tablet) TAKE 1 TABLET BY MOUTH AT BEDTIME. Next Dose: Durable Medical Equipment (Freestyle pardeep 2 reader) Used to con't mon't BG Dx E10.65. Refills: 0. Next Dose: Durable Medical Equipment (FREESTYLE PARDEEP 2 SENSORS) USED TO CHECK YOUR SUGARS AT LEAST 7X A DAY e10.9. CHANGE SENSOR EVERY 14 DAYS FROM BACK OF YOUR ARM. CHANGE SITES.. Refills: 11. Next Dose: Durable Medical Equipment (Pen [place], 31 G x 5 mm [employer] Ultra Fine III) to give insulin up to 6x a dayl. e 10.9. Refills: 11. Next Dose: Gabapentin (gabapentin 300 mg oral capsule) 1 capsule Oral twice a day. Refills: 0. Next Dose: Insulin Glargine (Lantus Solostar Pen 100 units/mL subcutaneous solution) Inject 32 units daily in the am E10.9. Refills: 11. Next Dose: Insulin Lispro (Humalog Kwik Pen 100 units/mL subcutaneous injection) take 2-11 units up to 5x a day before meals per sliding scale and for correction. E 10.9 max total daily dose if 50 units. Refills: 11. Next Dose: Allergy Info:?? losartan; enalapril Medications Given This Visit Medication Dose Route influenza virus vaccine, inactivated (influenza virus, inactivated vacc) 0.5 mL Intramuscular Future Orders ?No future orders Vital Signs Height 187 cm Weight 84.1 kg BMI 24.05 kg/m2 Blood Pressure 119 mm Hg/69 mm Hg Temperature 98.1 DegF Pulse Rate 73 bpm Respiratory Rate 02 Sat Mode of Delivery 96 %/Room air You can now view a summary of your hospital visit from the comfort of your home through a free online portal called [employer]. [employer] is a website that allows you to securely view your medical information including discharge summary, medications and follow-up visits. ??You can alsosend a secure electronic message to your doctor???s office to request appointments, renew medications or just ask a question. You can enroll at [email or web address] or register during your next office visit. Disclaimer:?? The information provided is of a general nature and is intended to be used in conjunction with the recommendations and advice of your health care practitioner. ??Every effort has been made to ensure that the information provided is accurate and complete at the time it is provided to you however, as your needs change, or, as new ??information becomes available, different or additional instructions may be required. If you have questions, please consult with your primary care provider or pharmacist, as appropriate. ??This information is not intended to serve as substitution for assessment and evaluation by a qualified health care provider. If you do not have a primary care provider, you may find a [facility] provider by calling [facility] at [phone]. For information about the plan of care including goals and instructions for your diagnosis, please see the patient education orders section of this document. Patient Education Materials?? The content of this educational material or handout may have been modified, supplemented, or adapted from its original content and format to support your individualized medical care. Patient Care team information Care Team Personnel Name: Lynda Smith RN Position: [facility] RN Member Role: Primary Care Nurse Name: Lucina Castillo RN Position: S RN Member Role: Primary Care Nurse Name: Chelly Casas MD Position: [facility] Primary Care Physician Member Role: PCP Address: Address: [address] [place] [address] Name: Rosie Rowell RN Position: S RN Member Role: Primary Care Nurse Care Team Related Persons Name: INGRIS TONEY Address: home [address] [place] [address] Name: IRENE TONEY Address: home [address] [address] Name: IRENE BLANTON Address: home [address] [address]
--- OUTSIDE RECORDS SUMMARY | 2023-09-23 09:56 | XMS_ITS | Continuity of Care Document ---
Author Organization [facility] Adult Address [address] [place] [address]- Care Team Providers Care Revenue Accounting Manager Name Role Phone Chelly Casas MD Primary Care Physician [phone] En[place] [facility] [place] Date(s): 07/05/19 - 07/15/19 [facility] Adult [address] [place] [address]- [facility] Attending Physician: Cleopatra Rincon Admitting Physician: AdmtrCleopatra Referring Physician: Admtr, ArHeidi Allergies, Adverse Reactions, Alerts Substance Reaction Severity [...] Given 1Result Comment: [facility] [id number] 2Admin Note: VIS given 7.2.12 Questionaire completed and reviewed. 3Admin Note: Health Form given, dated 11/10/10 4Admin Note: VIS dated 08/01/09 given 5Admin Note: VIS given dated 03/05/08 6Admin Note: [employer] [id number] formula Medications amLODIPine 2.5 mg oral tablet 2.5 mg, 1, tablet, By Mouth, Daily, started on 08/01/18 unable to tolerate ACEI or ARBs, # 90 tablet, Refills 3, Tot. Refills 3, Maintenance, 01/02/19 11:42:47 EDT, [id number] Start Date: 01/02/19 Stop Date: 12/28/19 [...] 10:26:00 EDT, Route to Pharmacy Electronically, [facility]/pharmacy #[id number], 185.7, cm, 06/20/19 9:07:00 EST, [...] 12:44:00 EST, Route to Pharmacy Electronically, [facility]/pharmacy #[id number], 185.7, cm, 03/28/19 15:11:00 EST, Height, 93.5, kg, 06/09/18 7:28:00 EST, Dry Weight Start Date: 06/19/19 Status: Ordered Pen [place], 31 G x 5 mm BD Ultra [...] 02/15/18 10:34:26 EDT, Route to Pharmacy Electronically, [id number], [facility]/pharmacy #2334 Start Date: 02/15/18 Status: Ordered Suboxone 8 mg-2 mg sublingual film 1.5 each, Sublingual, Daily, 0 Refills, Maintenance, 11/15/16 21:05:59 Start Date: 11/15/16 Status: Ordered traZODone 50 mg oral tablet 50 mg, 1, tablet, By Mouth, Daily at bedtime, Chronic insomnia, # 90 tablet, Refills 1, Tot. Refills 1, Maintenance, 07/05/19 10:26:00 EDT, Route to Pharmacy Electronically, [facility]/pharmacy #2339, 185.7, cm, 06/20/19 9:07:00 EST, [...]
--- OUTSIDE RECORDS SUMMARY | 2023-09-23 09:57 | XMS_ITS | Continuity of Care Document ---
Author Organization [facility] Adult Address [address] [place] [address]- Care Team Providers Care Mechanical Design Engineer Products Name Role Phone Yessenia ROSALES, Chelly Primary Care Physician [phone] [place] [facility] Date(s): 11/18/22 - 12/18/22 [facility] Adult [address] [place] [address]- Attending Physician: AdmCleopatra colbert Admitting Physician: AdmtrCleopatra Referring Physician: Admtr, Ar8 Allergies, Adverse Reactions, [...] (IM) (oldterm) 8 01/08/09 Given 1Result Comment: [facility]: [id number] 2Result Comment: [facility] [id number] 3Result Comment: [facility] [id number] 4Admin Note: VIS given 7.2.12 Questionaire completed and reviewed. 5Admin Note: Health Form given, dated 11/10/10 6Admin Note: VIS dated 08/01/09 given 7Admin Note: VIS given dated 03/05/08 8Admin Note: [employer] [id number] formula Medications amLODIPine 5 mg oral tablet 5 mg, 1, tablet, By Mouth, Daily, # 90 tablet, Refills 1, Tot. Refills 1, Maintenance, 12/02/22 13:00:00 EDT, Route to Pharmacy Electronically, [facility] #[id number], Partial fill upon patient request if the [...] Mouth, Daily, # 90 tablet, 1 Refills, [facility], 185, cm, 10/16/21 14:13:00 EDT,Height Start Date: 10/18/21 Status: Ordered Baqsimi Two Pack 3 mg nasal powder = 3 mg, Naris, Left, Once, to use for hypoglycimic emergency, # 1 each, 0 Refills, Soft Stop, 10/20/22 11:52:00 EDT, [facility] #[id number], Partial fill upon patient request if the prescriptionis for a schedule II opioid drug., 186, cm, ... Start Date: 10/20/22 Status: Ordered DEXCOM G7 FOREST LOGISTICS MANAGER DEXCOM G7 FOREST LOGISTICS MANAGER, See Instructions, # 1 each, Refills 0, [...] Maintenance,10/25/21 22:35:00 EDT, Route to Pharmacy Electronically, [facility]/pharmacy #[id number], 185, cm, 10/16/21 14:13:00 EDT, Height Start Date: 10/25/21 Status: Ordered Humalog Kwik Pen 100 units/mL subcutaneous injection See Instructions, take 2-11 units up to 5x a day before meals per sliding scale and for correction.E 10.9 max total daily dose if 50 units, # 30 mL, 11 Refills, Maintenance, 04/26/22 12:49:00 EST, [facility] #59315, 187, cm, 03/05/22 11:45:... Start Date: 04/26/22 Status: Ordered Lantus Solostar Pen 100 units/mL subcutaneous solution See Instructions, Inject 32 units daily in the am E10.9, # 30 mL, 11 Refills, Maintenance, 02/15/2210:57:00 EDT, [facility] #54869, 187, cm, 02/15/22 10:31:00 EDT, Height, 88.5, [...] 09/01/22 12:51:00 EDT, Route to Pharmacy Electronically, [facility] #36669, 186, cm, 04... Start Date: 09/01/22 Stop [...] pack yr history; entered on: 12/16/21 Sex Laboratory * Event Display: Non Lab Results Authored Date: Patient Care team information Care Team Personnel Name: Lynda Smith RN Position: S RN Member Role: Primary Care Nurse Name: Lucina Castillo RN Position: S RN Member Role: Primary Care Nurse Name: Chelly Casas MD Position: [facility] Physician - Primary Care Member Role: PCP Address: Address: [address] [facility] [address] [place] [address]- Name: Lelia GREGG, Rosie Position: [facility] RN Member Role: Primary Care Nurse Care Team Related Persons Name: DAWNA INGRIS Address: home [address] [place] [address] Name: IRENE TONEY Address: home [address] [facility] [address] [place] [address] Name: IRENE BLANTON Address: home [address] [facility] [address] [place] [address]
--- OUTSIDE RECORDS SUMMARY | 2023-09-23 09:57 | XMS_ITS | Continuity of Care Document ---
Author Organization [facility] Address [address] [place] [address]- Care Team Providers Care Air Defence Officer Name Role Phone Yessenia ROSALES, Chelly Primary Care Physician [phone] En[place] [facility] [place] Date(s): 07/01/20 - 10/29/20 [facility] [address] [place] [address]- Attending Physician: Erik Márquez MD Admitting Physician: [...] (oldterm) 7 01/08/09 Given 1Result Comment: [facility] [id number] 2Result Comment: [facility] [id number] 3Admin Note: VIS given 7.2.12 Questionaire completed and reviewed. 4Admin Note: Health Form given, dated 11/10/10 5Admin Note: VIS dated 08/01/09 given 6Admin Note: VIS given dated 03/05/08 7Admin Note: [employer] [id number] formula Medications aspirin 81 mg oral tablet [...] Maintenance,07/05/19 10:26:00 EDT, Route to Pharmacy Electronically, [facility]/pharmacy #2339, 185.7, cm, 06/20/19 9:07:00 EST, Height, 93.5, kg, 06/09/18 7:28:00 EST, D... Start Date: 07/05/19 Status: Ordered Humalog Kwik Pen 100 units/mL subcutaneous injection See Instructions, take 2-11 units up to 5x a day before meals per sliding scale and for correction.E 10.9 max total daily dose if 50 units, # 30 mL, 11 Refills, Maintenance, 02/18/20 10:13:00 EST, [facility] #52673, 185.7, cm, 02/18/20 9:25... Start Date: 02/18/20 Status: Ordered Lantus Solostar Pen 100 units/mL subcutaneous solution See Instructions, Inject 32 units daily in the am E10.9, # 30 mL, 11 Refills, Maintenance, 02/20/2012:15:00 EST, [facility] #01512, 185.7, cm, 02/18/20 9:25:00 EST, Height, 93.5, kg, 06/09/18 7:28:00 EST, Dry Weight Start Date: 02/20/20 Status: Ordered losartan 25 mg oral tablet 25 mg, 1, tablet, By Mouth, Daily, # 90 tablet, Refills 3, Tot. Refills 3, Maintenance, 09/26/20 14:37:00 EDT, Route to Pharmacy Electronically, [facility]/pharmacy #2339, 185.7, cm, 09/26/20 11:13:00 EDT, Height Start Date: 09/26/20 Status: Ordered Pen [place], 31 G x 5 mm BD Ultra [...] 02/15/18 10:34:26 EDT, Route to Pharmacy Electronically, [id number], [facility]/pharmacy #2339 Start Date: 02/15/18 Status: Ordered Suboxone [...]
--- OUTSIDE RECORDS SUMMARY | 2023-09-23 09:57 | XMS_ITS | Continuity of Care Document ---
Author Organization [facility] Adult Address [address] [place] [address]- Care Team Providers Care Junior Designer Name Role Phone Yessenia ROSALES, Chelly Primary Care Physician [place] [facility] [place](s): 01/25/22 - 02/24/22 [facility] Adult [address] [place] [address]- Allergies, Adverse Reactions, Alerts Substance Reaction Severity [...] (IM) (oldterm) 7 01/08/09 Given 1Result Comment: [facility] [id number] 2Result Comment: [facility] [id number] 3Admin Note: VIS given 7.2.12 Questionaire completed and reviewed. 4Admin Note: Health Form given, dated 11/10/10 5Admin Note: VIS dated 08/01/09 given 6Admin Note: VIS given dated 03/05/08 7Admin Note: [facility] [id number] formula Medications amLODIPine 5 mg oral tablet 5 mg, 1, tablet, By Mouth, Daily, # 90 tablet, Refills 3, Tot. Refills 3, Maintenance, 06/03/21 9:21:00 EST, Route to Pharmacy Electronically, [facility] #[id number], Partial fill upon patient request if the prescription is for a schedule II opio... Start Date: 06/03/21 Status: Ordered aspirin 81 mg oral tablet 1 tablet = 81 mg, By Mouth, Daily, # 30 tablet, 0 Refills, Maintenance, 01/07/19 7:10:11 EDT Start Date: 01/07/19 Status: Ordered atorvastatin 10 mg oral tablet 1 tablet, By Mouth, Daily, # 90 tablet, 1 Refills, [facility], 185, cm, 10/16/21 14:13:00 EDT,Height Start Date: [...] Maintenance,10/25/21 22:35:00 EDT, Route to Pharmacy Electronically, [facility]/pharmacy #2339, 185, cm, 10/16/21 14:13:00 EDT, Height Start Date: 10/25/21 Status: Ordered Humalog Kwik Pen 100 units/mL subcutaneous injection See Instructions, take 2-11 units up to 5x a day before meals per sliding scale and for correction.E 10.9 max total daily dose if 50 units, # 30 mL, 11 Refills, Maintenance, 02/18/20 10:13:00 EST, [facility] #[id number], 185.7, cm, 02/18/20 9:25... Start Date: 02/18/20 Status: Ordered Lantus Solostar Pen 100 units/mL subcutaneous solution See Instructions, Inject 32 units daily in the am E10.9, # 30 mL, 11 Refills, Maintenance, 02/15/2210:57:00 EDT, [facility] #82993, 187, cm, 02/15/22 10:31:00 EDT, Height, 88.5, kg, 12/16/21 3:29:00 EDT, Dry Weight Start Date: 02/15/22 Status: Ordered pantoprazole 40 mg oral delayed release tablet 1 tablet, By Mouth, Daily, # 90 tablet, 1 Refills, 11/16/21 8:43:00 EDT, 185, cm, 10/16/21 14:13:00EDT, Height Start Date: 11/16/21 Status: Ordered Pen [place], 31 G x 5 mm BD Ultra [...] tablet, Refills 1, Route to Pharmacy Electronically, [facility], 185, cm, 01/16/21 9:52:00 EDT, Height Start [...] Team Personnel Name: Lynda Smith RN Position: [facility] RN Member Role: Primary Care Nurse Name: Lucina Castillo RN Position: [facility] RN Member Role: Primary Care Nurse Name: Chelly Casas MD Position: [facility] Primary Care Physician Member Role: PCP Address: Address: [address] [place] [address] [address] [place], [place] [address] Name: Rosie Rowell RN Position: [facility] RN Member Role: Primary Care Nurse Care Team Related Persons Name: INGRIS TONEY Address: home [address] [place] [address] Name: IRENE TONEY Address: [address] [address] Name: IRENE BLANTON Address: home [address] [address]
--- OUTSIDE RECORDS SUMMARY | 2023-09-23 09:57 | XMS_ITS | Continuity of Care Document ---
Author Organization [facility] Adult Address [address] [place] [address]- Care Team Providers Care Assistant District Attorney Name Role Phone Yessenia ROSALES, Chelly Primary Care Physician Encounter [facility] Date(s): 10/16/21 - 10/23/[address] [facility] Adult [address] [place] [address]- Attending Physician: Chelly Casas MD Allergies, Adverse [...] 01/13/11 Given Influenza Inactive (IM) (oldterm) 7 9/23/09 Given 1Result Comment: [facility] [phone] 2Result Comment: [facility] [phone] 3Admin Note: VIS given 7.2.12 Questionaire completed and reviewed. 4Admin Note: Health Form given, dated 11/10/10 5Admin Note: VIS dated 08/01/09 given 6Admin Note: VIS given dated 03/05/08 7Admin Note: [employer] [id number] formula Medications amLODIPine 5 mg oral tablet 5 mg, 1, tablet, By Mouth, Daily, # 90 tablet, Refills 3, Tot. Refills 3, Maintenance, 06/03/21 9:21:00 EST, Route to Pharmacy Electronically, [facility] #[id number], Partial fill upon patient request if the prescription is for a schedule II opio... Start Date: 06/03/21 Status: Ordered aspirin 81 mg oral tablet 1 tablet = 81 mg, By Mouth, Daily, # 30 tablet, 0 Refills, Maintenance, 01/07/19 7:10:11 EDT Start Date: 01/07/19 Status: Ordered atorvastatin 10 mg oral tablet 1 tablet, By Mouth, Daily, # 90 tablet, 1 Refills, [facility], 185, cm, 10/16/21 14:13:00 EDT,Height Start Date: [...] Maintenance,07/24/21 16:28:00 EDT, Route to Pharmacy Electronically, [facility] #[id number], 185, cm, 07/24/21 15:23:00 EDT, Height Start Date: 07/24/21 Status: Ordered Humalog Kwik Pen 100 units/mL subcutaneous injection See Instructions, take 2-11 units up to 5x a day before meals per sliding scale and for correction.E 10.9 max total daily dose if 50 units, # 30 mL, 11 Refills, Maintenance, 02/18/20 10:13:00 EST, [facility] #[id number], 185.7, cm, 02/18/20 9:25... Start Date: 02/18/20 Status: Ordered Lantus Solostar Pen 100 units/mL subcutaneous solution See Instructions, Inject 32 units daily in the am E10.9, # 30 mL, 11 Refills, Maintenance, 07/24/2209:48:00 EDT, [facility] #[id number], 185, cm, 07/24/21 10:19:00 EDT, Height Start Date: 07/24/21 Status: Ordered pantoprazole 40 mg oral delayed release tablet 1 tablet, By Mouth, Daily, # 90 tablet, 1 Refills, 05/18/21 14:58:00 EST, 185, cm, 04/13/21 11:29:00 EST, Height Start Date: 05/18/21 Status: Ordered Pen [place], 31 G x 5 mm BD Ultra [...] 0 Refills, Maintenance, 11/15/16 21:05:59 Start Date: 7/31/17 Status: Ordered traZODone 50 mg oral tablet 1, tablet, By Mouth, Daily at bedtime, INSTR:CHRONIC INSOMNIA, # 90 tablet, Refills 1, Route to Pharmacy Electronically, [id number], 185, cm, 01/16/21 9:52:00 EDT, Height Start Date: 01/19/21 Status: Ordered Problem List Condition Effective Dates Status Health Status Inform ant Hyperlipidemia associated wi th type 2 diabetes mellitus(Confirmed) Active Hypertension associated with diabetes(Confirmed) Active Hepatic lesion(Confirmed) Active Major depression, recurrent(Confirmed) Active Diabetes mellitus, type 2(Confirmed) Active Vital Signs Most recent to oldest [Reference Range]: 1 Height 185 cm (10/16/21 2:13 PM) Weight 89.9 kg (10/16/21 2:13 PM) Oxygen Saturation [94-100 %] 97 % (10/16/21 2:13 PM) Pulse Rate [55-90 bpm] 87 bpm (10/16/21 2:13 PM) Body Mass Index [18.5-24.99] 26.27 *H* (10/16/21 2:13 PM) Blood Pressure [90-138/55-84 mm Hg] 122/ 78mm Hg (10/16/21 2:13 PM) Temperature [96.8-100.4 DegF] 98.3 DegF (10/16/21 2:13 PM) Mode of Delivery (Oxygen) Room air (10/16/21 2:13 PM) Blood pressure sites Arm, right (10/16/21 2:13 PM) Temperature Route Oral (10/16/21 2:13 PM) Social History Social History Type Response Smoking Status 5-9 cigarettes (betw een 1/4 to 1/2 pack)/day in last 30 days; Use: SMOKES MARIJUANA DAILY; Other: 30 pack yr history; entered on: 04/13/21 Sex
--- OUTSIDE RECORDS SUMMARY | 2023-09-23 09:57 | XMS_ITS | Continuity of Care Document ---
Author Organization [facility] Adult Address [address] [place] [address]- Care Team Providers Care Wooden Boat Builder Name Role Phone Chelly Casas MD Primary Care Physician Encounter [facility] Date(s): 03/04/23 - 03/11/23 [facility] Adult [address] [place] [address]- Encounter Diagnosis Positive hepatitis C antibody test(Discharge Diagnosis) - 03/06/23 Hyperlipidemia associated with type 2 diabetes mellitus(Discharge Diagnosis) - 03/06/23 Gastroesophageal reflux disease(Discharge Diagnosis) - 03/06/23 Attending Physician: Chelly Casas MD Allergies, Adverse [...] R ecorded SARS-CoV-2 (COVID-19) mRNA BNT-162b2 vac 5/9/21 Recorded SARS-CoV-2 (COVID-19) mRNA BNT-162b2 vac 08/03/20 Recorded pneumococcal 23-valent vaccine 7 01/13/11 Given tetanus/diphtheria/pertussis, acel(Tdap) 8 01/13/11 Given Influenza Inactive (IM) (oldterm) 9 01/08/09 Given 1Result Comment: [id number] 2Result Comment: [facility]: [id number] 3Result Comment: [facility] [phone] 4Result Comment: [facility] [id number] 5Admin Note: VIS given 7.2.12 Questionaire completed and reviewed. 6Admin Note: Health Form given, dated 11/10/10 7Admin Note: VIS dated 08/01/09 given 8Admin Note: VIS given dated 03/05/08 9Admin Note: [employer] [id number] formula Medications aspirin 81 mg oral tablet 1 tablet = 81 mg, By Mouth, Daily, # 30 tablet, 0 Refills, Maintenance, 01/07/19 7:10:11 EDT Start Date: 01/07/19 Status: Ordered atorvastatin 10 mg oral tablet 1 tablet, By Mouth, Daily, # 90 tablet, 1 Refills, [facility], 185, cm, 10/16/21 14:13:00 EDT,Height Start Date: 10/18/21 Status: Ordered Baqsimi Two Pack 3 mg nasal powder = 3 mg, Naris, Left, Once, to use for hypoglycimic emergency, # 1 each, 0 Refills, Soft Stop, 10/20/22 11:52:00 EDT, [facility] #[id number], Partial fill upon patient request if the prescriptionis for a schedule II opioid drug., 186, cm, ... Start Date: 10/20/22 Status: Ordered DEXCOM G7 HEALTHCARE MARKET CONSULTANT DEXCOM G7 HEALTHCARE MARKET CONSULTANT, See Instructions, # 1 each, Refills 0, [...] Maintenance,10/25/21 22:35:00 EDT, Route to Pharmacy Electronically, [facility]/pharmacy #[id number], 185, cm, 10/16/21 14:13:00 EDT, Height Start Date: 10/25/21 Status: Ordered Humalog Kwik Pen 100 units/mL subcutaneous injection See Instructions, take 2-11 units up to 5x a day before meals per sliding scale and for correction.E 10.9 max total daily dose if 50 units, # 30 mL, 11 Refills, Maintenance, 04/26/22 12:49:00 EST, [facility] #[id number], 187, cm, 03/05/22 11:45:... Start Date: 04/26/22 Status: Ordered Lantus Solostar Pen 100 units/mL subcutaneous solution See Instructions, Inject 32 units daily in the am E10.9, # 30 mL, 11 Refills, Maintenance, 02/15/2210:57:00 EDT, [facility] #[id number], 187, cm, 02/15/22 10:31:00 EDT, Height, 88.5, [...] Effective Dates Health Status Clinical Service Informant Positive hepatitis C antibody test Discharge Diagnosis 03/06/23 Hyperlipidemia associated with type 2 diabetes mellitus Discharge Diagnosis 03/06/23 Gastroesophageal reflux disease Discharge Diagnosis 03/06/23 Vital Signs Most recent to oldest [Reference Range]: 1 Height 186 cm (03/04/23 11:21 AM) Weight 80 kg (03/04/23 11:21 AM) Body Mass Index [18.5-24.99 kg/m2] 23.12 kg/m2 (03/04/23 11:21 AM) Weight Obtained Via Standing scale (03/04/23 11:21 AM) Social History Social History Type Response [...] Primary Care Member Role: PCP Address: Address: [address] [place] [address] [address] [place], [place] [address] Name: Lelia GREGG, Rosie Position: Cheryl RN Member Role: Primary Care Nurse Care Team Related Persons Name: DAWNAINGRIS Address: home [address] [place] [address] Name: IRENE TONEY Address: home [address] [address] Name: IRENE BLANTON Address: home [address] [place] [address]
--- OUTSIDE RECORDS SUMMARY | 2023-09-23 09:57 | XMS_ITS | Continuity of Care Document ---
Author Organization [facility] Adult Address [address] [place] [address]- Care Team Providers Care Fisher Purse Seine Name Role Phone Yessenia ROSALES, Chelly Primary Care Physician Encounter [facility] Date(s): 08/27/22 - 09/26/22 [facility] Adult [address] [place] [address]- Attending Physician: AdmCleopatra colbert Admitting Physician: AdmtrCleopatra [...] (IM) (oldterm) 8 01/08/09 Given 1Result Comment: [facility]: [id number] 2Result Comment: [facility] [phone] 3Result Comment: [facility] [id number] 4Admin Note: VIS given 7.2.12 Questionaire completed and reviewed. 5Admin Note: Health Form given, dated 11/10/10 6Admin Note: VIS dated 08/01/09 given 7Admin Note: VIS given dated 03/05/08 8Admin Note: [employer] [id number] formula Medications amLODIPine 5 mg oral tablet 5 mg, 1, tablet, By Mouth, Daily, # 90 tablet, Refills 1, Tot. Refills 1, Maintenance, 06/07/22 15:31:00 EST, Route to Pharmacy Electronically, [facility] #[id number], Partial fill upon patient request if the [...] Mouth, Daily, # 90 tablet, 1 Refills, [facility], 185, cm, 10/16/21 14:13:00 EDT,Height Start Date: 10/18/21 Status: Ordered doxazosin 4 mg oral tablet TAKE 1 TABLET BY MOUTH AT BEDTIME Start Date: 12/16/21 Status: Ordered gabapentin 300 mg oral capsule 300 mg, 1, capsule, By Mouth, 2 times a day, # 180 capsule, Refills 0, Tot. Refills 0, Maintenance,10/25/21 22:35:00 EDT, Route to Pharmacy Electronically, [facility]/pharmacy #[id number], 185, cm, 10/16/21 14:13:00 EDT, Height Start Date: 10/25/21 Status: Ordered Humalog Kwik Pen 100 units/mL subcutaneous injection See Instructions, take 2-11 units up to 5x a day before meals per sliding scale and for correction.E 10.9 max total daily dose if 50 units, # 30 mL, 11 Refills, Maintenance, 04/26/22 12:49:00 EST, [facility] #[id number], 187, cm, 03/05/22 11:45:... Start Date: 04/26/22 Status: Ordered Lantus Solostar Pen 100 units/mL subcutaneous solution See Instructions, Inject 32 units daily in the am E10.9, # 30 mL, 11 Refills, Maintenance, 02/15/2210:57:00 EDT, [facility] #63001, 187, cm, 02/15/22 10:31:00 EDT, Height, 88.5, [...] 09/01/22 12:51:00 EDT, Route to Pharmacy Electronically, [facility] #[id number], 186, cm, 04... Start Date: 09/01/22 Stop [...] 12/16/21 Sex Laboratory * Event Display: Non BH Lab Results Authored Date: Patient Care team information Care Team Personnel Name: Lynda Smith RN Position: [facility] RN Member Role: Primary Care Nurse Name: Lucina Castillo RN Position: S RN Member Role: Primary Care Nurse Name: Chelly Casas MD Position: [facility] Physician - Primary Care Member Role: PCP Address: Address: [address] [place] [id number] Name: Rosie Rowell RN Position: [facility] RN Member Role: Primary Care Nurse Care Team Related Persons Name: INGRIS TONEY Address: home [address] [place] [address] Name: IRENE TONEY Address: [address] [address] Name: IRENE BLANTON Address: [address] [address]
--- OUTSIDE RECORDS SUMMARY | 2023-09-23 09:57 | XMS_ITS | Continuity of Care Document ---
Author Organization [facility] Address [address] [place] [address]- Care Team Providers Care Highway Patrol Commander Name Role Phone Chelly Casas MD Primary Care Physician Encounter [facility] Date(s): 10/16/19 - 11/15/19 [facility] [address] [place] [address]- [facility] Allergies, Adverse Reactions, Alerts Substance Reaction Severity [...] (IM) (oldterm) 6 01/08/09 Given 1Result Comment: [facility] [id number] 2Admin Note: VIS given 7.2.12 Questionaire completed and reviewed. 3Admin Note: Health Form given, dated 11/10/10 4Admin Note: VIS dated 08/01/09 given 5Admin Note: VIS given dated 03/05/08 6Admin Note: [employer] [id number] formula Medications amLODIPine 2.5 mg oral tablet 2.5 mg, 1, tablet, By Mouth, Daily, started on 08/01/18 unable to tolerate ACEI or ARBs, # 90 tablet, Refills 3, Tot. Refills 3, Maintenance, 10/17/19 16:53:00 EDT, Route to Pharmacy Electronically, [facility]/pharmacy #[id number], 185.7, cm, 06/20/19 9:07:00 EST,... Start [...] Maintenance,07/05/19 10:26:00 EDT, Route to Pharmacy Electronically, [facility]/pharmacy #[id number], 185.7, cm, 06/20/19 9:07:00 EST, Height, [...] 06/19/19 12:44:00 EST, Route to Pharmacy Electronically, [facility]/pharmacy #[id number], 185.7, cm, 03/28/19 15:11:00 EST, Height, 93.5, kg, 06/09/18 7:28:00 EST, Dry Weight Start Date: 06/19/19 Status: Ordered Pen [place], 31 G x 5 mm BD Ultra [...] 02/15/18 10:34:26 EDT, Route to Pharmacy Electronically, [id number], [facility]/pharmacy #[id number] Start Date: 02/15/18 Status: Ordered Suboxone 8 mg-2 mg sublingual film 1.5 each, Sublingual, Daily, 0 Refills, Maintenance, 11/15/16 21:05:59 Start Date: 11/15/16 Status: Ordered traZODone 50 mg oral tablet 50 mg, 1, tablet, By Mouth, Daily at bedtime, Chronic insomnia, # 90 tablet, Refills 1, Tot. Refills 1, Maintenance, 07/05/19 10:26:00 EDT, Route to Pharmacy Electronically, [facility]/pharmacy #[id number], 185.7, cm, 06/20/19 9:07:00 EST, Height, 93.5, kg, ... Start Date: 07/05/19 Status: Ordered Problem List Condition Effective Dates Status Health Status Inform ant Benign essential hypertension(Confirmed) Active Borderline personality disorder(Confirmed) Active Cannabis dependence(Confirmed) Active Cigarette smoker(Confirmed) Active Diabetes mellitus type 2 wit h complications, uncontrolled(Confirmed) Active Hepatic lesion(Confirmed) Active Pure hypercholesterolemia(Confirmed) Active Social History Social History Type Response Tobacco Other: 1 ppd. Sex
--- OUTSIDE RECORDS SUMMARY | 2023-09-23 09:57 | XMS_ITS | Continuity of Care Document ---
Author Organization [facility] Address [address] [place] [address]- Care Team Providers Care Weigher Alloy Name Role Phone Yessenia ROSALES, Chelly Primary Care Physician [phone] Encounter [facility] Date(s): 11/21/20 - 03/21/21 [facility] [address] [place] [address]- Attending Physician: Erik Márquez MD Admitting Physician: [...] [id number] 2Result Comment: [facility] [id number] 3Admin Note: VIS given 7.2.12 Questionaire completed and reviewed. 4Admin Note: Health Form given, dated 11/10/10 5Admin Note: VIS dated 08/01/09 given 6Admin Note: VIS given dated 03/05/08 7Admin Note: [employer] [id number] formula Medications aspirin 81 mg oral tablet [...] Maintenance,07/05/19 10:26:00 EDT, Route to Pharmacy Electronically, [facility]/pharmacy #[id number], 185.7, cm, 06/20/19 9:07:00 EST, Height, 93.5, kg, 06/09/18 7:28:00 EST, D... Start Date: 07/05/19 Status: Ordered Humalog Kwik Pen 100 units/mL subcutaneous injection See Instructions, take 2-11 units up to 5x a day before meals per sliding scale and for correction.E 10.9 max total daily dose if 50 units, # 30 mL, 11 Refills, Maintenance, 02/18/20 10:13:00 EST, [facility] #[id number], 185.7, cm, 02/18/20 9:25... Start Date: 02/18/20 Status: Ordered Lantus Solostar Pen 100 units/mL subcutaneous solution See Instructions, Inject 32 units daily in the am E10.9, # 30 mL, 11 Refills, Maintenance, 02/20/2012:15:00 EST, [facility] #57559, 185.7, cm, 02/18/20 9:25:00 EST, Height, 93.5, kg, 06/09/18 7:28:00 EST, Dry Weight Start Date: 02/20/20 Status: Ordered losartan 25 mg oral tablet 25 mg, 1, tablet, By Mouth, Daily, # 90 tablet, Refills 3, Tot. Refills 3, Maintenance, 09/26/20 14:37:00 EDT, Route to Pharmacy Electronically, [facility]/pharmacy #[id number], 185.7, cm, 09/26/20 11:13:00 EDT, Height Start Date: 09/26/20 Status: Ordered pantoprazole 40 mg oral delayed release tablet 1 tablet, By Mouth, Daily, # 90 tablet, 0 Refills, 185.7, cm, 09/26/20 11:13:00 EDT, Height Start Date: 12/28/20 Status: Ordered Pen [place], 31 G x 5 mm BD Ultra [...] 02/15/18 10:34:26 EDT, Route to Pharmacy Electronically, [id number], [facility]/pharmacy #[id number] Start Date: 02/15/18 Status: Ordered Suboxone 8 mg-2 mg sublingual film 1.5 each, Sublingual, Daily, 0 Refills, Maintenance, 11/15/16 21:05:59 Start Date: 11/15/16 Status: Ordered traZODone 50 mg oral tablet 1, tablet, By Mouth, Daily at bedtime, INSTR:CHRONIC INSOMNIA, # 90 tablet, Refills 1, Route to Pharmacy Electronically, [facility] STORE 00434, 185, cm, 01/16/21 9:52:00 EDT, Height Start [...]
--- OUTSIDE RECORDS SUMMARY | 2023-09-23 09:57 | XMS_ITS | Continuity of Care Document ---
Author Organization [facility] Adult Address [address] [place] [address]- Care Team Providers Care Boiler Coverer Name Role Phone Chelly Caass MD Primary Care Physician Encounter [facility] Date(s): 07/05/23 - 07/12/23 [facility] Adult [address] [place] [address]- Encounter Diagnosis Positive hepatitis C antibody test(Discharge Diagnosis) - 07/06/23 Mid back pain(Discharge Diagnosis) - 07/06/23 Attending Physician: Chelly Casas MD Allergies, Adverse [...] (IM) (oldterm) 9 01/08/09 Given 1Result Comment: [id number] 2Result Comment: [facility]: [id number] 3Result Comment: [facility] [id number] 4Result Comment: [facility] [id number] 5Admin Note: VIS given 7.2.12 Questionaire completed and reviewed. 6Admin Note: Health Form given, dated 11/10/10 7Admin Note: VIS dated 08/01/09 given 8Admin Note: VIS given dated 03/05/08 9Admin Note: [employer] [id number] formula Medications aspirin 81 mg oral tablet 1 tablet = 81 mg, By Mouth, Daily, # 30 tablet, 0 Refills, Maintenance, 01/07/19 7:10:11 EDT Start Date: 01/07/19 Status: Ordered atorvastatin 10 mg oral tablet 1 tablet, By Mouth, Daily, # 90 tablet, 1 Refills, [facility], 185, cm, 10/16/21 14:13:00 EDT,Height Start Date: 10/18/21 Status: Ordered Baqsimi Two Pack 3 mg nasal powder = 3 mg, Naris, Left, Once, to use for hypoglycimic emergency, # 1 each, 0 Refills, Soft Stop, 10/20/22 11:52:00 EDT, [facility] #[id number], Partial fill upon patient request if the prescriptionis for a schedule II opioid drug., 186, cm, ... Start Date: 10/20/22 Status: Ordered DEXCOM G7 RETAIL PRICING COORDINATOR DEXCOM G7 RETAIL PRICING COORDINATOR, See Instructions, # 1 each, Refills 0, [...] Maintenance,10/25/21 22:35:00 EDT, Route to Pharmacy Electronically, [facility]/pharmacy #[id number], 185, cm, 10/16/21 14:13:00 EDT, Height Start Date: 10/25/21 Status: Ordered Humalog Kwik Pen 100 units/mL subcutaneous injection See Instructions, take 2-11 units up to 5x a day before meals per sliding scale and for correction.E 10.9 max total daily dose if 50 units, # 30 mL, 11 Refills, Maintenance, 05/23/23 14:19:00 EST, [facility] #[id number], 186, cm, 03/04/23 11:21:... Start Date: 05/23/23 Status: Ordered Lantus Solostar Pen 100 units/mL subcutaneous solution See Instructions, Inject 32 units daily in the am E10.9, # 30 mL, 11 Refills, Maintenance, 05/23/2413:19:[id number], 186, cm, 03/04/23 11:21:00 EST, Height, 80, [...] Diagnosis Diagnosis Type Effective Dates Health Status Cl inical Service Informant Positive hepatitis C antibody test Discharge Diagnosis 07/06/23 Mid back pain Discharge Diagnosis 07/06/23 Vital Signs Most recent to oldest [Reference Range]: 1 Height 186 cm (07/05/23 1:20 PM) Weight 79.6 kg (07/05/23 1:20 PM) Oxygen Saturation [94-100 %] 98 % (07/05/23 1:20 PM) Pulse Rate [55-90 bpm] 89 bpm (07/05/23 1:20 PM) Body Mass Index [18.5-24.99 kg/m2] 23.01 kg/m2 (07/05/23 1:20 PM) Blood Pressure [90-138/55-84 mm Hg] 111/ 66mm Hg (07/05/23 1:20 PM) Temperature [96.8-100.4 DegF] 98.6 DegF (07/05/23 1:20 PM) Mode of Delivery (Oxygen) Room air (07/05/23 1:20 PM) Blood pressure sites Arm, right (07/05/23 1:20 PM) Temperature Route Oral (07/05/23 1:20 PM) Weight Obtained Via Standing scale (07/05/23 1:20 PM) Social History Social History Type Response Smoking Status 10 or more cigarette s (1/2 pack or more)/day in last 30 days; Use: SMOKES MARIJUANA DAILY; Other: 30 pack yr history; entered on: 12/16/21 Sex Note * Crista Fraga: PERFORM, SIGN, VERIFY Event Display: Patient Education/Instruction Authored Date: [id number] [facility] Clinical Summary Name MERLE TONEY Age 58 Years 1965 PCP Chelly Casas MD PCP Visit Date 07/05/2023 13:17:00 Additional Instructions: Scheduled Appointments?? Future Appointments ?*[facility] ?[address],??[place],??[address] ?Phone:??--?Fax:??-- ?Appt. Date:??07/26/2023?3:05 PM ?Scheduled Provider:??Chelly Casas MD ?Diabetic??[facility] ?Phone:??--?Fax:??-- ?Appt. Date:??08/15/2023?11:00 AM ?Scheduled Provider:??Mariela Bourne RD Follow-Up Instructions ?? With: Address: When: Chelly Casas MD Comments: tele fu 2-3 wks Diagnosis Medications: Please continue your medications until treatment is completed or stopped by your provider. Discuss any questions related to medications with your provider. Medications to Continue with No Changes These medications were not printed or sent to your pharmacy Aspirin (aspirin 81 mg oral tablet) 1 [...] AT BEDTIME. Next Dose: Durable Medical Equipment (DEXCOM G7 RETAIL PRICING COORDINATOR) Use to monitor blood lgucose levels E10.9. Refills: 0. Next Dose: Durable Medical Equipment (DEXCOM G7 Sensor) Use to continuously monitor blood lgucose levels E10.9 1 sensor every 10 days, 3 sensors per month. Refills: 11. Next Dose: Durable Medical Equipment (DEXCOM G7 transmitter) Use to monitor blood lgucose levels E10.9 1 transmitter every 3-month. Refills: 5. Next Dose: Gabapentin (gabapentin 300 mg oral capsule) 1 capsule Oral twice a day. Refills: 0. Next Dose: Glucagon (Baqsimi Two Pack 3 mg nasal powder) 3 Milligram Naris, Left once. to use for hypoglycimicemergency. Refills: 0. Next Dose: Insulin Glargine (Lantus Solostar Pen 100 units/mL subcutaneous solution) Inject 32 units daily in the am E10.9. Refills: 11. Next Dose: Insulin Lispro (Humalog Kwik Pen 100 units/mL subcutaneous injection) take 2-11 units up to 5x a day before meals per sliding scale and for correction. E 10.9 max total daily dose if 50 units. Refills: 11. Next Dose: Pantoprazole (pantoprazole 40 mg oral delayed release tablet) 1 tab(s) Oral Daily. Refills: 1. Next Dose: Allergy Info:?? losartan; enalapril Medications Given This Visit Future Orders ?No future orders Future Orders ?No future orders Vital Signs Height 186 cm Weight 79.6 kg BMI 23.01 kg/m2 Blood Pressure 111 mm Hg/66 mm Hg Temperature 98.6 DegF Pulse Rate 89 bpm Respiratory Rate 02 Sat Mode of Delivery 98 %/Room air You can now view a summary of your hospital visit from the comfort of your home through a free online portal called Hiri. Hiri is a website that allows you to securely view your medical information including discharge summary, medications and follow-up visits. ??You can alsosend a secure electronic message to your doctor???s office to request appointments, renew medications or just ask a question. You can enroll at [email or web address] or register during your next office visit. [...] primary care provider, you may find a [facility] provider by calling [facility] at [phone]. [facility], in keeping with [facility] guidance, no longer requires face masks for staff, patientsor visitors in most situations. Similar to time spent indoors at other locations, there is the chance that you were exposed to respiratory viruses during your time with us (such as flu or COVID-19).? If you develop symptoms concerning for a viral respiratory infection, please seek testing (and treatment if indicated) from your medical provider or home test kit. For information about the plan of care [...] Team Personnel Name: Lynda Smith RN Position: [facility] RN Member Role: Primary Care Nurse Name: Lucina Castillo RN Position: S RN Member Role: Primary Care Nurse Name: Chelly Casas MD Position: [facility] Physician - Primary Care Member Role: PCP Address: Address: [address] [place] [address] [address] [place], [place] [address] Name: Rosie Rowell RN Position: S RN Member Role: Primary Care Nurse Care Team Related Persons Name: INGRIS TONEY Address: home [address] [place] [address] Name: IRENE TONEY Address: [address] [address] Name: IRENE BLANTON Address: [address] [address]
--- OUTSIDE RECORDS SUMMARY | 2023-09-23 09:57 | XMS_ITS | Continuity of Care Document ---
Author Organization [facility] Adult Address [address] [place] [address]- Care Team Providers Care Metal Burrer Name Role Phone Yessenia ROSALES, Chelly Primary Care Physician Encounter [facility] Date(s): 01/16/21 - 02/15/21 [facility] Adult [address] [place] [address]- Attending Physician: Admtr, Cleopatra Admitting Physician: Admtr, [...] (oldterm) 7 01/08/09 Given 1Result Comment: [facility] [phone] Comment: [facility] [id number] 3Admin Note: VIS given 7.2.12 Questionaire completed and reviewed. 4Admin Note: Health Form given, dated 11/10/10 5Admin Note: VIS dated 08/01/09 given 6Admin Note: VIS given dated 03/05/08 7Admin Note: [employer] [id number] formula Medications aspirin 81 mg oral tablet [...] Maintenance,07/05/19 10:26:00 EDT, Route to Pharmacy Electronically, [facility]/pharmacy #[id number], 185.7, cm, 06/20/19 9:07:00 EST, Height, 93.5, kg, 06/09/18 7:28:00 EST, D... Start Date: 07/05/19 Status: Ordered Humalog Kwik Pen 100 units/mL subcutaneous injection See Instructions, take 2-11 units up to 5x a day before meals per sliding scale and for correction.E 10.9 max total daily dose if 50 units, # 30 mL, 11 Refills, Maintenance, 02/18/20 10:13:00 EST, [facility] #[id number], 185.7, cm, 02/18/20 9:25... Start Date: 02/18/20 Status: Ordered Lantus Solostar Pen 100 units/mL subcutaneous solution See Instructions, Inject 32 units daily in the am E10.9, # 30 mL, 11 Refills, Maintenance, 02/20/2012:15:00 EST, [email or web address] #[id number], 185.7, cm, 02/18/20 9:25:00 EST, Height, 93.5, kg, 06/09/18 7:28:00 EST, Dry Weight Start Date: 02/20/20 Status: Ordered losartan 25 mg oral tablet 25 mg, 1, tablet, By Mouth, Daily, # 90 tablet, Refills 3, Tot. Refills 3, Maintenance, 09/26/20 14:37:00 EDT, Route to Pharmacy Electronically, [facility]/pharmacy #[id number], 185.7, cm, 09/26/20 11:13:00 EDT, [...] 02/15/18 10:34:26 EDT, Route to Pharmacy Electronically, [id number], [facility]/pharmacy #[id number] Start Date: 02/15/18 Status: Ordered Suboxone 8 mg-2 mg sublingual film 1.5 each, Sublingual, Daily, 0 Refills, Maintenance, 11/15/16 21:05:59 Start Date: 11/15/16 Status: Ordered traZODone 50 mg oral tablet 1, tablet, By Mouth, Daily at bedtime, INSTR:CHRONIC INSOMNIA, # 90 tablet, Refills 1, Route to Pharmacy Electronically, [facility] [id number], 185, cm, 01/16/21 9:52:00 EDT, Height Start [...]
--- OUTSIDE RECORDS SUMMARY | 2023-09-23 09:57 | XMS_ITS | Continuity of Care Document ---
Author Organization [facility] Adult Address [address] [place] [address]- Care Team Providers Care Assistant Media Planner Name Role Phone Yessenia ROSALES, Chelly Primary Care Physician [phone] Encounter [facility] Date(s): 05/15/20 - 06/14/20 [facility] Adult [address] [place] [address]- Allergies, Adverse Reactions, Alerts Substance Reaction Severity [...] (oldterm) 7 01/08/09 Given 1Result Comment: [facility] [id number] 2Result Comment: [facility] 44325-483-46 3Admin Note: VIS given .05.30 Questionaire completed and reviewed. 4Admin Note: Health Form given, dated 11/10/10 5Admin Note: VIS dated 08/01/09 given 6Admin Note: VIS given dated 03/05/08 7Admin Note: [employer] [id number] formula Medications amLODIPine 2.5 mg oral tablet 2.5 mg, 1, tablet, By Mouth, Daily, started on 08/01/18 unable to tolerate ACEI or ARBs, # 90 tablet, Refills 3, Tot. Refills 3, Maintenance, 10/17/19 16:53:00 EDT, Route to Pharmacy Electronically, [facility]/pharmacy #[id number], 185.7, cm, 06/20/19 9:07:00 [...] Maintenance,07/05/19 10:26:00 EDT, Route to Pharmacy Electronically, [facility]/pharmacy #[id number], 185.7, cm, 06/20/19 9:07:00 EST, Height, 93.5, kg, 06/09/18 7:28:00 EST, D... Start Date: 07/05/19 Status: Ordered Humalog Kwik Pen 100 units/mL subcutaneous injection See Instructions, take 2-11 units up to 5x a day before meals per sliding scale and for correction.E 10.9 max total daily dose if 50 units, # 30 mL, 11 Refills, Maintenance, 02/18/20 10:13:00 EST, [facility] #[id number], 185.7, cm, 02/18/20 9:25... Start Date: 02/18/20 Status: Ordered Lantus Solostar Pen 100 units/mL subcutaneous solution See Instructions, Inject 32 units daily in the am E10.9, # 30 mL, 11 Refills, Maintenance, 02/20/2012:15:00 EST, [facility] #[id number], 185.7, cm, 02/18/20 9:25:00 EST, Height, 93.5, kg, 06/09/18 7:28:00 EST, Dry Weight Start Date: 02/20/20 Status: Ordered losartan 25 mg oral tablet 25 mg, 1, tablet, By Mouth, Daily, # 90 tablet, Refills 0, Tot. Refills 0, Maintenance, 06/19/19 12:44:00 EST, Route to Pharmacy Electronically, [facility]/pharmacy #[id number], 185.7, cm, 03/28/19 15:11:00 EST, Height, 93.5, kg, 06/09/18 7:28:00 EST, Dry Weight Start Date: 06/19/19 Status: Ordered Pen [place], 31 G x 5 mm BD Ultra [...] 02/15/18 10:34:26 EDT, Route to Pharmacy Electronically, [id number], [facility]/pharmacy #233 Start Date: 02/15/18 Status: Ordered Suboxone 8 mg-2 mg sublingual film 1.5 each, Sublingual, Daily, 0 Refills, Maintenance, 11/15/16 21:05:59 Start Date: 11/15/16 Status: Ordered traZODone 50 mg oral tablet 50 mg, 1, tablet, By Mouth, Daily at bedtime, Chronic insomnia, # 90 tablet, Refills 1, Tot. Refills 1, Maintenance, 01/09/20 13:07:00 EDT, Route to Pharmacy Electronically, [facility]/pharmacy #[id number], 185.7, cm, 10/18/19 9:18:00 [...]
--- OUTSIDE RECORDS SUMMARY | 2023-09-23 09:57 | XMS_ITS | Continuity of Care Document ---
Author Organization [facility] Adult Address [address] [place] [address]- Care Team Providers Care Estate Planning Paralegal Name Role Phone Chelly Casas MD Primary Care Physician Encounter [facility] [place] Date(s): 04/13/21 - 04/20/21 [facility] Adult [address] [place] [address]- Encounter Diagnosis Well adult exam(Discharge Diagnosis) - 04/13/21 Diabetes mellitus, type 2(Discharge Diagnosis) - 04/13/21 Hyperlipidemia associated with type 2 diabetes mellitus(Discharge Diagnosis) - 04/13/21 Hypertension associated with diabetes(Discharge Diagnosis) - 04/13/21 Major depression, recurrent(Discharge Diagnosis) - 04/13/21 Hematuria(Discharge Diagnosis) - 04/17/21 Attending Physician: Chelly Casas MD Allergies, Adverse [...] (oldterm) 7 01/08/09 Given 1Result Comment: [facility] [id number] 2Result Comment: [facility] [id number] 3Admin Note: VIS given 7.2.12 Questionaire completed and reviewed. 4Admin Note: Health Form given, dated 11/10/10 5Admin Note: VIS dated 08/01/09 given 6Admin Note: VIS given dated 03/05/08 7Admin Note: [employer] [id number] formula Medications aspirin 81 mg oral tablet [...] Maintenance,04/16/21 17:38:00 EST, Route to Pharmacy Electronically, [facility]/pharmacy #[id number], 185, cm, 04/13/21 11:29:00 EST, Height Start Date: 04/16/21 Status: Ordered Humalog Kwik Pen 100 units/mL subcutaneous injection See Instructions, take 2-11 units up to 5x a day before meals per sliding scale and for correction.E 10.9 max total daily dose if 50 units, # 30 mL, 11 Refills, Maintenance, 02/18/20 10:13:00 EST, [facility] #[id number], 185.7, cm, 02/18/20 9:25... Start Date: 02/18/20 Status: Ordered Lantus Solostar Pen 100 units/mL subcutaneous solution See Instructions, Inject 32 units daily in the am E10.9, # 30 mL, 11 Refills, Maintenance, 04/19/2217:15:00 EST, [facility] #[id number], 185, cm, 04/13/21 11:29:00 EST, Height Start Date: 04/19/21 Status: Ordered Lipitor 10 mg oral tablet 1 tablet = 10 mg, By Mouth, Daily, # 90 tablet, 1 Refills, Maintenance, 04/16/21 17:39:00 EST, [facility]/pharmacy #2339, Partial fill upon patient request if the prescription is for a schedule II opioid drug., 185, cm, 04/13/21 11:29:00 EST, Height Start Date: 04/16/21 Status: Ordered losartan 25 mg oral tablet 25 mg, 1, tablet, By Mouth, Daily, # 90 tablet, Refills 3, Tot. Refills 3, Maintenance, 09/26/20 14:37:00 EDT, Route to Pharmacy Electronically, [facility]/pharmacy #2339, 185.7, cm, 09/26/20 11:13:00 EDT, Height Start Date: 09/26/20 Status: Ordered pantoprazole 40 mg oral delayed release tablet 1 tablet, By Mouth, Daily, # 90 tablet, 0 Refills, 185.7, cm, 09/26/20 11:13:00 EDT, Height Start Date: 12/28/20 Status: Ordered Pen [place], 31 G x 5 mm BD Ultra [...] tablet, Refills 1, Route to Pharmacy Electronically, [facility], 185, cm, 01/16/21 9:52:00 EDT, Height Start Date: 01/19/21 Status: Ordered Problem List Condition Effective Dates Status Health Status Inform ant Hyperlipidemia associated wi th type 2 diabetes mellitus(Confirmed) Active Hypertension associated with diabetes(Confirmed) Active Hepatic lesion(Confirmed) Active Major depression, recurrent(Confirmed) Active Diabetes mellitus, type 2(Confirmed) Active Diagnosis Diagnosis Type Effective Dates Health Status Clinical Service Informant Well adult exam Discharge Diagnosis 04/13/21 Diabetes mellitus, type 2 Discharge Diagnosis 04/13/21 Hyperlipidemia associated with type 2 diabetes mellitus Discharge Diagnosis 04/13/21 Hypertension associated with diabetes Discharge Diagnosis 04/13/21 Major depression, recurrent Discharge Diagnosis 04/13/21 Hematuria Discharge Diagnosis 04/17/21 Vital Signs Most recent to oldest [Reference Range]: 1 Height 185 cm (04/13/21 11:29 AM) Weight 90.2 kg (04/13/21 11:29 AM) Oxygen Saturation [94-100 %] 97 % (04/13/21 11:29 AM) Pulse Rate [55-90 bpm] 85 bpm (04/13/21 11:29 AM) Body Mass Index [18.5-24.99] 26.36 *H* (04/13/21 11:29 AM) Blood Pressure [90-138/55-84 mm Hg] 118/ 62mm Hg (04/13/21 11:29 AM) Temperature [96.8-100.4 DegF] 98.3 DegF (04/13/21 11:29 AM) Mode of Delivery (Oxygen) Room air (04/13/21 11:29 AM) Blood pressure sites Arm, left (04/13/21 11:29 AM) Temperature Route Oral (04/13/21 11:29 AM) Weight Obtained Via Standing scale (04/13/21 11:29 AM) Social History Social History Type Response Smoking Status 5-9 cigarettes (betw een 1/4 to 1/2 pack)/day in last 30 days; Use: SMOKES MARIJUANA DAILY; Other: 30 pack yr history; entered on: 04/13/21 Sex
--- OUTSIDE RECORDS SUMMARY | 2023-09-23 09:58 | XMS_ITS | Continuity of Care Document ---
Author Organization [facility] Adult Address [address] [place] [address]- Care Team Providers Care Junior Programmer Analyst Name Role Phone Yessenia ROSALES, Chelly Primary Care Physician Encounter [facility] Date(s): 10/28/22 - 11/04/22 [facility] [address] [place] [address]- Attending Physician: Chelly Casas MD Allergies, Adverse [...] Given 1Result Comment: [facility]: [id number] 2Result Comment: [facility] [id number] 3Result Comment: [facility] [id number] 4Admin Note: VIS given 7.2.12 Questionaire completed and reviewed. 5Admin Note: Health Form given, dated 11/10/10 6Admin Note: VIS dated 08/01/09 given 7Admin Note: VIS given dated 03/05/08 8Admin Note: [employer] [id number] formula Medications Accu-Chek Juli Glucose Meter See Instructions, # 1 each, Maintenance, in case of CGM failuer E10.9, 10/20/22 13:01:00 EDT, Supply, 186, cm, 10/20/22 11:05:00 EDT, Height, 80, kg, 08/11/22 14:47:00 EDT, Dry Weight Start Date: 10/20/22 Status: Ordered Accu-Chek Juli Plus Test Strips See Instructions, # 200 each, Refills 1, Tot. Refills 1, Maintenance, Use incase of CGM failuer E10.9 to monitor BG QID, 10/20/22 13:02:00 EDT, Supply, 186, cm, 10/20/22 11:05:00 EDT, Height, 80, kg,08/11/22 14:47:00 EDT, Dry Weight Start Date: 10/20/22 Status: Ordered Accu-Chek Compact Lancets See Instructions, # 200 each, Refills 1, Tot. Refills 1, Maintenance, incase of CGM failuer E10.9 ,to minotor BG QID, 10/20/22 13:02:00 EDT, Supply, 186, cm, 10/20/22 11:05:00 EDT, Height, 80, kg, 08/11/22 14:47:00 EDT, Dry Weight Start Date: 10/20/22 Status: Ordered amLODIPine 5 mg oral tablet 5 mg, 1, tablet, By Mouth, Daily, # 90 tablet, Refills 1, Tot. Refills 1, Maintenance, 06/07/22 15:31:00 EST, Route to Pharmacy Electronically, [facility] #[id number], Partial fill upon patient request if the [...] Mouth, Daily, # 90 tablet, 1 Refills, [facility], 185, cm, 10/16/21 14:13:00 EDT,Height Start Date: 10/18/21 Status: Ordered Baqsimi Two Pack 3 mg nasal powder = 3 mg, Naris, Left, Once, to use for hypoglycimic emergency, # 1 each, 0 Refills, Soft Stop, 10/20/22 11:52:00 EDT, [facility] #67319, Partial fill upon patient request if the prescriptionis for a schedule II opioid drug., 186, cm, ... Start Date: 10/20/22 Status: Ordered DEXCOM G7 SALES AMBASSADOR DEXCOM G7 SALES AMBASSADOR, See Instructions, # 1 each, Refills 0, [...] Maintenance,10/25/21 22:35:00 EDT, Route to Pharmacy Electronically, [facility]/pharmacy #2339, 185, cm, 10/16/21 14:13:00 EDT, Height Start Date: 10/25/21 Status: Ordered Humalog Kwik Pen 100 units/mL subcutaneous injection See Instructions, take 2-11 units up to 5x a day before meals per sliding scale and for correction.E 10.9 max total daily dose if 50 units, # 30 mL, 11 Refills, Maintenance, 04/26/22 12:49:00 EST, [facility] #58072, 187, cm, 03/05/22 11:45:... Start Date: 04/26/22 Status: Ordered Lantus Solostar Pen 100 units/mL subcutaneous solution See Instructions, Inject 32 units daily in the am E10.9, # 30 mL, 11 Refills, Maintenance, 02/15/2210:57:00 EDT, [facility] #76378, 187, cm, 02/15/22 10:31:00 EDT, Height, 88.5, [...] 09/01/22 12:51:00 EDT, Route to Pharmacy Electronically, [facility] #14355, 186, cm, 04... Start Date: 09/01/22 Stop Date: 02/28/23 Status: Ordered Problem List Condition Confirmation Course Effective Dates Status H ealth Status Informant Hyperlipidemia associated with type 2 diabetes mellitus Confirmed Active Hypertension associated with diabetes Confirmed Active Hepatic lesion Confirmed Active Major depression, recurrent Confirmed Active Diabetes mellitus, type 2 Confirmed Active Vital Signs Most recent to oldest [Reference Range]: 1 Height 186 cm (10/28/22 12:51 PM) Social History Social History Type Response Smoking Status 10 or more cigarette s (1/2 pack or more)/day in last 30 days; Use: SMOKES MARIJUANA DAILY; Other: 30 pack yr history; entered on: 12/16/21 Sex Patient Care team information Care Team Personnel Name: Lynda Smith RN Position: [facility] RN Member Role: Primary Care Nurse Name: Lucina Castillo RN Position: S RN Member Role: Primary Care Nurse Name: Chelly Casas MD Position: [facility] Physician - Primary Care Member Role: PCP Address: Address: [address] [place] [id number] Name: Rosie Rowell RN Position: S RN Member Role: Primary Care Nurse Care Team Related Persons Name: INGRIS TONEY Address: home [address] [place] [address] Name: IRENE TONEY Address: [address] [address] Name: IRENE BLANTON Address: [address] [address]
--- OUTSIDE RECORDS SUMMARY | 2023-09-23 09:58 | XMS_ITS | Continuity of Care Document ---
Author Organization [facility] [place] [facility] Address [address] [place] [address]- Care Team Providers Care Dental Surgery Doctor Name Role Phone Yessenia ROSALES, Chelly Primary Care Physician [facility]counter [facility] Date(s): 03/04/23 - 04/03/23 [facility] [place] [facility] [address] [place] [address]- Attending Physician: AdmCleopatra colbert Admitting Physician: AdmtrCleopatra [...] influenza virus vaccine, inactivated 4 01/05/19 Gi erme influenza virus vaccine, inactivated 01/26/18 Give n [...] (IM) (oldterm) 9 01/08/09 Given 1Result Comment: [id number] 2Result Comment: [facility]: [id number] 3Result Comment: [facility] [id number] 4Result Comment: [facility] [id number] 5Admin Note: VIS given 7.2.12 Questionaire completed and reviewed. 6Admin Note: Health Form given, dated 11/10/10 7Admin Note: VIS dated 08/01/09 given 8Admin Note: VIS given dated 03/05/08 9Admin Note: [employer] [id number] formula Medications aspirin 81 mg oral tablet 1 tablet = 81 mg, By Mouth, Daily, # 30 tablet, 0 Refills, Maintenance, 01/07/19 7:10:11 EDT Start Date: 01/07/19 Status: Ordered atorvastatin 10 mg oral tablet 1 tablet, By Mouth, Daily, # 90 tablet, 1 Refills, [facility], 185, cm, 10/16/21 14:13:00 EDT,Height Start Date: 10/18/21 Status: Ordered Baqsimi Two Pack 3 mg nasal powder = 3 mg, Naris, Left, Once, to use for hypoglycimic emergency, # 1 each, 0 Refills, Soft Stop, 10/20/22 11:52:00 EDT, [facility] #[id number], Partial fill upon patient request if the prescriptionis for a schedule II opioid drug., 186, cm, ... Start Date: 10/20/22 Status: Ordered DEXCOM G7 TRAINING EXECUTIVE DEXCOM G7 TRAINING EXECUTIVE, See Instructions, # 1 each, Refills 0, [...] 22:35:00 EDT, Route to Pharmacy Electronically, [facility]/pharmacy #2339, 185, cm, 10/16/21 14:13:00 EDT, Height Start Date: 10/25/21 Status: Ordered Humalog Kwik Pen 100 units/mL subcutaneous injection See Instructions, take 2-11 units up to 5x a day before meals per sliding scale and for correction.E 10.9 max total daily dose if 50 units, # 30 mL, 11 Refills, Maintenance, 04/26/22 12:49:00 EST, [facility] #71447, 187, cm, 03/05/22 11:45:... Start Date: 04/26/22 Status: Ordered Lantus Solostar Pen 100 units/mL subcutaneous solution See Instructions, Inject 32 units daily in the am E10.9, # 30 mL, 11 Refills, Maintenance, 02/15/2210:57:00 EDT, [facility] #34501, 187, cm, 02/15/22 10:31:00 EDT, Height, 88.5, [...] Team Personnel Name: Lynda Smith RN Position: [facility] RN Member Role: Primary Care Nurse Name: Lucina Castillo RN Position: S RN Member Role: Primary Care Nurse Name: Chelly Casas MD Position: [facility] Physician - Primary Care Member Role: PCP Address: Address: [address] [place] [id number] Name: Rosie Rowell RN Position: [facility] RN Member Role: Primary Care Nurse Care Team Related Persons Name: INGRIS TONEY Address: home [address] [place] [address] Name: IRENE TONEY Address: [address] [address] Name: IRENE BLANTON Address: [address] [address]
--- OUTSIDE RECORDS SUMMARY | 2023-09-23 09:58 | XMS_ITS | Continuity of Care Document ---
Author Organization [facility] Address [address] [place] [address]- Care Team Providers Care Putty And Caulking Supervisor Name Role Phone Yessenia ROSALES, Chelly Primary Care Physician [place] [facility] [place](s): 01/02/21 - 02/01/21 [facility] [address] [place] [id number] Attending Physician: Admtr, Ar8 Admitting Physician: [...] (IM) (oldterm) 7 01/08/09 Given 1Result Comment: [facility] [id number] 2Result Comment: [facility] [id number] 3Admin Note: VIS given 7.2.12 Questionaire completed and reviewed. 4Admin Note: Health Form given, dated 11/10/10 5Admin Note: VIS dated 08/01/09 given 6Admin Note: VIS given dated 03/05/08 7Admin Note: [employer] [id number] formula Medications aspirin 81 mg oral tablet [...] Maintenance,07/05/19 10:26:00 EDT, Route to Pharmacy Electronically, [facility]/pharmacy #2339, 185.7, cm, 06/20/19 9:07:00 EST, Height, 93.5, kg, 06/09/18 7:28:00 EST, D... Start Date: 07/05/19 Status: Ordered Humalog Kwik Pen 100 units/mL subcutaneous injection See Instructions, take 2-11 units up to 5x a day before meals per sliding scale and for correction.E 10.9 max total daily dose if 50 units, # 30 mL, 11 Refills, Maintenance, 02/18/20 10:13:00 EST, [facility] #20238, 185.7, cm, 02/18/20 9:25... Start Date: 02/18/20 Status: Ordered Lantus Solostar Pen 100 units/mL subcutaneous solution See Instructions, Inject 32 units daily in the am E10.9, # 30 mL, 11 Refills, Maintenance, 02/20/2012:15:00 EST, [facility] #36866, 185.7, cm, 02/18/20 9:25:00 EST, Height, 93.5, kg, 06/09/18 7:28:00 EST, Dry Weight Start Date: 02/20/20 Status: Ordered losartan 25 mg oral tablet 25 mg, 1, tablet, By Mouth, Daily, # 90 tablet, Refills 3, Tot. Refills 3, Maintenance, 09/26/20 14:37:00 EDT, Route to Pharmacy Electronically, [facility]/pharmacy #2339, 185.7, cm, 09/26/20 11:13:00 EDT, Height Start Date: 09/26/20 Status: Ordered pantoprazole 40 mg oral delayed release tablet 1 tablet, By Mouth, Daily, # 90 tablet, 0 Refills, 185.7, cm, 09/26/20 11:13:00 EDT, Height Start Date: 12/28/20 Status: Ordered Pen Bailey, 31 G x 5 mm BD Ultra [...] 02/15/18 10:34:26 EDT, Route to Pharmacy Electronically, [id number], [facility]/pharmacy #2339 Start Date: 02/15/18 Status: Ordered Suboxone 8 mg-2 mg sublingual film 1.5 each, Sublingual, Daily, 0 Refills, Maintenance, 11/15/16 21:05:59 Start Date: 11/15/16 Status: Ordered traZODone 50 mg oral tablet 1, tablet, By Mouth, Daily at bedtime, INSTR:CHRONIC INSOMNIA, # 90 tablet, Refills 1, Route to Pharmacy Electronically, [facility] 446[facility], 185, cm, 01/16/21 9:52:00 EDT, Height Start [...]
--- OUTSIDE RECORDS SUMMARY | 2023-09-23 09:58 | XMS_ITS | Continuity of Care Document ---
Author Organization [facility] Adult Address [address] [place] [address]- Care Team Providers Care Jointer Submarine Cable Name Role Phone Yessenia ROSALES, Chelly Primary Care Physician [phone] Encounter [facility] Date(s): 01/11/20 - 01/18/20 [facility] Adult [address] [place] [address] Encounter Diagnosis Diabetic neuropathy(Discharge Diagnosis) - 01/11/20 Leg pain(Discharge Diagnosis) - 01/11/20 Attending Physician: Ghanshyam Vargas MD Referring Physician: Camron CRANDALL, Ayla Mcbride Allergies, Adverse Reactions, Alerts Substance Reaction Severity [...] [facility] [id number] 2Admin Note: VIS given 7.2.12 Questionaire completed and reviewed. 3Admin Note: Health Form given, dated 11/10/10 4Admin Note: VIS dated 08/01/09 given 5Admin Note: VIS given dated 03/05/08 6Admin Note: [employer]re [id number] formula Medications amLODIPine 2.5 mg oral tablet 2.5 mg, 1, tablet, By Mouth, Daily, started on 08/01/18 unable to tolerate ACEI or ARBs, # 90 tablet, Refills 3, Tot. Refills 3, Maintenance, 10/17/19 16:53:00 EDT, Route to Pharmacy Electronically, [facility]/pharmacy #2339, 185.7, cm, 06/20/19 9:07:00 EST,... [...] 10:26:00 EDT, Route to Pharmacy Electronically, [facility]/pharmacy #2339, 185.7, cm, 06/20/19 9:07:00 EST, [...] 12:44:00 EST, Route to Pharmacy Electronically, [facility]/pharmacy #8686, 185.7, cm, 03/28/19 15:11:00 EST, Height, 93.5, kg, 06/09/18 7:28:00 EST, Dry Weight Start Date: 06/19/19 Status: Ordered Pen Chana, 31 G x 5 mm BD Ultra [...] 02/15/18 10:34:26 EDT, Route to Pharmacy Electronically, [id number], [facility]/pharmacy #2337 Start Date: 02/15/18 Status: Ordered Suboxone 8 mg-2 mg sublingual film 1.5 each, Sublingual, Daily, 0 Refills, Maintenance, 11/15/16 21:05:59 Start Date: 11/15/16 Status: Ordered traZODone 50 mg oral tablet 50 mg, 1, tablet, By Mouth, Daily at bedtime, Chronic insomnia, # 90 tablet, Refills 1, Tot. Refills 1, Maintenance, 01/09/20 13:07:00 EDT, Route to Pharmacy Electronically, [facility]/pharmacy #2339, 185.7, cm, 10/18/19 9:18:00 EDT, [...] Effective Dates Health Status Clinical Service Informant Diabetic neuropathy Discharge Diagnosis 01/11/20 Leg pain Discharge Diagnosis 01/11/20 Vital Signs Most recent to oldest [Reference Range]: 1 2 Height 185.7 cm (01/11/20 4:10 PM) 185.7 cm (01/11/20 3:41 PM) Weight 96 kg (01/11/20 3:41 PM) Oxygen Saturation [94-100 %] 95 % (01/11/20 3:41 PM) Pulse Rate [55-90 bpm] 95 bpm *H* (01/11/20 3:41 PM) Body Mass Index [18.5-24.99] 27.84 *H* (01/11/20 3:41 PM) Blood Pressure [90-138/55-84 mm Hg] 136/ 78mm Hg (01/11/20 4:10 PM) 110/70mm Hg (01/11/20 3:41 PM) Respiratory Rate [16-30 br/min] 18 br/mi n (01/11/20 3:41 PM) Temperature [96.8-100.4 DegF] 98.3 DegF (01/11/20 3:41 PM) Mode of Delivery (Oxygen) Room air (01/11/20 3:41 PM) Blood pressure sites Arm, left (01/11/20 4:10 PM) Arm, left (01/11/20 3:41 PM) Temperature Route Oral (01/11/20 3:41 PM) Weight Obtained Via Standing scale (01/11/20 3:41 PM) Social History Social History Type Response Tobacco Other: 1 ppd. Sex
--- OUTSIDE RECORDS SUMMARY | 2023-09-23 09:58 | XMS_ITS | Continuity of Care Document ---
Author Organization [facility] Address [address] [place] [address]- Care Team Providers Care Driver'S Education Instructor Name Role Phone Yessenia ROSALES, Chelly Primary Care Physician [facility]counter [facility] Date(s): 07/09/22 - 08/08/22 [facility] [address] [place] [address]- Allergies, Adverse Reactions, Alerts Substance Reaction Severity [...] (oldterm) 8 9/23/09 Given 1Result Comment: [facility]: [id number] 2Result Comment: [facility] [id number] 3Result Comment: [facility] [id number] 4Admin Note: VIS given 7.2.12 Questionaire completed and reviewed. 5Admin Note: Health Form given, dated 11/10/10 6Admin Note: VIS dated 08/01/09 given 7Admin Note: VIS given dated 03/05/08 8Admin Note: [employer] [id number] formula Medications amLODIPine 5 mg oral tablet 5 mg, 1, tablet, By Mouth, Daily, # 90 tablet, Refills 1, Tot. Refills 1, Maintenance, 06/07/22 15:31:00 EST, Route to Pharmacy Electronically, [facility] #[id number], Partial fill upon patient request if the [...] Mouth, Daily, # 90 tablet, 1 Refills, [facility] 74559, 185, cm, 10/16/21 14:13:00 EDT,Height Start Date: 10/18/21 Status: Ordered doxazosin 4 mg oral tablet TAKE 1 TABLET BY MOUTH AT BEDTIME Start Date: 12/16/21 Status: Ordered gabapentin 300 mg oral capsule 300 mg, 1, capsule, By Mouth, 2 times a day, # 180 capsule, Refills 0, Tot. Refills 0, Maintenance,10/25/21 22:35:00 EDT, Route to Pharmacy Electronically, [facility]/pharmacy #2339, 185, cm, 10/16/21 14:13:00 EDT, Height Start Date: 10/25/21 Status: Ordered Humalog Kwik Pen 100 units/mL subcutaneous injection See Instructions, take 2-11 units up to 5x a day before meals per sliding scale and for correction.E 10.9 max total daily dose if 50 units, # 30 mL, 11 Refills, Maintenance, 04/26/22 12:49:00 EST, [facility] #[id number], 187, cm, 03/05/22 11:45:... Start Date: 04/26/22 Status: Ordered Lantus Solostar Pen 100 units/mL subcutaneous solution See Instructions, Inject 32 units daily in the am E10.9, # 30 mL, 11 Refills, Maintenance, 02/15/2210:57:00 EDT, [facility] #94995, 187, cm, 02/15/22 10:31:00 EDT, Height, 88.5, [...] 03/05/22 12:47:00 EST, Route to Pharmacy Electronically, [facility] #94245, 187, cm, 11... Start Date: 03/05/22 Stop [...] Team Personnel Name: Lynda Smith RN Position: [facility] RN Member Role: Primary Care Nurse Name: Lucina Castillo RN Position: [facility] RN Member Role: Primary Care Nurse Name: Yessenia ROSALES, Chelly Position: [facility] Primary Care Physician Member Role: PCP Address: Address: [address] [place] [address] [address] [place], [place] [address] Name: Rosie Rowell RN Position: [facility] RN Member Role: Primary Care Nurse Care Team Related Persons Name: INGRIS TONEY Address: home [address] [place] [address] Name: IRENE TONEY Address: home [address] [address] Name: IRENE BLANTON Address: [address] [address]
--- OUTSIDE RECORDS SUMMARY | 2023-09-23 09:58 | XMS_ITS | Continuity of Care Document ---
Author Organization [facility] Address [address] [place] [address]- Care Team Providers Care Copy Camera Operator Name Role Phone Yessenia ROSALES, Chelly Primary Care Physician [phone] Encounter [facility] Date(s): 08/11/22 - 08/11/[address] [address]- Discharge Disposition: A-D/C Home Attending Physician: Kemar Edwards MD Admitting Physician: Kemar Edwards MD Referring Physician: Kemar Edwards MD Allergies, Adverse Reactions, Alerts Substance Reaction [...] (IM) (oldterm) 8 01/08/09 Given 1Result Comment: [facility]: [id number] 2Result Comment: [facility] [id number] 3Result Comment: [facility] [id number] 4Admin Note: VIS given 7.2.12 Questionaire completed and reviewed. 5Admin Note: Health Form given, dated 11/10/10 6Admin Note: VIS dated 08/01/09 given 7Admin Note: VIS given dated 03/05/08 8Admin Note: [employer] [id number] formula Medications amLODIPine 5 mg oral tablet 5 mg, 1, tablet, By Mouth, Daily, # 90 tablet, Refills 1, Tot. Refills 1, Maintenance, 06/07/22 15:31:00 EST, Route to Pharmacy Electronically, [facility] #16847, Partial fill upon patient request if the [...] Mouth, Daily, # 90 tablet, 1 Refills, [facility] 98570, 185, cm, 10/16/21 14:13:00 EDT,Height Start Date: [...] mL, 11 Refills, Maintenance, 04/26/22 12:49:00 EST, [facility] #19854, 187, cm, 03/05/22 11:45:... Start Date: 04/26/22 Status: Ordered Lantus Solostar Pen 100 units/mL subcutaneous solution See Instructions, Inject 32 units daily in the am E10.9, # 30 mL, 11 Refills, Maintenance, 02/15/2210:57:00 EDT, [facility] #76271, 187, cm, 02/15/22 10:31:00 EDT, Height, 88.5, kg, 12/16/21 3:29:00 EDT, Dry Weight Start Date: 02/15/22 Status: Ordered ondansetron 8 mg oral tablet, disintegrating 1 tablet = 8 mg, By Mouth, 3 times a day, PRN Nausea & Vomiting, for 5 days, # 15 tablet, 1 Refills, Acute 08/21/22 15:31:00 EDT, 08/11/22 15:31:00 EDT, DIS Tablet, [facility] #62742, Partial fill upon patient request if the [...] 03/05/22 12:47:00 EST, Route to Pharmacy Electronically, [facility] #96649, 187, cm, 11... Start Date: 03/05/22 Stop [...] oldest [Reference Range]: 1 2 3 Height 186 cm (08/11/22 2:47 PM) Weight 80 kg (08/11/22 2:47 PM) Oxygen Saturation [94-100 %] 100 % (08/11/22 4:00 PM) 99 % (08/11/22 3:45 PM) 100 % (08/11/22 3:30 PM) Pulse Rate [55-90 bpm] 87 bpm (08/11/22 2:47 PM) Body Mass Index [18.5-24.99 kg/m2] 23.12 kg/m2 (08/11/22 2:47 PM) Blood Pressure [90-138/55-84 mm Hg] 145/95mm Hg *H* (08/11/22 4:00 PM) 124/76mm Hg (08/11/22 3:45 PM) 117/71mm Hg (08/11/22 3:30 PM) Respiratory Rate [16-30 br/min] 11 br/min *L* (08/11/22 4:00 PM) 10 br/min *L* (08/11/22 3:45 PM) 17 br/min (08/11/22 3:30 PM) Temperature [96.8-100.4 DegF] 97.7 DegF (08/11/22 2:47 PM) Mode of Delivery (Oxygen) Room air (08/11/22 4:00 PM) Room air (08/11/22 3:45 PM) Room air (08/11/22 3:30 PM) Blood pressure sites Arm, left (08/11/22 4:00 PM) Arm, left (08/11/22 3:45 PM) Arm, left (08/11/22 3:30 PM) Temperature Route Temporal (08/11/22 2:47 PM) Dry Weight 80 kg (08/11/22 2:47 PM) Weight Obtained Via Standing scale (08/11/22 2:47 PM) Dry Weight Obtained Via Standing scale (08/11/22 2:47 PM) Social History Social History Type Response Smoking Status 10 or more cigarette s (1/2 pack or more)/day in last 30 days; Use: SMOKES MARIJUANA DAILY; Other: 30 pack yr history; entered on: 12/16/21 Sex Endoscopy study * Event Display: GG EGD Please click on pdf link to open report Patient Care team information Care Team Personnel Name: Luis GREGG, Lynda Position: [facility] RN Member Role: Primary Care Nurse Name: Anna GREGG, Lucina Position: S RN Member Role: Primary Care Nurse Name: Chelly Casas MD Position: [facility] Primary Care Physician Member Role: PCP Address: Address: [address] [place] [id number] Name: Rosie Rowell RN Position: [facility] RN Member Role: Primary Care Nurse Care Team Related Persons Name: INGRIS TONEY Address: home [address] [place] [address] Name: IRENE TONEY Address: [address] [address] Name: IRENE BLANTON Address: [address] [address]
--- OUTSIDE RECORDS SUMMARY | 2023-09-23 09:58 | XMS_ITS | Continuity of Care Document ---
Author Organization [facility] Address [address] [place] [address]- Care Team Providers Care Crm Coordinator Name Role Phone Yessenia ROSALES, Chelly Primary Care Physician [facility]counter [facility] Date(s): 12/09/20 - 01/08/21 [facility] [address] [place] [address]- Allergies, Adverse Reactions, Alerts Substance Reaction Severity [...] (IM) (oldterm) 7 01/08/09 Given 1Result Comment: [facility] 3332-320-01 2Result Comment: [facility] [id number] 3Admin Note: VIS given .05.30 Questionaire completed and reviewed. 4Admin Note: Health Form given, dated 11/10/10 5Admin Note: VIS dated 08/01/09 given 6Admin Note: VIS given dated 03/05/08 7Admin Note: [employer] [id number] formula Medications aspirin 81 mg oral tablet [...] Maintenance,07/05/19 10:26:00 EDT, Route to Pharmacy Electronically, [facility]/pharmacy #2339, 185.7, cm, 06/20/19 9:07:00 EST, Height, 93.5, kg, 06/09/18 7:28:00 EST, D... Start Date: 07/05/19 Status: Ordered Humalog Kwik Pen 100 units/mL subcutaneous injection See Instructions, take 2-11 units up to 5x a day before meals per sliding scale and for correction.E 10.9 max total daily dose if 50 units, # 30 mL, 11 Refills, Maintenance, 02/18/20 10:13:00 EST, [facility] #84085, 185.7, cm, 02/18/20 9:25... Start Date: 02/18/20 Status: Ordered Lantus Solostar Pen 100 units/mL subcutaneous solution See Instructions, Inject 32 units daily in the am E10.9, # 30 mL, 11 Refills, Maintenance, 02/20/2012:15:00 EST, [facility] #21180, 185.7, cm, 02/18/20 9:25:00 EST, Height, 93.5, kg, 06/09/18 7:28:00 EST, Dry Weight Start Date: 02/20/20 Status: Ordered losartan 25 mg oral tablet 25 mg, 1, tablet, By Mouth, Daily, # 90 tablet, Refills 3, Tot. Refills 3, Maintenance, 09/26/20 14:37:00 EDT, Route to Pharmacy Electronically, [facility]/pharmacy #2339, 185.7, cm, 09/26/20 11:13:00 EDT, Height Start Date: 09/26/20 Status: Ordered pantoprazole 40 mg oral delayed release tablet 1 tablet, By Mouth, Daily, # 90 tablet, 0 Refills, 185.7, cm, 09/26/20 11:13:00 EDT, Height Start Date: 12/28/20 Status: Ordered Pen Bowie, 31 G x 5 mm BD Ultra [...] 02/15/18 10:34:26 EDT, Route to Pharmacy Electronically, [id number], [facility]/pharmacy #2339 Start Date: 02/15/18 Status: Ordered Suboxone 8 mg-2 mg sublingual film 1.5 each, Sublingual, Daily, 0 Refills, Maintenance, 11/15/16 21:05:59 Start Date: 11/15/16 Status: Ordered traZODone 50 mg oral tablet 50 mg, 1, tablet, By Mouth, Daily at bedtime, Chronic insomnia, # 90 tablet, Refills 1, Tot. Refills 1, Maintenance, 07/17/20 15:06:00 EDT, Route to Pharmacy Electronically, [facility]/pharmacy #2339, 185.7, cm, 05/16/20 10:36:00 EST, Height [...]
--- OUTSIDE RECORDS SUMMARY | 2023-09-23 09:58 | XMS_ITS | Continuity of Care Document ---
Author Organization [facility] Address [address] [place] [address]- Care Team Providers Care Sky Diver Name Role Phone Yessenia ROSALES, Chelly Primary Care Physician [phone] [facility]counter [facility] Date(s): 05/16/20 - 06/15/20 [facility] [address] [place] [address]- Attending Physician: Cleopatra Rincon Admitting Physician: AdmtrCleopatra Referring Physician: Admtr, Ar8 [...] Given 1Result Comment: [facility] [id number] 2Result Comment: [facility] [id number] 3Admin Note: VIS given 7.2.12 Questionaire completed and reviewed. 4Admin Note: Health Form given, dated 11/10/10 5Admin Note: VIS dated 08/01/09 given 6Admin Note: VIS given dated 03/05/08 7Admin Note: [employer] [id number] formula Medications amLODIPine 2.5 mg oral tablet 2.5 mg, 1, tablet, By Mouth, Daily, started on 08/01/18 unable to tolerate ACEI or ARBs, # 90 tablet, Refills 3, Tot. Refills 3, Maintenance, 10/17/19 16:53:00 EDT, Route to Pharmacy Electronically, [facility]/pharmacy #2339, 185.7, cm, 06/20/19 [...] Maintenance,07/05/19 10:26:00 EDT, Route to Pharmacy Electronically, [facility]/pharmacy #2339, 185.7, cm, 06/20/19 9:07:00 EST, Height, 93.5, kg, 06/09/18 7:28:00 EST, D... Start Date: 07/05/19 Status: Ordered Humalog Kwik Pen 100 units/mL subcutaneous injection See Instructions, take 2-11 units up to 5x a day before meals per sliding scale and for correction.E 10.9 max total daily dose if 50 units, # 30 mL, 11 Refills, Maintenance, 02/18/20 10:13:00 EST, [facility] #[id number], 185.7, cm, 02/18/20 9:25... Start Date: 02/18/20 Status: Ordered Lantus Solostar Pen 100 units/mL subcutaneous solution See Instructions, Inject 32 units daily in the am E10.9, # 30 mL, 11 Refills, Maintenance, 02/20/2012:15:00 EST, [facility] #97991, 185.7, cm, 02/18/20 9:25:00 EST, Height, 93.5, kg, 06/09/18 7:28:00 EST, Dry Weight Start Date: 02/20/20 Status: Ordered losartan 25 mg oral tablet 25 mg, 1, tablet, By Mouth, Daily, # 90 tablet, Refills 0, Tot. Refills 0, Maintenance, 06/19/19 12:44:00 EST, Route to Pharmacy Electronically, [facility]/pharmacy #2339, 185.7, cm, 03/28/19 15:11:00 EST, Height, 93.5, kg, 06/09/18 7:28:00 EST, Dry Weight Start Date: 06/19/19 Status: Ordered Pen Tuttle, 31 G x 5 mm BD Ultra [...] 02/15/18 10:34:26 EDT, Route to Pharmacy Electronically, [id number], [facility]/pharmacy #2339 Start Date: 02/15/18 Status: Ordered Suboxone 8 mg-2 mg sublingual film 1.5 each, Sublingual, Daily, 0 Refills, Maintenance, 11/15/16 21:05:59 Start Date: 11/15/16 Status: Ordered traZODone 50 mg oral tablet 50 mg, 1, tablet, By Mouth, Daily at bedtime, Chronic insomnia, # 90 tablet, Refills 1, Tot. Refills 1, Maintenance, 01/09/20 13:07:00 EDT, Route to Pharmacy Electronically, [facility]/pharmacy #2339, 185.7, cm, 10/18/19 9:18:00 [...]
--- OUTSIDE RECORDS SUMMARY | 2023-09-23 09:58 | XMS_ITS | Continuity of Care Document ---
Author Organization [facility] Adult Address [address] [place] [address]- Care Team Providers Care Paramedic Instructor Name Role Phone Yessenia ROSALES, Chelly Primary Care Physician [place] [facility] [place] 04/13/[place] - 06/14/[address] [facility] Adult [address] [place] [address]- Attending Physician: Chelly Casas MD Allergies, Adverse [...] (IM) (oldterm) 7 01/08/09 Given 1Result Comment: [facility] [id number] 2Result Comment: [facility] [id number] 3Admin Note: VIS given 7.2.12 Questionaire completed and reviewed. 4Admin Note: Health Form given, dated 11/10/10 5Admin Note: VIS dated 08/01/09 given 6Admin Note: VIS given dated 03/05/08 7Admin Note: [employer] [id number] formula Medications amLODIPine 5 mg oral tablet 5 mg, 1, tablet, By Mouth, Daily, # 90 tablet, Refills 3, Tot. Refills 3, Maintenance, 06/03/21 9:21:00 EST, Route to Pharmacy Electronically, [facility] #[id number], Partial fill upon patient request if the [...] Maintenance,04/16/21 17:38:00 EST, Route to Pharmacy Electronically, [facility]/pharmacy #1473, 185, cm, 04/13/21 11:29:00 EST, Height Start Date: 04/16/21 Status: Ordered Humalog Kwik Pen 100 units/mL subcutaneous injection See Instructions, take 2-11 units up to 5x a day before meals per sliding scale and for correction.E 10.9 max total daily dose if 50 units, # 30 mL, 11 Refills, Maintenance, 02/18/20 10:13:00 EST, [facility] #[id number], 185.7, cm, 02/18/20 9:25... Start Date: 02/18/20 Status: Ordered Lantus Solostar Pen 100 units/mL subcutaneous solution See Instructions, Inject 32 units daily in the am E10.9, # 30 mL, 11 Refills, Maintenance, 04/19/2217:15:00 EST, [facility] #[id number], 185, cm, 04/13/21 11:29:00 EST, Height Start Date: 04/19/21 Status: Ordered Lipitor 10 mg oral tablet 1 tablet = 10 mg, By Mouth, Daily, # 90 tablet, 1 Refills, Maintenance, 04/16/21 17:39:00 EST, [facility]/pharmacy #2339, Partial fill upon patient request if the prescription is for a schedule II opioid drug., 185, cm, 04/13/21 11:29:00 EST, Height Start Date: 04/16/21 Status: Ordered pantoprazole 40 mg oral delayed release tablet 1 tablet, By Mouth, Daily, # 90 tablet, 1 Refills, 05/18/21 14:58:00 EST, 185, cm, 04/13/21 11:29:00 EST, Height Start Date: 05/18/21 Status: Ordered Pen [place], 31 G x 5 mm BD Ultra [...] tablet, Refills 1, Route to Pharmacy Electronically, [facility], 185, cm, 01/16/21 9:52:00 EDT, Height Start [...]
--- OUTSIDE RECORDS SUMMARY | 2023-09-23 09:58 | XMS_ITS | Continuity of Care Document ---
Author Organization [facility] ter Address [address] [place] [address]- Care Team Providers Care Tile Grader Name Role Phone Yessenia ROSALES, Chelly Primary Care Physician [place] [facility] [place]/05/20 - 04/20/[address] [address]- Attending Physician: Erik Márquez MD Admitting Physician: [...] (IM) (oldterm) 6 01/08/09 Given 1Result Comment: [facility] [id number] 2Admin Note: VIS given .05.30 Questionaire completed and reviewed. 3Admin Note: Health Form given, dated 11/10/10 4Admin Note: VIS dated 08/01/09 given 5Admin Note: VIS given dated 03/05/08 6Admin Note: [employer] [id number] formula Medications amLODIPine 2.5 mg oral tablet 2.5 mg, 1, tablet, By Mouth, Daily, started on 08/01/18 unable to tolerate ACEI or ARBs, # 90 tablet, Refills 3, Tot. Refills 3, Maintenance, 10/17/19 16:53:00 EDT, Route to Pharmacy Electronically, [facility]/pharmacy #2339, 185.7, cm, 06/20/19 9:07:00 EST,... Start [...] Maintenance,07/05/19 10:26:00 EDT, Route to Pharmacy Electronically, [facility]/pharmacy #2339, 185.7, cm, 06/20/19 9:07:00 EST, Height, 93.5, kg, 06/09/18 7:28:00 EST, D... Start Date: 07/05/19 Status: Ordered Humalog Kwik Pen 100 units/mL subcutaneous injection See Instructions, take 2-11 units up to 5x a day before meals per sliding scale and for correction.E 10.9 max total daily dose if 50 units, # 30 mL, 11 Refills, Maintenance, 02/18/20 10:13:00 EST, [facility] #[id number], 185.7, cm, 02/18/20 9:25... Start Date: 02/18/20 Status: Ordered Lantus Solostar Pen 100 units/mL subcutaneous solution See Instructions, Inject 32 units daily in the am E10.9, # 30 mL, 11 Refills, Maintenance, 02/20/2012:15:00 EST, [facility] #[id number], 185.7, cm, 02/18/20 9:25:00 EST, Height, 93.5, kg, 06/09/18 7:28:00 EST, Dry Weight Start Date: 02/20/20 Status: Ordered losartan 25 mg oral tablet 25 mg, 1, tablet, By Mouth, Daily, # 90 tablet, Refills 0, Tot. Refills 0, Maintenance, 06/19/19 12:44:00 EST, Route to Pharmacy Electronically, [facility]/pharmacy #2339, 185.7, cm, 03/28/19 15:11:00 EST, Height, 93.5, kg, 06/09/18 7:28:00 EST, Dry Weight Start Date: 06/19/19 Status: Ordered Pen [place], 31 G x 5 mm BD Ultra [...] 02/15/18 10:34:26 EDT, Route to Pharmacy Electronically, [id number], [facility]/pharmacy #2339 Start Date: 02/15/18 Status: Ordered Suboxone 8 mg-2 mg sublingual film 1.5 each, Sublingual, Daily, 0 Refills, Maintenance, 11/15/16 21:05:59 Start Date: 11/15/16 Status: Ordered traZODone 50 mg oral tablet 50 mg, 1, tablet, By Mouth, Daily at bedtime, Chronic insomnia, # 90 tablet, Refills 1, Tot. Refills 1, Maintenance, 01/09/20 13:07:00 EDT, Route to Pharmacy Electronically, [facility]/pharmacy #2339, 185.7, cm, 10/18/19 9:18:00 EDT, Height, [...]
--- OUTSIDE RECORDS SUMMARY | 2023-09-23 09:58 | XMS_ITS | Continuity of Care Document ---
Author Organization [facility] Adult Address [address] [place] [address]- Care Team Providers Care Tab Machine Operator Name Role Phone Yessenia ROSALES, Chelly Primary Care Physician Encounter [facility] Date(s): 04/29/21 - 05/29/21 [facility] Adult [address] [place] [address]- Allergies, Adverse Reactions, Alerts Substance Reaction Severity [...] 1Result Comment: [facility] [id number] 2Result Comment: [facility] [id number] 3Admin Note: VIS given 7.2.12 Questionaire completed and reviewed. 4Admin Note: Health Form given, dated 11/10/10 5Admin Note: VIS dated 08/01/09 given 6Admin Note: VIS given dated 03/05/08 7Admin Note: [employer] [id number] formula Medications aspirin 81 mg oral tablet [...] Maintenance,04/16/21 17:38:00 EST, Route to Pharmacy Electronically, [facility]/pharmacy #9053, 185, cm, 04/13/21 11:29:00 EST, Height Start Date: 04/16/21 Status: Ordered Humalog Kwik Pen 100 units/mL subcutaneous injection See Instructions, take 2-11 units up to 5x a day before meals per sliding scale and for correction.E 10.9 max total daily dose if 50 units, # 30 mL, 11 Refills, Maintenance, 02/18/20 10:13:00 EST, [facility] #[id number], 185.7, cm, 02/18/20 9:25... Start Date: 02/18/20 Status: Ordered Lantus Solostar Pen 100 units/mL subcutaneous solution See Instructions, Inject 32 units daily in the am E10.9, # 30 mL, 11 Refills, Maintenance, 04/19/2217:15:00 EST, [facility] #90774, 185, cm, 04/13/21 11:29:00 EST, Height Start Date: 04/19/21 Status: Ordered Lipitor 10 mg oral tablet 1 tablet = 10 mg, By Mouth, Daily, # 90 tablet, 1 Refills, Maintenance, 04/16/21 17:39:00 EST, [facility]/pharmacy #2339, Partial fill upon patient request if the prescription is for a schedule II opioid drug., 185, cm, 04/13/21 11:29:00 EST, Height Start Date: 04/16/21 Status: Ordered losartan 25 mg oral tablet 25 mg, 1, tablet, By Mouth, Daily, # 90 tablet, Refills 3, Tot. Refills 3, Maintenance, 09/26/20 14:37:00 EDT, Route to Pharmacy Electronically, [facility]/pharmacy #2339, 185.7, cm, 09/26/20 11:13:00 EDT, Height Start Date: 09/26/20 Status: Ordered pantoprazole 40 mg oral delayed release tablet 1 tablet, By Mouth, Daily, # 90 tablet, 1 Refills, 05/18/21 14:58:00 EST, 185, cm, 04/13/21 11:29:00 EST, Height Start Date: 05/18/21 Status: Ordered Pen [place], 31 G x 5 mm BD Ultra [...] tablet, Refills 1, Route to Pharmacy Electronically, [facility], 185, cm, 01/16/21 9:52:00 EDT, Height Start [...]
--- OUTSIDE RECORDS SUMMARY | 2023-09-23 09:58 | XMS_ITS | Continuity of Care Document ---
Author Organization [facility] ter Address [address] [place] [address]- Care Team Providers Care Electrocardiogram Technician Name Role Phone Chelly Casas MD Primary Care Physician [phone] Encounter [facility] Date(s): 08/15/23 - 09/14/[address] [address]- Attending Physician: Admtr, Ar8 Admitting Physician: Admtr, Ar8 Referring Physician: Admtr, Ar8 Allergies, Adverse Reactions, Alerts Substance Reaction Severity Status enalapril Active losartan abdominal pain - angioedema, d/ko by Dr. Avalos Active Immunizations Given and Recorded Vaccine Date Status Refusal Reason influenza virus vaccine, inactivated 1 02/14/23 Gi emre influenza virus vaccine, inactivated 2 03/05/22 Gi erme influenza virus vaccine, inactivated 03/07/21 Joe rded [...] (IM) (oldterm) 9 01/08/09 Given 1Result Comment: [id number] 2Result Comment: [facility]: [id number] 3Result Comment: [facility] [id number] 4Result Comment: [facility] [id number] 5Admin Note: VIS given 7.2.12 Questionaire completed and reviewed. 6Admin Note: Health Form given, dated 11/10/10 7Admin Note: VIS dated 08/01/09 given 8Admin Note: VIS given dated 03/05/08 9Admin Note: [employer] [id number] formula Medications aspirin 81 mg oral tablet 1 tablet = 81 mg, By Mouth, Daily, # 30 tablet, 0 Refills, Maintenance, 01/07/19 7:10:11 EDT Start Date: 01/07/19 Status: Ordered atorvastatin 10 mg oral tablet 1 tablet, By Mouth, Daily, # 90 tablet, 1 Refills, [facility], 185, cm, 10/16/21 14:13:00 EDT,Height Start Date: 10/18/21 Status: Ordered Baqsimi Two Pack 3 mg nasal powder = 3 mg, Naris, Left, Once, to use for hypoglycimic emergency, # 1 each, 0 Refills, Soft Stop, 10/20/22 11:52:00 EDT, [facility] #26906, Partial fill upon patient request if the prescriptionis for a schedule II opioid drug., 186, cm, ... Start Date: 10/20/22 Status: Ordered DEXCOM G7 COMPTOMETRIST DEXCOM G7 COMPTOMETRIST, See Instructions, # 1 each, Refills 0, [...] 22:35:00 EDT, Route to Pharmacy Electronically, [facility]/pharmacy #2339, 185, cm, 10/16/21 14:13:00 EDT, Height Start Date: 10/25/21 Status: Ordered Humalog Kwik Pen 100 units/mL subcutaneous injection See Instructions, take 2-11 units up to 5x a day before meals per sliding scale and for correction.E 10.9 max total daily dose if 50 units, # 30 mL, 11 Refills, Maintenance, 05/23/23 14:19:[id number], 186, cm, 03/04/23 11:21:... Start Date: 05/23/23 Status: Ordered Lantus Solostar Pen 100 units/mL subcutaneous solution See Instructions, Inject 32 units daily in the am E10.9, # 30 mL, 11 Refills, Maintenance, 05/23/2413:19:[facility], 186, cm, 03/04/23 11:21:00 EST, Height, 80, [...] 07/26/23 15:29:00 EDT, Route to Pharmacy Electronically, [facility] #30845, 186, cm, 07/26/23 14:39:00 EDT, Height, 80, [...] Team Personnel Name: Lynda Smith RN Position: [facility] RN Member Role: Primary Care Nurse Name: Lucina Castillo RN Position: S RN Member Role: Primary Care Nurse Name: Chelly Casas MD Position: [facility] Physician - Primary Care Member Role: PCP Address: Address: [address] [facility] [address] [place] [address]- Name: Rosie Rowell RN Position: S RN Member Role: Primary Care Nurse Care Team Related Persons Name: INGRIS TONEY Address: home [address] [place] [address] Name: IRENE TONEY Address: home [address] [address] Name: IRENE BLANTON Address: home [address] [place] [address]
--- OUTSIDE RECORDS SUMMARY | 2023-09-23 09:58 | XMS_ITS | Continuity of Care Document ---
Author Organization [facility] Adult Address [address] [place] [address]- Care Team Providers Care Printer Slotter Feeder Name Role Phone Yessenia ROSALES, Chelly Primary Care Physician [phone] Encounter [facility] Date(s): 07/24/21 - 07/31/21 [facility] Adult [address] [place] [address]- Encounter Diagnosis Hypertension associated with diabetes(Discharge Diagnosis) - 07/24/21 Hyperlipidemia associated with type 2 diabetes mellitus(Discharge Diagnosis) - 07/24/21 Attending Physician: Chelly Casas MD Allergies, Adverse [...] 7 01/08/09 Given 1Result Comment: [facility] [id number] 2Result Comment: [facility] [id number] 3Admin Note: VIS given 7.2.12 Questionaire completed and reviewed. 4Admin Note: Health Form given, dated 11/10/10 5Admin Note: VIS dated 08/01/09 given 6Admin Note: VIS given dated 03/05/08 7Admin Note: [employer] [id number] formula Medications amLODIPine 5 mg oral tablet 5 mg, 1, tablet, By Mouth, Daily, # 90 tablet, Refills 3, Tot. Refills 3, Maintenance, 06/03/21 9:21:00 EST, Route to Pharmacy Electronically, [facility] #[id number], Partial fill upon patient request if the [...] Maintenance,07/24/21 16:28:00 EDT, Route to Pharmacy Electronically, [facility] #21272, 185, cm, 07/24/21 15:23:00 EDT, Height Start Date: 07/24/21 Status: Ordered Humalog Kwik Pen 100 units/mL subcutaneous injection See Instructions, take 2-11 units up to 5x a day before meals per sliding scale and for correction.E 10.9 max total daily dose if 50 units, # 30 mL, 11 Refills, Maintenance, 02/18/20 10:13:00 EST, [facility] #46047, 185.7, cm, 02/18/20 9:25... Start Date: 02/18/20 Status: Ordered Lantus Solostar Pen 100 units/mL subcutaneous solution See Instructions, Inject 32 units daily in the am E10.9, # 30 mL, 11 Refills, Maintenance, 07/24/2209:48:00 EDT, [facility] #96793, 185, cm, 07/24/21 10:19:00 EDT, Height Start Date: 07/24/21 Status: Ordered Lipitor 10 mg oral tablet 1 tablet = 10 mg, By Mouth, Daily, # 90 tablet, 1 Refills, Maintenance, 04/16/21 17:39:00 EST, [facility]/pharmacy #0690, Partial fill upon patient request if the prescription is for a schedule II opioid drug., 185, cm, 04/13/21 11:29:00 EST, Height Start Date: 04/16/21 Status: Ordered pantoprazole 40 mg oral delayed release tablet 1 tablet, By Mouth, Daily, # 90 tablet, 1 Refills, 05/18/21 14:58:00 EST, 185, cm, 04/13/21 11:29:00 EST, Height Start Date: 05/18/21 Status: Ordered Pen [place], 31 G x 5 mm BD Ultra [...] tablet, Refills 1, Route to Pharmacy Electronically, [facility], 185, cm, 01/16/21 9:52:00 EDT, Height Start Date: 01/19/21 Status: Ordered Problem List Condition Effective Dates Status Health Status Inform ant Hyperlipidemia associated wi th type 2 diabetes mellitus(Confirmed) Active Hypertension associated with diabetes(Confirmed) Active Hepatic lesion(Confirmed) Active Major depression, recurrent(Confirmed) Active Diabetes mellitus, type 2(Confirmed) Active Diagnosis Diagnosis Type Effective Dates Health Status Clinical Service Informant Hypertension associated with diabetes Discharge Diagnosis 07/24/21 Hyperlipidemia associated with type 2 diabetes mellitus Discharge Diagnosis 07/24/21 Vital Signs Most recent to oldest [Reference Range]: 1 Height 185 cm (07/24/21 3:23 PM) Weight 91.7 kg (07/24/21 3:23 PM) Oxygen Saturation [94-100 %] 99 % (07/24/21 3:23 PM) Pulse Rate [55-90 bpm] 76 bpm (07/24/21 3:23 PM) Body Mass Index [18.5-24.99] 26.79 *H* (07/24/21 3:23 PM) Blood Pressure [90-138/55-84 mm Hg] 138/ 78mm Hg (07/24/21 3:23 PM) Temperature [96.8-100.4 DegF] 98.6 DegF (07/24/21 3:23 PM) Mode of Delivery (Oxygen) Room air (07/24/21 3:23 PM) Blood pressure sites Arm, right (07/24/21 3:23 PM) Temperature Route Oral (07/24/21 3:23 PM) Weight Obtained Via Standing scale (07/24/21 3:23 PM) Social History Social History Type Response Smoking Status 5-9 cigarettes (betw een 1/4 to 1/2 pack)/day in last 30 days; Use: SMOKES MARIJUANA DAILY; Other: 30 pack yr history; entered on: 04/13/21 Sex
--- OUTSIDE RECORDS SUMMARY | 2023-09-23 09:58 | XMS_ITS | Continuity of Care Document ---
Author Organization [facility] Adult Address [address] [place] [address]- Care Team Providers Care Drum Drier Name Role Phone Chelly Casas MD Primary Care Physician Encounter [facility] Date(s): 09/26/20 - 10/03/20 [facility] Adult [address] [place] [address]- Encounter Diagnosis Diabetes mellitus type 2 with complications, uncontrolled(Discharge Diagnosis) - 09/26/20 Hyperlipidemia associated with type 2 diabetes mellitus(Discharge Diagnosis) - 09/26/20 Hypertension associated with diabetes(Discharge Diagnosis) - 09/26/20 Major depression, recurrent(Discharge Diagnosis) - 09/26/20 Attending Physician: Chelly Casas MD Allergies, Adverse [...] (oldterm) 7 01/08/09 Given 1Result Comment: [facility] [id number] 2Result Comment: [facility] [id number] 3Admin Note: VIS given 7.2.12 Questionaire completed and reviewed. 4Admin Note: Health Form given, dated 11/10/10 5Admin Note: VIS dated 08/01/09 given 6Admin Note: VIS given dated 03/05/08 7Admin Note: [email or web address] [id number] formula Medications aspirin 81 mg oral tablet [...] Maintenance,07/05/19 10:26:00 EDT, Route to Pharmacy Electronically, [facility]/pharmacy #2339, 185.7, cm, 06/20/19 9:07:00 EST, Height, 93.5, kg, 06/09/18 7:28:00 EST, D... Start Date: 07/05/19 Status: Ordered Humalog Kwik Pen 100 units/mL subcutaneous injection See Instructions, take 2-11 units up to 5x a day before meals per sliding scale and for correction.E 10.9 max total daily dose if 50 units, # 30 mL, 11 Refills, Maintenance, 02/18/20 10:13:00 EST, [facility] #[id number], 185.7, cm, 02/18/20 9:25... Start Date: 02/18/20 Status: Ordered Lantus Solostar Pen 100 units/mL subcutaneous solution See Instructions, Inject 32 units daily in the am E10.9, # 30 mL, 11 Refills, Maintenance, 02/20/2012:15:00 EST, [facility] #[id number], 185.7, cm, 02/18/20 9:25:00 EST, Height, 93.5, kg, 06/09/18 7:28:00 EST, Dry Weight Start Date: 02/20/20 Status: Ordered losartan 25 mg oral tablet 25 mg, 1, tablet, By Mouth, Daily, # 90 tablet, Refills 3, Tot. Refills 3, Maintenance, 09/26/20 14:37:00 EDT, Route to Pharmacy Electronically, [facility]/pharmacy #2339, 185.7, cm, 09/26/20 11:13:00 EDT, Height Start Date: 09/26/20 Status: Ordered Pen [place], 31 G x 5 mm BD [...] 02/15/18 10:34:26 EDT, Route to Pharmacy Electronically, [id number], [facility]/pharmacy #2339 Start Date: 02/15/18 Status: Ordered Suboxone 8 mg-2 mg sublingual film 1.5 each, Sublingual, Daily, 0 Refills, Maintenance, 11/15/16 21:05:59 Start Date: 11/15/16 Status: Ordered traZODone 50 mg oral tablet 50 mg, 1, tablet, By Mouth, Daily at bedtime, Chronic insomnia, # 90 tablet, Refills 1, Tot. Refills 1, Maintenance, 07/17/20 15:06:00 EDT, Route to Pharmacy Electronically, [facility]/pharmacy #2339, 185.7, cm, 05/16/20 10:36:00 EST, [...] Dates Health Status Clinical Service Informant Diabetes mellitus type 2 with complications, uncontrolled Discharge Diagnosis 09/26/20 Hyperlipidemia associated with type 2 diabetes mellitus Discharge Diagnosis 09/26/20 Hypertension associated with diabetes Discharge Diagnosis 09/26/20 Major depression, recurrent Discharge Diagnosis 09/26/20 Vital Signs Most recent to oldest [Reference Range]: 1 Height 185.7 cm (09/26/20 11:13 AM) Weight 96.7 kg (09/26/20 11:13 AM) Oxygen Saturation [94-100 %] 98 % (09/26/20 11:13 AM) Pulse Rate [55-90 bpm] 89 bpm (09/26/20 11:13 AM) Body Mass Index [18.5-24.99] 28.04 *H* (09/26/20 11:13 AM) Blood Pressure [90-138/55-84 mm Hg] 122/ 70mm Hg (09/26/20 11:13 AM) Temperature [96.8-100.4 DegF] 98.9 DegF (09/26/20 11:13 AM) Mode of Delivery (Oxygen) Room air (09/26/20 11:13 AM) Blood pressure sites Arm, left (09/26/20 11:13 AM) Temperature Route Oral (09/26/20 11:13 AM) Weight Obtained Via Standing scale (09/26/20 11:13 AM) Social History Social History Type Response Tobacco Other: 1 ppd. Sex
--- OUTSIDE RECORDS SUMMARY | 2023-09-23 09:58 | XMS_ITS | Continuity of Care Document ---
Author Organization [facility] Adult Address [address] [place] [address]- Care Team Providers Care Mortician Investigator Name Role Phone Yessenia ROSALES, Chelly Primary Care Physician Encounter [facility] Date(s): 02/25/23 - 03/27/[address] [facility] Adult [address] [place] [address]- Allergies, Adverse Reactions, Alerts Substance Reaction Severity [...] (IM) (oldterm) 9 01/08/09 Given 1Result Comment: [id number] 2Result Comment: [facility]: [id number] 3Result Comment: [facility] [id number] 4Result Comment: [facility] [id number] 5Admin Note: VIS given 7.2.12 Questionaire completed and reviewed. 6Admin Note: Health Form given, dated 11/10/10 7Admin Note: VIS dated 08/01/09 given 8Admin Note: VIS given dated 03/05/08 9Admin Note: [employer] [id number] formula Medications aspirin 81 mg oral tablet 1 tablet = 81 mg, By Mouth, Daily, # 30 tablet, 0 Refills, Maintenance, 01/07/19 7:10:11 EDT Start Date: 01/07/19 Status: Ordered atorvastatin 10 mg oral tablet 1 tablet, By Mouth, Daily, # 90 tablet, 1 Refills, [facility], 185, cm, 10/16/21 14:13:00 EDT,Height Start Date: 10/18/21 Status: Ordered Baqsimi Two Pack 3 mg nasal powder = 3 mg, Naris, Left, Once, to use for hypoglycimic emergency, # 1 each, 0 Refills, Soft Stop, 10/20/22 11:52:00 EDT, [facility] #08960, Partial fill upon patient request if the prescriptionis for a schedule II opioid drug., 186, cm, ... Start Date: 10/20/22 Status: Ordered DEXCOM G7 PHARMACY TEACHER DEXCOM G7 PHARMACY TEACHER, See Instructions, # 1 each, Refills 0, [...] mL, 11 Refills, Maintenance, 04/26/22 12:49:00 EST, [facility] #10256, 187, cm, 03/05/22 11:45:... Start Date: 04/26/22 Status: Ordered Lantus Solostar Pen 100 units/mL subcutaneous solution See Instructions, Inject 32 units daily in the am E10.9, # 30 mL, 11 Refills, Maintenance, 02/15/2210:57:00 EDT, [facility] #88718, 187, cm, 02/15/22 10:31:00 EDT, Height, 88.5, [...] Primary Care Member Role: PCP Address: Address: [address] [place] [address] Name: Rosie Rowell RN Position: S RN Member Role: Primary Care Nurse Care Team Related Persons Name: INGRIS TONEY Address: home [address] [place] [address] Name: IRENE TONEY Address: [address] [address] Name: IRENE BLANTON Address: [address] [address]
--- OUTSIDE RECORDS SUMMARY | 2023-09-23 09:58 | XMS_ITS | Continuity of Care Document ---
Author Organization [facility] ter Address [address] [place] [address]- Care Team Providers Care Monogram Machine Operator Name Role Phone Chelly Casas MD Primary Care Physician [facility]counter [facility] Date(s): 05/07/20 - 06/06/[address] [address]- Attending Physician: AdmtrCleopatra Admitting Physician: Admtr, Ar8 Referring Physician: Admtr, [...] (IM) (oldterm) 7 01/08/09 Given 1Result Comment: [facility] [id number] 2Result Comment: [facility] [id number] 3Admin Note: VIS given 7.2.12 Questionaire completed and reviewed. 4Admin Note: Health Form given, dated 11/10/10 5Admin Note: VIS dated 08/01/09 given 6Admin Note: VIS given dated 03/05/08 7Admin Note: Crisp [id number] formula Medications amLODIPine 2.5 mg oral tablet 2.5 mg, 1, tablet, By Mouth, Daily, started on 08/01/18 unable to tolerate ACEI or ARBs, # 90 tablet, Refills 3, Tot. Refills 3, Maintenance, 10/17/19 16:53:00 EDT, Route to Pharmacy Electronically, [facility]/pharmacy #[id number], 185.7, cm, 06/20/19 9:07:00 EST,... [...] Maintenance,07/05/19 10:26:00 EDT, Route to Pharmacy Electronically, [facility]/pharmacy #[id number], 185.7, cm, 06/20/19 9:07:00 EST, Height, 93.5, kg, 06/09/18 7:28:00 EST, D... Start Date: 07/05/19 Status: Ordered Humalog Kwik Pen 100 units/mL subcutaneous injection See Instructions, take 2-11 units up to 5x a day before meals per sliding scale and for correction.E 10.9 max total daily dose if 50 units, # 30 mL, 11 Refills, Maintenance, 02/18/20 10:13:00 EST, [facility] #[id number], 185.7, cm, 02/18/20 9:25... Start Date: 02/18/20 Status: Ordered Lantus Solostar Pen 100 units/mL subcutaneous solution See Instructions, Inject 32 units daily in the am E10.9, # 30 mL, 11 Refills, Maintenance, 02/20/2012:15:00 EST, [facility] #[id number], 185.7, cm, 02/18/20 9:25:00 EST, Height, 93.5, kg, 06/09/18 7:28:00 EST, Dry Weight Start Date: 02/20/20 Status: Ordered losartan 25 mg oral tablet 25 mg, 1, tablet, By Mouth, Daily, # 90 tablet, Refills 0, Tot. Refills 0, Maintenance, 06/19/19 12:44:00 EST, Route to Pharmacy Electronically, [facility]/pharmacy #2339, 185.7, cm, 03/28/19 15:11:00 EST, Height, 93.5, kg, 06/09/18 7:28:00 EST, Dry Weight Start Date: 06/19/19 Status: Ordered Pen [place], 31 G x 5 mm BD Ultra [...] 02/15/18 10:34:26 EDT, Route to Pharmacy Electronically, [id number], [facility]/pharmacy #[id number] Start Date: 02/15/18 Status: Ordered Suboxone 8 mg-2 mg sublingual film 1.5 each, Sublingual, Daily, 0 Refills, Maintenance, 11/15/16 21:05:59 Start Date: 11/15/16 Status: Ordered traZODone 50 mg oral tablet 50 mg, 1, tablet, By Mouth, Daily at bedtime, Chronic insomnia, # 90 tablet, Refills 1, Tot. Refills 1, Maintenance, 01/09/20 13:07:00 EDT, Route to Pharmacy Electronically, [facility]/pharmacy #2339, 185.7, cm, 10/18/19 9:18:00 EDT, [...]
--- OUTSIDE RECORDS SUMMARY | 2023-09-23 09:58 | XMS_ITS | Continuity of Care Document ---
Author Organization [facility] Adult Address [address] [place] [address]- Care Team Providers Care Title I Teacher Name Role Phone Yessenia ROSALES, Chelly Primary Care Physician [facility] Date(s): 04/24/23 - 05/24/23 [facility] [address] [place] [address]- Allergies, Adverse Reactions, Alerts Substance Reaction Severity [...] (IM) (oldterm) 9 01/08/09 Given 1Result Comment: [id number] 2Result Comment: [facility]: [id number] 3Result Comment: [facility] [phone] 4Result Comment: [facility] [id number] 5Admin Note: VIS given 7.2.12 Questionaire completed and reviewed. 6Admin Note: Health Form given, dated 11/10/10 7Admin Note: VIS dated 08/01/09 given 8Admin Note: VIS given dated 03/05/08 9Admin Note: [employer] [id number] formula Medications aspirin 81 mg oral tablet 1 tablet = 81 mg, By Mouth, Daily, # 30 tablet, 0 Refills, Maintenance, 01/07/19 7:10:11 EDT Start Date: 01/07/19 Status: Ordered atorvastatin 10 mg oral tablet 1 tablet, By Mouth, Daily, # 90 tablet, 1 Refills, [id number], 185, cm, 10/16/21 14:13:00 EDT,Height Start Date: 10/18/21 Status: Ordered Baqsimi Two Pack 3 mg nasal powder = 3 mg, Naris, Left, Once, to use for hypoglycimic emergency, # 1 each, 0 Refills, Soft Stop, 10/20/22 11:52:00 EDT, [facility] #[id number], Partial fill upon patient request if the prescriptionis for a schedule II opioid drug., 186, cm, ... Start Date: 10/20/22 Status: Ordered DEXCOM G7 CERTIFIED CONTROL SYSTEMS TECHNICIAN DEXCOM G7 CERTIFIED CONTROL SYSTEMS TECHNICIAN, See Instructions, # 1 each, Refills [...] 22:35:00 EDT, Route to Pharmacy Electronically, [facility]/pharmacy #[id number], 185, cm, 10/16/21 14:13:00 EDT, Height Start Date: 10/25/21 Status: Ordered Humalog Kwik Pen 100 units/mL subcutaneous injection See Instructions, take 2-11 units up to 5x a day before meals per sliding scale and for correction.E 10.9 max total daily dose if 50 units, # 30 mL, 11 Refills, Maintenance, 05/23/23 14:19:00 EST, [facility] #[id number], 186, cm, 03/04/23 11:21:... Start Date: 05/23/23 Status: Ordered Lantus Solostar Pen 100 units/mL subcutaneous solution See Instructions, Inject 32 units daily in the am E10.9, # 30 mL, 11 Refills, Maintenance, 05/23/2413:19:00 EST, [facility] #[id number], 186, cm, 03/04/23 11:21:00 EST, Height, 80, [...] Team Personnel Name: Lynda Smith RN Position: [facility] RN Member Role: Primary Care Nurse Name: Lucina Castillo RN Position: S RN Member Role: Primary Care Nurse Name: Yessenia ROSALES, Chelly Position: [facility] Physician - Primary Care Member Role: PCP Address: Address: [address] [place] [id number] Name: Rosie Rowell RN Position: [facility] RN Member Role: Primary Care Nurse Care Team Related Persons Name: INGRIS TONEY Address: home [address] [place] [address] Name: IRENE TONEY Address: home [address] [address] Name: IRENE BLANTON Address: [address] [address]
--- OUTSIDE RECORDS SUMMARY | 2023-09-23 10:04 | XMS_ITS | Continuity of Care Document ---
Author Organization [facility] Address [address] [place] [address]- Care Team Providers Care Sheep Farmer Name Role Phone Chelly Casas MD Primary Care Physician [phone] Encounter [facility] Date(s): 02/14/23 - 02/21/23 [facility] [address] [place] [address]- Encounter Diagnosis Annual physical exam(Discharge Diagnosis) - 02/14/23 Diabetes mellitus, type 2(Discharge Diagnosis) - 02/14/23 Hyperlipidemia associated with type 2 diabetes mellitus(Discharge Diagnosis) - 02/14/23 Hypertension associated with diabetes(Discharge Diagnosis) - 02/14/23 Major depression, recurrent(Discharge Diagnosis) - 02/14/23 Dizziness(Discharge Diagnosis) - 02/14/23 Nocturia(Discharge Diagnosis) - 02/14/23 Decreased dorsalis pedis pulse(Discharge Diagnosis) - 02/14/23 Weight loss(Discharge Diagnosis) - 02/14/23 Attending Physician: Chelly Casas MD Allergies, Adverse [...] 02/26/15 Give n influenza virus vaccine, inactivated 9/19/14 Give n influenza virus vaccine, inactivated 02/02/13 [...] (IM) (oldterm) 9 01/08/09 Given 1Result Comment: [id number] 2Result Comment: [facility]: [id number] 3Result Comment: [facility] [phone] 4Result Comment: [facility] [id number] 5Admin Note: VIS given 7.2.12 Questionaire completed and reviewed. 6Admin Note: Health Form given, dated 11/10/10 7Admin Note: VIS dated 08/01/09 given 8Admin Note: VIS given dated 03/05/08 9Admin Note: [employer] [id number] formula Medications aspirin 81 mg oral tablet 1 tablet = 81 mg, By Mouth, Daily, # 30 tablet, 0 Refills, Maintenance, 01/07/19 7:10:11 EDT Start Date: 01/07/19 Status: Ordered atorvastatin 10 mg oral tablet 1 tablet, By Mouth, Daily, # 90 tablet, 1 Refills, [facility], 185, cm, 10/16/21 14:13:00 EDT,Height Start Date: 10/18/21 Status: Ordered Baqsimi Two Pack 3 mg nasal powder = 3 mg, Naris, Left, Once, to use for hypoglycimic emergency, # 1 each, 0 Refills, Soft Stop, 10/20/22 11:52:00 EDT, [facility] #[id number], Partial fill upon patient request if the prescriptionis for a schedule II opioid drug., 186, cm, ... Start Date: 10/20/22 Status: Ordered DEXCOM G7 DIRECTOR PHONE DEXCOM G7 DIRECTOR PHONE, See Instructions, # 1 each, Refills 0, [...] to Pharmacy Electronically, [facility]/pharmacy #4061, 185, cm, 10/16/21 14:13:00 EDT, Height Start Date: 10/25/21 Status: Ordered Humalog Kwik Pen 100 units/mL subcutaneous injection See Instructions, take 2-11 units up to 5x a day before meals per sliding scale and for correction.E 10.9 max total daily dose if 50 units, # 30 mL, 11 Refills, Maintenance, 04/26/22 12:49:00 EST, [facility] #75090, 187, cm, 03/05/22 11:45:... Start Date: 04/26/22 Status: Ordered Lantus Solostar Pen 100 units/mL subcutaneous solution See Instructions, Inject 32 units daily in the am E10.9, # 30 mL, 11 Refills, Maintenance, 02/15/2210:57:00 EDT, [facility] #72207, 187, cm, 02/15/22 10:31:00 EDT, Height, 88.5, [...] 09/01/22 12:51:00 EDT, Route to Pharmacy Electronically, [facility] #[id number], 186, cm, 04... Start Date: 09/01/22 Stop Date: 02/28/23 Status: Ordered Problem List Condition Confirmation Course Effective Dates Status H ealth Status Informant Hyperlipidemia associated with type 2 diabetes mellitus Confirmed Active Hypertension associated with diabetes Confirmed Active Hepatic lesion Confirmed Active Major depression, recurrent Confirmed Active Diabetes mellitus, type 2 Confirmed Active Diagnosis Diagnosis Type Effective Dates Health Status Clinical Service Informant Annual physical exam Discharge Diagnosis 02/14/23 Diabetes mellitus, type 2 Discharge Diagnosis 02/14/23 Hyperlipidemia associated with type 2 diabetes mellitus Discharge Diagnosis 02/14/23 Hypertension associated with diabetes Discharge Diagnosis 02/14/23 Major depression, recurrent Discharge Diagnosis 02/14/23 Dizziness Discharge Diagnosis 02/14/23 Nocturia Discharge Diagnosis 02/14/23 Decreased dorsalis pedis pulse Discharge Diagnosis 02/14/23 Weight loss Discharge Diagnosis 02/14/23 Vital Signs Most recent to oldest [Reference Range]: 1 Height 186 cm (02/14/23 9:16 AM) Weight 79.2 kg (02/14/23 9:16 AM) Oxygen Saturation [94-100 %] 97 % (02/14/23 9:16 AM) Pulse Rate [55-90 bpm] 90 bpm (02/14/23 9:16 AM) Body Mass Index [18.5-24.99 kg/m2] 22.89 kg/m2 (02/14/23 9:16 AM) Blood Pressure [90-138/55-84 mm Hg] 98/6 1mm Hg (02/14/23 9:16 AM) Temperature [96.8-100.4 DegF] 98.7 DegF (02/14/23 9:16 AM) Mode of Delivery (Oxygen) Room air (02/14/23 9:16 AM) Blood pressure sites Arm, right (02/14/23 9:16 AM) Temperature Route Oral (02/14/23 9:16 AM) Weight Obtained Via Standing scale (02/14/23 9:16 AM) Social History Social History Type Response Smoking Status 10 or more cigarette s (1/2 pack or more)/day in last 30 days; Use: SMOKES MARIJUANA DAILY; Other: 30 pack yr history; entered on: 12/16/21 Sex Note * Lonnie Bravo: PERFORM, SIGN, VERIFY Event Display: Patient Education/Instruction Authored Date: [id number] [facility] *[facility] [place] [facility] Clinical Summary Name MERLE TONEY Age 58 Years 1965 PCP Yessenia ROSALES, Chelly PCP Visit Date 02/14/2023 09:14:00 Additional Instructions: Scheduled Appointments?? Future Appointments ?*[facility]??Endocrine ?[address]??[place],??[place],??[address] ?Phone:??--?Fax:??-- ?Appt. Date:??03/04/2023?1:25 PM ?Scheduled Provider:??Sofia Jon MD Follow-Up Instructions ?? With: Address: When: Chelly Casas MD 02/14/2023 12:00 AM Comments: fu 3 months annual 1 yr Diagnosis Encounter for general adult medical examination without abnormal findings; Type 2 diabetes mellituswithout complications; Nocturia; Type 2 diabetes mellitus with other circulatory complications; Dizziness and giddiness; Type 2 diabetes mellitus with other specified complication; Major depressive disorder, recurrent, unspecified Medications: Please continue your medications until treatment is completed or stopped by your provider. Discuss any questions related to medications with your provider. Medications to Continue with No Changes These medications were not printed or sent to your pharmacy Amlodipine (amLODIPine 5 mg oral tablet) 1 tab(s) Oral Daily for 90 Days. Refills: 1. Next Dose: Aspirin (aspirin 81 mg oral [...] Next Dose: Durable Medical Equipment (DEXCOM G7 DIRECTOR PHONE) Use to monitor blood lgucose levels E10.9. [...] tab(s) Oral Daily. Refills: 1. Next Dose: Trazodone (traZODone 50 mg oral tablet) 1 tab(s) Oral Daily at Bedtime for 90 Days. INSTR:CHRONIC INSOMNIA. Refills: 1. Next Dose: Allergy Info:?? losartan; enalapril Medications Given This Visit Future Orders ?CBC? Order Date:02/14/23?- Complete on or after?02/14/23 ?Comprehensive Metabolic Panel? Order Date:02/14/23?- Complete on or after?02/14/23 ?Hemoglobin A1C (Monitoring)? Order Date:02/14/23?- Complete on or after?02/14/23 ?Microalbumin Urine? Order Date:02/14/23?- Complete on or after?02/14/23 ?Lipid Panel? Order Date:02/14/23?- Complete on or after?02/14/23 ?PSA? Order Date:02/14/23?- Complete on or after?02/14/23 Vital Signs Height 186 cm Weight 79.2 kg BMI 22.89 kg/m2 Blood Pressure 98 mm Hg/61 mm Hg Temperature 98.7 DegF Pulse Rate 90 bpm Respiratory Rate 02 Sat Mode of Delivery 97 %/Room air You can now view a summary of your hospital visit from the comfort of your home through a free online portal called [employer]. [employer] is a website that allows you to securely view your medical information including discharge summary, medications and follow-up visits. ??You can alsosend a secure electronic message to your doctor???s office to request appointments, renew medications or just ask a question. You can enroll at [email or web address] or register during your next office visit. [...] primary care provider, you may find a [facility] provider by calling [facility] Link at [phone]. [facility], in keeping with [facility] guidance, no longer requires face masks for [...] Primary Care Member Role: PCP Address: Address: [address] [place] [address] [address] [place], [place] [address] Name: Rosie Rowell RN Position: S RN Member Role: Primary Care Nurse Care Team Related Persons Name: INGRIS TONEY Address: home [address] [place] [address] Name: IRENE TONEY Address: [address] [address] Name: IRENE BLANTON Address: [address] [address]
--- OUTSIDE RECORDS SUMMARY | 2023-09-23 10:04 | XMS_ITS | Continuity of Care Document ---
Author Organization [facility] Adult Address [address] [place] [address]- Care Team Providers Care Telecommunications Operator Name Role Phone Yessenia ROSALES, Chelly Primary Care Physician [phone] En[place] [facility] [id number] Date(s): 05/10/22 - 07/03/22 [facility] [address] [place] [address]- Attending Physician: Chelly Casas MD Allergies, Adverse [...] (IM) (oldterm) 8 01/08/09 Given 1Result Comment: [facility]: [id number] 2Result Comment: [facility] [phone] 3Result Comment: [facility] [id number] 4Admin Note: VIS given 7.2.12 Questionaire completed and reviewed. 5Admin Note: Health Form given, dated 11/10/10 6Admin Note: VIS dated 08/01/09 given 7Admin Note: VIS given dated 03/05/08 8Admin Note: [employer] [id number] formula Medications amLODIPine 5 mg oral tablet 5 mg, 1, tablet, By Mouth, Daily, # 90 tablet, Refills 1, Tot. Refills 1, Maintenance, 06/07/22 15:31:00 EST, Route to Pharmacy Electronically, [facility] #[id number], Partial fill upon patient request if the [...] Mouth, Daily, # 90 tablet, 1 Refills, [facility] 67023, 185, cm, 10/16/21 14:13:00 EDT,Height Start Date: [...] Maintenance,10/25/21 22:35:00 EDT, Route to Pharmacy Electronically, [facility]/pharmacy #2339, 185, cm, 10/16/21 14:13:00 EDT, Height Start Date: 10/25/21 Status: Ordered Humalog Kwik Pen 100 units/mL subcutaneous injection See Instructions, take 2-11 units up to 5x a day before meals per sliding scale and for correction.E 10.9 max total daily dose if 50 units, # 30 mL, 11 Refills, Maintenance, 04/26/22 12:49:00 EST, [facility] #10668, 187, cm, 03/05/22 11:45:... Start Date: 04/26/22 Status: Ordered Lantus Solostar Pen 100 units/mL subcutaneous solution See Instructions, Inject 32 units daily in the am E10.9, # 30 mL, 11 Refills, Maintenance, 02/15/2210:57:00 EDT, [facility] #97307, 187, cm, 02/15/22 10:31:00 EDT, Height, 88.5, kg, 12/16/21 3:29:00 EDT, Dry Weight Start Date: 02/15/22 Status: Ordered pantoprazole 40 mg oral delayed release tablet 1 tablet, By Mouth, Daily, # 90 tablet, 0 Refills, Maintenance, 06/07/22 16:15:00 EST, 187, cm, 03/05/22 11:45:00 EST, Height, 88.5, kg, 12/16/21 3:29:00 EDT, Dry Weight Start Date: 06/07/22 Status: Ordered Pen [place], 31 G x 5 mm BD Ultra [...] 03/05/22 12:47:00 EST, Route to Pharmacy Electronically, [facility] #12993, 187, cm, 11... Start Date: 03/05/22 Stop [...] Physician Member Role: PCP Address: Address: [address] [place] [address] [address] [place], [place] [address] Name: Rosie Rowell RN Position: S RN Member Role: Primary Care Nurse Care Team Related Persons Name: INGRIS TONEY Address: home [address] [place] [address] Name: IRENE TONEY Address: [address] [address] Name: IRENE BLANTON Address: [address] [address]
== END 2023-09-21 10:54 | disposition left against medical advice (07) | DRG 420 ==
LOC: HO.ED 09-21 02:33 → HO.EDOVER 09-21 05:22
PROVIDERS: Emergency Medicine; Physician Assistant; Admitting Provider Student in an Organized Health Care Education/Training Program; Emergency Provider Internal Medicine; PCP Internal Medicine; Visit Provider Internal Medicine
DX: E11.10 Type 2 diabetes mellitus with ketoacidosis without coma (principal); N17.9 Acute kidney failure, unspecified; F11.20 Opioid dependence, uncomplicated; I10 Essential (primary) hypertension; M54.50 Low back pain, unspecified; N40.0 Benign prostatic hyperplasia without lower urinary tract symptoms; Z20.822 Contact with and (suspected) exposure to COVID-19; Z79.4 Long term (current) use of insulin; Z79.899 Other long term (current) drug therapy
CPT/HCPCS: 0241U; 36415; 71250; 72132; 80048; 80053; 80307; 81001; 82010; 82803; 82947; 83605; 83735; 84484; 85025; 85379; 85610; 85652; 86140; 87040; 93005; 99285; J0696; J1650; J1885

== ENCOUNTER → 2023-09-20 13:14 | Outpatient (BNV) | payer OTHER, SELFPAY | PROVIDERS: Emergency Provider Internal Medicine; PCP Internal Medicine; Visit Provider Internal Medicine Cardiovascular Disease | DX: I49.9 Cardiac arrhythmia, unspecified (principal) | CPT/HCPCS: 93010 ==

== ENCOUNTER → 2023-09-21 05:16 | Outpatient (BNV) | payer OTHER, SELFPAY | PROVIDERS: Admitting Provider Student in an Organized Health Care Education/Training Program; Emergency Provider Internal Medicine; PCP Internal Medicine; Visit Provider Student in an Organized Health Care Education/Training Program | DX: E11.10 Type 2 diabetes mellitus with ketoacidosis without coma (principal); N17.9 Acute kidney failure, unspecified | CPT/HCPCS: 99236; 99499 ==

== ENCOUNTER 2023-12-16 13:39 | Outpatient (AMB) | payer OTHER, SELFPAY ==
--- NOTE | 2023-12-16 13:49 | MHC.OFFVIS ---
Intake Visit Reasons: 6M Med Review(No psa done) Intake Note: Patient is Present for Follow Up Med Review/PVR Urology Medication:Oxybutynin, Doxazosin Antibiotic Allergies:None Blood Thinners: None Last PVR: 0 Today PVR: 65 No Recent PSA Last PSA- 0.53 (2021) Marina Sales And Service Supervisor: Marina Sales And Service Supervisor Present Accompanied by: Self / Same As Patient Allergies enalapril [ENALAPRIL] Allergy (Intermediate, Verified 12/16/23 13:55) STOMACH PROBLEMS HPI Comments Details: Aleshia is a pleasant male. He is a patient of Dr Casas. He is seen for the following urologic conditions - recurrent prostatitis - lower urinary tract symptoms - OAB - erectile dysfunction Remains on combination doxazosin with oxybutynin Effective bladder emptying with PVR 0 Minimal issues with erections after increasing walking distance Continue medications Twelve month follow-up Recurrent prostatitis Seen in emergency room March 2021 E coli Bactrim resistant diagnosis Responded to Levaquin Prior episodes in 2009 Lower urinary tract symptoms Progressive obstructive symptoms Gradual weakness of stream for past 2-3 years Current medications include doxazosin Cystoscopy 02/06 open prostate, trabeculated bladder with cellules PSA 08/07 0.5 Urinary urgency and frequency respond to combination doxazosin and oxybutynin Erectile dysfunction associated with diabetes Longstanding diabetic Tadalafil 10 mg PFSH Medical History Back pain Arthritis HTN (hypertension) Diabetes Surgical History History of incision and drainage (10/23/21) History of detached retina repair History of arthroplasty of right knee Social History Alcohol intake: unknown Patient Tobacco Use Status: Tobacco use Unknown Substance Use Type: Marijuana Review of Systems Const Denies chills and Denies fever(s) Card Reports no additional complaints and Denies syncope Resp Denies cough GI Denies abdominal pain and Denies heartburn Reports as per HPI and Denies change in libido Neuro Denies syncope Psych Denies change in libido Endo Denies change in libido Physical Exam Const General: cooperative, healthy appearing, comfortable and no acute distress Orientation/consciousness: patient oriented x3 HEENT Face and sinus: Yes normal facial exam Mouth: moist mucous membranes Neck Neck: Yes normal visual inspection, Yes full ROM and Yes trachea midline Chest Chest palpation & inspection: normal inspection of the chest Resp Effort & Inspection: normal respiratory effort, able to speak in complete sentences and no respiratory distress GI Inspection: Yes normal to inspection Back/Spine/Pelvis Cervical Spine: normal cervical lordosis Thoracic/Lumbar Spine: thoracic and lumbar spine normal to inspection Skin General skin exam: no rashes or lesions noted Neuro General: patient oriented x3, gait normal, tone normal and moves all extremities Extrem General: Yes normal to inspection and Yes capillary refill normal Office Procedures Post Void Residual Post Residual Void Post Void Residual (PVR): 65 [id number] Void Residual by ultrasound Assessment & Plan Assessment & Plan (1) Erectile dysfunction associated with type 2 diabetes mellitus: Code(s): E11.69 - Type 2 diabetes mellitus with other specified complication; N52.1 - Erectile dysfunction due to diseases classified elsewhere Category: Medical (2) Nocturia more than twice per night: Code(s): R35.1 - Nocturia Category: Medical (3) BPH w urinary obs/LUTS: Code(s): N40.1 - Benign prostatic hyperplasia with lower urinary tract symptoms; N13.8 - Other obstructive and reflux uropathy Category: Medical Plan Twelve month follow-up Orders: Orders AMB Post Void Residual by ultrasound Today N13.8 - Other obstructive and reflux uropathy, N40.1 - Benign prostatic hyperplasia with lower urinary tract symptoms Medications: Changed From oxybutynin chloride ER 10 mg PO DAILY To oxybutynin chloride ER 10 mg PO DAILY 90 days 90 tabs 3RF Refilled doxazosin 4 mg PO BEDTIME 90 days 90 tabs 3RF N13.8 - Other obstructive and reflux uropathy, N40.1 - Benign prostatic hyperplasia with lower urinary tract symptoms, N41.9 - Inflammatory disease of prostate, unspecified Patient Instructions: Imaging studies, laboratory and physical exam results were discussed and reviewed in detail. No major barriers to patient understanding were identified. An opportunity to ask questions regarding the treatment plan was provided. All questions were answered. The patient expressed understanding and agreement with the above treatment plan. The patient is aware they should contact our office by phone for worsening of their current condition or the appearance of new urologic symptoms. Compliance is encouraged with any medications and followup testing that is ordered. It is a privilege to participate in the urologic care of your patient. If you have any questions or concerns regarding treatment for the above conditions, or other urologic issues, please do not hesitate to contact me. The office telephone contact is [phone]. This note is constructed using voice recognition software. While every effort has been made to ensure accuracy media theorist and author of errors may have been included. Yours sincerely, Dr Henry Becerra MD, [facility] - Urology Providers of Expert, Compassionate Care for the Genitourinary System Coding Level of Care Code Est Pt Level 3 (55018) Diagnoses Erectile dysfunction associated with type 2 diabetes mellitus E11.69; N52.1 Nocturia more than twice per night R35.1 BPH w urinary obs/LUTS N40.1; N13.8 CPT Codes Post Residual Void - PVR CPT Code: 13674-Dguj Void Residual by ultrasound ([id number])
== END 2023-12-16 14:16 | disposition home or self-care (01) ==
PROVIDERS: PCP Internal Medicine; Visit Provider Urology
DX: E11.69 Type 2 diabetes mellitus with other specified complication (principal); N52.1 Erectile dysfunction due to diseases classified elsewhere; N40.1 Benign prostatic hyperplasia with lower urinary tract symptoms; R35.1 Nocturia; N13.8 Other obstructive and reflux uropathy
CPT/HCPCS: 99213

== ENCOUNTER → 2023-12-16 13:39 | Outpatient (BNVA) | payer OTHER, SELFPAY | PROVIDERS: PCP Internal Medicine; Visit Provider Urology | DX: E11.69 Type 2 diabetes mellitus with other specified complication (principal); N52.1 Erectile dysfunction due to diseases classified elsewhere; N40.1 Benign prostatic hyperplasia with lower urinary tract symptoms; N13.8 Other obstructive and reflux uropathy; N41.9 Inflammatory disease of prostate, unspecified; Z79.899 Other long term (current) drug therapy | CPT/HCPCS: 51798; 99212 ==